=== PATIENT | female | born 1950 | race African-American/Black ===

== ENCOUNTER → 2018-04-16 09:41 | Outpatient (CLI) | payer MEDICARE, OTHER, SELFPAY ==
--- NOTE | 2018-04-16 | DI.MG.S_ITS ---
BILATERAL DIGITAL SCREENING MAMMOGRAM 3D/2D WITH CAD: 04/16/2018 CLINICAL: Routine screening. Comparison is made to exams dated: 11/21/2016 mammogram, 10/22/2015 mammogram - [facility], and 03/18/2013 mammogram - [facility]. There are scattered fibroglandular elements in both breasts. Current study was also evaluated with a Computer Aided Detection (CAD) system. No significant masses, calcifications, or other findings are seen in either breast. There has been no significant interval change. IMPRESSION: NEGATIVE There is no mammographic evidence of malignancy. A 1 year screening mammogram is recommended. This exam was interpreted at Station ID: [id number]. NOTE: For mammograms, a report in lay terms will be sent to the patient. Approximately 15% of breast malignancies will not be visualized mammographically. In the management of a palpable breast mass, a negative mammogram must not discourage biopsy of a clinically suspicious lesion. Electronically Signed By: Anitra nunez/julita:04/16/2018 11:56:52 letter sent: Normal Exam ACR BI-RADS Category 1: Negative 3341F
== END ==
PROVIDERS: Family Provider Internal Medicine; PCP Internal Medicine; Visit Provider Internal Medicine
DX: Z12.31 Encounter for screening mammogram for malignant neoplasm of breast (principal)
CPT/HCPCS: 77063; 77067

== ENCOUNTER → 2019-04-18 11:36 | Outpatient (CLI) | payer MEDICARE, OTHER, SELFPAY ==
--- NOTE | 2019-04-18 | DI.MG.S_ITS ---
BILATERAL DIGITAL SCREENING MAMMOGRAM 3D/2D WITH CAD: 04/18/2019 CLINICAL: Routine screening. Family history of breast cancer. Comparison is made to exams dated: 04/16/2018 mammogram, 11/21/2016 mammogram, 10/22/2015 mammogram - [facility], 03/18/2013 mammogram, 03/29/2012 mammogram, and 03/29/2010 mammogram - [facility]. There are scattered fibroglandular elements in both breasts. Current study was also evaluated with a Computer Aided Detection (CAD) system. No significant masses, calcifications, or other findings are seen in either breast. There has been no significant interval change. IMPRESSION: NEGATIVE There is no mammographic evidence of malignancy. A 1 year screening mammogram is recommended. This exam was interpreted at Station ID: [id number]. NOTE: For mammograms, a report in lay terms will be sent to the patient. Approximately 15% of breast malignancies will not be visualized mammographically. In the management of a palpable breast mass, a negative mammogram must not discourage biopsy of a clinically suspicious lesion. Electronically Signed By: Nicholas herrera/julita:04/21/2019 13:21:58 letter sent: Normal Exam ACR BI-RADS Category 1: Negative 3341F
== END ==
PROVIDERS: Family Provider Internal Medicine; PCP Internal Medicine; Visit Provider Internal Medicine
DX: Z12.31 Encounter for screening mammogram for malignant neoplasm of breast (principal); Z80.3 Family history of malignant neoplasm of breast
CPT/HCPCS: 77063; 77067

== ENCOUNTER → 2019-05-03 15:40 | Outpatient (CLI) | payer MEDICARE, OTHER, SELFPAY ==
--- NOTE | 2019-05-03 | DI.RAD.S_ITS ---
PROCEDURE: XR LUMBAR SPINE 2-3V INDICATIONS: Low Back Pain TECHNIQUE: 3 views of the lumbar spine were acquired. COMPARISON: None. FINDINGS: Bones: There are 5 lumbar-type vertebral bodies. The lowest intervertebral disk space is designated as L5-S1. The vertebral body heights are well-maintained without evidence to suggest an acute compression fracture. The bone mineralization appears to be somewhat increased and heterogeneous, which may be exaggerated by the degree of degenerative changes. On the lateral view there is grade 1 anterolisthesis of L4 on L5 approximately 2-3 mm. No definite pars defects are evident. Moderate to severe multilevel degenerative changes of the lumbar spine are primarily evident involving the lower lumbar facet joints. Prominent disc height loss with vacuum phenomenon is evident at L4-5 and L5-S1. Scattered disc osteophyte complexes are present. Soft tissues: A large amount of stool is seen throughout the colon. There are clips within right upper quadrant suggesting prior cholecystectomy. Otherwise, the soft tissues of the imaged abdomen and pelvis are within normal limits. IMPRESSION: 1. Moderate to severe degenerative changes of the lumbar spine are more prominent involving the lower lumbar levels. 2. Grade 1 spondylolisthesis of L4 on L5. Dictated by: Andrew Ann M.D. on 05/03/2019 at 15:58 Approved by: Andrew Ann M.D. on 05/03/2019 at 16:00
== END ==
PROVIDERS: PCP Internal Medicine; Visit Provider Internal Medicine
DX: M54.5 Low back pain (principal); M47.816 Spondylosis without myelopathy or radiculopathy, lumbar region; M43.16 Spondylolisthesis, lumbar region
CPT/HCPCS: 72100

== ENCOUNTER → 2019-08-12 15:25 | Outpatient (CLI) | payer MEDICARE, OTHER, SELFPAY ==
--- NOTE | 2019-08-12 15:33 | DI.RAD.S_ITS ---
PROCEDURE: XR LUMBAR SPINE 2-3V INDICATIONS: BACK PAIN TECHNIQUE: 3 views of the lumbar spine were acquired. COMPARISON: [facility], CR, XR LUMBAR SPINE 2-3V, 05/03/2019, 16:24. FINDINGS: Bones: 5 [id number] vertebrae are present. Trace dextroscoliosis. Multilevel disc degeneration, moderate at L4-L5 and severe at the L5-S1 levels. Moderate lower lumbar spine facet joint arthropathy. No rounded lucency seen on the lateral view projected over the anterior column of the L3 vertebral body No vertebral body compression fractures. No suspicious bony lesions. Soft tissues: Overlying bowel gas pattern is normal. No suspicious soft tissue calcifications. IMPRESSION: 1. Multilevel spondylosis similar prior examination. 2. Rounded lucencies projected over the anterior column of the L2 vertebral body which may be related to overlying bowel gas; however punched out lytic bony lesion cannot be excluded. Recommend Repeat examination in one week and if the abnormality persists, recommend MRI or bone scan further assessment. Dictated by: Bhavik Anthony [facility] Interpreted: Park Hammonds MD on 08/12/2019 at 17:02 Approved by: Park Hammonds M.D. on 08/12/2019 at 17:14
--- NOTE | 2019-08-12 15:33 | DI.RAD.S_ITS ---
PROCEDURE: XR HIP W PEL IF DONE BILAT 2V INDICATIONS: BACK PAIN TECHNIQUE: AP pelvis with lateral view(s) of the right and left hip(s). COMPARISON: None. FINDINGS: Bones: No fractures or dislocations. Pelvic ring appears intact. No suspicious bony lesions. Moderate symmetric hip joint narrowing with periarticular osteophyte formation. Soft tissues: The visualized bowel gas pattern is normal. No suspicious soft tissue calcifications. IMPRESSION: Moderate symmetric hip joint degeneration. Dictated by: Bhavik Anthony [facility] Interpreted: Park Hammonds MD on 08/12/2019 at 17:06 Approved by: Park Hammonds M.D. on 08/12/2019 at 17:14
== END ==
PROVIDERS: PCP Internal Medicine; Referring Provider Internal Medicine; Visit Provider Internal Medicine
DX: M54.5 Low back pain (principal); M47.816 Spondylosis without myelopathy or radiculopathy, lumbar region; M47.817 Spondylosis without myelopathy or radiculopathy, lumbosacral region; M16.0 Bilateral primary osteoarthritis of hip
CPT/HCPCS: 72100; 73521

== ENCOUNTER → 2019-08-25 14:53 | Outpatient (CLI) | payer MEDICARE, OTHER, SELFPAY ==
--- NOTE | 2019-08-25 | DI.RAD.S_ITS ---
PROCEDURE: XR LUMBAR SPINE 2-3V INDICATIONS: low back pain TECHNIQUE: 2 views of the lumbar spine were acquired. COMPARISON: [facility], , XR LUMBAR SPINE 2-3V, 08/12/2019, 15:39. FINDINGS: Bones: No fracture or focal osseous destruction. Multilevel degenerative endplate sclerosis and spurring. Diffuse facet arthropathy. Grade 1 anterolisthesis of L3 on L4 and grade 2 anterolisthesis of L5 on S1. Severe narrowing of the L4-L5 and L5-S1 disc space. Moderate narrowing of the L3-L4 disc space. Lower thoracic discogenic change. Dextroscoliosis. Soft tissues: Overlying bowel gas pattern is normal. No suspicious soft tissue calcifications. IMPRESSION: Multilevel spondylolisthesis as above, which has progressed L4-L5 since the prior study. Lower lumbar spondylosis and facet degeneration, unchanged Dictated by: William Evans M.D. on 08/25/2019 at 17:20 Approved by: William Evans M.D. on 08/25/2019 at 17:22
== END ==
PROVIDERS: PCP Internal Medicine; Referring Provider Internal Medicine; Visit Provider Internal Medicine
DX: M54.5 Low back pain (principal); M47.816 Spondylosis without myelopathy or radiculopathy, lumbar region; M43.17 Spondylolisthesis, lumbosacral region; M43.16 Spondylolisthesis, lumbar region
CPT/HCPCS: 72100

== ENCOUNTER → 2019-12-15 12:40 | Outpatient (CLI) | payer MEDICARE, OTHER, SELFPAY | PROVIDERS: PCP Internal Medicine; Referring Provider Internal Medicine; Visit Provider Internal Medicine | DX: M54.5 Low back pain (principal); Z53.20 Procedure and treatment not carried out because of patient's decision for unspecified reasons ==

== ENCOUNTER 2022-05-22 16:43 | Emergency (ER) | payer MEDICARE, OTHER, SELFPAY ==
[2022-05-24 10:00] VITALS: RESP 0
[2022-05-26 23:12] VITALS: BMI 43.3
[2022-05-27 12:50] VITALS: PULSE 72; RESP 20; O2SAT 97
== END 2022-05-22 23:55 | disposition admitted as inpatient to this hospital (09) ==
LOC: ED 07-27 15:51
PROVIDERS: Emergency Provider Emergency Medicine
DX: J96.01 Acute respiratory failure with hypoxia (principal); I26.99 Other pulmonary embolism without acute cor pulmonale; I50.9 Heart failure, unspecified; R77.8 Other specified abnormalities of plasma proteins; Z20.822 Contact with and (suspected) exposure to COVID-19
CPT/HCPCS: 0241U; 31500; 36415; 36569; 36600; 71045; 71275; 80048; 80053; 81001; 82550; 82805; 83605; 83690; 83735; 83880; 84100; 84145; 84484; 85025; 85027; 85379; 85610; 85730; 87040; 87070; 87086; 87205; 93005; 93010; 93306; 96365; 96366; 96375; 96376; 99291; J1644; J1940; Q9967

== ENCOUNTER 2022-05-22 16:43 | Inpatient (IN) | payer MEDICARE, OTHER, SELFPAY ==
[2022-05-22] VITALS (25 sets, daily range): BP systolic 127–171; BP diastolic 62–119; PULSE 97–107; RESP 18–39; TEMP 36.6; O2SAT 90–100; BMI 42.4
--- NOTE | 2022-05-22 17:01 | DI.RAD.S_ITS ---
PROCEDURE: XR CHEST 1V INDICATIONS: chest pain TECHNIQUE: One view of the chest was acquired. COMPARISON: None. FINDINGS: Surgical changes and devices: None. Lungs and pleura: Low lung volumes. [id number] bilateral opacities and effusions. Mediastinum: Heart borders are obscured. Bones and chest wall: No suspicious bony lesions. Overlying soft tissues appear unremarkable. IMPRESSION: [id number] bibasilar opacities and effusions. Consider future imaging surveillance to assess for resolution. Dictated by: Candelario Garcia M.D. on 05/22/2022 at 19:07 Approved by: Candelario Garcia M.D. on 05/22/2022 at 19:07
[2022-05-22 18:01] LABS: INR 1.2 (0.9-1.3); Prothrombin Time 13.6 SECONDS (10.1-12.7)
[2022-05-22 18:04] LABS: PTT Partial Thromboplastin Tim 27 SECONDS (26-36)
--- NOTE | 2022-05-22 18:06 | ED.SOB ---
HPI - SOB/Dyspnea <William Turcios, DO - Last Filed: 05/26/22 01:55> General Chief Complaint: Shortness of Breath/Dyspnea Stated Complaint: difficulty breathing Time Seen by Provider: 05/22/22 18:04 Source: patient Mode of arrival: Wheelchair Limitations: no limitations History of Present Illness HPI Narrative: 72-year-old female nonsmoker with history of hypertension and diabetes presents with her in the chief complaint of about 7 days of increasing shortness of breath and fatigue. She states that she is become short of breath with minimal exertion and can no longer lie flat. She noticed lower extremity swelling as well. She denies runny nose, sore throat or cough. She is had no fever or chills. She denies any chest pain pressure, lightheadedness or other obvious cardiac equivalent. She denies recent travel, history of blood clot or known cancer. She denies any change in her medications or diet. She denies any cardiac history or history of heart failure. Related Data Home Medications Medication Instructions Recorded Confirmed gabapentin 300 mg capsule 300 mg PO TID ##0 02/07/17 (Neurontin) hydrochlorothiazide 25 mg tablet 50 mg PO QDAY ##0 02/07/17 metformin 500 mg tablet,extended 500 mg PO TID ##0 02/07/17 release 24 hr (Glucophage XR) metoprolol tartrate 25 mg tablet 25 mg PO BID ##0 02/07/17 telmisartan 80 mg tablet (Micardis) 80 mg PO QDAY ##0 02/07/17 acetaminophen 325 mg tablet 650 mg PO TID 05/22/22 05/22/22 (Tylenol) gabapentin 100 mg capsule 100 mg PO TID PRN Pain (Scale 05/22/22 05/22/22 Score 4-6) gabapentin 300 mg capsule 300 mg PO TID PRN Pain (Scale 05/22/22 05/22/22 Score 4-6) gabapentin 600 mg tablet 600 mg PO TID 05/22/22 05/22/22 hydrochlorothiazide 12.5 mg tablet 12.5 mg PO QAM 05/22/22 05/22/22 hydrochlorothiazide 12.5 mg tablet 12.5 mg PO QAM 05/22/22 05/22/22 metformin 500 mg tablet 500 mg PO TID 05/22/22 05/22/22 metoprolol tartrate 25 mg tablet 25 mg PO BID 05/22/22 05/22/22 multivitamin with minerals 1 tab PO DAILY 05/22/22 05/22/22 rosuvastatin 5 mg tablet See Rx Instructions .Route .COMPLEX 05/22/22 05/22/22 telmisartan 40 mg tablet 40 mg PO QAM 05/22/22 05/22/22 Allergies Allergy/AdvReac Type Severity Reaction Status Date / Time adhesive tape [ADHESIVE TAPE] Allergy Intermediate RIPS KINOFF Verified 05/23/22 09:48 Review of Systems <William Turcios DO - Last Filed: 05/26/22 01:55> Review of Systems Narrative: GENERAL: See HPI HEENT: Denies sinus pain, ear pain, sore throat, difficulty swallowing, dizziness. RESPIRATORY: See HPI CARDIOVASCULAR: See HPI GASTROINTESTINAL: Denies nausea, vomiting, abdominal pain, diarrhea, constipation, melena. : Denies dysuria, frequency, incontinence, hematuria, urinary retention. MUSCULOSKELETAL: denies weakness, joint pain, or bony pain SKIN: Denies rash, skin lesions, or other NEUROLOGIC: Denies weakness, headache, numbness, change in speech, confusion, seizures, incoordination. PSYCHIATRIC: No concerning psychosocial issues. 12 point review of systems is negative except for those stated above Patient History <William Turcios DO - Last Filed: 05/26/22 01:55> Social History (System 05/23/22 @ 07:21 by Lady Rebecca Bartlett) household members: family Smoking Status: Unknown if ever smoked Smoking Status: Never smoker Substance Use Type: does not use Exam <William Turcios DO - Last Filed: 05/26/22 01:55> Narrative Exam Narrative: GENERAL: [72] year old patient appears stated age. Well-developed patient, in obvious distress, requiring 2 L by nasal cannula, room air saturations in the mid 80s. She does have conversational dyspnea HEAD: Atraumatic. Normocephalic. EYES: Pupils equal round and reactive. Extraocular motions intact. No scleral icterus. No injection or drainage. ENT: Nose without bleeding, purulent drainage. Throat without erythema, tonsillar hypertrophy or exudate. Airway patent. NECK: Trachea midline. Non tender CARDIOVASCULAR: Regular rate and rhythm without murmurs, gallops, or rubs. RESPIRATORY: Conversational dyspnea, minimal tachypnea, hypoxemia noted on room air, crackles in bilateral bases GASTROINTESTINAL: Abdomen soft, non-tender, nondistended. EXTREMITIES: 3+ pitting edema bilateral lower extremities BACK: Nontender without deformity or crepitance. No flank tenderness. NEURO: AOx3. SKIN: No rash or erythema of visible areas Initial Vital Signs Initial Vital Signs: Vital Signs Temperature 97.9 F 05/22/22 16:56 Pulse Rate 99 H 05/22/22 16:56 Respiratory Rate 18 05/22/22 16:56 Blood Pressure 153/79 H 05/22/22 16:56 Pulse Oximetry 90 L 05/22/22 16:56 Oxygen Delivery Method 05/22/22 16:56 <Jared Gaston DO - Last Filed: 05/26/22 17:30> Initial Vital Signs Initial Vital Signs: Vital Signs Temperature 97.9 F 05/22/22 16:56 Pulse Rate 99 H 05/22/22 16:56 Respiratory Rate 18 05/22/22 16:56 Blood Pressure 153/79 H 05/22/22 16:56 Pulse Oximetry 90 L 05/22/22 16:56 Oxygen Delivery Method 05/22/22 16:56 <Mirna Mason MD - Last Filed: 06/09/22 18:06> Initial Vital Signs Initial Vital Signs: Vital Signs Temperature 97.9 F 05/22/22 16:56 Pulse Rate 99 H 05/22/22 16:56 Respiratory Rate 18 05/22/22 16:56 Blood Pressure 153/79 H 05/22/22 16:56 Pulse Oximetry 90 L 05/22/22 16:56 Oxygen Delivery Method 05/22/22 16:56 <Gentry Peace MD - Last Filed: 05/30/22 05:24> Initial Vital Signs Initial Vital Signs: Vital Signs Temperature 97.9 F 05/22/22 16:56 Pulse Rate 99 H 05/22/22 16:56 Respiratory Rate 18 05/22/22 16:56 Blood Pressure 153/79 H 05/22/22 16:56 Pulse Oximetry 90 L 05/22/22 16:56 Oxygen Delivery Method 05/22/22 16:56 <Mirna Mason MD - Last Filed: 06/09/22 18:06> Central Line Placement Right : Time of procedure: 06:18 Time Out Performed: Yes Patient Placed on Monitor/Pulse Ox: Yes MD Prep: mask, gown and gloves Central Line Prep: Chlorhexidine scrub and sterile drapes applied Ultrasound Used for Placement: Yes Central Line Lumen Inserted: triple Post Procedure: sutured in place, good blood return, all ports aspirated, flushed, capped and sterile dressing applied Post Procedure X-Ray: no pneumothorax seen and other (catheter tip slightly low and catheter pulled out 2 cm) Intubation Time of Intubation: 06:19 Time out performed: Yes sedative: other (propofol) Mg Given: 200 paralytic: Succinylcholine Mg Given: 100 Assist Device Used: fiber optic device ET Tube Size: 7.5 Tube Secured Depth (cm): 23 Tube Secured Location: teeth Tube Placement Confirmation: Visualized tube passing through cords, Equal breath sounds bilaterally, No breath sounds over epigastrium, Confirmation by capnometry and Chest Xray Patient Tolerated Procedure: Well Intubation Complications: none Course <William Turcios DO - Last Filed: 05/26/22 01:55> Orders Ordered: Discontinued Medications Acetaminophen (Acetaminophen 325 Mg Tablet) 650 mg PO Q6H PRN PRN Reason: Fever/Mild Pain (1-3) Last Admin: 05/23/22 10:01 Dose: 650 mg Documented By: MARLYS Acetaminophen (Acetaminophen 650 Mg Supp) 650 mg LA Q6HR PRN PRN Reason: Fever/Mild Pain (1-3) Last Admin: 05/26/22 21:40 Dose: 650 mg Documented By: Admin: 05/26/22 11:26 Dose: 650 mg Documented By: Admin: 05/26/22 02:35 Dose: 650 mg Documented By: Admin: 05/25/22 15:37 Dose: 650 mg Documented By: Admin: 05/25/22 07:49 Dose: 650 mg Documented By: Admin: 05/24/22 18:53 Dose: 650 mg Documented By: ELIA Aspirin (Aspirin 81 Mg Chew Tab) 324 mg PO NOW ONE Stop: 05/22/22 17:02 Last Admin: 05/22/22 18:30 Dose: 324 mg Documented By: ELIA Bumetanide (Bumetanide 1 Mg/4 Ml Vial) 2 mg IV NOW ONE Stop: 05/25/22 05:53 Last Admin: 05/25/22 06:16 Dose: 2 mg Documented By: MOISÉS Chlorhexidine Gluconate (Chlorhexidine Gluconate 15 Ml Cup) 15 ml PO Q6HR [facility] Last Admin: 05/27/22 12:32 Dose: 15 ml Documented By: Admin: 05/27/22 05:11 Dose: 15 ml Documented By: Admin: 05/27/22 00:07 Dose: 15 ml Documented By: Admin: 05/26/22 19:15 Dose: 15 ml Documented By: Admin: 05/26/22 12:10 Dose: 15 ml Documented By: Admin: 05/26/22 05:59 Dose: 15 ml Documented By: Admin: 05/26/22 00:40 Dose: 15 ml Documented By: Admin: 05/25/22 18:19 Dose: 15 ml Documented By: Admin: 05/25/22 14:50 Dose: 15 ml Documented By: ELIA Dextrose (Dextrose 50 % In Water 25 Gm/50 Ml Syringe) 25 gm IV PRN PRN PRN Reason: Hypoglycemia Diphenhydramine HCl (Diphenhydramine 50 Mg/Ml Vial) 25 mg IV NOW ONE Stop: 05/26/22 14:05 Last Admin: 05/26/22 14:08 Dose: 25 mg Documented By: JIMMY Famotidine (Famotidine 20 Mg Tablet) 20 mg PO BID [facility] Famotidine (Famotidine 20 Mg/2 Ml Vial) 20 mg IV BID [facility] Last Admin: 05/27/22 08:32 Dose: 20 mg Documented By: Admin: 05/26/22 21:30 Dose: 20 mg Documented By: Admin: 05/26/22 09:04 Dose: 20 mg Documented By: Admin: 05/25/22 21:31 Dose: 20 mg Documented By: Admin: 05/25/22 08:44 Dose: 20 mg Documented By: ELIA Fentanyl (Fentanyl 100 Mcg/2 Ml Inj) 100 mcg IV NOW ONE Stop: 05/24/22 06:37 Last Admin: 05/24/22 08:53 Dose: 100 mcg Documented By: ELIA Fentanyl (Fentanyl 100 Mcg/2 Ml Inj) 50 mcg IV Q1H PRN PRN Reason: Pain, Severe (7-10) Last Admin: 05/26/22 11:21 Dose: 50 mcg Documented By: ELIA Furosemide (Furosemide 40 Mg/4 Ml Vial) 40 mg IV NOW ONE Stop: 05/22/22 18:15 Last Admin: 05/22/22 18:30 Dose: 40 mg Documented By: ELIA Furosemide (Furosemide 40 Mg/4 Ml Vial) 40 mg IV Q12H [facility] Last Admin: 05/25/22 17:03 Dose: 40 mg Documented By: ELIA Furosemide (Furosemide 40 Mg/4 Ml Vial) 40 mg IV Q8HR DANA Last Admin: 05/27/22 05:13 Dose: 40 mg Documented By: Admin: 05/26/22 21:30 Dose: 40 mg Documented By: Admin: 05/26/22 14:08 Dose: 40 mg Documented By: Admin: 05/26/22 05:52 Dose: 40 mg Documented By: Admin: 05/25/22 21:31 Dose: 40 mg Documented By: MOISÉS Gabapentin (Gabapentin 600 Mg Tablet) 600 mg PO TID [facility] Last Admin: 05/24/22 22:21 Dose: Not Given Documented By: Admin: 05/24/22 15:42 Dose: Not Given Documented By: Admin: 05/24/22 10:30 Dose: Not Given Documented By: Admin: 05/23/22 21:25 Dose: 600 mg Documented By: Admin: 05/23/22 16:00 Dose: 600 mg Documented By: Admin: 05/23/22 09:37 Dose: 600 mg Documented By: Admin: 05/22/22 21:28 Dose: 600 mg Documented By: JETHRO Heparin Sodium (Porcine) (Heparin 5,000 Unit/Ml Vial) 7,500 unit IV NOW ONE Stop: 05/22/22 20:30 Last Admin: 05/22/22 20:47 Dose: 7,500 unit Documented By: JIMMY Hydrocortisone (Hydrocortisone 100 Mg/2 Ml Vial) 50 mg IV Q6HR [facility] Last Admin: 05/27/22 12:32 Dose: Not Given Documented By: Admin: 05/27/22 05:13 Dose: 50 mg Documented By: Admin: 05/27/22 01:54 Dose: 50 mg Documented By: EFRAIN Heparin Sodium/Dextrose (Heparin Drip) 25,000 unit in 500 mls @ 24 mls/hr IV CONT DANA; Protocol Last Admin: 05/27/22 04:15 Dose: 1,300 units/hr, 26 mls/hr Documented By: Titration: 05/26/22 21:35 Dose: 0 units/hr, 0 mls/hr Documented By: Admin: 05/26/22 02:21 Dose: 1,300 units/hr, 26 mls/hr Documented By: Titration: 05/26/22 02:20 Dose: 0 units/hr, 0 mls/hr Documented By: Admin: 05/25/22 06:45 Dose: 1,300 units/hr, 26 mls/hr Documented By: Titration: 05/25/22 06:44 Dose: 0 units/hr, 0 mls/hr Documented By: Admin: 05/24/22 11:38 Dose: 1,300 units/hr, 26 mls/hr Documented By: Titration: 05/24/22 11:26 Dose: 1,300 units/hr, 26 mls/hr Documented By: Admin: 05/23/22 16:12 Dose: 1,300 units/hr, 26 mls/hr Documented By: Titration: 05/23/22 16:12 Dose: 1,300 units/hr, 26 mls/hr Documented By: Titration: 05/23/22 09:30 Dose: 1,300 units/hr, 26 mls/hr Documented By: Admin: 05/22/22 20:49 Dose: 1,200 units/hr, 24 mls/hr Documented By: KLZehra Propofol (Propofol) 1,000 mg in 100 mls @ 3.157 mls/hr IV TITRATE DANA; Protocol Last Admin: 05/27/22 13:06 Dose: 30 mcg/kg/min, 18.942 mls/hr Documented By: Titration: 05/27/22 11:09 Dose: 30 mcg/kg/min, 18.942 mls/hr Documented By: Admin: 05/27/22 05:52 Dose: 30 mcg/kg/min, 18.942 mls/hr Documented By: Titration: 05/27/22 05:18 Dose: 30 mcg/kg/min, 18.942 mls/hr Documented By: Titration: 05/26/22 18:24 Dose: 20 mcg/kg/min, 12.628 mls/hr Documented By: Admin: 05/26/22 12:24 Dose: 22.01 mcg/kg/min, 13.9 mls/hr Documented By: Titration: 05/26/22 11:39 Dose: 22.01 mcg/kg/min, 13.9 mls/hr Documented By: Admin: 05/26/22 04:27 Dose: 22.01 mcg/kg/min, 13.9 mls/hr Documented By: Titration: 05/26/22 04:25 Dose: 0 mcg/kg/min, 0 mls/hr Documented By: Admin: 05/25/22 21:18 Dose: 22.01 mcg/kg/min, 13.9 mls/hr Documented By: Titration: 05/25/22 21:14 Dose: 0 mcg/kg/min, 0 mls/hr Documented By: Titration: 05/25/22 17:12 Dose: 22 mcg/kg/min, 13.891 mls/hr Documented By: Titration: 05/25/22 14:47 Dose: 26 mcg/kg/min, 16.416 mls/hr Documented By: Admin: 05/25/22 14:30 Dose: 28 mcg/kg/min, 17.679 mls/hr Documented By: Titration: 05/25/22 13:54 Dose: 28 mcg/kg/min, 17.679 mls/hr Documented By: Titration: 05/25/22 10:08 Dose: 28 mcg/kg/min, 17.679 mls/hr Documented By: Titration: 05/25/22 09:39 Dose: 25 mcg/kg/min, 15.785 mls/hr Documented By: Admin: 05/25/22 08:11 Dose: 27.87 mcg/kg/min, 17.6 mls/hr Documented By: Titration: 05/25/22 08:11 Dose: 27.87 mcg/kg/min, 17.6 mls/hr Documented By: Titration: 05/25/22 08:02 Dose: 27.87 mcg/kg/min, 17.6 mls/hr Documented By: Admin: 05/25/22 01:52 Dose: 25 mcg/kg/min, 15.785 mls/hr Documented By: Titration: 05/25/22 01:50 Dose: 25 mcg/kg/min, 15.785 mls/hr Documented By: Admin: 05/24/22 19:23 Dose: 25 mcg/kg/min, 15.785 mls/hr Documented By: Titration: 05/24/22 19:23 Dose: 25 mcg/kg/min, 15.785 mls/hr Documented By: Admin: 05/24/22 13:30 Dose: 25 mcg/kg/min, 15.785 mls/hr Documented By: Titration: 05/24/22 13:30 Dose: 25 mcg/kg/min, 15.785 mls/hr Documented By: Titration: 05/24/22 08:10 Dose: 25 mcg/kg/min, 15.785 mls/hr Documented By: Titration: 05/24/22 07:53 Dose: 20 mcg/kg/min, 12.628 mls/hr Documented By: Titration: 05/24/22 07:39 Dose: 15 mcg/kg/min, 9.471 mls/hr Documented By: Titration: 05/24/22 06:20 Dose: 10 mcg/kg/min, 6.314 mls/hr Documented By: Admin: 05/24/22 05:53 Dose: 5 mcg/kg/min, 3.157 mls/hr Documented By: GC NOREPINEPHRINE BITARTRATE/D5W (Levophed) 4 mg in 250 mls @ 30 mls/hr IV TITRATE DANA; Protocol Last Titration: 05/25/22 09:38 Dose: 0 mcg/min, 0 mls/hr Documented By: Titration: 05/25/22 08:33 Dose: 1 mcg/min, 3.75 mls/hr Documented By: Titration: 05/25/22 05:50 Dose: 3 mcg/min, 11.25 mls/hr Documented By: Admin: 05/24/22 16:45 Dose: 4 mcg/min, 15 mls/hr Documented By: Titration: 05/24/22 16:45 Dose: 4 mcg/min, 15 mls/hr Documented By: Titration: 05/24/22 12:38 Dose: 4 mcg/min, 15 mls/hr Documented By: Titration: 05/24/22 11:24 Dose: 0 mcg/min, 0 mls/hr Documented By: Titration: 05/24/22 11:00 Dose: 3 mcg/min, 11.25 mls/hr Documented By: Titration: 05/24/22 09:56 Dose: 4 mcg/min, 15 mls/hr Documented By: Titration: 05/24/22 09:32 Dose: 8 mcg/min, 30 mls/hr Documented By: Titration: 05/24/22 09:00 Dose: 10 mcg/min, 37.5 mls/hr Documented By: Titration: 05/24/22 08:00 Dose: 12 mcg/min, 45 mls/hr Documented By: Admin: 05/24/22 06:30 Dose: 8 mcg/min, 30 mls/hr Documented By: GC Epinephrine HCl 4 mg/ Dextrose 250 mls @ 3.75 mls/hr IV TITRATE DANA; Protocol Last Titration: 05/27/22 11:58 Dose: 5 mcg/min, 18.75 mls/hr Documented By: Titration: 05/27/22 09:19 Dose: 6 mcg/min, 22.5 mls/hr Documented By: Titration: 05/27/22 08:50 Dose: 7 mcg/min, 26.25 mls/hr Documented By: Admin: 05/27/22 06:29 Dose: 8 mcg/min, 30 mls/hr Documented By: Titration: 05/27/22 06:29 Dose: 8 mcg/min, 30 mls/hr Documented By: Titration: 05/27/22 05:53 Dose: 8 mcg/min, 30 mls/hr Documented By: Titration: 05/27/22 05:17 Dose: 9.01 mcg/min, 33.8 mls/hr Documented By: Titration: 05/27/22 04:13 Dose: 10 mcg/min, 37.5 mls/hr Documented By: Admin: 05/27/22 00:47 Dose: 12 mcg/min, 45 mls/hr Documented By: Titration: 05/27/22 00:47 Dose: 0 mcg/min, 0 mls/hr Documented By: Admin: 05/26/22 19:20 Dose: 12 mcg/min, 45 mls/hr Documented By: Titration: 05/26/22 19:20 Dose: 12 mcg/min, 45 mls/hr Documented By: Titration: 05/26/22 19:04 Dose: 12 mcg/min, 45 mls/hr Documented By: Titration: 05/26/22 18:18 Dose: 10 mcg/min, 37.5 mls/hr Documented By: Admin: 05/26/22 11:28 Dose: 8 mcg/min, 30 mls/hr Documented By: Titration: 05/26/22 11:26 Dose: 8 mcg/min, 30 mls/hr Documented By: Admin: 05/26/22 03:06 Dose: 8 mcg/min, 30 mls/hr Documented By: Titration: 05/26/22 03:05 Dose: 0 mcg/min, 0 mls/hr Documented By: Admin: 05/25/22 18:21 Dose: 8 mcg/min, 30 mls/hr Documented By: Titration: 05/25/22 18:21 Dose: 8 mcg/min, 30 mls/hr Documented By: Titration: 05/25/22 18:07 Dose: 8 mcg/min, 30 mls/hr Documented By: Titration: 05/25/22 16:22 Dose: 6 mcg/min, 22.5 mls/hr Documented By: Titration: 05/25/22 11:00 Dose: 6.93 mcg/min, 26 mls/hr Documented By: Admin: 05/25/22 10:03 Dose: 8 mcg/min, 30 mls/hr Documented By: Titration: 05/25/22 10:03 Dose: 8 mcg/min, 30 mls/hr Documented By: Titration: 05/25/22 01:55 Dose: 8 mcg/min, 30 mls/hr Documented By: Admin: 05/25/22 01:53 Dose: 10 mcg/min, 37.5 mls/hr Documented By: Titration: 05/25/22 01:39 Dose: 10 mcg/min, 37.5 mls/hr Documented By: Titration: 05/24/22 23:52 Dose: 10 mcg/min, 37.5 mls/hr Documented By: Admin: 05/24/22 20:22 Dose: 14 mcg/min, 52.5 mls/hr Documented By: Titration: 05/24/22 20:22 Dose: 14 mcg/min, 52.5 mls/hr Documented By: Titration: 05/24/22 20:19 Dose: 14 mcg/min, 52.5 mls/hr Documented By: Admin: 05/24/22 16:30 Dose: 14 mcg/min, 52.5 mls/hr Documented By: Titration: 05/24/22 16:27 Dose: 14 mcg/min, 52.5 mls/hr Documented By: Titration: 05/24/22 13:18 Dose: 14 mcg/min, 52.5 mls/hr Documented By: Titration: 05/24/22 12:42 Dose: 16 mcg/min, 60 mls/hr Documented By: Titration: 05/24/22 12:40 Dose: 12 mcg/min, 45 mls/hr Documented By: Titration: 05/24/22 11:42 Dose: 8 mcg/min, 30 mls/hr Documented By: Titration: 05/24/22 11:33 Dose: 6 mcg/min, 22.5 mls/hr Documented By: Titration: 05/24/22 10:37 Dose: 4 mcg/min, 15 mls/hr Documented By: Admin: 05/24/22 10:23 Dose: 1 mcg/min, 3.75 mls/hr Documented By: RLS Sodium Chloride (Normal Saline 0.9%) 1,000 mls @ 250 mls/hr IV BOLUS ONE Stop: 05/24/22 18:39 Last Infusion: 05/24/22 15:55 Dose: 0 mls/hr Documented By: Admin: 05/24/22 14:54 Dose: 250 mls/hr Documented By: RLS Piperacillin Sod/Tazobactam (Sod 4.5 gm/ Sodium Chloride) 100 mls @ 200 mls/hr IV NOW ONE Stop: 05/24/22 15:00 Last Infusion: 05/24/22 16:15 Dose: 0 mls/hr Documented By: Admin: 05/24/22 15:42 Dose: 200 mls/hr Documented By: RLS Sodium Chloride (Normal Saline 0.9%) 1,000 mls @ 50 mls/hr IV CONT ONE Stop: 05/25/22 11:47 Last Infusion: 05/25/22 07:05 Dose: 0 mls/hr Documented By: Infusion: 05/25/22 00:29 Dose: 0 mls/hr Documented By: Admin: 05/24/22 16:40 Dose: 50 mls/hr Documented By: ELIA Magnesium Sulfate (Magnesium Sulfate) 2 gm in 50 mls @ 25 mls/hr IV NOW ONE Stop: 05/24/22 22:14 Last Infusion: 05/25/22 00:11 Dose: 0 mls/hr Documented By: GC Co-signed By: JETHRO Admin: 05/24/22 22:24 Dose: 25 mls/hr Documented By: GC Co-signed By: VALENTINE Calcium Gluconate 4.65 meq/ (Sodium Chloride) 60 mls @ 180 mls/hr IV NOW ONE Stop: 05/24/22 20:36 Last Infusion: 05/24/22 22:33 Dose: 180 mls/hr Documented By: Admin: 05/24/22 22:13 Dose: 180 mls/hr Documented By: MOISÉS Fentanyl 1,000 mcg/ Dextrose 250 mls @ 18.416 mls/hr IV TITRATE DANA; Protocol Last Titration: 05/27/22 01:55 Dose: 0.5 mcg/kg/hr, 13.154 mls/hr Documented By: Admin: 05/27/22 00:06 Dose: 0.76 mcg/kg/hr, 20 mls/hr Documented By: Titration: 05/27/22 00:06 Dose: 0.76 mcg/kg/hr, 20 mls/hr Documented By: Titration: 05/26/22 18:29 Dose: 0.76 mcg/kg/hr, 20 mls/hr Documented By: Admin: 05/26/22 12:23 Dose: 0.84 mcg/kg/hr, 22.099 mls/hr Documented By: Titration: 05/26/22 11:39 Dose: 0.84 mcg/kg/hr, 22.099 mls/hr Documented By: Titration: 05/26/22 10:30 Dose: 0.84 mcg/kg/hr, 22.099 mls/hr Documented By: Titration: 05/25/22 23:17 Dose: 0.76 mcg/kg/hr, 20 mls/hr Documented By: Admin: 05/25/22 23:16 Dose: 0.76 mcg/kg/hr, 20 mls/hr Documented By: Titration: 05/25/22 23:16 Dose: 0.76 mcg/kg/hr, 20 mls/hr Documented By: Admin: 05/25/22 23:14 Dose: 0.76 mcg/kg/hr, 20 mls/hr Documented By: Titration: 05/25/22 23:14 Dose: 0.76 mcg/kg/hr, 20 mls/hr Documented By: Titration: 05/25/22 14:44 Dose: 0.76 mcg/kg/hr, 20 mls/hr Documented By: Admin: 05/25/22 10:38 Dose: 0.7 mcg/kg/hr, 18.416 mls/hr Documented By: ELIA Piperacillin Sod/Tazobactam (Sod 3.375 gm/ Sodium Chloride) 100 mls @ 25 mls/hr IV Q8H DANA Last Infusion: 05/27/22 13:08 Dose: 0 mls/hr Documented By: Admin: 05/27/22 09:08 Dose: 25 mls/hr Documented By: Infusion: 05/27/22 05:05 Dose: 0 mls/hr Documented By: Admin: 05/27/22 01:01 Dose: 25 mls/hr Documented By: Infusion: 05/26/22 20:35 Dose: 0 mls/hr Documented By: Admin: 05/26/22 17:02 Dose: 25 mls/hr Documented By: Infusion: 05/26/22 13:15 Dose: 0 mls/hr Documented By: Admin: 05/26/22 09:09 Dose: 25 mls/hr Documented By: Infusion: 05/26/22 04:29 Dose: 0 mls/hr Documented By: Admin: 05/26/22 00:38 Dose: 25 mls/hr Documented By: Infusion: 05/25/22 21:07 Dose: 25 mls/hr Documented By: Admin: 05/25/22 17:07 Dose: 25 mls/hr Documented By: ELIA POTASSIUM CHLORIDE IN WATER (Potassium Cl 10 Meq/100 Ml Aye) 10 meq in 100 mls @ 100 mls/hr IV Q1H DANA Stop: 05/26/22 09:29 Last Infusion: 05/26/22 10:37 Dose: 0 mls/hr Documented By: Admin: 05/26/22 08:59 Dose: 100 mls/hr Documented By: Infusion: 05/26/22 08:59 Dose: 0 mls/hr Documented By: Admin: 05/26/22 07:42 Dose: 100 mls/hr Documented By: ELIA Magnesium Sulfate (Magnesium Sulfate) 2 gm in 50 mls @ 25 mls/hr IV NOW ONE Stop: 05/26/22 09:31 Last Infusion: 05/26/22 09:55 Dose: 0 mls/hr Documented By: ELIA Co-signed By: VONDA Admin: 05/26/22 07:52 Dose: 25 mls/hr Documented By: ELIA Co-signed By: JIMMY Linezolid (Zyvox) 600 mg in 300 mls @ 600 mls/hr IV Q12H DANA Last Infusion: 05/27/22 10:31 Dose: 0 mls/hr Documented By: Admin: 05/27/22 10:01 Dose: 600 mls/hr Documented By: Infusion: 05/27/22 09:19 Dose: 0 mls/hr Documented By: Admin: 05/26/22 22:54 Dose: 600 mls/hr Documented By: VALENTINE Vasopressin 40 unit/ Sodium (Chloride) 100 mls @ 6 mls/hr IV TITRATE DANA Last Infusion: 05/27/22 10:02 Dose: 0.03 unit/min, 4.5 mls/hr Documented By: Admin: 05/27/22 02:05 Dose: 0.04 unit/min, 6 mls/hr Documented By: EFRAIN Magnesium Sulfate (Magnesium Sulfate) 2 gm in 50 mls @ 25 mls/hr IV NOW ONE Stop: 05/27/22 04:02 Last Infusion: 05/27/22 04:06 Dose: 0 mls/hr Documented By: EFRAIN Co-signed By: CHARLIE Admin: 05/27/22 02:30 Dose: 25 mls/hr Documented By: EFRAIN Co-signed By: CHARLIE Lactated Ringer's (Lactated Ringers) 1,000 mls @ 100 mls/hr IV CONT DANA Last Admin: 05/27/22 11:35 Dose: 100 mls/hr Documented By: Albumin Human (Albuminar) 12.5 gm in 50 mls @ 60 mls/hr IV Q8H [facility] Stop: 05/29/22 11:59 Last Admin: 05/27/22 12:25 Dose: 60 mls/hr Documented By: Heparin Sodium/Dextrose (Heparin Drip) 25,000 unit in 500 mls @ 24 mls/hr IV CONT [facility]; Protocol Insulin Human Lispro (Insulin Lispro 100 Unit/Ml 3ml Vial) 0 unit SUBCUT ACHS DANA; Protocol Last Admin: 05/27/22 12:11 Dose: 3 unit Documented By: Co-signed By: ELIA(2) Admin: 05/27/22 08:31 Dose: 2 unit Documented By: Co-signed By: ELIA(2) Admin: 05/26/22 22:41 Dose: Not Given Documented By: Admin: 05/26/22 17:37 Dose: Not Given Documented By: Admin: 05/26/22 12:23 Dose: Not Given Documented By: Admin: 05/26/22 09:03 Dose: Not Given Documented By: Admin: 05/25/22 23:13 Dose: Not Given Documented By: Admin: 05/25/22 18:13 Dose: 1 unit Documented By: ELIA Co-signed By: LUCY Admin: 05/25/22 12:41 Dose: 1 unit Documented By: ELIA Co-signed By: AT Admin: 05/25/22 08:47 Dose: 1 unit Documented By: ELIA Co-signed By: LUCY Metolazone (Metolazone 2.5 Mg Tablet) 2.5 mg PO NOW ONE Stop: 05/25/22 05:53 Last Admin: 05/25/22 06:21 Dose: 2.5 mg Documented By: MOISÉS Midazolam HCl (Midazolam 2 Mg/2 Ml Vial) 2 mg IV Q1HR PRN PRN Reason: Agitation Stop: 05/29/22 10:14 Morphine Sulfate (Morphine 4 Mg/Ml Inj) 4 mg IV NOW ONE Stop: 05/25/22 08:07 Last Admin: 05/25/22 08:09 Dose: 4 mg Documented By: ELIA Morphine Sulfate (Morphine 4 Mg/Ml Inj) 4 mg IV NOW ONE Stop: 05/25/22 10:21 Last Admin: 05/25/22 10:24 Dose: 4 mg Documented By: ELIA Naloxone HCl (Naloxone 0.4 Mg/Ml Vial) 0.2 mg IV Q2MIN PRN PRN Reason: Opiate Reversal Propofol (Propofol 200 Mg/20 Ml Vial) 200 mg IV NOW ONE Stop: 05/24/22 05:37 Last Admin: 05/24/22 05:36 Dose: 200 mg Documented By: GC Succinylcholine Chloride (Succinylcholine 200 Mg/10 Ml Vial) 200 mg IV NOW ONE Stop: 05/24/22 05:37 Last Admin: 05/24/22 07:18 Dose: 200 mg Documented By: GC Vasopressin (Vasopressin 20 Unit/Ml Vial) 20 unit IV NOW ONE Stop: 05/27/22 01:42 Last Admin: 05/27/22 02:05 Dose: 20 unit Documented By: DL Vital Signs Vital signs: Vital Signs - 8 hr 05/25/22 10:15 05/25/22 10:15 05/25/22 10:30 Temperature Pulse Rate 100 H Respiratory Rate 33 H Blood Pressure 112/58 L 113/57 L Pulse Oximetry 82 L 05/25/22 10:30 05/25/22 10:45 05/25/22 10:45 Temperature Pulse Rate 98 H 97 H Respiratory Rate 28 H 28 H Blood Pressure 107/59 L Pulse Oximetry 100 100 05/25/22 11:00 05/25/22 11:00 05/25/22 11:15 Temperature Pulse Rate 96 H Respiratory Rate 28 H Blood Pressure 107/59 L 111/56 L Pulse Oximetry 97 05/25/22 11:15 05/25/22 11:00 05/25/22 11:30 Temperature 100.5 F H Pulse Rate 93 H Respiratory Rate 28 H Blood Pressure 110/55 L Pulse Oximetry 95 05/25/22 11:30 05/25/22 11:45 05/25/22 11:45 Temperature Pulse Rate 91 H 91 H Respiratory Rate 28 H 28 H Blood Pressure 111/56 L Pulse Oximetry 96 97 05/25/22 12:00 05/25/22 12:00 05/25/22 12:15 Temperature Pulse Rate 90 Respiratory Rate 28 H Blood Pressure 114/57 L 117/58 L Pulse Oximetry 97 05/25/22 12:15 05/25/22 12:30 05/25/22 12:30 Temperature 100.0 F H Pulse Rate 91 H 90 Respiratory Rate 28 H 28 H Blood Pressure 119/60 Pulse Oximetry 99 98 05/25/22 14:15 05/25/22 14:59 05/25/22 15:37 Temperature 100.2 F H 100.4 F H 100.0 F H Pulse Rate Respiratory Rate Blood Pressure Pulse Oximetry 05/25/22 12:45 05/25/22 12:45 05/25/22 13:00 Temperature Pulse Rate 90 Respiratory Rate 28 H Blood Pressure 122/63 124/63 Pulse Oximetry 98 05/25/22 13:00 05/25/22 13:15 05/25/22 13:15 Temperature Pulse Rate 90 89 Respiratory Rate 28 H 28 H Blood Pressure 124/64 Pulse Oximetry 97 98 05/25/22 13:30 05/25/22 13:30 05/25/22 13:45 Temperature Pulse Rate 89 Respiratory Rate 28 H Blood Pressure 124/65 125/65 Pulse Oximetry 97 05/25/22 13:45 05/25/22 14:00 05/25/22 14:00 Temperature Pulse Rate 89 89 Respiratory Rate 28 H 28 H Blood Pressure 126/65 Pulse Oximetry 98 98 05/25/22 14:15 05/25/22 14:15 05/25/22 14:30 Temperature Pulse Rate 89 Respiratory Rate 28 H Blood Pressure 128/66 132/70 Pulse Oximetry 98 05/25/22 14:30 05/25/22 14:45 05/25/22 14:45 Temperature Pulse Rate 91 H 96 H Respiratory Rate 28 H 28 H Blood Pressure 118/65 Pulse Oximetry 95 94 05/25/22 15:00 05/25/22 15:00 05/25/22 15:15 Temperature Pulse Rate 99 H Respiratory Rate 28 H Blood Pressure 120/66 118/61 Pulse Oximetry 96 05/25/22 15:15 05/25/22 15:30 05/25/22 15:30 Temperature Pulse Rate 95 H 93 H Respiratory Rate 28 H 28 H Blood Pressure 117/60 Pulse Oximetry 96 97 05/25/22 15:45 05/25/22 15:46 05/25/22 15:46 Temperature Pulse Rate 106 H 114 H Respiratory Rate Blood Pressure 172/87 H Pulse Oximetry 92 99 05/25/22 16:00 05/25/22 16:00 05/25/22 16:15 Temperature Pulse Rate 97 H 102 H Respiratory Rate 28 H 28 H Blood Pressure 137/60 Pulse Oximetry 100 90 L 05/25/22 16:16 05/25/22 16:16 05/25/22 16:30 Temperature 100.4 F H Pulse Rate 102 H Respiratory Rate 28 H Blood Pressure 112/52 L 108/53 L Pulse Oximetry 90 L 05/25/22 16:30 Temperature 100.4 F H Pulse Rate 98 H Respiratory Rate 28 H Blood Pressure Pulse Oximetry 92 <Jared Gaston, DO - Last Filed: 05/26/22 17:30> Orders Ordered: Discontinued Medications Acetaminophen (Acetaminophen 325 Mg Tablet) 650 mg PO Q6H PRN PRN Reason: Fever/Mild Pain (1-3) Last Admin: 05/23/22 10:01 Dose: 650 mg Documented By: MARLYS Acetaminophen (Acetaminophen 650 Mg Supp) 650 mg LA Q6HR PRN PRN Reason: Fever/Mild Pain (1-3) Last Admin: 05/26/22 21:40 Dose: 650 mg Documented By: Admin: 05/26/22 11:26 Dose: 650 mg Documented By: Admin: 05/26/22 02:35 Dose: 650 mg Documented By: Admin: 05/25/22 15:37 Dose: 650 mg Documented By: Admin: 05/25/22 07:49 Dose: 650 mg Documented By: Admin: 05/24/22 18:53 Dose: 650 mg Documented By: ELIA Aspirin (Aspirin 81 Mg Chew Tab) 324 mg PO NOW ONE Stop: 05/22/22 17:02 Last Admin: 05/22/22 18:30 Dose: 324 mg Documented By: ELIA Bumetanide (Bumetanide 1 Mg/4 Ml Vial) 2 mg IV NOW ONE Stop: 05/25/22 05:53 Last Admin: 05/25/22 06:16 Dose: 2 mg Documented By: MOISÉS Chlorhexidine Gluconate (Chlorhexidine Gluconate 15 Ml Cup) 15 ml PO Q6HR DANA Last Admin: 05/27/22 12:32 Dose: 15 ml Documented By: Admin: 05/27/22 05:11 Dose: 15 ml Documented By: Admin: 05/27/22 00:07 Dose: 15 ml Documented By: Admin: 05/26/22 19:15 Dose: 15 ml Documented By: Admin: 05/26/22 12:10 Dose: 15 ml Documented By: Admin: 05/26/22 05:59 Dose: 15 ml Documented By: Admin: 05/26/22 00:40 Dose: 15 ml Documented By: Admin: 05/25/22 18:19 Dose: 15 ml Documented By: Admin: 05/25/22 14:50 Dose: 15 ml Documented By: ELIA Dextrose (Dextrose 50 % In Water 25 Gm/50 Ml Syringe) 25 gm IV PRN PRN PRN Reason: Hypoglycemia Diphenhydramine HCl (Diphenhydramine 50 Mg/Ml Vial) 25 mg IV NOW ONE Stop: 05/26/22 14:05 Last Admin: 05/26/22 14:08 Dose: 25 mg Documented By: JIMMY Famotidine (Famotidine 20 Mg Tablet) 20 mg PO BID [facility] Famotidine (Famotidine 20 Mg/2 Ml Vial) 20 mg IV BID [facility] Last Admin: 05/27/22 08:32 Dose: 20 mg Documented By: Admin: 05/26/22 21:30 Dose: 20 mg Documented By: Admin: 05/26/22 09:04 Dose: 20 mg Documented By: Admin: 05/25/22 21:31 Dose: 20 mg Documented By: Admin: 05/25/22 08:44 Dose: 20 mg Documented By: ELIA Fentanyl (Fentanyl 100 Mcg/2 Ml Inj) 100 mcg IV NOW ONE Stop: 05/24/22 06:37 Last Admin: 05/24/22 08:53 Dose: 100 mcg Documented By: ELIA Fentanyl (Fentanyl 100 Mcg/2 Ml Inj) 50 mcg IV Q1H PRN PRN Reason: Pain, Severe (7-10) Last Admin: 05/26/22 11:21 Dose: 50 mcg Documented By: ELIA Furosemide (Furosemide 40 Mg/4 Ml Vial) 40 mg IV NOW ONE Stop: 05/22/22 18:15 Last Admin: 05/22/22 18:30 Dose: 40 mg Documented By: ELIA Furosemide (Furosemide 40 Mg/4 Ml Vial) 40 mg IV Q12H [facility] Last Admin: 05/25/22 17:03 Dose: 40 mg Documented By: ELIA Furosemide (Furosemide 40 Mg/4 Ml Vial) 40 mg IV Q8HR [facility] Last Admin: 05/27/22 05:13 Dose: 40 mg Documented By: Admin: 05/26/22 21:30 Dose: 40 mg Documented By: Admin: 05/26/22 14:08 Dose: 40 mg Documented By: Admin: 05/26/22 05:52 Dose: 40 mg Documented By: Admin: 05/25/22 21:31 Dose: 40 mg Documented By: GC Gabapentin (Gabapentin 600 Mg Tablet) 600 mg PO TID DANA Last Admin: 05/24/22 22:21 Dose: Not Given Documented By: Admin: 05/24/22 15:42 Dose: Not Given Documented By: Admin: 05/24/22 10:30 Dose: Not Given Documented By: Admin: 05/23/22 21:25 Dose: 600 mg Documented By: Admin: 05/23/22 16:00 Dose: 600 mg Documented By: Admin: 05/23/22 09:37 Dose: 600 mg Documented By: Admin: 05/22/22 21:28 Dose: 600 mg Documented By: JETHRO Heparin Sodium (Porcine) (Heparin 5,000 Unit/Ml Vial) 7,500 unit IV NOW ONE Stop: 05/22/22 20:30 Last Admin: 05/22/22 20:47 Dose: 7,500 unit Documented By: JIMMY Hydrocortisone (Hydrocortisone 100 Mg/2 Ml Vial) 50 mg IV Q6HR DANA Last Admin: 05/27/22 12:32 Dose: Not Given Documented By: Admin: 05/27/22 05:13 Dose: 50 mg Documented By: Admin: 05/27/22 01:54 Dose: 50 mg Documented By: EFRAIN Heparin Sodium/Dextrose (Heparin Drip) 25,000 unit in 500 mls @ 24 mls/hr IV CONT DANA; Protocol Last Admin: 05/27/22 04:15 Dose: 1,300 units/hr, 26 mls/hr Documented By: Titration: 05/26/22 21:35 Dose: 0 units/hr, 0 mls/hr Documented By: Admin: 05/26/22 02:21 Dose: 1,300 units/hr, 26 mls/hr Documented By: Titration: 05/26/22 02:20 Dose: 0 units/hr, 0 mls/hr Documented By: Admin: 05/25/22 06:45 Dose: 1,300 units/hr, 26 mls/hr Documented By: Titration: 05/25/22 06:44 Dose: 0 units/hr, 0 mls/hr Documented By: Admin: 05/24/22 11:38 Dose: 1,300 units/hr, 26 mls/hr Documented By: Titration: 05/24/22 11:26 Dose: 1,300 units/hr, 26 mls/hr Documented By: Admin: 05/23/22 16:12 Dose: 1,300 units/hr, 26 mls/hr Documented By: Titration: 05/23/22 16:12 Dose: 1,300 units/hr, 26 mls/hr Documented By: Titration: 05/23/22 09:30 Dose: 1,300 units/hr, 26 mls/hr Documented By: Admin: 05/22/22 20:49 Dose: 1,200 units/hr, 24 mls/hr Documented By: KLS Propofol (Propofol) 1,000 mg in 100 mls @ 3.157 mls/hr IV TITRATE DANA; Protocol Last Admin: 05/27/22 13:06 Dose: 30 mcg/kg/min, 18.942 mls/hr Documented By: Titration: 05/27/22 11:09 Dose: 30 mcg/kg/min, 18.942 mls/hr Documented By: Admin: 05/27/22 05:52 Dose: 30 mcg/kg/min, 18.942 mls/hr Documented By: Titration: 05/27/22 05:18 Dose: 30 mcg/kg/min, 18.942 mls/hr Documented By: Titration: 05/26/22 18:24 Dose: 20 mcg/kg/min, 12.628 mls/hr Documented By: Admin: 05/26/22 12:24 Dose: 22.01 mcg/kg/min, 13.9 mls/hr Documented By: Titration: 05/26/22 11:39 Dose: 22.01 mcg/kg/min, 13.9 mls/hr Documented By: Admin: 05/26/22 04:27 Dose: 22.01 mcg/kg/min, 13.9 mls/hr Documented By: Titration: 05/26/22 04:25 Dose: 0 mcg/kg/min, 0 mls/hr Documented By: Admin: 05/25/22 21:18 Dose: 22.01 mcg/kg/min, 13.9 mls/hr Documented By: Titration: 05/25/22 21:14 Dose: 0 mcg/kg/min, 0 mls/hr Documented By: Titration: 05/25/22 17:12 Dose: 22 mcg/kg/min, 13.891 mls/hr Documented By: Titration: 05/25/22 14:47 Dose: 26 mcg/kg/min, 16.416 mls/hr Documented By: Admin: 05/25/22 14:30 Dose: 28 mcg/kg/min, 17.679 mls/hr Documented By: Titration: 05/25/22 13:54 Dose: 28 mcg/kg/min, 17.679 mls/hr Documented By: Titration: 05/25/22 10:08 Dose: 28 mcg/kg/min, 17.679 mls/hr Documented By: Titration: 05/25/22 09:39 Dose: 25 mcg/kg/min, 15.785 mls/hr Documented By: Admin: 05/25/22 08:11 Dose: 27.87 mcg/kg/min, 17.6 mls/hr Documented By: Titration: 05/25/22 08:11 Dose: 27.87 mcg/kg/min, 17.6 mls/hr Documented By: Titration: 05/25/22 08:02 Dose: 27.87 mcg/kg/min, 17.6 mls/hr Documented By: Admin: 05/25/22 01:52 Dose: 25 mcg/kg/min, 15.785 mls/hr Documented By: Titration: 05/25/22 01:50 Dose: 25 mcg/kg/min, 15.785 mls/hr Documented By: Admin: 05/24/22 19:23 Dose: 25 mcg/kg/min, 15.785 mls/hr Documented By: Titration: 05/24/22 19:23 Dose: 25 mcg/kg/min, 15.785 mls/hr Documented By: Admin: 05/24/22 13:30 Dose: 25 mcg/kg/min, 15.785 mls/hr Documented By: Titration: 05/24/22 13:30 Dose: 25 mcg/kg/min, 15.785 mls/hr Documented By: Titration: 05/24/22 08:10 Dose: 25 mcg/kg/min, 15.785 mls/hr Documented By: Titration: 05/24/22 07:53 Dose: 20 mcg/kg/min, 12.628 mls/hr Documented By: Titration: 05/24/22 07:39 Dose: 15 mcg/kg/min, 9.471 mls/hr Documented By: Titration: 05/24/22 06:20 Dose: 10 mcg/kg/min, 6.314 mls/hr Documented By: Admin: 05/24/22 05:53 Dose: 5 mcg/kg/min, 3.157 mls/hr Documented By: GC NOREPINEPHRINE BITARTRATE/D5W (Levophed) 4 mg in 250 mls @ 30 mls/hr IV TITRATE DANA; Protocol Last Titration: 05/25/22 09:38 Dose: 0 mcg/min, 0 mls/hr Documented By: Titration: 05/25/22 08:33 Dose: 1 mcg/min, 3.75 mls/hr Documented By: Titration: 05/25/22 05:50 Dose: 3 mcg/min, 11.25 mls/hr Documented By: Admin: 05/24/22 16:45 Dose: 4 mcg/min, 15 mls/hr Documented By: Titration: 05/24/22 16:45 Dose: 4 mcg/min, 15 mls/hr Documented By: Titration: 05/24/22 12:38 Dose: 4 mcg/min, 15 mls/hr Documented By: Titration: 05/24/22 11:24 Dose: 0 mcg/min, 0 mls/hr Documented By: Titration: 05/24/22 11:00 Dose: 3 mcg/min, 11.25 mls/hr Documented By: Titration: 05/24/22 09:56 Dose: 4 mcg/min, 15 mls/hr Documented By: Titration: 05/24/22 09:32 Dose: 8 mcg/min, 30 mls/hr Documented By: Titration: 05/24/22 09:00 Dose: 10 mcg/min, 37.5 mls/hr Documented By: Titration: 05/24/22 08:00 Dose: 12 mcg/min, 45 mls/hr Documented By: Admin: 05/24/22 06:30 Dose: 8 mcg/min, 30 mls/hr Documented By: GC Epinephrine HCl 4 mg/ Dextrose 250 mls @ 3.75 mls/hr IV TITRATE DANA; Protocol Last Titration: 05/27/22 11:58 Dose: 5 mcg/min, 18.75 mls/hr Documented By: Titration: 05/27/22 09:19 Dose: 6 mcg/min, 22.5 mls/hr Documented By: Titration: 05/27/22 08:50 Dose: 7 mcg/min, 26.25 mls/hr Documented By: Admin: 05/27/22 06:29 Dose: 8 mcg/min, 30 mls/hr Documented By: Titration: 05/27/22 06:29 Dose: 8 mcg/min, 30 mls/hr Documented By: Titration: 05/27/22 05:53 Dose: 8 mcg/min, 30 mls/hr Documented By: Titration: 05/27/22 05:17 Dose: 9.01 mcg/min, 33.8 mls/hr Documented By: Titration: 05/27/22 04:13 Dose: 10 mcg/min, 37.5 mls/hr Documented By: Admin: 05/27/22 00:47 Dose: 12 mcg/min, 45 mls/hr Documented By: Titration: 05/27/22 00:47 Dose: 0 mcg/min, 0 mls/hr Documented By: Admin: 05/26/22 19:20 Dose: 12 mcg/min, 45 mls/hr Documented By: Titration: 05/26/22 19:20 Dose: 12 mcg/min, 45 mls/hr Documented By: Titration: 05/26/22 19:04 Dose: 12 mcg/min, 45 mls/hr Documented By: Titration: 05/26/22 18:18 Dose: 10 mcg/min, 37.5 mls/hr Documented By: Admin: 05/26/22 11:28 Dose: 8 mcg/min, 30 mls/hr Documented By: Titration: 05/26/22 11:26 Dose: 8 mcg/min, 30 mls/hr Documented By: Admin: 05/26/22 03:06 Dose: 8 mcg/min, 30 mls/hr Documented By: Titration: 05/26/22 03:05 Dose: 0 mcg/min, 0 mls/hr Documented By: Admin: 05/25/22 18:21 Dose: 8 mcg/min, 30 mls/hr Documented By: Titration: 05/25/22 18:21 Dose: 8 mcg/min, 30 mls/hr Documented By: Titration: 05/25/22 18:07 Dose: 8 mcg/min, 30 mls/hr Documented By: Titration: 05/25/22 16:22 Dose: 6 mcg/min, 22.5 mls/hr Documented By: Titration: 05/25/22 11:00 Dose: 6.93 mcg/min, 26 mls/hr Documented By: Admin: 05/25/22 10:03 Dose: 8 mcg/min, 30 mls/hr Documented By: Titration: 05/25/22 10:03 Dose: 8 mcg/min, 30 mls/hr Documented By: Titration: 05/25/22 01:55 Dose: 8 mcg/min, 30 mls/hr Documented By: Admin: 05/25/22 01:53 Dose: 10 mcg/min, 37.5 mls/hr Documented By: Titration: 05/25/22 01:39 Dose: 10 mcg/min, 37.5 mls/hr Documented By: Titration: 05/24/22 23:52 Dose: 10 mcg/min, 37.5 mls/hr Documented By: Admin: 05/24/22 20:22 Dose: 14 mcg/min, 52.5 mls/hr Documented By: Titration: 05/24/22 20:22 Dose: 14 mcg/min, 52.5 mls/hr Documented By: Titration: 05/24/22 20:19 Dose: 14 mcg/min, 52.5 mls/hr Documented By: Admin: 05/24/22 16:30 Dose: 14 mcg/min, 52.5 mls/hr Documented By: Titration: 05/24/22 16:27 Dose: 14 mcg/min, 52.5 mls/hr Documented By: Titration: 05/24/22 13:18 Dose: 14 mcg/min, 52.5 mls/hr Documented By: Titration: 05/24/22 12:42 Dose: 16 mcg/min, 60 mls/hr Documented By: Titration: 05/24/22 12:40 Dose: 12 mcg/min, 45 mls/hr Documented By: Titration: 05/24/22 11:42 Dose: 8 mcg/min, 30 mls/hr Documented By: Titration: 05/24/22 11:33 Dose: 6 mcg/min, 22.5 mls/hr Documented By: Titration: 05/24/22 10:37 Dose: 4 mcg/min, 15 mls/hr Documented By: Admin: 05/24/22 10:23 Dose: 1 mcg/min, 3.75 mls/hr Documented By: RLS Sodium Chloride (Normal Saline 0.9%) 1,000 mls @ 250 mls/hr IV BOLUS ONE Stop: 05/24/22 18:39 Last Infusion: 05/24/22 15:55 Dose: 0 mls/hr Documented By: Admin: 05/24/22 14:54 Dose: 250 mls/hr Documented By: RLS Piperacillin Sod/Tazobactam (Sod 4.5 gm/ Sodium Chloride) 100 mls @ 200 mls/hr IV NOW ONE Stop: 05/24/22 15:00 Last Infusion: 05/24/22 16:15 Dose: 0 mls/hr Documented By: Admin: 05/24/22 15:42 Dose: 200 mls/hr Documented By: RLS Sodium Chloride (Normal Saline 0.9%) 1,000 mls @ 50 mls/hr IV CONT ONE Stop: 05/25/22 11:47 Last Infusion: 05/25/22 07:05 Dose: 0 mls/hr Documented By: Infusion: 05/25/22 00:29 Dose: 0 mls/hr Documented By: Admin: 05/24/22 16:40 Dose: 50 mls/hr Documented By: RLS Magnesium Sulfate (Magnesium Sulfate) 2 gm in 50 mls @ 25 mls/hr IV NOW ONE Stop: 05/24/22 22:14 Last Infusion: 05/25/22 00:11 Dose: 0 mls/hr Documented By: GC Co-signed By: JETHRO Admin: 05/24/22 22:24 Dose: 25 mls/hr Documented By: GC Co-signed By: VALENTINE Calcium Gluconate 4.65 meq/ (Sodium Chloride) 60 mls @ 180 mls/hr IV NOW ONE Stop: 05/24/22 20:36 Last Infusion: 05/24/22 22:33 Dose: 180 mls/hr Documented By: Admin: 05/24/22 22:13 Dose: 180 mls/hr Documented By: GC Fentanyl 1,000 mcg/ Dextrose 250 mls @ 18.416 mls/hr IV TITRATE DANA; Protocol Last Titration: 05/27/22 01:55 Dose: 0.5 mcg/kg/hr, 13.154 mls/hr Documented By: Admin: 05/27/22 00:06 Dose: 0.76 mcg/kg/hr, 20 mls/hr Documented By: Titration: 05/27/22 00:06 Dose: 0.76 mcg/kg/hr, 20 mls/hr Documented By: Titration: 05/26/22 18:29 Dose: 0.76 mcg/kg/hr, 20 mls/hr Documented By: Admin: 05/26/22 12:23 Dose: 0.84 mcg/kg/hr, 22.099 mls/hr Documented By: Titration: 05/26/22 11:39 Dose: 0.84 mcg/kg/hr, 22.099 mls/hr Documented By: Titration: 05/26/22 10:30 Dose: 0.84 mcg/kg/hr, 22.099 mls/hr Documented By: Titration: 05/25/22 23:17 Dose: 0.76 mcg/kg/hr, 20 mls/hr Documented By: Admin: 05/25/22 23:16 Dose: 0.76 mcg/kg/hr, 20 mls/hr Documented By: Titration: 05/25/22 23:16 Dose: 0.76 mcg/kg/hr, 20 mls/hr Documented By: Admin: 05/25/22 23:14 Dose: 0.76 mcg/kg/hr, 20 mls/hr Documented By: Titration: 05/25/22 23:14 Dose: 0.76 mcg/kg/hr, 20 mls/hr Documented By: Titration: 05/25/22 14:44 Dose: 0.76 mcg/kg/hr, 20 mls/hr Documented By: Admin: 05/25/22 10:38 Dose: 0.7 mcg/kg/hr, 18.416 mls/hr Documented By: RLS Piperacillin Sod/Tazobactam (Sod 3.375 gm/ Sodium Chloride) 100 mls @ 25 mls/hr IV Q8H DNAA Last Infusion: 05/27/22 13:08 Dose: 0 mls/hr Documented By: Admin: 05/27/22 09:08 Dose: 25 mls/hr Documented By: Infusion: 05/27/22 05:05 Dose: 0 mls/hr Documented By: Admin: 05/27/22 01:01 Dose: 25 mls/hr Documented By: Infusion: 05/26/22 20:35 Dose: 0 mls/hr Documented By: Admin: 05/26/22 17:02 Dose: 25 mls/hr Documented By: Infusion: 05/26/22 13:15 Dose: 0 mls/hr Documented By: Admin: 05/26/22 09:09 Dose: 25 mls/hr Documented By: Infusion: 05/26/22 04:29 Dose: 0 mls/hr Documented By: Admin: 05/26/22 00:38 Dose: 25 mls/hr Documented By: Infusion: 05/25/22 21:07 Dose: 25 mls/hr Documented By: Admin: 05/25/22 17:07 Dose: 25 mls/hr Documented By: RLS POTASSIUM CHLORIDE IN WATER (Potassium Cl 10 Meq/100 Ml Aye) 10 meq in 100 mls @ 100 mls/hr IV Q1H DANA Stop: 05/26/22 09:29 Last Infusion: 05/26/22 10:37 Dose: 0 mls/hr Documented By: Admin: 05/26/22 08:59 Dose: 100 mls/hr Documented By: Infusion: 05/26/22 08:59 Dose: 0 mls/hr Documented By: Admin: 05/26/22 07:42 Dose: 100 mls/hr Documented By: ELIA Magnesium Sulfate (Magnesium Sulfate) 2 gm in 50 mls @ 25 mls/hr IV NOW ONE Stop: 05/26/22 09:31 Last Infusion: 05/26/22 09:55 Dose: 0 mls/hr Documented By: ELIA Co-signed By: VONDA Admin: 05/26/22 07:52 Dose: 25 mls/hr Documented By: ELIA Co-signed By: JIMMY Linezolid (Zyvox) 600 mg in 300 mls @ 600 mls/hr IV Q12H DANA Last Infusion: 05/27/22 10:31 Dose: 0 mls/hr Documented By: Admin: 05/27/22 10:01 Dose: 600 mls/hr Documented By: Infusion: 05/27/22 09:19 Dose: 0 mls/hr Documented By: Admin: 05/26/22 22:54 Dose: 600 mls/hr Documented By: VALENTINE Vasopressin 40 unit/ Sodium (Chloride) 100 mls @ 6 mls/hr IV TITRATE DANA Last Infusion: 05/27/22 10:02 Dose: 0.03 unit/min, 4.5 mls/hr Documented By: Admin: 05/27/22 02:05 Dose: 0.04 unit/min, 6 mls/hr Documented By: EFRAIN Magnesium Sulfate (Magnesium Sulfate) 2 gm in 50 mls @ 25 mls/hr IV NOW ONE Stop: 05/27/22 04:02 Last Infusion: 05/27/22 04:06 Dose: 0 mls/hr Documented By: EFRAIN Co-signed By: CHARLIE Admin: 05/27/22 02:30 Dose: 25 mls/hr Documented By: EFRAIN Co-signed By: CHARLIE Lactated Ringer's (Lactated Ringers) 1,000 mls @ 100 mls/hr IV CONT DANA Last Admin: 05/27/22 11:35 Dose: 100 mls/hr Documented By: Albumin Human (Albuminar) 12.5 gm in 50 mls @ 60 mls/hr IV Q8H DANA Stop: 05/29/22 11:59 Last Admin: 05/27/22 12:25 Dose: 60 mls/hr Documented By: Heparin Sodium/Dextrose (Heparin Drip) 25,000 unit in 500 mls @ 24 mls/hr IV CONT DANA; Protocol Insulin Human Lispro (Insulin Lispro 100 Unit/Ml 3ml Vial) 0 unit SUBCUT ACHS DANA; Protocol Last Admin: 05/27/22 12:11 Dose: 3 unit Documented By: Co-signed By: ELIA(2) Admin: 05/27/22 08:31 Dose: 2 unit Documented By: Co-signed By: ELIA(2) Admin: 05/26/22 22:41 Dose: Not Given Documented By: Admin: 05/26/22 17:37 Dose: Not Given Documented By: Admin: 05/26/22 12:23 Dose: Not Given Documented By: Admin: 05/26/22 09:03 Dose: Not Given Documented By: Admin: 05/25/22 23:13 Dose: Not Given Documented By: Admin: 05/25/22 18:13 Dose: 1 unit Documented By: ELIA Co-signed By: LUCY Admin: 05/25/22 12:41 Dose: 1 unit Documented By: ELIA Co-signed By: AT Admin: 05/25/22 08:47 Dose: 1 unit Documented By: ELIA Co-signed By: LUCY Metolazone (Metolazone 2.5 Mg Tablet) 2.5 mg PO NOW ONE Stop: 05/25/22 05:53 Last Admin: 05/25/22 06:21 Dose: 2.5 mg Documented By: MOISÉS Midazolam HCl (Midazolam 2 Mg/2 Ml Vial) 2 mg IV Q1HR PRN PRN Reason: Agitation Stop: 05/29/22 10:14 Morphine Sulfate (Morphine 4 Mg/Ml Inj) 4 mg IV NOW ONE Stop: 05/25/22 08:07 Last Admin: 05/25/22 08:09 Dose: 4 mg Documented By: ELIA Morphine Sulfate (Morphine 4 Mg/Ml Inj) 4 mg IV NOW ONE Stop: 05/25/22 10:21 Last Admin: 05/25/22 10:24 Dose: 4 mg Documented By: ELIA Naloxone HCl (Naloxone 0.4 Mg/Ml Vial) 0.2 mg IV Q2MIN PRN PRN Reason: Opiate Reversal Propofol (Propofol 200 Mg/20 Ml Vial) 200 mg IV NOW ONE Stop: 05/24/22 05:37 Last Admin: 05/24/22 05:36 Dose: 200 mg Documented By: MOISÉS Succinylcholine Chloride (Succinylcholine 200 Mg/10 Ml Vial) 200 mg IV NOW ONE Stop: 05/24/22 05:37 Last Admin: 05/24/22 07:18 Dose: 200 mg Documented By: MOISÉS Vasopressin (Vasopressin 20 Unit/Ml Vial) 20 unit IV NOW ONE Stop: 05/27/22 01:42 Last Admin: 05/27/22 02:05 Dose: 20 unit Documented By: DL Vital Signs Vital signs: Vital Signs - 8 hr 05/25/22 10:15 05/25/22 10:15 05/25/22 10:30 Temperature Pulse Rate 100 H Respiratory Rate 33 H Blood Pressure 112/58 L 113/57 L Pulse Oximetry 82 L 05/25/22 10:30 05/25/22 10:45 05/25/22 10:45 Temperature Pulse Rate 98 H 97 H Respiratory Rate 28 H 28 H Blood Pressure 107/59 L Pulse Oximetry 100 100 05/25/22 11:00 05/25/22 11:00 05/25/22 11:15 Temperature Pulse Rate 96 H Respiratory Rate 28 H Blood Pressure 107/59 L 111/56 L Pulse Oximetry 97 05/25/22 11:15 05/25/22 11:00 05/25/22 11:30 Temperature 100.5 F H Pulse Rate 93 H Respiratory Rate 28 H Blood Pressure 110/55 L Pulse Oximetry 95 05/25/22 11:30 05/25/22 11:45 05/25/22 11:45 Temperature Pulse Rate 91 H 91 H Respiratory Rate 28 H 28 H Blood Pressure 111/56 L Pulse Oximetry 96 97 05/25/22 12:00 05/25/22 12:00 05/25/22 12:15 Temperature Pulse Rate 90 Respiratory Rate 28 H Blood Pressure 114/57 L 117/58 L Pulse Oximetry 97 05/25/22 12:15 05/25/22 12:30 05/25/22 12:30 Temperature 100.0 F H Pulse Rate 91 H 90 Respiratory Rate 28 H 28 H Blood Pressure 119/60 Pulse Oximetry 99 98 05/25/22 14:15 05/25/22 14:59 05/25/22 15:37 Temperature 100.2 F H 100.4 F H 100.0 F H Pulse Rate Respiratory Rate Blood Pressure Pulse Oximetry 05/25/22 12:45 05/25/22 12:45 05/25/22 13:00 Temperature Pulse Rate 90 Respiratory Rate 28 H Blood Pressure 122/63 124/63 Pulse Oximetry 98 05/25/22 13:00 05/25/22 13:15 05/25/22 13:15 Temperature Pulse Rate 90 89 Respiratory Rate 28 H 28 H Blood Pressure 124/64 Pulse Oximetry 97 98 05/25/22 13:30 05/25/22 13:30 05/25/22 13:45 Temperature Pulse Rate 89 Respiratory Rate 28 H Blood Pressure 124/65 125/65 Pulse Oximetry 97 05/25/22 13:45 05/25/22 14:00 05/25/22 14:00 Temperature Pulse Rate 89 89 Respiratory Rate 28 H 28 H Blood Pressure 126/65 Pulse Oximetry 98 98 05/25/22 14:15 05/25/22 14:15 05/25/22 14:30 Temperature Pulse Rate 89 Respiratory Rate 28 H Blood Pressure 128/66 132/70 Pulse Oximetry 98 05/25/22 14:30 05/25/22 14:45 05/25/22 14:45 Temperature Pulse Rate 91 H 96 H Respiratory Rate 28 H 28 H Blood Pressure 118/65 Pulse Oximetry 95 94 05/25/22 15:00 05/25/22 15:00 05/25/22 15:15 Temperature Pulse Rate 99 H Respiratory Rate 28 H Blood Pressure 120/66 118/61 Pulse Oximetry 96 05/25/22 15:15 05/25/22 15:30 05/25/22 15:30 Temperature Pulse Rate 95 H 93 H Respiratory Rate 28 H 28 H Blood Pressure 117/60 Pulse Oximetry 96 97 05/25/22 15:45 05/25/22 15:46 05/25/22 15:46 Temperature Pulse Rate 106 H 114 H Respiratory Rate Blood Pressure 172/87 H Pulse Oximetry 92 99 05/25/22 16:00 05/25/22 16:00 05/25/22 16:15 Temperature Pulse Rate 97 H 102 H Respiratory Rate 28 H 28 H Blood Pressure 137/60 Pulse Oximetry 100 90 L 05/25/22 16:16 05/25/22 16:16 05/25/22 16:30 Temperature 100.4 F H Pulse Rate 102 H Respiratory Rate 28 H Blood Pressure 112/52 L 108/53 L Pulse Oximetry 90 L 05/25/22 16:30 Temperature 100.4 F H Pulse Rate 98 H Respiratory Rate 28 H Blood Pressure Pulse Oximetry 92 <Mirna Mason MD - Last Filed: 06/09/22 18:06> Orders Ordered: Discontinued Medications Acetaminophen (Acetaminophen 325 Mg Tablet) 650 mg PO Q6H PRN PRN Reason: Fever/Mild Pain (1-3) Last Admin: 05/23/22 10:01 Dose: 650 mg Documented By: MLM Acetaminophen (Acetaminophen 650 Mg Supp) 650 mg LA Q6HR PRN PRN Reason: Fever/Mild Pain (1-3) Last Admin: 05/26/22 21:40 Dose: 650 mg Documented By: Admin: 05/26/22 11:26 Dose: 650 mg Documented By: Admin: 05/26/22 02:35 Dose: 650 mg Documented By: Admin: 05/25/22 15:37 Dose: 650 mg Documented By: Admin: 05/25/22 07:49 Dose: 650 mg Documented By: Admin: 05/24/22 18:53 Dose: 650 mg Documented By: ELIA Aspirin (Aspirin 81 Mg Chew Tab) 324 mg PO NOW ONE Stop: 05/22/22 17:02 Last Admin: 05/22/22 18:30 Dose: 324 mg Documented By: ELIA Bumetanide (Bumetanide 1 Mg/4 Ml Vial) 2 mg IV NOW ONE Stop: 05/25/22 05:53 Last Admin: 05/25/22 06:16 Dose: 2 mg Documented By: MOISÉS Chlorhexidine Gluconate (Chlorhexidine Gluconate 15 Ml Cup) 15 ml PO Q6HR DANA Last Admin: 05/27/22 12:32 Dose: 15 ml Documented By: Admin: 05/27/22 05:11 Dose: 15 ml Documented By: Admin: 05/27/22 00:07 Dose: 15 ml Documented By: Admin: 05/26/22 19:15 Dose: 15 ml Documented By: Admin: 05/26/22 12:10 Dose: 15 ml Documented By: Admin: 05/26/22 05:59 Dose: 15 ml Documented By: Admin: 05/26/22 00:40 Dose: 15 ml Documented By: Admin: 05/25/22 18:19 Dose: 15 ml Documented By: Admin: 05/25/22 14:50 Dose: 15 ml Documented By: ELIA Dextrose (Dextrose 50 % In Water 25 Gm/50 Ml Syringe) 25 gm IV PRN PRN PRN Reason: Hypoglycemia Diphenhydramine HCl (Diphenhydramine 50 Mg/Ml Vial) 25 mg IV NOW ONE Stop: 05/26/22 14:05 Last Admin: 05/26/22 14:08 Dose: 25 mg Documented By: JIMMY Famotidine (Famotidine 20 Mg Tablet) 20 mg PO BID [facility] Famotidine (Famotidine 20 Mg/2 Ml Vial) 20 mg IV BID [facility] Last Admin: 05/27/22 08:32 Dose: 20 mg Documented By: Admin: 05/26/22 21:30 Dose: 20 mg Documented By: Admin: 05/26/22 09:04 Dose: 20 mg Documented By: Admin: 05/25/22 21:31 Dose: 20 mg Documented By: Admin: 05/25/22 08:44 Dose: 20 mg Documented By: ELIA Fentanyl (Fentanyl 100 Mcg/2 Ml Inj) 100 mcg IV NOW ONE Stop: 05/24/22 06:37 Last Admin: 05/24/22 08:53 Dose: 100 mcg Documented By: ELIA Fentanyl (Fentanyl 100 Mcg/2 Ml Inj) 50 mcg IV Q1H PRN PRN Reason: Pain, Severe (7-10) Last Admin: 05/26/22 11:21 Dose: 50 mcg Documented By: ELIA Furosemide (Furosemide 40 Mg/4 Ml Vial) 40 mg IV NOW ONE Stop: 05/22/22 18:15 Last Admin: 05/22/22 18:30 Dose: 40 mg Documented By: ELIA Furosemide (Furosemide 40 Mg/4 Ml Vial) 40 mg IV Q12H [facility] Last Admin: 05/25/22 17:03 Dose: 40 mg Documented By: ELIA Furosemide (Furosemide 40 Mg/4 Ml Vial) 40 mg IV Q8HR [facility] Last Admin: 05/27/22 05:13 Dose: 40 mg Documented By: Admin: 05/26/22 21:30 Dose: 40 mg Documented By: Admin: 05/26/22 14:08 Dose: 40 mg Documented By: Admin: 05/26/22 05:52 Dose: 40 mg Documented By: Admin: 05/25/22 21:31 Dose: 40 mg Documented By: MOISÉS Gabapentin (Gabapentin 600 Mg Tablet) 600 mg PO TID [facility] Last Admin: 05/24/22 22:21 Dose: Not Given Documented By: Admin: 05/24/22 15:42 Dose: Not Given Documented By: Admin: 05/24/22 10:30 Dose: Not Given Documented By: Admin: 05/23/22 21:25 Dose: 600 mg Documented By: Admin: 05/23/22 16:00 Dose: 600 mg Documented By: Admin: 05/23/22 09:37 Dose: 600 mg Documented By: Admin: 05/22/22 21:28 Dose: 600 mg Documented By: JETHRO Heparin Sodium (Porcine) (Heparin 5,000 Unit/Ml Vial) 7,500 unit IV NOW ONE Stop: 05/22/22 20:30 Last Admin: 05/22/22 20:47 Dose: 7,500 unit Documented By: JIMMY Hydrocortisone (Hydrocortisone 100 Mg/2 Ml Vial) 50 mg IV Q6HR DANA Last Admin: 05/27/22 12:32 Dose: Not Given Documented By: Admin: 05/27/22 05:13 Dose: 50 mg Documented By: Admin: 05/27/22 01:54 Dose: 50 mg Documented By: EFRAIN Heparin Sodium/Dextrose (Heparin Drip) 25,000 unit in 500 mls @ 24 mls/hr IV CONT DANA; Protocol Last Admin: 05/27/22 04:15 Dose: 1,300 units/hr, 26 mls/hr Documented By: Titration: 05/26/22 21:35 Dose: 0 units/hr, 0 mls/hr Documented By: Admin: 05/26/22 02:21 Dose: 1,300 units/hr, 26 mls/hr Documented By: Titration: 05/26/22 02:20 Dose: 0 units/hr, 0 mls/hr Documented By: Admin: 05/25/22 06:45 Dose: 1,300 units/hr, 26 mls/hr Documented By: Titration: 05/25/22 06:44 Dose: 0 units/hr, 0 mls/hr Documented By: Admin: 05/24/22 11:38 Dose: 1,300 units/hr, 26 mls/hr Documented By: Titration: 05/24/22 11:26 Dose: 1,300 units/hr, 26 mls/hr Documented By: Admin: 05/23/22 16:12 Dose: 1,300 units/hr, 26 mls/hr Documented By: Titration: 05/23/22 16:12 Dose: 1,300 units/hr, 26 mls/hr Documented By: Titration: 05/23/22 09:30 Dose: 1,300 units/hr, 26 mls/hr Documented By: Admin: 05/22/22 20:49 Dose: 1,200 units/hr, 24 mls/hr Documented By: KLS Propofol (Propofol) 1,000 mg in 100 mls @ 3.157 mls/hr IV TITRATE DANA; Protocol Last Admin: 05/27/22 13:06 Dose: 30 mcg/kg/min, 18.942 mls/hr Documented By: Titration: 05/27/22 11:09 Dose: 30 mcg/kg/min, 18.942 mls/hr Documented By: Admin: 05/27/22 05:52 Dose: 30 mcg/kg/min, 18.942 mls/hr Documented By: Titration: 05/27/22 05:18 Dose: 30 mcg/kg/min, 18.942 mls/hr Documented By: Titration: 05/26/22 18:24 Dose: 20 mcg/kg/min, 12.628 mls/hr Documented By: Admin: 05/26/22 12:24 Dose: 22.01 mcg/kg/min, 13.9 mls/hr Documented By: Titration: 05/26/22 11:39 Dose: 22.01 mcg/kg/min, 13.9 mls/hr Documented By: Admin: 05/26/22 04:27 Dose: 22.01 mcg/kg/min, 13.9 mls/hr Documented By: Titration: 05/26/22 04:25 Dose: 0 mcg/kg/min, 0 mls/hr Documented By: Admin: 05/25/22 21:18 Dose: 22.01 mcg/kg/min, 13.9 mls/hr Documented By: Titration: 05/25/22 21:14 Dose: 0 mcg/kg/min, 0 mls/hr Documented By: Titration: 05/25/22 17:12 Dose: 22 mcg/kg/min, 13.891 mls/hr Documented By: Titration: 05/25/22 14:47 Dose: 26 mcg/kg/min, 16.416 mls/hr Documented By: Admin: 05/25/22 14:30 Dose: 28 mcg/kg/min, 17.679 mls/hr Documented By: Titration: 05/25/22 13:54 Dose: 28 mcg/kg/min, 17.679 mls/hr Documented By: Titration: 05/25/22 10:08 Dose: 28 mcg/kg/min, 17.679 mls/hr Documented By: Titration: 05/25/22 09:39 Dose: 25 mcg/kg/min, 15.785 mls/hr Documented By: Admin: 05/25/22 08:11 Dose: 27.87 mcg/kg/min, 17.6 mls/hr Documented By: Titration: 05/25/22 08:11 Dose: 27.87 mcg/kg/min, 17.6 mls/hr Documented By: Titration: 05/25/22 08:02 Dose: 27.87 mcg/kg/min, 17.6 mls/hr Documented By: Admin: 05/25/22 01:52 Dose: 25 mcg/kg/min, 15.785 mls/hr Documented By: Titration: 05/25/22 01:50 Dose: 25 mcg/kg/min, 15.785 mls/hr Documented By: Admin: 05/24/22 19:23 Dose: 25 mcg/kg/min, 15.785 mls/hr Documented By: Titration: 05/24/22 19:23 Dose: 25 mcg/kg/min, 15.785 mls/hr Documented By: Admin: 05/24/22 13:30 Dose: 25 mcg/kg/min, 15.785 mls/hr Documented By: Titration: 05/24/22 13:30 Dose: 25 mcg/kg/min, 15.785 mls/hr Documented By: Titration: 05/24/22 08:10 Dose: 25 mcg/kg/min, 15.785 mls/hr Documented By: Titration: 05/24/22 07:53 Dose: 20 mcg/kg/min, 12.628 mls/hr Documented By: Titration: 05/24/22 07:39 Dose: 15 mcg/kg/min, 9.471 mls/hr Documented By: Titration: 05/24/22 06:20 Dose: 10 mcg/kg/min, 6.314 mls/hr Documented By: Admin: 05/24/22 05:53 Dose: 5 mcg/kg/min, 3.157 mls/hr Documented By: GC NOREPINEPHRINE BITARTRATE/D5W (Levophed) 4 mg in 250 mls @ 30 mls/hr IV TITRATE DANA; Protocol Last Titration: 05/25/22 09:38 Dose: 0 mcg/min, 0 mls/hr Documented By: Titration: 05/25/22 08:33 Dose: 1 mcg/min, 3.75 mls/hr Documented By: Titration: 05/25/22 05:50 Dose: 3 mcg/min, 11.25 mls/hr Documented By: Admin: 05/24/22 16:45 Dose: 4 mcg/min, 15 mls/hr Documented By: Titration: 05/24/22 16:45 Dose: 4 mcg/min, 15 mls/hr Documented By: Titration: 05/24/22 12:38 Dose: 4 mcg/min, 15 mls/hr Documented By: Titration: 05/24/22 11:24 Dose: 0 mcg/min, 0 mls/hr Documented By: Titration: 05/24/22 11:00 Dose: 3 mcg/min, 11.25 mls/hr Documented By: Titration: 05/24/22 09:56 Dose: 4 mcg/min, 15 mls/hr Documented By: Titration: 05/24/22 09:32 Dose: 8 mcg/min, 30 mls/hr Documented By: Titration: 05/24/22 09:00 Dose: 10 mcg/min, 37.5 mls/hr Documented By: Titration: 05/24/22 08:00 Dose: 12 mcg/min, 45 mls/hr Documented By: Admin: 05/24/22 06:30 Dose: 8 mcg/min, 30 mls/hr Documented By: GC Epinephrine HCl 4 mg/ Dextrose 250 mls @ 3.75 mls/hr IV TITRATE DANA; Protocol Last Titration: 05/27/22 11:58 Dose: 5 mcg/min, 18.75 mls/hr Documented By: Titration: 05/27/22 09:19 Dose: 6 mcg/min, 22.5 mls/hr Documented By: Titration: 05/27/22 08:50 Dose: 7 mcg/min, 26.25 mls/hr Documented By: Admin: 05/27/22 06:29 Dose: 8 mcg/min, 30 mls/hr Documented By: Titration: 05/27/22 06:29 Dose: 8 mcg/min, 30 mls/hr Documented By: Titration: 05/27/22 05:53 Dose: 8 mcg/min, 30 mls/hr Documented By: Titration: 05/27/22 05:17 Dose: 9.01 mcg/min, 33.8 mls/hr Documented By: Titration: 05/27/22 04:13 Dose: 10 mcg/min, 37.5 mls/hr Documented By: Admin: 05/27/22 00:47 Dose: 12 mcg/min, 45 mls/hr Documented By: Titration: 05/27/22 00:47 Dose: 0 mcg/min, 0 mls/hr Documented By: Admin: 05/26/22 19:20 Dose: 12 mcg/min, 45 mls/hr Documented By: Titration: 05/26/22 19:20 Dose: 12 mcg/min, 45 mls/hr Documented By: Titration: 05/26/22 19:04 Dose: 12 mcg/min, 45 mls/hr Documented By: Titration: 05/26/22 18:18 Dose: 10 mcg/min, 37.5 mls/hr Documented By: Admin: 05/26/22 11:28 Dose: 8 mcg/min, 30 mls/hr Documented By: Titration: 05/26/22 11:26 Dose: 8 mcg/min, 30 mls/hr Documented By: Admin: 05/26/22 03:06 Dose: 8 mcg/min, 30 mls/hr Documented By: Titration: 05/26/22 03:05 Dose: 0 mcg/min, 0 mls/hr Documented By: Admin: 05/25/22 18:21 Dose: 8 mcg/min, 30 mls/hr Documented By: Titration: 05/25/22 18:21 Dose: 8 mcg/min, 30 mls/hr Documented By: Titration: 05/25/22 18:07 Dose: 8 mcg/min, 30 mls/hr Documented By: Titration: 05/25/22 16:22 Dose: 6 mcg/min, 22.5 mls/hr Documented By: Titration: 05/25/22 11:00 Dose: 6.93 mcg/min, 26 mls/hr Documented By: Admin: 05/25/22 10:03 Dose: 8 mcg/min, 30 mls/hr Documented By: Titration: 05/25/22 10:03 Dose: 8 mcg/min, 30 mls/hr Documented By: Titration: 05/25/22 01:55 Dose: 8 mcg/min, 30 mls/hr Documented By: Admin: 05/25/22 01:53 Dose: 10 mcg/min, 37.5 mls/hr Documented By: Titration: 05/25/22 01:39 Dose: 10 mcg/min, 37.5 mls/hr Documented By: Titration: 05/24/22 23:52 Dose: 10 mcg/min, 37.5 mls/hr Documented By: Admin: 05/24/22 20:22 Dose: 14 mcg/min, 52.5 mls/hr Documented By: Titration: 05/24/22 20:22 Dose: 14 mcg/min, 52.5 mls/hr Documented By: Titration: 05/24/22 20:19 Dose: 14 mcg/min, 52.5 mls/hr Documented By: Admin: 05/24/22 16:30 Dose: 14 mcg/min, 52.5 mls/hr Documented By: Titration: 05/24/22 16:27 Dose: 14 mcg/min, 52.5 mls/hr Documented By: Titration: 05/24/22 13:18 Dose: 14 mcg/min, 52.5 mls/hr Documented By: Titration: 05/24/22 12:42 Dose: 16 mcg/min, 60 mls/hr Documented By: Titration: 05/24/22 12:40 Dose: 12 mcg/min, 45 mls/hr Documented By: Titration: 05/24/22 11:42 Dose: 8 mcg/min, 30 mls/hr Documented By: Titration: 05/24/22 11:33 Dose: 6 mcg/min, 22.5 mls/hr Documented By: Titration: 05/24/22 10:37 Dose: 4 mcg/min, 15 mls/hr Documented By: Admin: 05/24/22 10:23 Dose: 1 mcg/min, 3.75 mls/hr Documented By: RLS Sodium Chloride (Normal Saline 0.9%) 1,000 mls @ 250 mls/hr IV BOLUS ONE Stop: 05/24/22 18:39 Last Infusion: 05/24/22 15:55 Dose: 0 mls/hr Documented By: Admin: 05/24/22 14:54 Dose: 250 mls/hr Documented By: ELIA Piperacillin Sod/Tazobactam (Sod 4.5 gm/ Sodium Chloride) 100 mls @ 200 mls/hr IV NOW ONE Stop: 05/24/22 15:00 Last Infusion: 05/24/22 16:15 Dose: 0 mls/hr Documented By: Admin: 05/24/22 15:42 Dose: 200 mls/hr Documented By: ELIA Sodium Chloride (Normal Saline 0.9%) 1,000 mls @ 50 mls/hr IV CONT ONE Stop: 05/25/22 11:47 Last Infusion: 05/25/22 07:05 Dose: 0 mls/hr Documented By: Infusion: 05/25/22 00:29 Dose: 0 mls/hr Documented By: Admin: 05/24/22 16:40 Dose: 50 mls/hr Documented By: ELIA Magnesium Sulfate (Magnesium Sulfate) 2 gm in 50 mls @ 25 mls/hr IV NOW ONE Stop: 05/24/22 22:14 Last Infusion: 05/25/22 00:11 Dose: 0 mls/hr Documented By: GC Co-signed By: JETHRO Admin: 05/24/22 22:24 Dose: 25 mls/hr Documented By: GC Co-signed By: VALENTINE Calcium Gluconate 4.65 meq/ (Sodium Chloride) 60 mls @ 180 mls/hr IV NOW ONE Stop: 05/24/22 20:36 Last Infusion: 05/24/22 22:33 Dose: 180 mls/hr Documented By: Admin: 05/24/22 22:13 Dose: 180 mls/hr Documented By: GC Fentanyl 1,000 mcg/ Dextrose 250 mls @ 18.416 mls/hr IV TITRATE DANA; Protocol Last Titration: 05/27/22 01:55 Dose: 0.5 mcg/kg/hr, 13.154 mls/hr Documented By: Admin: 05/27/22 00:06 Dose: 0.76 mcg/kg/hr, 20 mls/hr Documented By: Titration: 05/27/22 00:06 Dose: 0.76 mcg/kg/hr, 20 mls/hr Documented By: Titration: 05/26/22 18:29 Dose: 0.76 mcg/kg/hr, 20 mls/hr Documented By: Admin: 05/26/22 12:23 Dose: 0.84 mcg/kg/hr, 22.099 mls/hr Documented By: Titration: 05/26/22 11:39 Dose: 0.84 mcg/kg/hr, 22.099 mls/hr Documented By: Titration: 05/26/22 10:30 Dose: 0.84 mcg/kg/hr, 22.099 mls/hr Documented By: Titration: 05/25/22 23:17 Dose: 0.76 mcg/kg/hr, 20 mls/hr Documented By: Admin: 05/25/22 23:16 Dose: 0.76 mcg/kg/hr, 20 mls/hr Documented By: Titration: 05/25/22 23:16 Dose: 0.76 mcg/kg/hr, 20 mls/hr Documented By: Admin: 05/25/22 23:14 Dose: 0.76 mcg/kg/hr, 20 mls/hr Documented By: Titration: 05/25/22 23:14 Dose: 0.76 mcg/kg/hr, 20 mls/hr Documented By: Titration: 05/25/22 14:44 Dose: 0.76 mcg/kg/hr, 20 mls/hr Documented By: Admin: 05/25/22 10:38 Dose: 0.7 mcg/kg/hr, 18.416 mls/hr Documented By: RLS Piperacillin Sod/Tazobactam (Sod 3.375 gm/ Sodium Chloride) 100 mls @ 25 mls/hr IV Q8H [facility] Last Infusion: 05/27/22 13:08 Dose: 0 mls/hr Documented By: Admin: 05/27/22 09:08 Dose: 25 mls/hr Documented By: Infusion: 05/27/22 05:05 Dose: 0 mls/hr Documented By: Admin: 05/27/22 01:01 Dose: 25 mls/hr Documented By: Infusion: 05/26/22 20:35 Dose: 0 mls/hr Documented By: Admin: 05/26/22 17:02 Dose: 25 mls/hr Documented By: Infusion: 05/26/22 13:15 Dose: 0 mls/hr Documented By: Admin: 05/26/22 09:09 Dose: 25 mls/hr Documented By: Infusion: 05/26/22 04:29 Dose: 0 mls/hr Documented By: Admin: 05/26/22 00:38 Dose: 25 mls/hr Documented By: Infusion: 05/25/22 21:07 Dose: 25 mls/hr Documented By: Admin: 05/25/22 17:07 Dose: 25 mls/hr Documented By: ELIA POTASSIUM CHLORIDE IN WATER (Potassium Cl 10 Meq/100 Ml Aye) 10 meq in 100 mls @ 100 mls/hr IV Q1H DANA Stop: 05/26/22 09:29 Last Infusion: 05/26/22 10:37 Dose: 0 mls/hr Documented By: Admin: 05/26/22 08:59 Dose: 100 mls/hr Documented By: Infusion: 05/26/22 08:59 Dose: 0 mls/hr Documented By: Admin: 05/26/22 07:42 Dose: 100 mls/hr Documented By: ELIA Magnesium Sulfate (Magnesium Sulfate) 2 gm in 50 mls @ 25 mls/hr IV NOW ONE Stop: 05/26/22 09:31 Last Infusion: 05/26/22 09:55 Dose: 0 mls/hr Documented By: ELIA Co-signed By: VONDA Admin: 05/26/22 07:52 Dose: 25 mls/hr Documented By: ELIA Co-signed By: JIMMY Linezolid (Zyvox) 600 mg in 300 mls @ 600 mls/hr IV Q12H DANA Last Infusion: 05/27/22 10:31 Dose: 0 mls/hr Documented By: Admin: 05/27/22 10:01 Dose: 600 mls/hr Documented By: Infusion: 05/27/22 09:19 Dose: 0 mls/hr Documented By: Admin: 05/26/22 22:54 Dose: 600 mls/hr Documented By: VALENTINE Vasopressin 40 unit/ Sodium (Chloride) 100 mls @ 6 mls/hr IV TITRATE DANA Last Infusion: 05/27/22 10:02 Dose: 0.03 unit/min, 4.5 mls/hr Documented By: Admin: 05/27/22 02:05 Dose: 0.04 unit/min, 6 mls/hr Documented By: EFRAIN Magnesium Sulfate (Magnesium Sulfate) 2 gm in 50 mls @ 25 mls/hr IV NOW ONE Stop: 05/27/22 04:02 Last Infusion: 05/27/22 04:06 Dose: 0 mls/hr Documented By: EFRAIN Co-signed By: CHARLIE Admin: 05/27/22 02:30 Dose: 25 mls/hr Documented By: EFRAIN Co-signed By: CHARLIE Lactated Ringer's (Lactated Ringers) 1,000 mls @ 100 mls/hr IV CONT DANA Last Admin: 05/27/22 11:35 Dose: 100 mls/hr Documented By: Albumin Human (Albuminar) 12.5 gm in 50 mls @ 60 mls/hr IV Q8H DANA Stop: 05/29/22 11:59 Last Admin: 05/27/22 12:25 Dose: 60 mls/hr Documented By: Heparin Sodium/Dextrose (Heparin Drip) 25,000 unit in 500 mls @ 24 mls/hr IV CONT DANA; Protocol Insulin Human Lispro (Insulin Lispro 100 Unit/Ml 3ml Vial) 0 unit SUBCUT ACHS DANA; Protocol Last Admin: 05/27/22 12:11 Dose: 3 unit Documented By: Co-signed By: ELIA(2) Admin: 05/27/22 08:31 Dose: 2 unit Documented By: Co-signed By: ELIA(2) Admin: 05/26/22 22:41 Dose: Not Given Documented By: Admin: 05/26/22 17:37 Dose: Not Given Documented By: Admin: 05/26/22 12:23 Dose: Not Given Documented By: Admin: 05/26/22 09:03 Dose: Not Given Documented By: Admin: 05/25/22 23:13 Dose: Not Given Documented By: Admin: 05/25/22 18:13 Dose: 1 unit Documented By: ELIA Co-signed By: LUCY Admin: 05/25/22 12:41 Dose: 1 unit Documented By: ELIA Co-signed By: AT Admin: 05/25/22 08:47 Dose: 1 unit Documented By: ELIA Co-signed By: LUCY Metolazone (Metolazone 2.5 Mg Tablet) 2.5 mg PO NOW ONE Stop: 05/25/22 05:53 Last Admin: 05/25/22 06:21 Dose: 2.5 mg Documented By: MOISÉS Midazolam HCl (Midazolam 2 Mg/2 Ml Vial) 2 mg IV Q1HR PRN PRN Reason: Agitation Stop: 05/29/22 10:14 Morphine Sulfate (Morphine 4 Mg/Ml Inj) 4 mg IV NOW ONE Stop: 05/25/22 08:07 Last Admin: 05/25/22 08:09 Dose: 4 mg Documented By: ELIA Morphine Sulfate (Morphine 4 Mg/Ml Inj) 4 mg IV NOW ONE Stop: 05/25/22 10:21 Last Admin: 05/25/22 10:24 Dose: 4 mg Documented By: ELIA Naloxone HCl (Naloxone 0.4 Mg/Ml Vial) 0.2 mg IV Q2MIN PRN PRN Reason: Opiate Reversal Propofol (Propofol 200 Mg/20 Ml Vial) 200 mg IV NOW ONE Stop: 05/24/22 05:37 Last Admin: 05/24/22 05:36 Dose: 200 mg Documented By: MOISÉS Succinylcholine Chloride (Succinylcholine 200 Mg/10 Ml Vial) 200 mg IV NOW ONE Stop: 05/24/22 05:37 Last Admin: 05/24/22 07:18 Dose: 200 mg Documented By: MOISÉS Vasopressin (Vasopressin 20 Unit/Ml Vial) 20 unit IV NOW ONE Stop: 05/27/22 01:42 Last Admin: 05/27/22 02:05 Dose: 20 unit Documented By: EFRAIN Consultations Consultation #1: 05/24/22 630am Patient was checked at 5:00 a.m. and found to be significantly altered with shallow breathing and increasing respiratory distress. Oxygen saturations were falling into the 80s and she was not arousable. She did have palpable pulses. She was moved to room 1 for more assertive resuscitation. With bagging, oxygen saturations were able to get up to 95%. She was emergently intubated without complication. Central line was placed into the right internal jugular without complication. Patient had been tentatively planned to transfer to [facility] for thrombectomy of her bilateral subsegmental PEs with right heart strain. Did talk to the interventionalist cocktail waitress who recommended 100 mg of tPA and did not feel that he was going to be able to do more at this time. Approximately 35 minutes after intubation, as propofol has worn off, she is making non pop purposeful movements and begins dropping her blood pressure. Heart rate has remained steady at 80. Oxygen saturations are at 98% on 100% oxygen. Pressure is dropping and Levophed is initiated. 0630 consultation with tele curber. He agreed with tPA given suggested attempting to transfer for emergent thrombectomy in the setting of worsening compromise. Will also recheck EKG and blood work to see if she is had some type of cardiac event on top of her pulmonary emboli or whether she is thrown additional clots despite the IV heparin. If 2nd pressor as needed will add epinephrine. The curber recommended holding sedation to see how she was doing and how much of her cardiogenic shock was related to sedation. Given the length of time since the propofol push prior to intubation and now I believe that the majority of the propofol is out of her system. 615am attempted phone call to her at [phone], it says the number is not available, no answering machine is available and I was unable to leave message or get hold of her [phone] Discussed with curber. Getting ABG and VBG. 7am care turned over to Dr Botello. Vital Signs Vital signs: Vital Signs - 8 hr 05/25/22 10:15 05/25/22 10:15 05/25/22 10:30 Temperature Pulse Rate 100 H Respiratory Rate 33 H Blood Pressure 112/58 L 113/57 L Pulse Oximetry 82 L 05/25/22 10:30 05/25/22 10:45 05/25/22 10:45 Temperature Pulse Rate 98 H 97 H Respiratory Rate 28 H 28 H Blood Pressure 107/59 L Pulse Oximetry 100 100 05/25/22 11:00 05/25/22 11:00 05/25/22 11:15 Temperature Pulse Rate 96 H Respiratory Rate 28 H Blood Pressure 107/59 L 111/56 L Pulse Oximetry 97 05/25/22 11:15 05/25/22 11:00 05/25/22 11:30 Temperature 100.5 F H Pulse Rate 93 H Respiratory Rate 28 H Blood Pressure 110/55 L Pulse Oximetry 95 05/25/22 11:30 05/25/22 11:45 05/25/22 11:45 Temperature Pulse Rate 91 H 91 H Respiratory Rate 28 H 28 H Blood Pressure 111/56 L Pulse Oximetry 96 97 05/25/22 12:00 05/25/22 12:00 05/25/22 12:15 Temperature Pulse Rate 90 Respiratory Rate 28 H Blood Pressure 114/57 L 117/58 L Pulse Oximetry 97 05/25/22 12:15 05/25/22 12:30 05/25/22 12:30 Temperature 100.0 F H Pulse Rate 91 H 90 Respiratory Rate 28 H 28 H Blood Pressure 119/60 Pulse Oximetry 99 98 05/25/22 14:15 05/25/22 14:59 05/25/22 15:37 Temperature 100.2 F H 100.4 F H 100.0 F H Pulse Rate Respiratory Rate Blood Pressure Pulse Oximetry 05/25/22 12:45 05/25/22 12:45 05/25/22 13:00 Temperature Pulse Rate 90 Respiratory Rate 28 H Blood Pressure 122/63 124/63 Pulse Oximetry 98 05/25/22 13:00 05/25/22 13:15 05/25/22 13:15 Temperature Pulse Rate 90 89 Respiratory Rate 28 H 28 H Blood Pressure 124/64 Pulse Oximetry 97 98 05/25/22 13:30 05/25/22 13:30 05/25/22 13:45 Temperature Pulse Rate 89 Respiratory Rate 28 H Blood Pressure 124/65 125/65 Pulse Oximetry 97 05/25/22 13:45 05/25/22 14:00 05/25/22 14:00 Temperature Pulse Rate 89 89 Respiratory Rate 28 H 28 H Blood Pressure 126/65 Pulse Oximetry 98 98 05/25/22 14:15 05/25/22 14:15 05/25/22 14:30 Temperature Pulse Rate 89 Respiratory Rate 28 H Blood Pressure 128/66 132/70 Pulse Oximetry 98 05/25/22 14:30 05/25/22 14:45 05/25/22 14:45 Temperature Pulse Rate 91 H 96 H Respiratory Rate 28 H 28 H Blood Pressure 118/65 Pulse Oximetry 95 94 05/25/22 15:00 05/25/22 15:00 05/25/22 15:15 Temperature Pulse Rate 99 H Respiratory Rate 28 H Blood Pressure 120/66 118/61 Pulse Oximetry 96 05/25/22 15:15 05/25/22 15:30 05/25/22 15:30 Temperature Pulse Rate 95 H 93 H Respiratory Rate 28 H 28 H Blood Pressure 117/60 Pulse Oximetry 96 97 05/25/22 15:45 05/25/22 15:46 05/25/22 15:46 Temperature Pulse Rate 106 H 114 H Respiratory Rate Blood Pressure 172/87 H Pulse Oximetry 92 99 05/25/22 16:00 05/25/22 16:00 05/25/22 16:15 Temperature Pulse Rate 97 H 102 H Respiratory Rate 28 H 28 H Blood Pressure 137/60 Pulse Oximetry 100 90 L 05/25/22 16:16 05/25/22 16:16 05/25/22 16:30 Temperature 100.4 F H Pulse Rate 102 H Respiratory Rate 28 H Blood Pressure 112/52 L 108/53 L Pulse Oximetry 90 L 05/25/22 16:30 Temperature 100.4 F H Pulse Rate 98 H Respiratory Rate 28 H Blood Pressure Pulse Oximetry 92 <Gentry Peace MD - Last Filed: 05/30/22 05:24> Course Course Narrative: May 25, 2022 at 6:[address] Turcios, hospitalist will decide this evening whether to admit patient or keep us transfer. At this time laboratory studies through today and echocardiogram were completed Orders Ordered: Discontinued Medications Acetaminophen (Acetaminophen 325 Mg Tablet) 650 mg PO Q6H PRN PRN Reason: Fever/Mild Pain (1-3) Last Admin: 05/23/22 10:01 Dose: 650 mg Documented By: MLM Acetaminophen (Acetaminophen 650 Mg Supp) 650 mg LA Q6HR PRN PRN Reason: Fever/Mild Pain (1-3) Last Admin: 05/26/22 21:40 Dose: 650 mg Documented By: Admin: 05/26/22 11:26 Dose: 650 mg Documented By: Admin: 05/26/22 02:35 Dose: 650 mg Documented By: Admin: 05/25/22 15:37 Dose: 650 mg Documented By: Admin: 05/25/22 07:49 Dose: 650 mg Documented By: Admin: 05/24/22 18:53 Dose: 650 mg Documented By: RLS Aspirin (Aspirin 81 Mg Chew Tab) 324 mg PO NOW ONE Stop: 05/22/22 17:02 Last Admin: 05/22/22 18:30 Dose: 324 mg Documented By: RLS Bumetanide (Bumetanide 1 Mg/4 Ml Vial) 2 mg IV NOW ONE Stop: 05/25/22 05:53 Last Admin: 05/25/22 06:16 Dose: 2 mg Documented By: MOISÉS Chlorhexidine Gluconate (Chlorhexidine Gluconate 15 Ml Cup) 15 ml PO Q6HR DANA Last Admin: 05/27/22 12:32 Dose: 15 ml Documented By: Admin: 05/27/22 05:11 Dose: 15 ml Documented By: Admin: 05/27/22 00:07 Dose: 15 ml Documented By: Admin: 05/26/22 19:15 Dose: 15 ml Documented By: Admin: 05/26/22 12:10 Dose: 15 ml Documented By: Admin: 05/26/22 05:59 Dose: 15 ml Documented By: Admin: 05/26/22 00:40 Dose: 15 ml Documented By: Admin: 05/25/22 18:19 Dose: 15 ml Documented By: Admin: 05/25/22 14:50 Dose: 15 ml Documented By: RLS Dextrose (Dextrose 50 % In Water 25 Gm/50 Ml Syringe) 25 gm IV PRN PRN PRN Reason: Hypoglycemia Diphenhydramine HCl (Diphenhydramine 50 Mg/Ml Vial) 25 mg IV NOW ONE Stop: 05/26/22 14:05 Last Admin: 05/26/22 14:08 Dose: 25 mg Documented By: KLS Famotidine (Famotidine 20 Mg Tablet) 20 mg PO BID DANA Famotidine (Famotidine 20 Mg/2 Ml Vial) 20 mg IV BID [facility] Last Admin: 05/27/22 08:32 Dose: 20 mg Documented By: Admin: 05/26/22 21:30 Dose: 20 mg Documented By: Admin: 05/26/22 09:04 Dose: 20 mg Documented By: Admin: 05/25/22 21:31 Dose: 20 mg Documented By: Admin: 05/25/22 08:44 Dose: 20 mg Documented By: ELIA Fentanyl (Fentanyl 100 Mcg/2 Ml Inj) 100 mcg IV NOW ONE Stop: 05/24/22 06:37 Last Admin: 05/24/22 08:53 Dose: 100 mcg Documented By: ELIA Fentanyl (Fentanyl 100 Mcg/2 Ml Inj) 50 mcg IV Q1H PRN PRN Reason: Pain, Severe (7-10) Last Admin: 05/26/22 11:21 Dose: 50 mcg Documented By: ELIA Furosemide (Furosemide 40 Mg/4 Ml Vial) 40 mg IV NOW ONE Stop: 05/22/22 18:15 Last Admin: 05/22/22 18:30 Dose: 40 mg Documented By: ELIA Furosemide (Furosemide 40 Mg/4 Ml Vial) 40 mg IV Q12H [facility] Last Admin: 05/25/22 17:03 Dose: 40 mg Documented By: ELIA Furosemide (Furosemide 40 Mg/4 Ml Vial) 40 mg IV Q8HR [facility] Last Admin: 05/27/22 05:13 Dose: 40 mg Documented By: Admin: 05/26/22 21:30 Dose: 40 mg Documented By: Admin: 05/26/22 14:08 Dose: 40 mg Documented By: Admin: 05/26/22 05:52 Dose: 40 mg Documented By: Admin: 05/25/22 21:31 Dose: 40 mg Documented By: MOISÉS Gabapentin (Gabapentin 600 Mg Tablet) 600 mg PO TID [facility] Last Admin: 05/24/22 22:21 Dose: Not Given Documented By: Admin: 05/24/22 15:42 Dose: Not Given Documented By: Admin: 05/24/22 10:30 Dose: Not Given Documented By: Admin: 05/23/22 21:25 Dose: 600 mg Documented By: Admin: 05/23/22 16:00 Dose: 600 mg Documented By: Admin: 05/23/22 09:37 Dose: 600 mg Documented By: Admin: 05/22/22 21:28 Dose: 600 mg Documented By: JETHRO Heparin Sodium (Porcine) (Heparin 5,000 Unit/Ml Vial) 7,500 unit IV NOW ONE Stop: 05/22/22 20:30 Last Admin: 05/22/22 20:47 Dose: 7,500 unit Documented By: KLS Hydrocortisone (Hydrocortisone 100 Mg/2 Ml Vial) 50 mg IV Q6HR DANA Last Admin: 05/27/22 12:32 Dose: Not Given Documented By: Admin: 05/27/22 05:13 Dose: 50 mg Documented By: Admin: 05/27/22 01:54 Dose: 50 mg Documented By: DL Heparin Sodium/Dextrose (Heparin Drip) 25,000 unit in 500 mls @ 24 mls/hr IV CONT DANA; Protocol Last Admin: 05/27/22 04:15 Dose: 1,300 units/hr, 26 mls/hr Documented By: Titration: 05/26/22 21:35 Dose: 0 units/hr, 0 mls/hr Documented By: Admin: 05/26/22 02:21 Dose: 1,300 units/hr, 26 mls/hr Documented By: Titration: 05/26/22 02:20 Dose: 0 units/hr, 0 mls/hr Documented By: Admin: 05/25/22 06:45 Dose: 1,300 units/hr, 26 mls/hr Documented By: Titration: 05/25/22 06:44 Dose: 0 units/hr, 0 mls/hr Documented By: Admin: 05/24/22 11:38 Dose: 1,300 units/hr, 26 mls/hr Documented By: Titration: 05/24/22 11:26 Dose: 1,300 units/hr, 26 mls/hr Documented By: Admin: 05/23/22 16:12 Dose: 1,300 units/hr, 26 mls/hr Documented By: Titration: 05/23/22 16:12 Dose: 1,300 units/hr, 26 mls/hr Documented By: Titration: 05/23/22 09:30 Dose: 1,300 units/hr, 26 mls/hr Documented By: Admin: 05/22/22 20:49 Dose: 1,200 units/hr, 24 mls/hr Documented By: KLZehra Propofol (Propofol) 1,000 mg in 100 mls @ 3.157 mls/hr IV TITRATE DANA; Protocol Last Admin: 05/27/22 13:06 Dose: 30 mcg/kg/min, 18.942 mls/hr Documented By: Titration: 05/27/22 11:09 Dose: 30 mcg/kg/min, 18.942 mls/hr Documented By: Admin: 05/27/22 05:52 Dose: 30 mcg/kg/min, 18.942 mls/hr Documented By: Titration: 05/27/22 05:18 Dose: 30 mcg/kg/min, 18.942 mls/hr Documented By: Titration: 05/26/22 18:24 Dose: 20 mcg/kg/min, 12.628 mls/hr Documented By: Admin: 05/26/22 12:24 Dose: 22.01 mcg/kg/min, 13.9 mls/hr Documented By: Titration: 05/26/22 11:39 Dose: 22.01 mcg/kg/min, 13.9 mls/hr Documented By: Admin: 05/26/22 04:27 Dose: 22.01 mcg/kg/min, 13.9 mls/hr Documented By: Titration: 05/26/22 04:25 Dose: 0 mcg/kg/min, 0 mls/hr Documented By: Admin: 05/25/22 21:18 Dose: 22.01 mcg/kg/min, 13.9 mls/hr Documented By: Titration: 05/25/22 21:14 Dose: 0 mcg/kg/min, 0 mls/hr Documented By: Titration: 05/25/22 17:12 Dose: 22 mcg/kg/min, 13.891 mls/hr Documented By: Titration: 05/25/22 14:47 Dose: 26 mcg/kg/min, 16.416 mls/hr Documented By: Admin: 05/25/22 14:30 Dose: 28 mcg/kg/min, 17.679 mls/hr Documented By: Titration: 05/25/22 13:54 Dose: 28 mcg/kg/min, 17.679 mls/hr Documented By: Titration: 05/25/22 10:08 Dose: 28 mcg/kg/min, 17.679 mls/hr Documented By: Titration: 05/25/22 09:39 Dose: 25 mcg/kg/min, 15.785 mls/hr Documented By: Admin: 05/25/22 08:11 Dose: 27.87 mcg/kg/min, 17.6 mls/hr Documented By: Titration: 05/25/22 08:11 Dose: 27.87 mcg/kg/min, 17.6 mls/hr Documented By: Titration: 05/25/22 08:02 Dose: 27.87 mcg/kg/min, 17.6 mls/hr Documented By: Admin: 05/25/22 01:52 Dose: 25 mcg/kg/min, 15.785 mls/hr Documented By: Titration: 05/25/22 01:50 Dose: 25 mcg/kg/min, 15.785 mls/hr Documented By: Admin: 05/24/22 19:23 Dose: 25 mcg/kg/min, 15.785 mls/hr Documented By: Titration: 05/24/22 19:23 Dose: 25 mcg/kg/min, 15.785 mls/hr Documented By: Admin: 05/24/22 13:30 Dose: 25 mcg/kg/min, 15.785 mls/hr Documented By: Titration: 05/24/22 13:30 Dose: 25 mcg/kg/min, 15.785 mls/hr Documented By: Titration: 05/24/22 08:10 Dose: 25 mcg/kg/min, 15.785 mls/hr Documented By: Titration: 05/24/22 07:53 Dose: 20 mcg/kg/min, 12.628 mls/hr Documented By: Titration: 05/24/22 07:39 Dose: 15 mcg/kg/min, 9.471 mls/hr Documented By: Titration: 05/24/22 06:20 Dose: 10 mcg/kg/min, 6.314 mls/hr Documented By: Admin: 05/24/22 05:53 Dose: 5 mcg/kg/min, 3.157 mls/hr Documented By: GC NOREPINEPHRINE BITARTRATE/D5W (Levophed) 4 mg in 250 mls @ 30 mls/hr IV TITRATE DANA; Protocol Last Titration: 05/25/22 09:38 Dose: 0 mcg/min, 0 mls/hr Documented By: Titration: 05/25/22 08:33 Dose: 1 mcg/min, 3.75 mls/hr Documented By: Titration: 05/25/22 05:50 Dose: 3 mcg/min, 11.25 mls/hr Documented By: Admin: 05/24/22 16:45 Dose: 4 mcg/min, 15 mls/hr Documented By: Titration: 05/24/22 16:45 Dose: 4 mcg/min, 15 mls/hr Documented By: Titration: 05/24/22 12:38 Dose: 4 mcg/min, 15 mls/hr Documented By: Titration: 05/24/22 11:24 Dose: 0 mcg/min, 0 mls/hr Documented By: Titration: 05/24/22 11:00 Dose: 3 mcg/min, 11.25 mls/hr Documented By: Titration: 05/24/22 09:56 Dose: 4 mcg/min, 15 mls/hr Documented By: Titration: 05/24/22 09:32 Dose: 8 mcg/min, 30 mls/hr Documented By: Titration: 05/24/22 09:00 Dose: 10 mcg/min, 37.5 mls/hr Documented By: Titration: 05/24/22 08:00 Dose: 12 mcg/min, 45 mls/hr Documented By: Admin: 05/24/22 06:30 Dose: 8 mcg/min, 30 mls/hr Documented By: GC Epinephrine HCl 4 mg/ Dextrose 250 mls @ 3.75 mls/hr IV TITRATE DANA; Protocol Last Titration: 05/27/22 11:58 Dose: 5 mcg/min, 18.75 mls/hr Documented By: Titration: 05/27/22 09:19 Dose: 6 mcg/min, 22.5 mls/hr Documented By: Titration: 05/27/22 08:50 Dose: 7 mcg/min, 26.25 mls/hr Documented By: Admin: 05/27/22 06:29 Dose: 8 mcg/min, 30 mls/hr Documented By: Titration: 05/27/22 06:29 Dose: 8 mcg/min, 30 mls/hr Documented By: Titration: 05/27/22 05:53 Dose: 8 mcg/min, 30 mls/hr Documented By: Titration: 05/27/22 05:17 Dose: 9.01 mcg/min, 33.8 mls/hr Documented By: Titration: 05/27/22 04:13 Dose: 10 mcg/min, 37.5 mls/hr Documented By: Admin: 05/27/22 00:47 Dose: 12 mcg/min, 45 mls/hr Documented By: Titration: 05/27/22 00:47 Dose: 0 mcg/min, 0 mls/hr Documented By: Admin: 05/26/22 19:20 Dose: 12 mcg/min, 45 mls/hr Documented By: Titration: 05/26/22 19:20 Dose: 12 mcg/min, 45 mls/hr Documented By: Titration: 05/26/22 19:04 Dose: 12 mcg/min, 45 mls/hr Documented By: Titration: 05/26/22 18:18 Dose: 10 mcg/min, 37.5 mls/hr Documented By: Admin: 05/26/22 11:28 Dose: 8 mcg/min, 30 mls/hr Documented By: Titration: 05/26/22 11:26 Dose: 8 mcg/min, 30 mls/hr Documented By: Admin: 05/26/22 03:06 Dose: 8 mcg/min, 30 mls/hr Documented By: Titration: 05/26/22 03:05 Dose: 0 mcg/min, 0 mls/hr Documented By: Admin: 05/25/22 18:21 Dose: 8 mcg/min, 30 mls/hr Documented By: Titration: 05/25/22 18:21 Dose: 8 mcg/min, 30 mls/hr Documented By: Titration: 05/25/22 18:07 Dose: 8 mcg/min, 30 mls/hr Documented By: Titration: 05/25/22 16:22 Dose: 6 mcg/min, 22.5 mls/hr Documented By: Titration: 05/25/22 11:00 Dose: 6.93 mcg/min, 26 mls/hr Documented By: Admin: 05/25/22 10:03 Dose: 8 mcg/min, 30 mls/hr Documented By: Titration: 05/25/22 10:03 Dose: 8 mcg/min, 30 mls/hr Documented By: Titration: 05/25/22 01:55 Dose: 8 mcg/min, 30 mls/hr Documented By: Admin: 05/25/22 01:53 Dose: 10 mcg/min, 37.5 mls/hr Documented By: Titration: 05/25/22 01:39 Dose: 10 mcg/min, 37.5 mls/hr Documented By: Titration: 05/24/22 23:52 Dose: 10 mcg/min, 37.5 mls/hr Documented By: Admin: 05/24/22 20:22 Dose: 14 mcg/min, 52.5 mls/hr Documented By: Titration: 05/24/22 20:22 Dose: 14 mcg/min, 52.5 mls/hr Documented By: Titration: 05/24/22 20:19 Dose: 14 mcg/min, 52.5 mls/hr Documented By: Admin: 05/24/22 16:30 Dose: 14 mcg/min, 52.5 mls/hr Documented By: Titration: 05/24/22 16:27 Dose: 14 mcg/min, 52.5 mls/hr Documented By: Titration: 05/24/22 13:18 Dose: 14 mcg/min, 52.5 mls/hr Documented By: Titration: 05/24/22 12:42 Dose: 16 mcg/min, 60 mls/hr Documented By: Titration: 05/24/22 12:40 Dose: 12 mcg/min, 45 mls/hr Documented By: Titration: 05/24/22 11:42 Dose: 8 mcg/min, 30 mls/hr Documented By: Titration: 05/24/22 11:33 Dose: 6 mcg/min, 22.5 mls/hr Documented By: Titration: 05/24/22 10:37 Dose: 4 mcg/min, 15 mls/hr Documented By: Admin: 05/24/22 10:23 Dose: 1 mcg/min, 3.75 mls/hr Documented By: ELIA Sodium Chloride (Normal Saline 0.9%) 1,000 mls @ 250 mls/hr IV BOLUS ONE Stop: 05/24/22 18:39 Last Infusion: 05/24/22 15:55 Dose: 0 mls/hr Documented By: Admin: 05/24/22 14:54 Dose: 250 mls/hr Documented By: RLS Piperacillin Sod/Tazobactam (Sod 4.5 gm/ Sodium Chloride) 100 mls @ 200 mls/hr IV NOW ONE Stop: 05/24/22 15:00 Last Infusion: 05/24/22 16:15 Dose: 0 mls/hr Documented By: Admin: 05/24/22 15:42 Dose: 200 mls/hr Documented By: ELIA Sodium Chloride (Normal Saline 0.9%) 1,000 mls @ 50 mls/hr IV CONT ONE Stop: 05/25/22 11:47 Last Infusion: 05/25/22 07:05 Dose: 0 mls/hr Documented By: Infusion: 05/25/22 00:29 Dose: 0 mls/hr Documented By: Admin: 05/24/22 16:40 Dose: 50 mls/hr Documented By: ELIA Magnesium Sulfate (Magnesium Sulfate) 2 gm in 50 mls @ 25 mls/hr IV NOW ONE Stop: 05/24/22 22:14 Last Infusion: 05/25/22 00:11 Dose: 0 mls/hr Documented By: GC Co-signed By: JETHRO Admin: 05/24/22 22:24 Dose: 25 mls/hr Documented By: GC Co-signed By: VALENTINE Calcium Gluconate 4.65 meq/ (Sodium Chloride) 60 mls @ 180 mls/hr IV NOW ONE Stop: 05/24/22 20:36 Last Infusion: 05/24/22 22:33 Dose: 180 mls/hr Documented By: Admin: 05/24/22 22:13 Dose: 180 mls/hr Documented By: GC Fentanyl 1,000 mcg/ Dextrose 250 mls @ 18.416 mls/hr IV TITRATE DANA; Protocol Last Titration: 05/27/22 01:55 Dose: 0.5 mcg/kg/hr, 13.154 mls/hr Documented By: Admin: 05/27/22 00:06 Dose: 0.76 mcg/kg/hr, 20 mls/hr Documented By: Titration: 05/27/22 00:06 Dose: 0.76 mcg/kg/hr, 20 mls/hr Documented By: Titration: 05/26/22 18:29 Dose: 0.76 mcg/kg/hr, 20 mls/hr Documented By: Admin: 05/26/22 12:23 Dose: 0.84 mcg/kg/hr, 22.099 mls/hr Documented By: Titration: 05/26/22 11:39 Dose: 0.84 mcg/kg/hr, 22.099 mls/hr Documented By: Titration: 05/26/22 10:30 Dose: 0.84 mcg/kg/hr, 22.099 mls/hr Documented By: Titration: 05/25/22 23:17 Dose: 0.76 mcg/kg/hr, 20 mls/hr Documented By: Admin: 05/25/22 23:16 Dose: 0.76 mcg/kg/hr, 20 mls/hr Documented By: Titration: 05/25/22 23:16 Dose: 0.76 mcg/kg/hr, 20 mls/hr Documented By: Admin: 05/25/22 23:14 Dose: 0.76 mcg/kg/hr, 20 mls/hr Documented By: Titration: 05/25/22 23:14 Dose: 0.76 mcg/kg/hr, 20 mls/hr Documented By: Titration: 05/25/22 14:44 Dose: 0.76 mcg/kg/hr, 20 mls/hr Documented By: Admin: 05/25/22 10:38 Dose: 0.7 mcg/kg/hr, 18.416 mls/hr Documented By: RLS Piperacillin Sod/Tazobactam (Sod 3.375 gm/ Sodium Chloride) 100 mls @ 25 mls/hr IV Q8H DANA Last Infusion: 05/27/22 13:08 Dose: 0 mls/hr Documented By: Admin: 05/27/22 09:08 Dose: 25 mls/hr Documented By: Infusion: 05/27/22 05:05 Dose: 0 mls/hr Documented By: Admin: 05/27/22 01:01 Dose: 25 mls/hr Documented By: Infusion: 05/26/22 20:35 Dose: 0 mls/hr Documented By: Admin: 05/26/22 17:02 Dose: 25 mls/hr Documented By: Infusion: 05/26/22 13:15 Dose: 0 mls/hr Documented By: Admin: 05/26/22 09:09 Dose: 25 mls/hr Documented By: Infusion: 05/26/22 04:29 Dose: 0 mls/hr Documented By: Admin: 05/26/22 00:38 Dose: 25 mls/hr Documented By: Infusion: 05/25/22 21:07 Dose: 25 mls/hr Documented By: Admin: 05/25/22 17:07 Dose: 25 mls/hr Documented By: ELIA POTASSIUM CHLORIDE IN WATER (Potassium Cl 10 Meq/100 Ml Aye) 10 meq in 100 mls @ 100 mls/hr IV Q1H DANA Stop: 05/26/22 09:29 Last Infusion: 05/26/22 10:37 Dose: 0 mls/hr Documented By: Admin: 05/26/22 08:59 Dose: 100 mls/hr Documented By: Infusion: 05/26/22 08:59 Dose: 0 mls/hr Documented By: Admin: 05/26/22 07:42 Dose: 100 mls/hr Documented By: ELIA Magnesium Sulfate (Magnesium Sulfate) 2 gm in 50 mls @ 25 mls/hr IV NOW ONE Stop: 05/26/22 09:31 Last Infusion: 05/26/22 09:55 Dose: 0 mls/hr Documented By: ELIA Co-signed By: VONDA Admin: 05/26/22 07:52 Dose: 25 mls/hr Documented By: ELIA Co-signed By: JIMMY Linezolid (Zyvox) 600 mg in 300 mls @ 600 mls/hr IV Q12H DANA Last Infusion: 05/27/22 10:31 Dose: 0 mls/hr Documented By: Admin: 05/27/22 10:01 Dose: 600 mls/hr Documented By: Infusion: 05/27/22 09:19 Dose: 0 mls/hr Documented By: Admin: 05/26/22 22:54 Dose: 600 mls/hr Documented By: VALENTINE Vasopressin 40 unit/ Sodium (Chloride) 100 mls @ 6 mls/hr IV TITRATE DANA Last Infusion: 05/27/22 10:02 Dose: 0.03 unit/min, 4.5 mls/hr Documented By: Admin: 05/27/22 02:05 Dose: 0.04 unit/min, 6 mls/hr Documented By: EFRAIN Magnesium Sulfate (Magnesium Sulfate) 2 gm in 50 mls @ 25 mls/hr IV NOW ONE Stop: 05/27/22 04:02 Last Infusion: 05/27/22 04:06 Dose: 0 mls/hr Documented By: EFRAIN Co-signed By: CHARLIE Admin: 05/27/22 02:30 Dose: 25 mls/hr Documented By: EFRAIN Co-signed By: CHARLIE Lactated Ringer's (Lactated Ringers) 1,000 mls @ 100 mls/hr IV CONT DANA Last Admin: 05/27/22 11:35 Dose: 100 mls/hr Documented By: Albumin Human (Albuminar) 12.5 gm in 50 mls @ 60 mls/hr IV Q8H DANA Stop: 05/29/22 11:59 Last Admin: 05/27/22 12:25 Dose: 60 mls/hr Documented By: Heparin Sodium/Dextrose (Heparin Drip) 25,000 unit in 500 mls @ 24 mls/hr IV CONT DANA; Protocol Insulin Human Lispro (Insulin Lispro 100 Unit/Ml 3ml Vial) 0 unit SUBCUT ACHS DANA; Protocol Last Admin: 05/27/22 12:11 Dose: 3 unit Documented By: Co-signed By: ELIA(2) Admin: 05/27/22 08:31 Dose: 2 unit Documented By: Co-signed By: ELIA(2) Admin: 05/26/22 22:41 Dose: Not Given Documented By: Admin: 05/26/22 17:37 Dose: Not Given Documented By: Admin: 05/26/22 12:23 Dose: Not Given Documented By: Admin: 05/26/22 09:03 Dose: Not Given Documented By: Admin: 05/25/22 23:13 Dose: Not Given Documented By: Admin: 05/25/22 18:13 Dose: 1 unit Documented By: ELIA Co-signed By: LUCY Admin: 05/25/22 12:41 Dose: 1 unit Documented By: ELIA Co-signed By: AT Admin: 05/25/22 08:47 Dose: 1 unit Documented By: ELIA Co-signed By: LUCY Metolazone (Metolazone 2.5 Mg Tablet) 2.5 mg PO NOW ONE Stop: 05/25/22 05:53 Last Admin: 05/25/22 06:21 Dose: 2.5 mg Documented By: MOISÉS Midazolam HCl (Midazolam 2 Mg/2 Ml Vial) 2 mg IV Q1HR PRN PRN Reason: Agitation Stop: 05/29/22 10:14 Morphine Sulfate (Morphine 4 Mg/Ml Inj) 4 mg IV NOW ONE Stop: 05/25/22 08:07 Last Admin: 05/25/22 08:09 Dose: 4 mg Documented By: ELIA Morphine Sulfate (Morphine 4 Mg/Ml Inj) 4 mg IV NOW ONE Stop: 05/25/22 10:21 Last Admin: 05/25/22 10:24 Dose: 4 mg Documented By: ELIA Naloxone HCl (Naloxone 0.4 Mg/Ml Vial) 0.2 mg IV Q2MIN PRN PRN Reason: Opiate Reversal Propofol (Propofol 200 Mg/20 Ml Vial) 200 mg IV NOW ONE Stop: 05/24/22 05:37 Last Admin: 05/24/22 05:36 Dose: 200 mg Documented By: MOISÉS Succinylcholine Chloride (Succinylcholine 200 Mg/10 Ml Vial) 200 mg IV NOW ONE Stop: 05/24/22 05:37 Last Admin: 05/24/22 07:18 Dose: 200 mg Documented By: MOISÉS Vasopressin (Vasopressin 20 Unit/Ml Vial) 20 unit IV NOW ONE Stop: 05/27/22 01:42 Last Admin: 05/27/22 02:05 Dose: 20 unit Documented By: EFRAIN Vital Signs Vital signs: Vital Signs - 8 hr 05/25/22 10:15 05/25/22 10:15 05/25/22 10:30 Temperature Pulse Rate 100 H Respiratory Rate 33 H Blood Pressure 112/58 L 113/57 L Pulse Oximetry 82 L 05/25/22 10:30 05/25/22 10:45 05/25/22 10:45 Temperature Pulse Rate 98 H 97 H Respiratory Rate 28 H 28 H Blood Pressure 107/59 L Pulse Oximetry 100 100 05/25/22 11:00 05/25/22 11:00 05/25/22 11:15 Temperature Pulse Rate 96 H Respiratory Rate 28 H Blood Pressure 107/59 L 111/56 L Pulse Oximetry 97 05/25/22 11:15 05/25/22 11:00 05/25/22 11:30 Temperature 100.5 F H Pulse Rate 93 H Respiratory Rate 28 H Blood Pressure 110/55 L Pulse Oximetry 95 05/25/22 11:30 05/25/22 11:45 05/25/22 11:45 Temperature Pulse Rate 91 H 91 H Respiratory Rate 28 H 28 H Blood Pressure 111/56 L Pulse Oximetry 96 97 05/25/22 12:00 05/25/22 12:00 05/25/22 12:15 Temperature Pulse Rate 90 Respiratory Rate 28 H Blood Pressure 114/57 L 117/58 L Pulse Oximetry 97 05/25/22 12:15 05/25/22 12:30 05/25/22 12:30 Temperature 100.0 F H Pulse Rate 91 H 90 Respiratory Rate 28 H 28 H Blood Pressure 119/60 Pulse Oximetry 99 98 05/25/22 14:15 05/25/22 14:59 05/25/22 15:37 Temperature 100.2 F H 100.4 F H 100.0 F H Pulse Rate Respiratory Rate Blood Pressure Pulse Oximetry 05/25/22 12:45 05/25/22 12:45 05/25/22 13:00 Temperature Pulse Rate 90 Respiratory Rate 28 H Blood Pressure 122/63 124/63 Pulse Oximetry 98 05/25/22 13:00 05/25/22 13:15 05/25/22 13:15 Temperature Pulse Rate 90 89 Respiratory Rate 28 H 28 H Blood Pressure 124/64 Pulse Oximetry 97 98 05/25/22 13:30 05/25/22 13:30 05/25/22 13:45 Temperature Pulse Rate 89 Respiratory Rate 28 H Blood Pressure 124/65 125/65 Pulse Oximetry 97 05/25/22 13:45 05/25/22 14:00 05/25/22 14:00 Temperature Pulse Rate 89 89 Respiratory Rate 28 H 28 H Blood Pressure 126/65 Pulse Oximetry 98 98 05/25/22 14:15 05/25/22 14:15 05/25/22 14:30 Temperature Pulse Rate 89 Respiratory Rate 28 H Blood Pressure 128/66 132/70 Pulse Oximetry 98 05/25/22 14:30 05/25/22 14:45 05/25/22 14:45 Temperature Pulse Rate 91 H 96 H Respiratory Rate 28 H 28 H Blood Pressure 118/65 Pulse Oximetry 95 94 05/25/22 15:00 05/25/22 15:00 05/25/22 15:15 Temperature Pulse Rate 99 H Respiratory Rate 28 H Blood Pressure 120/66 118/61 Pulse Oximetry 96 05/25/22 15:15 05/25/22 15:30 05/25/22 15:30 Temperature Pulse Rate 95 H 93 H Respiratory Rate 28 H 28 H Blood Pressure 117/60 Pulse Oximetry 96 97 05/25/22 15:45 05/25/22 15:46 05/25/22 15:46 Temperature Pulse Rate 106 H 114 H Respiratory Rate Blood Pressure 172/87 H Pulse Oximetry 92 99 05/25/22 16:00 05/25/22 16:00 05/25/22 16:15 Temperature Pulse Rate 97 H 102 H Respiratory Rate 28 H 28 H Blood Pressure 137/60 Pulse Oximetry 100 90 L 05/25/22 16:16 05/25/22 16:16 05/25/22 16:30 Temperature 100.4 F H Pulse Rate 102 H Respiratory Rate 28 H Blood Pressure 112/52 L 108/53 L Pulse Oximetry 90 L 05/25/22 16:30 Temperature 100.4 F H Pulse Rate 98 H Respiratory Rate 28 H Blood Pressure Pulse Oximetry 92 MDM - SOB/Dyspnea <William Turcios, DO - Last Filed: 05/26/22 01:55> Lab Data Result diagrams: 05/27/22 04:05 05/27/22 04:05 Labs: Lab Results 05/22/22 05/22/22 05/22/22 Range/Units 17:34 17:34 17:34 WBC 12.1 H (4.5-11.0) X10^3/uL RBC 3.19 L (4.0-5.2) X10^6/uL Hgb 9.0 L (12.0-16.0) g/dL Hct 27.9 L (36-46) % MCV 87.3 (80-100) fL MCH 28.2 (26-34) PG MCHC 32.3 (30-36) % RDW 14.6 (11.6-14.8) % Plt Count 579 H (150-400) X10^3/uL Neut % (Auto) 86.4 H (50-75) % Lymph % (Auto) 6.3 L (25-40) % Major % (Auto) 6.1 (3-14) % Eos % (Auto) 0.1 L (2-4) % Baso % (Auto) 1.1 (0-2) % Neut # (Auto) 38752 H (7499-4193) /uL Lymph # (Auto) 800 L (0803-0183) /uL Major # (Auto) 700 (0-900) /uL Eos # (Auto) 0 (0-450) /uL Baso # (Auto) 100 (0-100) /uL Total Counted Seg Neutrophils % (38-70) % Band Neutrophils % (3-7) % Lymphocytes % (Manual) (25-45) % Monocytes % (Manual) (2-11) % Neutrophils # (Manual) (9131-3719) /uL Nucleated RBCs ( - 0) #/Diff RBC Morphology Hypochromasia Anisocytosis PT 13.6 H (10.1-12.7) SECONDS INR 1.2 (0.9-1.3) APTT 27 (26-36) SECONDS D-Dimer (<500) ng/ml ABG pH (7.35-7.45) ABG pCO2 (35-45) mmHg ABG pO2 (80-100) mmHg ABG HCO3 (22-26) mmol/L ABG Total CO2 (21-31) mmol/L ABG O2 Saturation (95-100) % ABG Base Excess (-2-2) mmol/L VBG pH (7.33-7.43) VBG pCO2 (45-50) mmHg VBG pO2 (35-45) mmHg VBG HCO3 (23-28) mmol/L VBG Total CO2 (24-29) mmol/L VBG O2 Saturation (70-75) % VBG Base Excess (0-4) mmol/L FiO2 Sodium 144 (137-145) mmol/L Potassium 4.4 (3.4-5.1) mmol/L Chloride 111 H (98-107) mmol/L Carbon Dioxide 24 (22-32) mmol/L BUN 34 H (7-17) mg/dL Creatinine 1.53 H (0.52-1.04) mg/dL Estimated GFR 35 L (>60) mL/min BUN/Creatinine Ratio 22.2 H (6-22) Glucose 107 (80-110) mg/dL Lactate (0.7-2.1) mmol/L Calcium 8.6 (8.4-10.2) mg/dL Ionized Calcium [place] (4.5-5.6) mg/dL Phosphorus (2.8-4.1) mg/dL Magnesium 1.6 (1.6-2.3) mg/dL Total Bilirubin 0.3 (0.2-1.3) mg/dL Conjugated Bilirubin (0.0-0.3) md/dL Unconjugated Bilirubin (0.0-1.1) mg/dL AST 35 (14-36) IU/L ALT 18 (<35) IU/L Alkaline Phosphatase 351 H (38-126) U/L Total Creatine Kinase 48 (30-135) U/L CK-MB (CK-2) TNP CK-MB (CK-2) Rel Index TNP Troponin I 0.103 H (0.01-0.034) ng/mL NT-Pro-B Natriuret Pep (<125) pg/mL Total Protein 7.2 (6.3-8.2) g/dL Albumin 3.4 L (3.5-5.0) g/dL Globulin 3.8 (1.7-4.1) g/dL Albumin/Globulin Ratio 0.9 L (1.0-2.8) Lipase 112 (23-300) U/L Procalcitonin (<0.5) ng/mL Urine Color Urine Appearance Urine pH (4.5-8.0) Ur Specific [place] (1.000-1.035) Urine Protein (Negative) Urine Glucose (UA) (Negative) g/dL Urine Ketones (NEGATIVE) Urine Occult Blood (Negative) Urine Nitrate (Negative) Urine Bilirubin (NEGATIVE) Urine Urobilinogen (0.2) E.U./dL Ur Leukocyte Esterase (NEGATIVE) Urine RBC (0-5/HPF) Urine WBC (0-5/HPF) Ur Squamous Epith Cells (0-5/HPF) Urine Bacteria (None) Urine Mucus (Negative) Ur Culture Indicated? Ur Random Sodium (30-90) mmol/L Urine Creatinine mg/dL Ketones (<0.27) mmol/L SARS-CoV-2 (PCR) (Negative) Influenza A (RT-PCR) (NEGATIVE) Influenza B (RT-PCR) (NEGATIVE) RSV (PCR) (Negative) 05/22/22 05/22/22 05/22/22 Range/Units 17:34 17:34 18:05 WBC (4.5-11.0) X10^3/uL RBC (4.0-5.2) X10^6/uL Hgb (12.0-16.0) g/dL Hct (36-46) % MCV (80-100) fL MCH (26-34) PG MCHC (30-36) % RDW (11.6-14.8) % Plt Count (150-400) X10^3/uL Neut % (Auto) (50-75) % Lymph % (Auto) (25-40) % Major % (Auto) (3-14) % Eos % (Auto) (2-4) % Baso % (Auto) (0-2) % Neut # (Auto) (7031-4100) /uL Lymph # (Auto) (2803-8305) /uL Major # (Auto) (0-900) /uL Eos # (Auto) (0-450) /uL Baso # (Auto) (0-100) /uL Total Counted Seg Neutrophils % (38-70) % Band Neutrophils % (3-7) % Lymphocytes % (Manual) (25-45) % Monocytes % (Manual) (2-11) % Neutrophils # (Manual) (0173-2506) /uL Nucleated RBCs ( - 0) #/Diff RBC Morphology Hypochromasia Anisocytosis PT (10.1-12.7) SECONDS INR (0.9-1.3) APTT (26-36) SECONDS D-Dimer 90765 H (<500) ng/ml ABG pH (7.35-7.45) ABG pCO2 (35-45) mmHg ABG pO2 (80-100) mmHg ABG HCO3 (22-26) mmol/L ABG Total CO2 (21-31) mmol/L ABG O2 Saturation (95-100) % ABG Base Excess (-2-2) mmol/L VBG pH (7.33-7.43) VBG pCO2 (45-50) mmHg VBG pO2 (35-45) mmHg VBG HCO3 (23-28) mmol/L VBG Total CO2 (24-29) mmol/L VBG O2 Saturation (70-75) % VBG Base Excess (0-4) mmol/L FiO2 Sodium (137-145) mmol/L Potassium (3.4-5.1) mmol/L Chloride (98-107) mmol/L Carbon Dioxide (22-32) mmol/L BUN (7-17) mg/dL Creatinine (0.52-1.04) mg/dL Estimated GFR (>60) mL/min BUN/Creatinine Ratio (6-22) Glucose (80-110) mg/dL Lactate (0.7-2.1) mmol/L Calcium (8.4-10.2) mg/dL Ionized Calcium Hanna (4.5-5.6) mg/dL Phosphorus (2.8-4.1) mg/dL Magnesium (1.6-2.3) mg/dL Total Bilirubin (0.2-1.3) mg/dL Conjugated Bilirubin (0.0-0.3) md/dL Unconjugated Bilirubin (0.0-1.1) mg/dL AST (14-36) IU/L ALT (<35) IU/L Alkaline Phosphatase (38-126) U/L Total Creatine Kinase (30-135) U/L CK-MB (CK-2) CK-MB (CK-2) Rel Index Troponin I (0.01-0.034) ng/mL NT-Pro-B Natriuret Pep 6350 H (<125) pg/mL Total Protein (6.3-8.2) g/dL Albumin (3.5-5.0) g/dL Globulin (1.7-4.1) g/dL Albumin/Globulin Ratio (1.0-2.8) Lipase (23-300) U/L Procalcitonin (<0.5) ng/mL Urine Color Urine Appearance Urine pH (4.5-8.0) Ur Specific [place] (1.000-1.035) Urine Protein (Negative) Urine Glucose (UA) (Negative) g/dL Urine Ketones (NEGATIVE) Urine Occult Blood (Negative) Urine Nitrate (Negative) Urine Bilirubin (NEGATIVE) Urine Urobilinogen (0.2) E.U./dL Ur Leukocyte Esterase (NEGATIVE) Urine RBC (0-5/HPF) Urine WBC (0-5/HPF) Ur Squamous Epith Cells (0-5/HPF) Urine Bacteria (None) Urine Mucus (Negative) Ur Culture Indicated? Ur Random Sodium (30-90) mmol/L Urine Creatinine mg/dL Ketones (<0.27) mmol/L SARS-CoV-2 (PCR) Negative (Negative) Influenza A (RT-PCR) Flu a negative (NEGATIVE) Influenza B (RT-PCR) Flu b negative (NEGATIVE) RSV (PCR) Negative (Negative) 05/22/22 05/23/22 05/23/22 Range/Units 18:55 02:40 02:40 WBC (4.5-11.0) X10^3/uL RBC (4.0-5.2) X10^6/uL Hgb (12.0-16.0) g/dL Hct (36-46) % MCV (80-100) fL MCH (26-34) PG MCHC (30-36) % RDW (11.6-14.8) % Plt Count (150-400) X10^3/uL Neut % (Auto) (50-75) % Lymph % (Auto) (25-40) % Major % (Auto) (3-14) % Eos % (Auto) (2-4) % Baso % (Auto) (0-2) % Neut # (Auto) (0746-6347) /uL Lymph # (Auto) (2063-9020) /uL Major # (Auto) (0-900) /uL Eos # (Auto) (0-450) /uL Baso # (Auto) (0-100) /uL Total Counted Seg Neutrophils % (38-70) % Band Neutrophils % (3-7) % Lymphocytes % (Manual) (25-45) % Monocytes % (Manual) (2-11) % Neutrophils # (Manual) (0647-9469) /uL Nucleated RBCs ( - 0) #/Diff RBC Morphology Hypochromasia Anisocytosis PT (10.1-12.7) SECONDS INR (0.9-1.3) APTT 89 H* D (26-36) SECONDS D-Dimer (<500) ng/ml ABG pH (7.35-7.45) ABG pCO2 (35-45) mmHg ABG pO2 (80-100) mmHg ABG HCO3 (22-26) mmol/L ABG Total CO2 (21-31) mmol/L ABG O2 Saturation (95-100) % ABG Base Excess (-2-2) mmol/L VBG pH (7.33-7.43) VBG pCO2 (45-50) mmHg VBG pO2 (35-45) mmHg VBG HCO3 (23-28) mmol/L VBG Total CO2 (24-29) mmol/L VBG O2 Saturation (70-75) % VBG Base Excess (0-4) mmol/L FiO2 Sodium (137-145) mmol/L Potassium (3.4-5.1) mmol/L Chloride (98-107) mmol/L Carbon Dioxide (22-32) mmol/L BUN (7-17) mg/dL Creatinine (0.52-1.04) mg/dL Estimated GFR (>60) mL/min BUN/Creatinine Ratio (6-22) Glucose (80-110) mg/dL Lactate (0.7-2.1) mmol/L Calcium (8.4-10.2) mg/dL Ionized Calcium Hanna (4.5-5.6) mg/dL Phosphorus (2.8-4.1) mg/dL Magnesium (1.6-2.3) mg/dL Total Bilirubin (0.2-1.3) mg/dL Conjugated Bilirubin (0.0-0.3) md/dL Unconjugated Bilirubin (0.0-1.1) mg/dL AST (14-36) IU/L ALT (<35) IU/L Alkaline Phosphatase (38-126) U/L Total Creatine Kinase (30-135) U/L CK-MB (CK-2) CK-MB (CK-2) Rel Index Troponin I 0.078 H (0.01-0.034) ng/mL NT-Pro-B Natriuret Pep (<125) pg/mL Total Protein (6.3-8.2) g/dL Albumin (3.5-5.0) g/dL Globulin (1.7-4.1) g/dL Albumin/Globulin Ratio (1.0-2.8) Lipase (23-300) U/L Procalcitonin (<0.5) ng/mL Urine Color Yellow Urine Appearance Clear Urine pH 5.0 (4.5-8.0) Ur Specific [place] 1.025 (1.000-1.035) Urine Protein 2+ H (Negative) Urine Glucose (UA) Negative (Negative) g/dL Urine Ketones Trace H (NEGATIVE) Urine Occult Blood Negative (Negative) Urine Nitrate Negative (Negative) Urine Bilirubin Negative (NEGATIVE) Urine Urobilinogen 0.2 (0.2) E.U./dL Ur Leukocyte Esterase Negative (NEGATIVE) Urine RBC 1-5/hpf (0-5/HPF) Urine WBC 1-5/hpf (0-5/HPF) Ur Squamous Epith Cells 0-1 /hpf (0-5/HPF) Urine Bacteria Occasional (0-1) (None) Urine Mucus 1+ H (Negative) Ur Culture Indicated? Cult not indicated Ur Random Sodium (30-90) mmol/L Urine Creatinine mg/dL Ketones (<0.27) mmol/L SARS-CoV-2 (PCR) (Negative) Influenza A (RT-PCR) (NEGATIVE) Influenza B (RT-PCR) (NEGATIVE) RSV (PCR) (Negative) 05/23/22 05/23/22 05/23/22 Range/Units 08:30 09:40 09:40 WBC 9.6 (4.5-11.0) X10^3/uL RBC 3.04 L (4.0-5.2) X10^6/uL Hgb 8.7 L (12.0-16.0) g/dL Hct 26.9 L (36-46) % MCV 88.5 (80-100) fL MCH 28.7 (26-34) PG MCHC 32.4 (30-36) % RDW 14.4 (11.6-14.8) % Plt Count 519 H (150-400) X10^3/uL Neut % (Auto) 74.6 (50-75) % Lymph % (Auto) 11.6 L (25-40) % Major % (Auto) 11.9 (3-14) % Eos % (Auto) 1.2 L (2-4) % Baso % (Auto) 0.7 (0-2) % Neut # (Auto) 7200 H (1571-4762) /uL Lymph # (Auto) 1100 (7134-5615) /uL Major # (Auto) 1100 H (0-900) /uL Eos # (Auto) 100 (0-450) /uL Baso # (Auto) 100 (0-100) /uL Total Counted Seg Neutrophils % (38-70) % Band Neutrophils % (3-7) % Lymphocytes % (Manual) (25-45) % Monocytes % (Manual) (2-11) % Neutrophils # (Manual) (8013-0241) /uL Nucleated RBCs ( - 0) #/Diff RBC Morphology Hypochromasia Anisocytosis PT (10.1-12.7) SECONDS INR (0.9-1.3) APTT 62 H D (26-36) SECONDS D-Dimer (<500) ng/ml ABG pH (7.35-7.45) ABG pCO2 (35-45) mmHg ABG pO2 (80-100) mmHg ABG HCO3 (22-26) mmol/L ABG Total CO2 (21-31) mmol/L ABG O2 Saturation (95-100) % ABG Base Excess (-2-2) mmol/L VBG pH (7.33-7.43) VBG pCO2 (45-50) mmHg VBG pO2 (35-45) mmHg VBG HCO3 (23-28) mmol/L VBG Total CO2 (24-29) mmol/L VBG O2 Saturation (70-75) % VBG Base Excess (0-4) mmol/L FiO2 Sodium 144 (137-145) mmol/L Potassium 4.1 (3.4-5.1) mmol/L Chloride 112 H (98-107) mmol/L Carbon Dioxide 26 (22-32) mmol/L BUN 27 H (7-17) mg/dL Creatinine 1.14 H (0.52-1.04) mg/dL Estimated GFR 51 L (>60) mL/min BUN/Creatinine Ratio 23.7 H (6-22) Glucose 109 (80-110) mg/dL Lactate (0.7-2.1) mmol/L Calcium 8.3 L (8.4-10.2) mg/dL Ionized Calcium Hanna (4.5-5.6) mg/dL Phosphorus (2.8-4.1) mg/dL Magnesium (1.6-2.3) mg/dL Total Bilirubin 0.2 (0.2-1.3) mg/dL Conjugated Bilirubin (0.0-0.3) md/dL Unconjugated Bilirubin (0.0-1.1) mg/dL AST 34 (14-36) IU/L ALT 14 (<35) IU/L Alkaline Phosphatase 283 H (38-126) U/L Total Creatine Kinase (30-135) U/L CK-MB (CK-2) CK-MB (CK-2) Rel Index Troponin I 0.078 H (0.01-0.034) ng/mL NT-Pro-B Natriuret Pep 4150 H (<125) pg/mL Total Protein 6.6 (6.3-8.2) g/dL Albumin 3.1 L (3.5-5.0) g/dL Globulin 3.5 (1.7-4.1) g/dL Albumin/Globulin Ratio 0.9 L (1.0-2.8) Lipase (23-300) U/L Procalcitonin (<0.5) ng/mL Urine Color Urine Appearance Urine pH (4.5-8.0) Ur Specific [place] (1.000-1.035) Urine Protein (Negative) Urine Glucose (UA) (Negative) g/dL Urine Ketones (NEGATIVE) Urine Occult Blood (Negative) Urine Nitrate (Negative) Urine Bilirubin (NEGATIVE) Urine Urobilinogen (0.2) E.U./dL Ur Leukocyte Esterase (NEGATIVE) Urine RBC (0-5/HPF) Urine WBC (0-5/HPF) Ur Squamous Epith Cells (0-5/HPF) Urine Bacteria (None) Urine Mucus (Negative) Ur Culture Indicated? Ur Random Sodium (30-90) mmol/L Urine Creatinine mg/dL Ketones (<0.27) mmol/L SARS-CoV-2 (PCR) (Negative) Influenza A (RT-PCR) (NEGATIVE) Influenza B (RT-PCR) (NEGATIVE) RSV (PCR) (Negative) 05/23/22 05/23/22 05/24/22 Range/Units 14:21 14:21 05:00 WBC (4.5-11.0) X10^3/uL RBC (4.0-5.2) X10^6/uL Hgb (12.0-16.0) g/dL Hct (36-46) % MCV (80-100) fL MCH (26-34) PG MCHC (30-36) % RDW (11.6-14.8) % Plt Count (150-400) X10^3/uL Neut % (Auto) (50-75) % Lymph % (Auto) (25-40) % Major % (Auto) (3-14) % Eos % (Auto) (2-4) % Baso % (Auto) (0-2) % Neut # (Auto) (6943-9665) /uL Lymph # (Auto) (1743-6410) /uL Major # (Auto) (0-900) /uL Eos # (Auto) (0-450) /uL Baso # (Auto) (0-100) /uL Total Counted Seg Neutrophils % (38-70) % Band Neutrophils % (3-7) % Lymphocytes % (Manual) (25-45) % Monocytes % (Manual) (2-11) % Neutrophils # (Manual) (4925-1157) /uL Nucleated RBCs ( - 0) #/Diff RBC Morphology Hypochromasia Anisocytosis PT (10.1-12.7) SECONDS INR (0.9-1.3) APTT 69 H 55 H D (26-36) SECONDS D-Dimer (<500) ng/ml ABG pH (7.35-7.45) ABG pCO2 (35-45) mmHg ABG pO2 (80-100) mmHg ABG HCO3 (22-26) mmol/L ABG Total CO2 (21-31) mmol/L ABG O2 Saturation (95-100) % ABG Base Excess (-2-2) mmol/L VBG pH (7.33-7.43) VBG pCO2 (45-50) mmHg VBG pO2 (35-45) mmHg VBG HCO3 (23-28) mmol/L VBG Total CO2 (24-29) mmol/L VBG O2 Saturation (70-75) % VBG Base Excess (0-4) mmol/L FiO2 Sodium (137-145) mmol/L Potassium (3.4-5.1) mmol/L Chloride (98-107) mmol/L Carbon Dioxide (22-32) mmol/L BUN (7-17) mg/dL Creatinine (0.52-1.04) mg/dL Estimated GFR (>60) mL/min BUN/Creatinine Ratio (6-22) Glucose (80-110) mg/dL Lactate (0.7-2.1) mmol/L Calcium (8.4-10.2) mg/dL Ionized Calcium Hanna (4.5-5.6) mg/dL Phosphorus (2.8-4.1) mg/dL Magnesium (1.6-2.3) mg/dL Total Bilirubin (0.2-1.3) mg/dL Conjugated Bilirubin (0.0-0.3) md/dL Unconjugated Bilirubin (0.0-1.1) mg/dL AST (14-36) IU/L ALT (<35) IU/L Alkaline Phosphatase (38-126) U/L Total Creatine Kinase (30-135) U/L CK-MB (CK-2) CK-MB (CK-2) Rel Index Troponin I 0.075 H (0.01-0.034) ng/mL NT-Pro-B Natriuret Pep (<125) pg/mL Total Protein (6.3-8.2) g/dL Albumin (3.5-5.0) g/dL Globulin (1.7-4.1) g/dL Albumin/Globulin Ratio (1.0-2.8) Lipase (23-300) U/L Procalcitonin (<0.5) ng/mL Urine Color Urine Appearance Urine pH (4.5-8.0) Ur Specific [place] (1.000-1.035) Urine Protein (Negative) Urine Glucose (UA) (Negative) g/dL Urine Ketones (NEGATIVE) Urine Occult Blood (Negative) Urine Nitrate (Negative) Urine Bilirubin (NEGATIVE) Urine Urobilinogen (0.2) E.U./dL Ur Leukocyte Esterase (NEGATIVE) Urine RBC (0-5/HPF) Urine WBC (0-5/HPF) Ur Squamous Epith Cells (0-5/HPF) Urine Bacteria (None) Urine Mucus (Negative) Ur Culture Indicated? Ur Random Sodium (30-90) mmol/L Urine Creatinine mg/dL Ketones (<0.27) mmol/L SARS-CoV-2 (PCR) (Negative) Influenza A (RT-PCR) (NEGATIVE) Influenza B (RT-PCR) (NEGATIVE) RSV (PCR) (Negative) 05/24/22 05/24/22 05/24/22 Range/Units 05:00 07:15 07:20 WBC 9.9 (4.5-11.0) X10^3/uL RBC 3.14 L (4.0-5.2) X10^6/uL Hgb 8.9 L (12.0-16.0) g/dL Hct 28.2 L (36-46) % MCV 89.9 (80-100) fL MCH 28.2 (26-34) PG MCHC 31.3 (30-36) % RDW 15.1 H (11.6-14.8) % Plt Count 610 H (150-400) X10^3/uL Neut % (Auto) 85.0 H (50-75) % Lymph % (Auto) 6.1 L (25-40) % Major % (Auto) 8.1 (3-14) % Eos % (Auto) 0.1 L (2-4) % Baso % (Auto) 0.7 (0-2) % Neut # (Auto) 8400 H (8449-4340) /uL Lymph # (Auto) 600 L (2462-2369) /uL Major # (Auto) 800 (0-900) /uL Eos # (Auto) 0 (0-450) /uL Baso # (Auto) 100 (0-100) /uL Total Counted Seg Neutrophils % (38-70) % Band Neutrophils % (3-7) % Lymphocytes % (Manual) (25-45) % Monocytes % (Manual) (2-11) % Neutrophils # (Manual) (8260-3191) /uL Nucleated RBCs ( - 0) #/Diff RBC Morphology Hypochromasia Anisocytosis PT (10.1-12.7) SECONDS INR (0.9-1.3) APTT (26-36) SECONDS D-Dimer (<500) ng/ml ABG pH 7.19 L* (7.35-7.45) ABG pCO2 65.9 H* (35-45) mmHg ABG pO2 178 H (80-100) mmHg ABG HCO3 25 (22-26) mmol/L ABG Total CO2 27 (21-31) mmol/L ABG O2 Saturation 99 (95-100) % ABG Base Excess -3.0 L (-2-2) mmol/L VBG pH 7.15 L* (7.33-7.43) VBG pCO2 72.1 H (45-50) mmHg VBG pO2 55 H (35-45) mmHg VBG HCO3 25 (23-28) mmol/L VBG Total CO2 27 (24-29) mmol/L VBG O2 Saturation 76 H (70-75) % VBG Base Excess -4.0 L (0-4) mmol/L FiO2 100 Sodium (137-145) mmol/L Potassium (3.4-5.1) mmol/L Chloride (98-107) mmol/L Carbon Dioxide (22-32) mmol/L BUN (7-17) mg/dL Creatinine (0.52-1.04) mg/dL Estimated GFR (>60) mL/min BUN/Creatinine Ratio (6-22) Glucose (80-110) mg/dL Lactate (0.7-2.1) mmol/L Calcium (8.4-10.2) mg/dL Ionized Calcium [place] (4.5-5.6) mg/dL Phosphorus (2.8-4.1) mg/dL Magnesium (1.6-2.3) mg/dL Total Bilirubin (0.2-1.3) mg/dL Conjugated Bilirubin (0.0-0.3) md/dL Unconjugated Bilirubin (0.0-1.1) mg/dL AST (14-36) IU/L ALT (<35) IU/L Alkaline Phosphatase (38-126) U/L Total Creatine Kinase (30-135) U/L CK-MB (CK-2) CK-MB (CK-2) Rel Index Troponin I (0.01-0.034) ng/mL NT-Pro-B Natriuret Pep (<125) pg/mL Total Protein (6.3-8.2) g/dL Albumin (3.5-5.0) g/dL Globulin (1.7-4.1) g/dL Albumin/Globulin Ratio (1.0-2.8) Lipase (23-300) U/L Procalcitonin (<0.5) ng/mL Urine Color Urine Appearance Urine pH (4.5-8.0) Ur Specific [place] (1.000-1.035) Urine Protein (Negative) Urine Glucose (UA) (Negative) g/dL Urine Ketones (NEGATIVE) Urine Occult Blood (Negative) Urine Nitrate (Negative) Urine Bilirubin (NEGATIVE) Urine Urobilinogen (0.2) E.U./dL Ur Leukocyte Esterase (NEGATIVE) Urine RBC (0-5/HPF) Urine WBC (0-5/HPF) Ur Squamous Epith Cells (0-5/HPF) Urine Bacteria (None) Urine Mucus (Negative) Ur Culture Indicated? Ur Random Sodium (30-90) mmol/L Urine Creatinine mg/dL Ketones (<0.27) mmol/L SARS-CoV-2 (PCR) (Negative) Influenza A (RT-PCR) (NEGATIVE) Influenza B (RT-PCR) (NEGATIVE) RSV (PCR) (Negative) 05/24/22 05/24/22 05/24/22 Range/Units 07:33 07:33 07:33 WBC (4.5-11.0) X10^3/uL RBC (4.0-5.2) X10^6/uL Hgb (12.0-16.0) g/dL Hct (36-46) % MCV (80-100) fL MCH (26-34) PG MCHC (30-36) % RDW (11.6-14.8) % Plt Count (150-400) X10^3/uL Neut % (Auto) (50-75) % Lymph % (Auto) (25-40) % Major % (Auto) (3-14) % Eos % (Auto) (2-4) % Baso % (Auto) (0-2) % Neut # (Auto) (6799-6735) /uL Lymph # (Auto) (2822-8865) /uL Major # (Auto) (0-900) /uL Eos # (Auto) (0-450) /uL Baso # (Auto) (0-100) /uL Total Counted Seg Neutrophils % (38-70) % Band Neutrophils % (3-7) % Lymphocytes % (Manual) (25-45) % Monocytes % (Manual) (2-11) % Neutrophils # (Manual) (1574-5801) /uL Nucleated RBCs ( - 0) #/Diff RBC Morphology Hypochromasia Anisocytosis PT (10.1-12.7) SECONDS INR (0.9-1.3) APTT (26-36) SECONDS D-Dimer (<500) ng/ml ABG pH (7.35-7.45) ABG pCO2 (35-45) mmHg ABG pO2 (80-100) mmHg ABG HCO3 (22-26) mmol/L ABG Total CO2 (21-31) mmol/L ABG O2 Saturation (95-100) % ABG Base Excess (-2-2) mmol/L VBG pH (7.33-7.43) VBG pCO2 (45-50) mmHg VBG pO2 (35-45) mmHg VBG HCO3 (23-28) mmol/L VBG Total CO2 (24-29) mmol/L VBG O2 Saturation (70-75) % VBG Base Excess (0-4) mmol/L FiO2 Sodium Cancelled 142 (137-145) mmol/L Potassium Cancelled 5.2 H (3.4-5.1) mmol/L Chloride Cancelled 110 H (98-107) mmol/L Carbon Dioxide Cancelled 22 (22-32) mmol/L BUN Cancelled 26 H (7-17) mg/dL Creatinine Cancelled 1.94 H (0.52-1.04) mg/dL Estimated GFR Cancelled 27 L (>60) mL/min BUN/Creatinine Ratio Cancelled 13.4 (6-22) Glucose Cancelled 173 H (80-110) mg/dL Lactate (0.7-2.1) mmol/L Calcium Cancelled 7.8 L (8.4-10.2) mg/dL Ionized Calcium [place] (4.5-5.6) mg/dL Phosphorus (2.8-4.1) mg/dL Magnesium (1.6-2.3) mg/dL Total Bilirubin 0.1 L (0.2-1.3) mg/dL Conjugated Bilirubin (0.0-0.3) md/dL Unconjugated Bilirubin (0.0-1.1) mg/dL AST 77 H (14-36) IU/L ALT 18 (<35) IU/L Alkaline Phosphatase 287 H (38-126) U/L Total Creatine Kinase (30-135) U/L CK-MB (CK-2) CK-MB (CK-2) Rel Index Troponin I 0.076 H (0.01-0.034) ng/mL NT-Pro-B Natriuret Pep 4950 H (<125) pg/mL Total Protein 6.7 (6.3-8.2) g/dL Albumin 3.1 L (3.5-5.0) g/dL Globulin 3.6 (1.7-4.1) g/dL Albumin/Globulin Ratio 0.9 L (1.0-2.8) Lipase (23-300) U/L Procalcitonin (<0.5) ng/mL Urine Color Urine Appearance Urine pH (4.5-8.0) Ur Specific [place] (1.000-1.035) Urine Protein (Negative) Urine Glucose (UA) (Negative) g/dL Urine Ketones (NEGATIVE) Urine Occult Blood (Negative) Urine Nitrate (Negative) Urine Bilirubin (NEGATIVE) Urine Urobilinogen (0.2) E.U./dL Ur Leukocyte Esterase (NEGATIVE) Urine RBC (0-5/HPF) Urine WBC (0-5/HPF) Ur Squamous Epith Cells (0-5/HPF) Urine Bacteria (None) Urine Mucus (Negative) Ur Culture Indicated? Ur Random Sodium (30-90) mmol/L Urine Creatinine mg/dL Ketones (<0.27) mmol/L SARS-CoV-2 (PCR) (Negative) Influenza A (RT-PCR) (NEGATIVE) Influenza B (RT-PCR) (NEGATIVE) RSV (PCR) (Negative) 05/24/22 05/24/22 05/24/22 Range/Units 14:23 15:06 15:30 WBC (4.5-11.0) X10^3/uL RBC (4.0-5.2) X10^6/uL Hgb (12.0-16.0) g/dL Hct (36-46) % MCV (80-100) fL MCH (26-34) PG MCHC (30-36) % RDW (11.6-14.8) % Plt Count (150-400) X10^3/uL Neut % (Auto) (50-75) % Lymph % (Auto) (25-40) % Major % (Auto) (3-14) % Eos % (Auto) (2-4) % Baso % (Auto) (0-2) % Neut # (Auto) (8788-4767) /uL Lymph # (Auto) (8840-9498) /uL Major # (Auto) (0-900) /uL Eos # (Auto) (0-450) /uL Baso # (Auto) (0-100) /uL Total Counted Seg Neutrophils % (38-70) % Band Neutrophils % (3-7) % Lymphocytes % (Manual) (25-45) % Monocytes % (Manual) (2-11) % Neutrophils # (Manual) (4168-6560) /uL Nucleated RBCs ( - 0) #/Diff RBC Morphology Hypochromasia Anisocytosis PT (10.1-12.7) SECONDS INR (0.9-1.3) APTT 63 H (26-36) SECONDS D-Dimer (<500) ng/ml ABG pH 7.33 L (7.35-7.45) ABG pCO2 38.3 (35-45) mmHg ABG pO2 61 L (80-100) mmHg ABG HCO3 20 L (22-26) mmol/L ABG Total CO2 21 (21-31) mmol/L ABG O2 Saturation 90 L (95-100) % ABG Base Excess -6.0 L (-2-2) mmol/L VBG pH (7.33-7.43) VBG pCO2 (45-50) mmHg VBG pO2 (35-45) mmHg VBG HCO3 (23-28) mmol/L VBG Total CO2 (24-29) mmol/L VBG O2 Saturation (70-75) % VBG Base Excess (0-4) mmol/L FiO2 50 Sodium (137-145) mmol/L Potassium (3.4-5.1) mmol/L Chloride (98-107) mmol/L Carbon Dioxide (22-32) mmol/L BUN (7-17) mg/dL Creatinine (0.52-1.04) mg/dL Estimated GFR (>60) mL/min BUN/Creatinine Ratio (6-22) Glucose (80-110) mg/dL Lactate 2.1 (0.7-2.1) mmol/L Calcium (8.4-10.2) mg/dL Ionized Calcium Hanna (4.5-5.6) mg/dL Phosphorus (2.8-4.1) mg/dL Magnesium (1.6-2.3) mg/dL Total Bilirubin (0.2-1.3) mg/dL Conjugated Bilirubin (0.0-0.3) md/dL Unconjugated Bilirubin (0.0-1.1) mg/dL AST (14-36) IU/L ALT (<35) IU/L Alkaline Phosphatase (38-126) U/L Total Creatine Kinase (30-135) U/L CK-MB (CK-2) CK-MB (CK-2) Rel Index Troponin I (0.01-0.034) ng/mL NT-Pro-B Natriuret Pep (<125) pg/mL Total Protein (6.3-8.2) g/dL Albumin (3.5-5.0) g/dL Globulin (1.7-4.1) g/dL Albumin/Globulin Ratio (1.0-2.8) Lipase (23-300) U/L Procalcitonin (<0.5) ng/mL Urine Color Urine Appearance Urine pH (4.5-8.0) Ur Specific [place] (1.000-1.035) Urine Protein (Negative) Urine Glucose (UA) (Negative) g/dL Urine Ketones (NEGATIVE) Urine Occult Blood (Negative) Urine Nitrate (Negative) Urine Bilirubin (NEGATIVE) Urine Urobilinogen (0.2) E.U./dL Ur Leukocyte Esterase (NEGATIVE) Urine RBC (0-5/HPF) Urine WBC (0-5/HPF) Ur Squamous Epith Cells (0-5/HPF) Urine Bacteria (None) Urine Mucus (Negative) Ur Culture Indicated? Ur Random Sodium (30-90) mmol/L Urine Creatinine mg/dL Ketones (<0.27) mmol/L SARS-CoV-2 (PCR) (Negative) Influenza A (RT-PCR) (NEGATIVE) Influenza B (RT-PCR) (NEGATIVE) RSV (PCR) (Negative) 05/24/22 05/24/22 05/24/22 Range/Units 15:32 15:32 22:00 WBC 11.7 H (4.5-11.0) X10^3/uL RBC 2.86 L (4.0-5.2) X10^6/uL Hgb 8.0 L (12.0-16.0) g/dL Hct 25.3 L (36-46) % MCV 88.5 (80-100) fL MCH 27.9 (26-34) PG MCHC 31.5 (30-36) % RDW 14.4 (11.6-14.8) % Plt Count 560 H (150-400) X10^3/uL Neut % (Auto) (50-75) % Lymph % (Auto) (25-40) % Major % (Auto) (3-14) % Eos % (Auto) (2-4) % Baso % (Auto) (0-2) % Neut # (Auto) (1539-2548) /uL Lymph # (Auto) (4660-4003) /uL Major # (Auto) (0-900) /uL Eos # (Auto) (0-450) /uL Baso # (Auto) (0-100) /uL Total Counted 100 Seg Neutrophils % 80.0 H (38-70) % Band Neutrophils % 1.0 L (3-7) % Lymphocytes % (Manual) 13.0 L (25-45) % Monocytes % (Manual) 6.0 (2-11) % Neutrophils # (Manual) 9477 H (8926-6173) /uL Nucleated RBCs 1 H ( - 0) #/Diff RBC Morphology See below Hypochromasia 1+ H Anisocytosis 1+ H PT (10.1-12.7) SECONDS INR (0.9-1.3) APTT (26-36) SECONDS D-Dimer (<500) ng/ml ABG pH (7.35-7.45) ABG pCO2 (35-45) mmHg ABG pO2 (80-100) mmHg ABG HCO3 (22-26) mmol/L ABG Total CO2 (21-31) mmol/L ABG O2 Saturation (95-100) % ABG Base Excess (-2-2) mmol/L VBG pH (7.33-7.43) VBG pCO2 (45-50) mmHg VBG pO2 (35-45) mmHg VBG HCO3 (23-28) mmol/L VBG Total CO2 (24-29) mmol/L VBG O2 Saturation (70-75) % VBG Base Excess (0-4) mmol/L FiO2 Sodium 140 (137-145) mmol/L Potassium 3.6 D (3.4-5.1) mmol/L Chloride 107 (98-107) mmol/L Carbon Dioxide 20 L (22-32) mmol/L BUN 29 H (7-17) mg/dL Creatinine 1.92 H (0.52-1.04) mg/dL Estimated GFR 27 L (>60) mL/min BUN/Creatinine Ratio 15.1 (6-22) Glucose 223 H (80-110) mg/dL Lactate 1.6 (0.7-2.1) mmol/L Calcium 7.7 L (8.4-10.2) mg/dL Ionized Calcium [place] (4.5-5.6) mg/dL Phosphorus (2.8-4.1) mg/dL Magnesium 1.4 L (1.6-2.3) mg/dL Total Bilirubin 0.2 (0.2-1.3) mg/dL Conjugated Bilirubin (0.0-0.3) md/dL Unconjugated Bilirubin (0.0-1.1) mg/dL AST 28 (14-36) IU/L ALT 18 (<35) IU/L Alkaline Phosphatase 261 H (38-126) U/L Total Creatine Kinase 26 L (30-135) U/L CK-MB (CK-2) TNP CK-MB (CK-2) Rel Index TNP Troponin I 0.084 H (0.01-0.034) ng/mL NT-Pro-B Natriuret Pep (<125) pg/mL Total Protein 6.2 L (6.3-8.2) g/dL Albumin 2.8 L (3.5-5.0) g/dL Globulin 3.4 (1.7-4.1) g/dL Albumin/Globulin Ratio 0.8 L (1.0-2.8) Lipase (23-300) U/L Procalcitonin (<0.5) ng/mL Urine Color Urine Appearance Urine pH (4.5-8.0) Ur Specific [place] (1.000-1.035) Urine Protein (Negative) Urine Glucose (UA) (Negative) g/dL Urine Ketones (NEGATIVE) Urine Occult Blood (Negative) Urine Nitrate (Negative) Urine Bilirubin (NEGATIVE) Urine Urobilinogen (0.2) E.U./dL Ur Leukocyte Esterase (NEGATIVE) Urine RBC (0-5/HPF) Urine WBC (0-5/HPF) Ur Squamous Epith Cells (0-5/HPF) Urine Bacteria (None) Urine Mucus (Negative) Ur Culture Indicated? Ur Random Sodium (30-90) mmol/L Urine Creatinine mg/dL Ketones (<0.27) mmol/L SARS-CoV-2 (PCR) (Negative) Influenza A (RT-PCR) (NEGATIVE) Influenza B (RT-PCR) (NEGATIVE) RSV (PCR) (Negative) 05/25/22 05/25/22 05/25/22 Range/Units 00:23 05:00 05:00 WBC 12.3 H (4.5-11.0) X10^3/uL RBC 2.90 L (4.0-5.2) X10^6/uL Hgb 8.2 L (12.0-16.0) g/dL Hct 24.9 L (36-46) % MCV 86.0 (80-100) fL MCH 28.4 (26-34) PG MCHC 33.0 (30-36) % RDW 14.6 (11.6-14.8) % Plt Count 529 H (150-400) X10^3/uL Neut % (Auto) (50-75) % Lymph % (Auto) (25-40) % Major % (Auto) (3-14) % Eos % (Auto) (2-4) % Baso % (Auto) (0-2) % Neut # (Auto) (2182-5723) /uL Lymph # (Auto) (2851-5292) /uL Major # (Auto) (0-900) /uL Eos # (Auto) (0-450) /uL Baso # (Auto) (0-100) /uL Total Counted Seg Neutrophils % (38-70) % Band Neutrophils % (3-7) % Lymphocytes % (Manual) (25-45) % Monocytes % (Manual) (2-11) % Neutrophils # (Manual) (1460-4837) /uL Nucleated RBCs ( - 0) #/Diff RBC Morphology Hypochromasia Anisocytosis PT (10.1-12.7) SECONDS INR (0.9-1.3) APTT (26-36) SECONDS D-Dimer (<500) ng/ml ABG pH (7.35-7.45) ABG pCO2 (35-45) mmHg ABG pO2 (80-100) mmHg ABG HCO3 (22-26) mmol/L ABG Total CO2 (21-31) mmol/L ABG O2 Saturation (95-100) % ABG Base Excess (-2-2) mmol/L VBG pH 7.38 (7.33-7.43) VBG pCO2 37.0 L (45-50) mmHg VBG pO2 43 (35-45) mmHg VBG HCO3 22 L (23-28) mmol/L VBG Total CO2 23 L (24-29) mmol/L VBG O2 Saturation 78 H (70-75) % VBG Base Excess -3.0 L (0-4) mmol/L FiO2 Sodium 140 (137-145) mmol/L Potassium 3.6 (3.4-5.1) mmol/L Chloride 107 (98-107) mmol/L Carbon Dioxide 22 (22-32) mmol/L BUN 29 H (7-17) mg/dL Creatinine 1.62 H (0.52-1.04) mg/dL Estimated GFR 33 L (>60) mL/min BUN/Creatinine Ratio 17.9 (6-22) Glucose 198 H (80-110) mg/dL Lactate (0.7-2.1) mmol/L Calcium 8.0 L (8.4-10.2) mg/dL Ionized Calcium [place] (4.5-5.6) mg/dL Phosphorus (2.8-4.1) mg/dL Magnesium (1.6-2.3) mg/dL Total Bilirubin 0.2 (0.2-1.3) mg/dL Conjugated Bilirubin (0.0-0.3) md/dL Unconjugated Bilirubin (0.0-1.1) mg/dL AST 24 (14-36) IU/L ALT 15 (<35) IU/L Alkaline Phosphatase 265 H (38-126) U/L Total Creatine Kinase (30-135) U/L CK-MB (CK-2) CK-MB (CK-2) Rel Index Troponin I (0.01-0.034) ng/mL NT-Pro-B Natriuret Pep (<125) pg/mL Total Protein 6.1 L (6.3-8.2) g/dL Albumin 2.9 L (3.5-5.0) g/dL Globulin 3.2 (1.7-4.1) g/dL Albumin/Globulin Ratio 0.9 L (1.0-2.8) Lipase (23-300) U/L Procalcitonin (<0.5) ng/mL Urine Color Urine Appearance Urine pH (4.5-8.0) Ur Specific [place] (1.000-1.035) Urine Protein (Negative) Urine Glucose (UA) (Negative) g/dL Urine Ketones (NEGATIVE) Urine Occult Blood (Negative) Urine Nitrate (Negative) Urine Bilirubin (NEGATIVE) Urine Urobilinogen (0.2) E.U./dL Ur Leukocyte Esterase (NEGATIVE) Urine RBC (0-5/HPF) Urine WBC (0-5/HPF) Ur Squamous Epith Cells (0-5/HPF) Urine Bacteria (None) Urine Mucus (Negative) Ur Culture Indicated? Ur Random Sodium (30-90) mmol/L Urine Creatinine mg/dL Ketones (<0.27) mmol/L SARS-CoV-2 (PCR) (Negative) Influenza A (RT-PCR) (NEGATIVE) Influenza B (RT-PCR) (NEGATIVE) RSV (PCR) (Negative) 05/25/22 05/25/22 05/25/22 Range/Units 09:08 09:08 09:08 WBC (4.5-11.0) X10^3/uL RBC (4.0-5.2) X10^6/uL Hgb (12.0-16.0) g/dL Hct (36-46) % MCV (80-100) fL MCH (26-34) PG MCHC (30-36) % RDW (11.6-14.8) % Plt Count (150-400) X10^3/uL Neut % (Auto) (50-75) % Lymph % (Auto) (25-40) % Major % (Auto) (3-14) % Eos % (Auto) (2-4) % Baso % (Auto) (0-2) % Neut # (Auto) (4909-6913) /uL Lymph # (Auto) (1514-4485) /uL Major # (Auto) (0-900) /uL Eos # (Auto) (0-450) /uL Baso # (Auto) (0-100) /uL Total Counted Seg Neutrophils % (38-70) % Band Neutrophils % (3-7) % Lymphocytes % (Manual) (25-45) % Monocytes % (Manual) (2-11) % Neutrophils # (Manual) (9077-3232) /uL Nucleated RBCs ( - 0) #/Diff RBC Morphology Hypochromasia Anisocytosis PT (10.1-12.7) SECONDS INR (0.9-1.3) APTT 51 H D (26-36) SECONDS D-Dimer (<500) ng/ml ABG pH (7.35-7.45) ABG pCO2 (35-45) mmHg ABG pO2 (80-100) mmHg ABG HCO3 (22-26) mmol/L ABG Total CO2 (21-31) mmol/L ABG O2 Saturation (95-100) % ABG Base Excess (-2-2) mmol/L VBG pH (7.33-7.43) VBG pCO2 (45-50) mmHg VBG pO2 (35-45) mmHg VBG HCO3 (23-28) mmol/L VBG Total CO2 (24-29) mmol/L VBG O2 Saturation (70-75) % VBG Base Excess (0-4) mmol/L FiO2 Sodium 140 (137-145) mmol/L Potassium 3.5 (3.4-5.1) mmol/L Chloride 106 (98-107) mmol/L Carbon Dioxide 23 (22-32) mmol/L BUN 28 H (7-17) mg/dL Creatinine 1.47 H (0.52-1.04) mg/dL Estimated GFR 37 L (>60) mL/min BUN/Creatinine Ratio 19.0 (6-22) Glucose 164 H (80-110) mg/dL Lactate (0.7-2.1) mmol/L Calcium 8.0 L (8.4-10.2) mg/dL Ionized Calcium Hanna (4.5-5.6) mg/dL Phosphorus 4.0 (2.8-4.1) mg/dL Magnesium 1.7 (1.6-2.3) mg/dL Total Bilirubin (0.2-1.3) mg/dL Conjugated Bilirubin (0.0-0.3) md/dL Unconjugated Bilirubin (0.0-1.1) mg/dL AST (14-36) IU/L ALT (<35) IU/L Alkaline Phosphatase (38-126) U/L Total Creatine Kinase (30-135) U/L CK-MB (CK-2) CK-MB (CK-2) Rel Index Troponin I 0.052 H (0.01-0.034) ng/mL NT-Pro-B Natriuret Pep 4140 H (<125) pg/mL Total Protein (6.3-8.2) g/dL Albumin (3.5-5.0) g/dL Globulin (1.7-4.1) g/dL Albumin/Globulin Ratio (1.0-2.8) Lipase (23-300) U/L Procalcitonin (<0.5) ng/mL Urine Color Urine Appearance Urine pH (4.5-8.0) Ur Specific [place] (1.000-1.035) Urine Protein (Negative) Urine Glucose (UA) (Negative) g/dL Urine Ketones (NEGATIVE) Urine Occult Blood (Negative) Urine Nitrate (Negative) Urine Bilirubin (NEGATIVE) Urine Urobilinogen (0.2) E.U./dL Ur Leukocyte Esterase (NEGATIVE) Urine RBC (0-5/HPF) Urine WBC (0-5/HPF) Ur Squamous Epith Cells (0-5/HPF) Urine Bacteria (None) Urine Mucus (Negative) Ur Culture Indicated? Ur Random Sodium (30-90) mmol/L Urine Creatinine mg/dL Ketones (<0.27) mmol/L SARS-CoV-2 (PCR) (Negative) Influenza A (RT-PCR) (NEGATIVE) Influenza B (RT-PCR) (NEGATIVE) RSV (PCR) (Negative) 05/25/22 05/25/22 05/25/22 Range/Units 09:08 10:13 10:50 WBC (4.5-11.0) X10^3/uL RBC (4.0-5.2) X10^6/uL Hgb (12.0-16.0) g/dL Hct (36-46) % MCV (80-100) fL MCH (26-34) PG MCHC (30-36) % RDW (11.6-14.8) % Plt Count (150-400) X10^3/uL Neut % (Auto) (50-75) % Lymph % (Auto) (25-40) % Major % (Auto) (3-14) % Eos % (Auto) (2-4) % Baso % (Auto) (0-2) % Neut # (Auto) (2520-2609) /uL Lymph # (Auto) (0294-6578) /uL Major # (Auto) (0-900) /uL Eos # (Auto) (0-450) /uL Baso # (Auto) (0-100) /uL Total Counted Seg Neutrophils % (38-70) % Band Neutrophils % (3-7) % Lymphocytes % (Manual) (25-45) % Monocytes % (Manual) (2-11) % Neutrophils # (Manual) (7496-3696) /uL Nucleated RBCs ( - 0) #/Diff RBC Morphology Hypochromasia Anisocytosis PT (10.1-12.7) SECONDS INR (0.9-1.3) APTT (26-36) SECONDS D-Dimer (<500) ng/ml ABG pH 7.42 (7.35-7.45) ABG pCO2 36.3 (35-45) mmHg ABG pO2 55 L (80-100) mmHg ABG HCO3 24 (22-26) mmol/L ABG Total CO2 25 (21-31) mmol/L ABG O2 Saturation 89 L (95-100) % ABG Base Excess -1.0 (-2-2) mmol/L VBG pH (7.33-7.43) VBG pCO2 (45-50) mmHg VBG pO2 (35-45) mmHg VBG HCO3 (23-28) mmol/L VBG Total CO2 (24-29) mmol/L VBG O2 Saturation (70-75) % VBG Base Excess (0-4) mmol/L FiO2 35 Sodium (137-145) mmol/L Potassium (3.4-5.1) mmol/L Chloride (98-107) mmol/L Carbon Dioxide (22-32) mmol/L BUN (7-17) mg/dL Creatinine (0.52-1.04) mg/dL Estimated GFR (>60) mL/min BUN/Creatinine Ratio (6-22) Glucose (80-110) mg/dL Lactate (0.7-2.1) mmol/L Calcium (8.4-10.2) mg/dL Ionized Calcium Hanna (4.5-5.6) mg/dL Phosphorus (2.8-4.1) mg/dL Magnesium (1.6-2.3) mg/dL Total Bilirubin (0.2-1.3) mg/dL Conjugated Bilirubin (0.0-0.3) md/dL Unconjugated Bilirubin (0.0-1.1) mg/dL AST (14-36) IU/L ALT (<35) IU/L Alkaline Phosphatase (38-126) U/L Total Creatine Kinase (30-135) U/L CK-MB (CK-2) CK-MB (CK-2) Rel Index Troponin I (0.01-0.034) ng/mL NT-Pro-B Natriuret Pep (<125) pg/mL Total Protein (6.3-8.2) g/dL Albumin (3.5-5.0) g/dL Globulin (1.7-4.1) g/dL Albumin/Globulin Ratio (1.0-2.8) Lipase (23-300) U/L Procalcitonin 0.81 H (<0.5) ng/mL Urine Color Yellow Urine Appearance Clear Urine pH 5.0 (4.5-8.0) Ur Specific [place] 1.010 (1.000-1.035) Urine Protein Negative (Negative) Urine Glucose (UA) Negative (Negative) g/dL Urine Ketones Negative (NEGATIVE) Urine Occult Blood 3+ H (Negative) Urine Nitrate Negative (Negative) Urine Bilirubin Negative (NEGATIVE) Urine Urobilinogen 0.2 (0.2) E.U./dL Ur Leukocyte Esterase Trace H (NEGATIVE) Urine RBC 10-30/hpf H (0-5/HPF) Urine WBC 1-5/hpf (0-5/HPF) Ur Squamous Epith Cells 1-5 /hpf (0-5/HPF) Urine Bacteria Moderate (10-30) H (None) Urine Mucus (Negative) Ur Culture Indicated? Specimen cultured Ur Random Sodium (30-90) mmol/L Urine Creatinine mg/dL Ketones (<0.27) mmol/L SARS-CoV-2 (PCR) (Negative) Influenza A (RT-PCR) (NEGATIVE) Influenza B (RT-PCR) (NEGATIVE) RSV (PCR) (Negative) 05/25/22 05/26/2205/26/22 Range/Units 21:45 05:00 05:00 WBC 12.4 H (4.5-11.0) X10^3/uL RBC 2.95 L (4.0-5.2) X10^6/uL Hgb 8.1 L (12.0-16.0) g/dL Hct 25.5 L (36-46) % MCV 86.5 (80-100) fL MCH 27.5 (26-34) PG MCHC 31.8 (30-36) % RDW 14.4 (11.6-14.8) % Plt Count 502 H (150-400) X10^3/uL Neut % (Auto) 79.1 H (50-75) % Lymph % (Auto) 9.5 L (25-40) % Major % (Auto) 9.1 (3-14) % Eos % (Auto) 1.4 L (2-4) % Baso % (Auto) 0.9 (0-2) % Neut # (Auto) 9800 H (0892-5020) /uL Lymph # (Auto) 1200 (6069-8830) /uL Major # (Auto) 1100 H (0-900) /uL Eos # (Auto) 200 (0-450) /uL Baso # (Auto) 100 (0-100) /uL Total Counted Seg Neutrophils % (38-70) % Band Neutrophils % (3-7) % Lymphocytes % (Manual) (25-45) % Monocytes % (Manual) (2-11) % Neutrophils # (Manual) (4749-1919) /uL Nucleated RBCs ( - 0) #/Diff RBC Morphology Hypochromasia Anisocytosis PT (10.1-12.7) SECONDS INR (0.9-1.3) APTT (26-36) SECONDS D-Dimer (<500) ng/ml ABG pH 7.41 (7.35-7.45) ABG pCO2 37.3 (35-45) mmHg ABG pO2 90 (80-100) mmHg ABG HCO3 24 (22-26) mmol/L ABG Total CO2 25 (21-31) mmol/L ABG O2 Saturation 97 (95-100) % ABG Base Excess 0.0 (-2-2) mmol/L VBG pH (7.33-7.43) VBG pCO2 (45-50) mmHg VBG pO2 (35-45) mmHg VBG HCO3 (23-28) mmol/L VBG Total CO2 (24-29) mmol/L VBG O2 Saturation (70-75) % VBG Base Excess (0-4) mmol/L FiO2 60 Sodium 138 (137-145) mmol/L Potassium 3.5 (3.4-5.1) mmol/L Chloride 102 (98-107) mmol/L Carbon Dioxide 28 (22-32) mmol/L BUN 26 H (7-17) mg/dL Creatinine 1.42 H (0.52-1.04) mg/dL Estimated GFR 39 L (>60) mL/min BUN/Creatinine Ratio 18.3 (6-22) Glucose 170 H (80-110) mg/dL Lactate (0.7-2.1) mmol/L Calcium 8.0 L (8.4-10.2) mg/dL Ionized Calcium Hanna (4.5-5.6) mg/dL Phosphorus (2.8-4.1) mg/dL Magnesium (1.6-2.3) mg/dL Total Bilirubin 0.6 (0.2-1.3) mg/dL Conjugated Bilirubin (0.0-0.3) md/dL Unconjugated Bilirubin (0.0-1.1) mg/dL AST 36 (14-36) IU/L ALT 18 (<35) IU/L Alkaline Phosphatase 255 H (38-126) U/L Total Creatine Kinase (30-135) U/L CK-MB (CK-2) CK-MB (CK-2) Rel Index Troponin I (0.01-0.034) ng/mL NT-Pro-B Natriuret Pep (<125) pg/mL Total Protein 6.1 L (6.3-8.2) g/dL Albumin 2.7 L (3.5-5.0) g/dL Globulin 3.4 (1.7-4.1) g/dL Albumin/Globulin Ratio 0.8 L (1.0-2.8) Lipase (23-300) U/L Procalcitonin (<0.5) ng/mL Urine Color Urine Appearance Urine pH (4.5-8.0) Ur Specific [place] (1.000-1.035) Urine Protein (Negative) Urine Glucose (UA) (Negative) g/dL Urine Ketones (NEGATIVE) Urine Occult Blood (Negative) Urine Nitrate (Negative) Urine Bilirubin (NEGATIVE) Urine Urobilinogen (0.2) E.U./dL Ur Leukocyte Esterase (NEGATIVE) Urine RBC (0-5/HPF) Urine WBC (0-5/HPF) Ur Squamous Epith Cells (0-5/HPF) Urine Bacteria (None) Urine Mucus (Negative) Ur Culture Indicated? Ur Random Sodium (30-90) mmol/L Urine Creatinine mg/dL Ketones (<0.27) mmol/L SARS-CoV-2 (PCR) (Negative) Influenza A (RT-PCR) (NEGATIVE) Influenza B (RT-PCR) (NEGATIVE) RSV (PCR) (Negative) 05/26/22 05/26/22 05/26/22 Range/Units 05:00 06:55 17:55 WBC (4.5-11.0) X10^3/uL RBC (4.0-5.2) X10^6/uL Hgb (12.0-16.0) g/dL Hct (36-46) % MCV (80-100) fL MCH (26-34) PG MCHC (30-36) % RDW (11.6-14.8) % Plt Count (150-400) X10^3/uL Neut % (Auto) (50-75) % Lymph % (Auto) (25-40) % Major % (Auto) (3-14) % Eos % (Auto) (2-4) % Baso % (Auto) (0-2) % Neut # (Auto) (3974-1552) /uL Lymph # (Auto) (0175-9568) /uL Major # (Auto) (0-900) /uL Eos # (Auto) (0-450) /uL Baso # (Auto) (0-100) /uL Total Counted Seg Neutrophils % (38-70) % Band Neutrophils % (3-7) % Lymphocytes % (Manual) (25-45) % Monocytes % (Manual) (2-11) % Neutrophils # (Manual) (9333-3711) /uL Nucleated RBCs ( - 0) #/Diff RBC Morphology Hypochromasia Anisocytosis PT (10.1-12.7) SECONDS INR (0.9-1.3) APTT 51 H (26-36) SECONDS D-Dimer (<500) ng/ml ABG pH (7.35-7.45) ABG pCO2 (35-45) mmHg ABG pO2 (80-100) mmHg ABG HCO3 (22-26) mmol/L ABG Total CO2 (21-31) mmol/L ABG O2 Saturation (95-100) % ABG Base Excess (-2-2) mmol/L VBG pH (7.33-7.43) VBG pCO2 (45-50) mmHg VBG pO2 (35-45) mmHg VBG HCO3 (23-28) mmol/L VBG Total CO2 (24-29) mmol/L VBG O2 Saturation (70-75) % VBG Base Excess (0-4) mmol/L FiO2 Sodium 134 L (137-145) mmol/L Potassium 3.5 (3.4-5.1) mmol/L Chloride 96 L (98-107) mmol/L Carbon Dioxide 27 (22-32) mmol/L BUN 25 H (7-17) mg/dL Creatinine 1.42 H (0.52-1.04) mg/dL Estimated GFR 39 L (>60) mL/min BUN/Creatinine Ratio 17.6 (6-22) Glucose 228 H (80-110) mg/dL Lactate (0.7-2.1) mmol/L Calcium 7.9 L (8.4-10.2) mg/dL Ionized Calcium Hanna (4.5-5.6) mg/dL Phosphorus (2.8-4.1) mg/dL Magnesium 1.4 L 1.6 (1.6-2.3) mg/dL Total Bilirubin (0.2-1.3) mg/dL Conjugated Bilirubin (0.0-0.3) md/dL Unconjugated Bilirubin (0.0-1.1) mg/dL AST (14-36) IU/L ALT (<35) IU/L Alkaline Phosphatase (38-126) U/L Total Creatine Kinase (30-135) U/L CK-MB (CK-2) CK-MB (CK-2) Rel Index Troponin I (0.01-0.034) ng/mL NT-Pro-B Natriuret Pep (<125) pg/mL Total Protein (6.3-8.2) g/dL Albumin (3.5-5.0) g/dL Globulin (1.7-4.1) g/dL Albumin/Globulin Ratio (1.0-2.8) Lipase (23-300) U/L Procalcitonin (<0.5) ng/mL Urine Color Urine Appearance Urine pH (4.5-8.0) Ur Specific [place] (1.000-1.035) Urine Protein (Negative) Urine Glucose (UA) (Negative) g/dL Urine Ketones (NEGATIVE) Urine Occult Blood (Negative) Urine Nitrate (Negative) Urine Bilirubin (NEGATIVE) Urine Urobilinogen (0.2) E.U./dL Ur Leukocyte Esterase (NEGATIVE) Urine RBC (0-5/HPF) Urine WBC (0-5/HPF) Ur Squamous Epith Cells (0-5/HPF) Urine Bacteria (None) Urine Mucus (Negative) Ur Culture Indicated? Ur Random Sodium (30-90) mmol/L Urine Creatinine mg/dL Ketones (<0.27) mmol/L SARS-CoV-2 (PCR) (Negative) Influenza A (RT-PCR) (NEGATIVE) Influenza B (RT-PCR) (NEGATIVE) RSV (PCR) (Negative) 05/26/22 05/26/22 05/26/22 Range/Units 17:55 17:55 17:55 WBC 13.4 H (4.5-11.0) X10^3/uL RBC 3.04 L (4.0-5.2) X10^6/uL Hgb 8.4 L (12.0-16.0) g/dL Hct 26.2 L (36-46) % MCV 86.3 (80-100) fL MCH 27.5 (26-34) PG MCHC 31.9 (30-36) % RDW 14.6 (11.6-14.8) % Plt Count 530 H (150-400) X10^3/uL Neut % (Auto) 76.5 H (50-75) % Lymph % (Auto) 12.0 L (25-40) % Major % (Auto) 8.8 (3-14) % Eos % (Auto) 2.1 (2-4) % Baso % (Auto) 0.6 (0-2) % Neut # (Auto) 82288 H (1925-5628) /uL Lymph # (Auto) 1600 (9818-5986) /uL Major # (Auto) 1200 H (0-900) /uL Eos # (Auto) 300 (0-450) /uL Baso # (Auto) 100 (0-100) /uL Total Counted Seg Neutrophils % (38-70) % Band Neutrophils % (3-7) % Lymphocytes % (Manual) (25-45) % Monocytes % (Manual) (2-11) % Neutrophils # (Manual) (9314-5720) /uL Nucleated RBCs ( - 0) #/Diff RBC Morphology Hypochromasia Anisocytosis PT (10.1-12.7) SECONDS INR (0.9-1.3) APTT (26-36) SECONDS D-Dimer (<500) ng/ml ABG pH (7.35-7.45) ABG pCO2 (35-45) mmHg ABG pO2 (80-100) mmHg ABG HCO3 (22-26) mmol/L ABG Total CO2 (21-31) mmol/L ABG O2 Saturation (95-100) % ABG Base Excess (-2-2) mmol/L VBG pH (7.33-7.43) VBG pCO2 (45-50) mmHg VBG pO2 (35-45) mmHg VBG HCO3 (23-28) mmol/L VBG Total CO2 (24-29) mmol/L VBG O2 Saturation (70-75) % VBG Base Excess (0-4) mmol/L FiO2 Sodium (137-145) mmol/L Potassium (3.4-5.1) mmol/L Chloride (98-107) mmol/L Carbon Dioxide (22-32) mmol/L BUN (7-17) mg/dL Creatinine (0.52-1.04) mg/dL Estimated GFR (>60) mL/min BUN/Creatinine Ratio (6-22) Glucose (80-110) mg/dL Lactate 1.5 (0.7-2.1) mmol/L Calcium (8.4-10.2) mg/dL Ionized Calcium [place] (4.5-5.6) mg/dL Phosphorus (2.8-4.1) mg/dL Magnesium (1.6-2.3) mg/dL Total Bilirubin 0.6 (0.2-1.3) mg/dL Conjugated Bilirubin 0.0 (0.0-0.3) md/dL Unconjugated Bilirubin 0.2 (0.0-1.1) mg/dL AST 42 H (14-36) IU/L ALT 20 (<35) IU/L Alkaline Phosphatase 269 H (38-126) U/L Total Creatine Kinase (30-135) U/L CK-MB (CK-2) CK-MB (CK-2) Rel Index Troponin I (0.01-0.034) ng/mL NT-Pro-B Natriuret Pep (<125) pg/mL Total Protein 6.3 (6.3-8.2) g/dL Albumin 2.7 L (3.5-5.0) g/dL Globulin 3.6 (1.7-4.1) g/dL Albumin/Globulin Ratio 0.8 L (1.0-2.8) Lipase (23-300) U/L Procalcitonin 0.88 H (<0.5) ng/mL Urine Color Urine Appearance Urine pH (4.5-8.0) Ur Specific [place] (1.000-1.035) Urine Protein (Negative) Urine Glucose (UA) (Negative) g/dL Urine Ketones (NEGATIVE) Urine Occult Blood (Negative) Urine Nitrate (Negative) Urine Bilirubin (NEGATIVE) Urine Urobilinogen (0.2) E.U./dL Ur Leukocyte Esterase (NEGATIVE) Urine RBC (0-5/HPF) Urine WBC (0-5/HPF) Ur Squamous Epith Cells (0-5/HPF) Urine Bacteria (None) Urine Mucus (Negative) Ur Culture Indicated? Ur Random Sodium (30-90) mmol/L Urine Creatinine mg/dL Ketones (<0.27) mmol/L SARS-CoV-2 (PCR) (Negative) Influenza A (RT-PCR) (NEGATIVE) Influenza B (RT-PCR) (NEGATIVE) RSV (PCR) (Negative) 05/26/22 05/26/22 05/26/22 Range/Units 20:00 21:22 21:22 WBC (4.5-11.0) X10^3/uL RBC (4.0-5.2) X10^6/uL Hgb (12.0-16.0) g/dL Hct (36-46) % MCV (80-100) fL MCH (26-34) PG MCHC (30-36) % RDW (11.6-14.8) % Plt Count (150-400) X10^3/uL Neut % (Auto) (50-75) % Lymph % (Auto) (25-40) % Major % (Auto) (3-14) % Eos % (Auto) (2-4) % Baso % (Auto) (0-2) % Neut # (Auto) (6396-5948) /uL Lymph # (Auto) (6783-1623) /uL Major # (Auto) (0-900) /uL Eos # (Auto) (0-450) /uL Baso # (Auto) (0-100) /uL Total Counted Seg Neutrophils % (38-70) % Band Neutrophils % (3-7) % Lymphocytes % (Manual) (25-45) % Monocytes % (Manual) (2-11) % Neutrophils # (Manual) (7234-2814) /uL Nucleated RBCs ( - 0) #/Diff RBC Morphology Hypochromasia Anisocytosis PT (10.1-12.7) SECONDS INR (0.9-1.3) APTT (26-36) SECONDS D-Dimer (<500) ng/ml ABG pH 7.36 (7.35-7.45) ABG pCO2 47.4 H (35-45) mmHg ABG pO2 63 L (80-100) mmHg ABG HCO3 27 H (22-26) mmol/L ABG Total CO2 28 (21-31) mmol/L ABG O2 Saturation 90 L (95-100) % ABG Base Excess 1.0 (-2-2) mmol/L VBG pH (7.33-7.43) VBG pCO2 (45-50) mmHg VBG pO2 (35-45) mmHg VBG HCO3 (23-28) mmol/L VBG Total CO2 (24-29) mmol/L VBG O2 Saturation (70-75) % VBG Base Excess (0-4) mmol/L FiO2 40 Sodium (137-145) mmol/L Potassium (3.4-5.1) mmol/L Chloride (98-107) mmol/L Carbon Dioxide (22-32) mmol/L BUN (7-17) mg/dL Creatinine (0.52-1.04) mg/dL Estimated GFR (>60) mL/min BUN/Creatinine Ratio (6-22) Glucose (80-110) mg/dL Lactate (0.7-2.1) mmol/L Calcium (8.4-10.2) mg/dL Ionized Calcium [place]anna 5.1 (4.5-5.6) mg/dL Phosphorus (2.8-4.1) mg/dL Magnesium (1.6-2.3) mg/dL Total Bilirubin (0.2-1.3) mg/dL Conjugated Bilirubin (0.0-0.3) md/dL Unconjugated Bilirubin (0.0-1.1) mg/dL AST (14-36) IU/L ALT (<35) IU/L Alkaline Phosphatase (38-126) U/L Total Creatine Kinase (30-135) U/L CK-MB (CK-2) CK-MB (CK-2) Rel Index Troponin I (0.01-0.034) ng/mL NT-Pro-B Natriuret Pep (<125) pg/mL Total Protein (6.3-8.2) g/dL Albumin (3.5-5.0) g/dL Globulin (1.7-4.1) g/dL Albumin/Globulin Ratio (1.0-2.8) Lipase (23-300) U/L Procalcitonin (<0.5) ng/mL Urine Color Urine Appearance Urine pH (4.5-8.0) Ur Specific [place] (1.000-1.035) Urine Protein (Negative) Urine Glucose (UA) (Negative) g/dL Urine Ketones (NEGATIVE) Urine Occult Blood (Negative) Urine Nitrate (Negative) Urine Bilirubin (NEGATIVE) Urine Urobilinogen (0.2) E.U./dL Ur Leukocyte Esterase (NEGATIVE) Urine RBC (0-5/HPF) Urine WBC (0-5/HPF) Ur Squamous Epith Cells (0-5/HPF) Urine Bacteria (None) Urine Mucus (Negative) Ur Culture Indicated? Ur Random Sodium (30-90) mmol/L Urine Creatinine mg/dL Ketones 0.03 (<0.27) mmol/L SARS-CoV-2 (PCR) (Negative) Influenza A (RT-PCR) (NEGATIVE) Influenza B (RT-PCR) (NEGATIVE) RSV (PCR) (Negative) 05/26/22 05/26/22 Range/Units 21:30 22:50 WBC (4.5-11.0) X10^3/uL RBC (4.0-5.2) X10^6/uL Hgb (12.0-16.0) g/dL Hct (36-46) % MCV (80-100) fL MCH (26-34) PG MCHC (30-36) % RDW (11.6-14.8) % Plt Count (150-400) X10^3/uL Neut % (Auto) (50-75) % Lymph % (Auto) (25-40) % Major % (Auto) (3-14) % Eos % (Auto) (2-4) % Baso % (Auto) (0-2) % Neut # (Auto) (3729-1158) /uL Lymph # (Auto) (5258-3254) /uL Major # (Auto) (0-900) /uL Eos # (Auto) (0-450) /uL Baso # (Auto) (0-100) /uL Total Counted Seg Neutrophils % (38-70) % Band Neutrophils % (3-7) % Lymphocytes % (Manual) (25-45) % Monocytes % (Manual) (2-11) % Neutrophils # (Manual) (8136-2753) /uL Nucleated RBCs ( - 0) #/Diff RBC Morphology Hypochromasia Anisocytosis PT (10.1-12.7) SECONDS INR (0.9-1.3) APTT (26-36) SECONDS D-Dimer (<500) ng/ml ABG pH (7.35-7.45) ABG pCO2 (35-45) mmHg ABG pO2 (80-100) mmHg ABG HCO3 (22-26) mmol/L ABG Total CO2 (21-31) mmol/L ABG O2 Saturation (95-100) % ABG Base Excess (-2-2) mmol/L VBG pH (7.33-7.43) VBG pCO2 (45-50) mmHg VBG pO2 (35-45) mmHg VBG HCO3 (23-28) mmol/L VBG Total CO2 (24-29) mmol/L VBG O2 Saturation (70-75) % VBG Base Excess (0-4) mmol/L FiO2 Sodium (137-145) mmol/L Potassium (3.4-5.1) mmol/L Chloride (98-107) mmol/L Carbon Dioxide (22-32) mmol/L BUN (7-17) mg/dL Creatinine (0.52-1.04) mg/dL Estimated GFR (>60) mL/min BUN/Creatinine Ratio (6-22) Glucose (80-110) mg/dL Lactate 1.7 (0.7-2.1) mmol/L Calcium (8.4-10.2) mg/dL Ionized Calcium Hanna (4.5-5.6) mg/dL Phosphorus (2.8-4.1) mg/dL Magnesium (1.6-2.3) mg/dL Total Bilirubin (0.2-1.3) mg/dL Conjugated Bilirubin (0.0-0.3) md/dL Unconjugated Bilirubin (0.0-1.1) mg/dL AST (14-36) IU/L ALT (<35) IU/L Alkaline Phosphatase (38-126) U/L Total Creatine Kinase (30-135) U/L CK-MB (CK-2) CK-MB (CK-2) Rel Index Troponin I (0.01-0.034) ng/mL NT-Pro-B Natriuret Pep (<125) pg/mL Total Protein (6.3-8.2) g/dL Albumin (3.5-5.0) g/dL Globulin (1.7-4.1) g/dL Albumin/Globulin Ratio (1.0-2.8) Lipase (23-300) U/L Procalcitonin (<0.5) ng/mL Urine Color Urine Appearance Urine pH (4.5-8.0) Ur Specific [place] (1.000-1.035) Urine Protein (Negative) Urine Glucose (UA) (Negative) g/dL Urine Ketones (NEGATIVE) Urine Occult Blood (Negative) Urine Nitrate (Negative) Urine Bilirubin (NEGATIVE) Urine Urobilinogen (0.2) E.U./dL Ur Leukocyte Esterase (NEGATIVE) Urine RBC (0-5/HPF) Urine WBC (0-5/HPF) Ur Squamous Epith Cells (0-5/HPF) Urine Bacteria (None) Urine Mucus (Negative) Ur Culture Indicated? Ur Random Sodium 84 (30-90) mmol/L Urine Creatinine 75.1 mg/dL Ketones (<0.27) mmol/L SARS-CoV-2 (PCR) (Negative) Influenza A (RT-PCR) (NEGATIVE) Influenza B (RT-PCR) (NEGATIVE) RSV (PCR) (Negative) Point of Care Testing Glucose POC [address] scan - chest: Radiologist's Impression: Herb Ayers??72??F??1950 ? Allergy/Adv: adhesive tape Close Chest CTA (Signed) Candelario Garcia - 05/22/22 Chest X-Ray (Signed) JoseCandelario - 05/22/22 [place] [address] CT Scan Report Signed Patient: Herb Ayers MR#: [id number] : 1950 Acct:[id number] Age/Sex: 72 / F Date of Service: 05/22/22 Loc: ED Accession Number: [id number] ?? Procedure: CT angio chest PE protocol Ordering Provider: William Turcios D.O. PROCEDURE:? CT ANGIO CHEST PE PROTOCOL ? INDICATIONS:? SOB, tachycardia, critical DDimer, hypoxemia ? TECHNIQUE:? After the administration of intravenous contrast, 2 mm thick sections acquired from the pulmonary apices to the posterior costophrenic angles.? 3-dimensional maximum intensity projection (MIP) coronal and sagittal reformats were then acquired through the thorax.? For radiation dose reduction, the following was used:? automated exposure control, adjustment of mA and/or kV according to patient size.? ? COMPARISON:? None. ? FINDINGS:? Image quality:? Slight motion degradation ? Lungs and pleura:? [id number] bilateral effusions and underlying opacities. ? Mediastinum, heart, and esophagus:? No hiatal hernia.? No pathologic adenopathy by size criteria.? Heart is borderline enlarged.? There are prominent cardiophrenic lymph nodes of uncertain etiology, possibly reactive. The main pulmonary artery is mildly dilated at 3.5 cm.? There are small pulmonary emboli in the subsegmental branches in both lungs.? ? Chest wall and thyroid:? Enhancement focally in the right breast. ? Upper abdomen:? Partially seen possible chronic liver disease.? There is ascites.? Nodularity in the left upper quadrant. ? Bones:? Scattered degenerative changes. ? IMPRESSION:? Positive study for small pulmonary emboli bilaterally, mostly in the subsegmental branches.? There is evidence of right heart strain ? Bibasilar airspace disease, atelectasis, and mild to moderate effusions.? Consider future imaging surveillance to assess for resolution. ? Left upper quadrant abdominal nodularity.? Possible evidence of chronic liver disease.? Ascites.? These are only partially seen.? Consider further future imaging with abdominal pelvis CT with contrast.? ? Focal enhancement the right breast, correlate with mammography. ? Other findings as above.? ? Dictated by: Candelario Garcia M.D. on 05/22/2022 at 20:17 ? ? Approved by: Candelario Garcia M.D. on 05/22/2022 at 20:24 ? MDM Narrative Medical decision making narrative: 72-year-old female nonsmoker with history of hypertension and diabetes presents with upwards of a week of increasing shortness of breath, exertional dyspnea, orthopnea, conversational dyspnea and lower extremity swelling. She has no history of CHF or significant cardiac disease. Patient initially diuresed and after discussion request Nuno catheter. In his him to elucidate cause of 1st onset CHF widespread labs including D-dimer ordered, this is critically elevated at which point a CT angiogram is performed which notes, not surprisingly, bilateral subsegmental PEs with evidence of right heart strain. The presence of heart strain biochemically and radiographically in the presence of supplemental oxygen requirements would suggest patient exceeds the capability of this facility. Multiple calls have been placed up and down the [facility] including [facility], [facility] and even the [facility] and we are on multiple lists but no current beds available. <Jared Gaston, DO - Last Filed: 05/26/22 17:30> Lab Data Labs: Lab Results 05/22/22 05/22/22 05/22/22 Range/Units 17:34 17:34 17:34 WBC 12.1 H (4.5-11.0) X10^3/uL RBC 3.19 L (4.0-5.2) X10^6/uL Hgb 9.0 L (12.0-16.0) g/dL Hct 27.9 L (36-46) % MCV 87.3 (80-100) fL MCH 28.2 (26-34) PG MCHC 32.3 (30-36) % RDW 14.6 (11.6-14.8) % Plt Count 579 H (150-400) X10^3/uL Neut % (Auto) 86.4 H (50-75) % Lymph % (Auto) 6.3 L (25-40) % Major % (Auto) 6.1 (3-14) % Eos % (Auto) 0.1 L (2-4) % Baso % (Auto) 1.1 (0-2) % Neut # (Auto) 54966 H (8378-0935) /uL Lymph # (Auto) 800 L (6404-2809) /uL Major # (Auto) 700 (0-900) /uL Eos # (Auto) 0 (0-450) /uL Baso # (Auto) 100 (0-100) /uL Total Counted Seg Neutrophils % (38-70) % Band Neutrophils % (3-7) % Lymphocytes % (Manual) (25-45) % Monocytes % (Manual) (2-11) % Neutrophils # (Manual) (8184-8416) /uL Nucleated RBCs ( - 0) #/Diff RBC Morphology Hypochromasia Anisocytosis PT 13.6 H (10.1-12.7) SECONDS INR 1.2 (0.9-1.3) APTT 27 (26-36) SECONDS D-Dimer (<500) ng/ml ABG pH (7.35-7.45) ABG pCO2 (35-45) mmHg ABG pO2 (80-100) mmHg ABG HCO3 (22-26) mmol/L ABG Total CO2 (21-31) mmol/L ABG O2 Saturation (95-100) % ABG Base Excess (-2-2) mmol/L VBG pH (7.33-7.43) VBG pCO2 (45-50) mmHg VBG pO2 (35-45) mmHg VBG HCO3 (23-28) mmol/L VBG Total CO2 (24-29) mmol/L VBG O2 Saturation (70-75) % VBG Base Excess (0-4) mmol/L FiO2 Sodium 144 (137-145) mmol/L Potassium 4.4 (3.4-5.1) mmol/L Chloride 111 H (98-107) mmol/L Carbon Dioxide 24 (22-32) mmol/L BUN 34 H (7-17) mg/dL Creatinine 1.53 H (0.52-1.04) mg/dL Estimated GFR 35 L (>60) mL/min BUN/Creatinine Ratio 22.2 H (6-22) Glucose 107 (80-110) mg/dL Lactate (0.7-2.1) mmol/L Calcium 8.6 (8.4-10.2) mg/dL Ionized Calcium Hanna (4.5-5.6) mg/dL Phosphorus (2.8-4.1) mg/dL Magnesium 1.6 (1.6-2.3) mg/dL Total Bilirubin 0.3 (0.2-1.3) mg/dL Conjugated Bilirubin (0.0-0.3) md/dL Unconjugated Bilirubin (0.0-1.1) mg/dL AST 35 (14-36) IU/L ALT 18 (<35) IU/L Alkaline Phosphatase 351 H (38-126) U/L Total Creatine Kinase 48 (30-135) U/L CK-MB (CK-2) TNP CK-MB (CK-2) Rel Index TNP Troponin I 0.103 H (0.01-0.034) ng/mL NT-Pro-B Natriuret Pep (<125) pg/mL Total Protein 7.2 (6.3-8.2) g/dL Albumin 3.4 L (3.5-5.0) g/dL Globulin 3.8 (1.7-4.1) g/dL Albumin/Globulin Ratio 0.9 L (1.0-2.8) Lipase 112 (23-300) U/L Procalcitonin (<0.5) ng/mL Urine Color Urine Appearance Urine pH (4.5-8.0) Ur Specific [place] (1.000-1.035) Urine Protein (Negative) Urine Glucose (UA) (Negative) g/dL Urine Ketones (NEGATIVE) Urine Occult Blood (Negative) Urine Nitrate (Negative) Urine Bilirubin (NEGATIVE) Urine Urobilinogen (0.2) E.U./dL Ur Leukocyte Esterase (NEGATIVE) Urine RBC (0-5/HPF) Urine WBC (0-5/HPF) Ur Squamous Epith Cells (0-5/HPF) Urine Bacteria (None) Urine Mucus (Negative) Ur Culture Indicated? Ur Random Sodium (30-90) mmol/L Urine Creatinine mg/dL Ketones (<0.27) mmol/L SARS-CoV-2 (PCR) (Negative) Influenza A (RT-PCR) (NEGATIVE) Influenza B (RT-PCR) (NEGATIVE) RSV (PCR) (Negative) 05/22/22 05/22/22 05/22/22 Range/Units 17:34 17:34 18:05 WBC (4.5-11.0) X10^3/uL RBC (4.0-5.2) X10^6/uL Hgb (12.0-16.0) g/dL Hct (36-46) % MCV (80-100) fL MCH (26-34) PG MCHC (30-36) % RDW (11.6-14.8) % Plt Count (150-400) X10^3/uL Neut % (Auto) (50-75) % Lymph % (Auto) (25-40) % Major % (Auto) (3-14) % Eos % (Auto) (2-4) % Baso % (Auto) (0-2) % Neut # (Auto) (5931-6185) /uL Lymph # (Auto) (9938-3720) /uL Major # (Auto) (0-900) /uL Eos # (Auto) (0-450) /uL Baso # (Auto) (0-100) /uL Total Counted Seg Neutrophils % (38-70) % Band Neutrophils % (3-7) % Lymphocytes % (Manual) (25-45) % Monocytes % (Manual) (2-11) % Neutrophils # (Manual) (0695-7545) /uL Nucleated RBCs ( - 0) #/Diff RBC Morphology Hypochromasia Anisocytosis PT (10.1-12.7) SECONDS INR (0.9-1.3) APTT (26-36) SECONDS D-Dimer 57043 H (<500) ng/ml ABG pH (7.35-7.45) ABG pCO2 (35-45) mmHg ABG pO2 (80-100) mmHg ABG HCO3 (22-26) mmol/L ABG Total CO2 (21-31) mmol/L ABG O2 Saturation (95-100) % ABG Base Excess (-2-2) mmol/L VBG pH (7.33-7.43) VBG pCO2 (45-50) mmHg VBG pO2 (35-45) mmHg VBG HCO3 (23-28) mmol/L VBG Total CO2 (24-29) mmol/L VBG O2 Saturation (70-75) % VBG Base Excess (0-4) mmol/L FiO2 Sodium (137-145) mmol/L Potassium (3.4-5.1) mmol/L Chloride (98-107) mmol/L Carbon Dioxide (22-32) mmol/L BUN (7-17) mg/dL Creatinine (0.52-1.04) mg/dL Estimated GFR (>60) mL/min BUN/Creatinine Ratio (6-22) Glucose (80-110) mg/dL Lactate (0.7-2.1) mmol/L Calcium (8.4-10.2) mg/dL Ionized Calcium Hanna (4.5-5.6) mg/dL Phosphorus (2.8-4.1) mg/dL Magnesium (1.6-2.3) mg/dL Total Bilirubin (0.2-1.3) mg/dL Conjugated Bilirubin (0.0-0.3) md/dL Unconjugated Bilirubin (0.0-1.1) mg/dL AST (14-36) IU/L ALT (<35) IU/L Alkaline Phosphatase (38-126) U/L Total Creatine Kinase (30-135) U/L CK-MB (CK-2) CK-MB (CK-2) Rel Index Troponin I (0.01-0.034) ng/mL NT-Pro-B Natriuret Pep 6350 H (<125) pg/mL Total Protein (6.3-8.2) g/dL Albumin (3.5-5.0) g/dL Globulin (1.7-4.1) g/dL Albumin/Globulin Ratio (1.0-2.8) Lipase (23-300) U/L Procalcitonin (<0.5) ng/mL Urine Color Urine Appearance Urine pH (4.5-8.0) Ur Specific [place] (1.000-1.035) Urine Protein (Negative) Urine Glucose (UA) (Negative) g/dL Urine Ketones (NEGATIVE) Urine Occult Blood (Negative) Urine Nitrate (Negative) Urine Bilirubin (NEGATIVE) Urine Urobilinogen (0.2) E.U./dL Ur Leukocyte Esterase (NEGATIVE) Urine RBC (0-5/HPF) Urine WBC (0-5/HPF) Ur Squamous Epith Cells (0-5/HPF) Urine Bacteria (None) Urine Mucus (Negative) Ur Culture Indicated? Ur Random Sodium (30-90) mmol/L Urine Creatinine mg/dL Ketones (<0.27) mmol/L SARS-CoV-2 (PCR) Negative (Negative) Influenza A (RT-PCR) Flu a negative (NEGATIVE) Influenza B (RT-PCR) Flu b negative (NEGATIVE) RSV (PCR) Negative (Negative) 05/22/22 05/23/22 05/23/22 Range/Units 18:55 02:40 02:40 WBC (4.5-11.0) X10^3/uL RBC (4.0-5.2) X10^6/uL Hgb (12.0-16.0) g/dL Hct (36-46) % MCV (80-100) fL MCH (26-34) PG MCHC (30-36) % RDW (11.6-14.8) % Plt Count (150-400) X10^3/uL Neut % (Auto) (50-75) % Lymph % (Auto) (25-40) % Major % (Auto) (3-14) % Eos % (Auto) (2-4) % Baso % (Auto) (0-2) % Neut # (Auto) (0369-8855) /uL Lymph # (Auto) (6645-4941) /uL Major # (Auto) (0-900) /uL Eos # (Auto) (0-450) /uL Baso # (Auto) (0-100) /uL Total Counted Seg Neutrophils % (38-70) % Band Neutrophils % (3-7) % Lymphocytes % (Manual) (25-45) % Monocytes % (Manual) (2-11) % Neutrophils # (Manual) (4336-8469) /uL Nucleated RBCs ( - 0) #/Diff RBC Morphology Hypochromasia Anisocytosis PT (10.1-12.7) SECONDS INR (0.9-1.3) APTT 89 H* D (26-36) SECONDS D-Dimer (<500) ng/ml ABG pH (7.35-7.45) ABG pCO2 (35-45) mmHg ABG pO2 (80-100) mmHg ABG HCO3 (22-26) mmol/L ABG Total CO2 (21-31) mmol/L ABG O2 Saturation (95-100) % ABG Base Excess (-2-2) mmol/L VBG pH (7.33-7.43) VBG pCO2 (45-50) mmHg VBG pO2 (35-45) mmHg VBG HCO3 (23-28) mmol/L VBG Total CO2 (24-29) mmol/L VBG O2 Saturation (70-75) % VBG Base Excess (0-4) mmol/L FiO2 Sodium (137-145) mmol/L Potassium (3.4-5.1) mmol/L Chloride (98-107) mmol/L Carbon Dioxide (22-32) mmol/L BUN (7-17) mg/dL Creatinine (0.52-1.04) mg/dL Estimated GFR (>60) mL/min BUN/Creatinine Ratio (6-22) Glucose (80-110) mg/dL Lactate (0.7-2.1) mmol/L Calcium (8.4-10.2) mg/dL Ionized Calcium [place] (4.5-5.6) mg/dL Phosphorus (2.8-4.1) mg/dL Magnesium (1.6-2.3) mg/dL Total Bilirubin (0.2-1.3) mg/dL Conjugated Bilirubin (0.0-0.3) md/dL Unconjugated Bilirubin (0.0-1.1) mg/dL AST (14-36) IU/L ALT (<35) IU/L Alkaline Phosphatase (38-126) U/L Total Creatine Kinase (30-135) U/L CK-MB (CK-2) CK-MB (CK-2) Rel Index Troponin I 0.078 H (0.01-0.034) ng/mL NT-Pro-B Natriuret Pep (<125) pg/mL Total Protein (6.3-8.2) g/dL Albumin (3.5-5.0) g/dL Globulin (1.7-4.1) g/dL Albumin/Globulin Ratio (1.0-2.8) Lipase (23-300) U/L Procalcitonin (<0.5) ng/mL Urine Color Yellow Urine Appearance Clear Urine pH 5.0 (4.5-8.0) Ur Specific [place] 1.025 (1.000-1.035) Urine Protein 2+ H (Negative) Urine Glucose (UA) Negative (Negative) g/dL Urine Ketones Trace H (NEGATIVE) Urine Occult Blood Negative (Negative) Urine Nitrate Negative (Negative) Urine Bilirubin Negative (NEGATIVE) Urine Urobilinogen 0.2 (0.2) E.U./dL Ur Leukocyte Esterase Negative (NEGATIVE) Urine RBC 1-5/hpf (0-5/HPF) Urine WBC 1-5/hpf (0-5/HPF) Ur Squamous Epith Cells 0-1 /hpf (0-5/HPF) Urine Bacteria Occasional (0-1) (None) Urine Mucus 1+ H (Negative) Ur Culture Indicated? Cult not indicated Ur Random Sodium (30-90) mmol/L Urine Creatinine mg/dL Ketones (<0.27) mmol/L SARS-CoV-2 (PCR) (Negative) Influenza A (RT-PCR) (NEGATIVE) Influenza B (RT-PCR) (NEGATIVE) RSV (PCR) (Negative) 05/23/22 05/23/22 05/23/22 Range/Units 08:30 09:40 09:40 WBC 9.6 (4.5-11.0) X10^3/uL RBC 3.04 L (4.0-5.2) X10^6/uL Hgb 8.7 L (12.0-16.0) g/dL Hct 26.9 L (36-46) % MCV 88.5 (80-100) fL MCH 28.7 (26-34) PG MCHC 32.4 (30-36) % RDW 14.4 (11.6-14.8) % Plt Count 519 H (150-400) X10^3/uL Neut % (Auto) 74.6 (50-75) % Lymph % (Auto) 11.6 L (25-40) % Major % (Auto) 11.9 (3-14) % Eos % (Auto) 1.2 L (2-4) % Baso % (Auto) 0.7 (0-2) % Neut # (Auto) 7200 H (8503-5890) /uL Lymph # (Auto) 1100 (5363-0795) /uL Major # (Auto) 1100 H (0-900) /uL Eos # (Auto) 100 (0-450) /uL Baso # (Auto) 100 (0-100) /uL Total Counted Seg Neutrophils % (38-70) % Band Neutrophils % (3-7) % Lymphocytes % (Manual) (25-45) % Monocytes % (Manual) (2-11) % Neutrophils # (Manual) (7354-2164) /uL Nucleated RBCs ( - 0) #/Diff RBC Morphology Hypochromasia Anisocytosis PT (10.1-12.7) SECONDS INR (0.9-1.3) APTT 62 H D (26-36) SECONDS D-Dimer (<500) ng/ml ABG pH (7.35-7.45) ABG pCO2 (35-45) mmHg ABG pO2 (80-100) mmHg ABG HCO3 (22-26) mmol/L ABG Total CO2 (21-31) mmol/L ABG O2 Saturation (95-100) % ABG Base Excess (-2-2) mmol/L VBG pH (7.33-7.43) VBG pCO2 (45-50) mmHg VBG pO2 (35-45) mmHg VBG HCO3 (23-28) mmol/L VBG Total CO2 (24-29) mmol/L VBG O2 Saturation (70-75) % VBG Base Excess (0-4) mmol/L FiO2 Sodium 144 (137-145) mmol/L Potassium 4.1 (3.4-5.1) mmol/L Chloride 112 H (98-107) mmol/L Carbon Dioxide 26 (22-32) mmol/L BUN 27 H (7-17) mg/dL Creatinine 1.14 H (0.52-1.04) mg/dL Estimated GFR 51 L (>60) mL/min BUN/Creatinine Ratio 23.7 H (6-22) Glucose 109 (80-110) mg/dL Lactate (0.7-2.1) mmol/L Calcium 8.3 L (8.4-10.2) mg/dL Ionized Calcium [place] (4.5-5.6) mg/dL Phosphorus (2.8-4.1) mg/dL Magnesium (1.6-2.3) mg/dL Total Bilirubin 0.2 (0.2-1.3) mg/dL Conjugated Bilirubin (0.0-0.3) md/dL Unconjugated Bilirubin (0.0-1.1) mg/dL AST 34 (14-36) IU/L ALT 14 (<35) IU/L Alkaline Phosphatase 283 H (38-126) U/L Total Creatine Kinase (30-135) U/L CK-MB (CK-2) CK-MB (CK-2) Rel Index Troponin I 0.078 H (0.01-0.034) ng/mL NT-Pro-B Natriuret Pep 4150 H (<125) pg/mL Total Protein 6.6 (6.3-8.2) g/dL Albumin 3.1 L (3.5-5.0) g/dL Globulin 3.5 (1.7-4.1) g/dL Albumin/Globulin Ratio 0.9 L (1.0-2.8) Lipase (23-300) U/L Procalcitonin (<0.5) ng/mL Urine Color Urine Appearance Urine pH (4.5-8.0) Ur Specific [place] (1.000-1.035) Urine Protein (Negative) Urine Glucose (UA) (Negative) g/dL Urine Ketones (NEGATIVE) Urine Occult Blood (Negative) Urine Nitrate (Negative) Urine Bilirubin (NEGATIVE) Urine Urobilinogen (0.2) E.U./dL Ur Leukocyte Esterase (NEGATIVE) Urine RBC (0-5/HPF) Urine WBC (0-5/HPF) Ur Squamous Epith Cells (0-5/HPF) Urine Bacteria (None) Urine Mucus (Negative) Ur Culture Indicated? Ur Random Sodium (30-90) mmol/L Urine Creatinine mg/dL Ketones (<0.27) mmol/L SARS-CoV-2 (PCR) (Negative) Influenza A (RT-PCR) (NEGATIVE) Influenza B (RT-PCR) (NEGATIVE) RSV (PCR) (Negative) 05/23/22 05/23/2222 Range/Units 14:21 14:21 05:00 WBC (4.5-11.0) X10^3/uL RBC (4.0-5.2) X10^6/uL Hgb (12.0-16.0) g/dL Hct (36-46) % MCV (80-100) fL MCH (26-34) PG MCHC (30-36) % RDW (11.6-14.8) % Plt Count (150-400) X10^3/uL Neut % (Auto) (50-75) % Lymph % (Auto) (25-40) % Major % (Auto) (3-14) % Eos % (Auto) (2-4) % Baso % (Auto) (0-2) % Neut # (Auto) (6895-7671) /uL Lymph # (Auto) (6097-9403) /uL Major # (Auto) (0-900) /uL Eos # (Auto) (0-450) /uL Baso # (Auto) (0-100) /uL Total Counted Seg Neutrophils % (38-70) % Band Neutrophils % (3-7) % Lymphocytes % (Manual) (25-45) % Monocytes % (Manual) (2-11) % Neutrophils # (Manual) (4483-2495) /uL Nucleated RBCs ( - 0) #/Diff RBC Morphology Hypochromasia Anisocytosis PT (10.1-12.7) SECONDS INR (0.9-1.3) APTT 69 H 55 H D (26-36) SECONDS D-Dimer (<500) ng/ml ABG pH (7.35-7.45) ABG pCO2 (35-45) mmHg ABG pO2 (80-100) mmHg ABG HCO3 (22-26) mmol/L ABG Total CO2 (21-31) mmol/L ABG O2 Saturation (95-100) % ABG Base Excess (-2-2) mmol/L VBG pH (7.33-7.43) VBG pCO2 (45-50) mmHg VBG pO2 (35-45) mmHg VBG HCO3 (23-28) mmol/L VBG Total CO2 (24-29) mmol/L VBG O2 Saturation (70-75) % VBG Base Excess (0-4) mmol/L FiO2 Sodium (137-145) mmol/L Potassium (3.4-5.1) mmol/L Chloride (98-107) mmol/L Carbon Dioxide (22-32) mmol/L BUN (7-17) mg/dL Creatinine (0.52-1.04) mg/dL Estimated GFR (>60) mL/min BUN/Creatinine Ratio (6-22) Glucose (80-110) mg/dL Lactate (0.7-2.1) mmol/L Calcium (8.4-10.2) mg/dL Ionized Calcium [place] (4.5-5.6) mg/dL Phosphorus (2.8-4.1) mg/dL Magnesium (1.6-2.3) mg/dL Total Bilirubin (0.2-1.3) mg/dL Conjugated Bilirubin (0.0-0.3) md/dL Unconjugated Bilirubin (0.0-1.1) mg/dL AST (14-36) IU/L ALT (<35) IU/L Alkaline Phosphatase (38-126) U/L Total Creatine Kinase (30-135) U/L CK-MB (CK-2) CK-MB (CK-2) Rel Index Troponin I 0.075 H (0.01-0.034) ng/mL NT-Pro-B Natriuret Pep (<125) pg/mL Total Protein (6.3-8.2) g/dL Albumin (3.5-5.0) g/dL Globulin (1.7-4.1) g/dL Albumin/Globulin Ratio (1.0-2.8) Lipase (23-300) U/L Procalcitonin (<0.5) ng/mL Urine Color Urine Appearance Urine pH (4.5-8.0) Ur Specific [place] (1.000-1.035) Urine Protein (Negative) Urine Glucose (UA) (Negative) g/dL Urine Ketones (NEGATIVE) Urine Occult Blood (Negative) Urine Nitrate (Negative) Urine Bilirubin (NEGATIVE) Urine Urobilinogen (0.2) E.U./dL Ur Leukocyte Esterase (NEGATIVE) Urine RBC (0-5/HPF) Urine WBC (0-5/HPF) Ur Squamous Epith Cells (0-5/HPF) Urine Bacteria (None) Urine Mucus (Negative) Ur Culture Indicated? Ur Random Sodium (30-90) mmol/L Urine Creatinine mg/dL Ketones (<0.27) mmol/L SARS-CoV-2 (PCR) (Negative) Influenza A (RT-PCR) (NEGATIVE) Influenza B (RT-PCR) (NEGATIVE) RSV (PCR) (Negative) 05/24/22 05/24/22 05/24/22 Range/Units 05:00 07:15 07:20 WBC 9.9 (4.5-11.0) X10^3/uL RBC 3.14 L (4.0-5.2) X10^6/uL Hgb 8.9 L (12.0-16.0) g/dL Hct 28.2 L (36-46) % MCV 89.9 (80-100) fL MCH 28.2 (26-34) PG MCHC 31.3 (30-36) % RDW 15.1 H (11.6-14.8) % Plt Count 610 H (150-400) X10^3/uL Neut % (Auto) 85.0 H (50-75) % Lymph % (Auto) 6.1 L (25-40) % Major % (Auto) 8.1 (3-14) % Eos % (Auto) 0.1 L (2-4) % Baso % (Auto) 0.7 (0-2) % Neut # (Auto) 8400 H (1804-1935) /uL Lymph # (Auto) 600 L (6645-2452) /uL Major # (Auto) 800 (0-900) /uL Eos # (Auto) 0 (0-450) /uL Baso # (Auto) 100 (0-100) /uL Total Counted Seg Neutrophils % (38-70) % Band Neutrophils % (3-7) % Lymphocytes % (Manual) (25-45) % Monocytes % (Manual) (2-11) % Neutrophils # (Manual) (4077-9280) /uL Nucleated RBCs ( - 0) #/Diff RBC Morphology Hypochromasia Anisocytosis PT (10.1-12.7) SECONDS INR (0.9-1.3) APTT (26-36) SECONDS D-Dimer (<500) ng/ml ABG pH 7.19 L* (7.35-7.45) ABG pCO2 65.9 H* (35-45) mmHg ABG pO2 178 H (80-100) mmHg ABG HCO3 25 (22-26) mmol/L ABG Total CO2 27 (21-31) mmol/L ABG O2 Saturation 99 (95-100) % ABG Base Excess -3.0 L (-2-2) mmol/L VBG pH 7.15 L* (7.33-7.43) VBG pCO2 72.1 H (45-50) mmHg VBG pO2 55 H (35-45) mmHg VBG HCO3 25 (23-28) mmol/L VBG Total CO2 27 (24-29) mmol/L VBG O2 Saturation 76 H (70-75) % VBG Base Excess -4.0 L (0-4) mmol/L FiO2 100 Sodium (137-145) mmol/L Potassium (3.4-5.1) mmol/L Chloride (98-107) mmol/L Carbon Dioxide (22-32) mmol/L BUN (7-17) mg/dL Creatinine (0.52-1.04) mg/dL Estimated GFR (>60) mL/min BUN/Creatinine Ratio (6-22) Glucose (80-110) mg/dL Lactate (0.7-2.1) mmol/L Calcium (8.4-10.2) mg/dL Ionized Calcium [place] (4.5-5.6) mg/dL Phosphorus (2.8-4.1) mg/dL Magnesium (1.6-2.3) mg/dL Total Bilirubin (0.2-1.3) mg/dL Conjugated Bilirubin (0.0-0.3) md/dL Unconjugated Bilirubin (0.0-1.1) mg/dL AST (14-36) IU/L ALT (<35) IU/L Alkaline Phosphatase (38-126) U/L Total Creatine Kinase (30-135) U/L CK-MB (CK-2) CK-MB (CK-2) Rel Index Troponin I (0.01-0.034) ng/mL NT-Pro-B Natriuret Pep (<125) pg/mL Total Protein (6.3-8.2) g/dL Albumin (3.5-5.0) g/dL Globulin (1.7-4.1) g/dL Albumin/Globulin Ratio (1.0-2.8) Lipase (23-300) U/L Procalcitonin (<0.5) ng/mL Urine Color Urine Appearance Urine pH (4.5-8.0) Ur Specific [place] (1.000-1.035) Urine Protein (Negative) Urine Glucose (UA) (Negative) g/dL Urine Ketones (NEGATIVE) Urine Occult Blood (Negative) Urine Nitrate (Negative) Urine Bilirubin (NEGATIVE) Urine Urobilinogen (0.2) E.U./dL Ur Leukocyte Esterase (NEGATIVE) Urine RBC (0-5/HPF) Urine WBC (0-5/HPF) Ur Squamous Epith Cells (0-5/HPF) Urine Bacteria (None) Urine Mucus (Negative) Ur Culture Indicated? Ur Random Sodium (30-90) mmol/L Urine Creatinine mg/dL Ketones (<0.27) mmol/L SARS-CoV-2 (PCR) (Negative) Influenza A (RT-PCR) (NEGATIVE) Influenza B (RT-PCR) (NEGATIVE) RSV (PCR) (Negative) 05/24/22 05/24/22 05/24/22 Range/Units 07:33 07:33 07:33 WBC (4.5-11.0) X10^3/uL RBC (4.0-5.2) X10^6/uL Hgb (12.0-16.0) g/dL Hct (36-46) % MCV (80-100) fL MCH (26-34) PG MCHC (30-36) % RDW (11.6-14.8) % Plt Count (150-400) X10^3/uL Neut % (Auto) (50-75) % Lymph % (Auto) (25-40) % Major % (Auto) (3-14) % Eos % (Auto) (2-4) % Baso % (Auto) (0-2) % Neut # (Auto) (2629-3115) /uL Lymph # (Auto) (7494-0350) /uL Major # (Auto) (0-900) /uL Eos # (Auto) (0-450) /uL Baso # (Auto) (0-100) /uL Total Counted Seg Neutrophils % (38-70) % Band Neutrophils % (3-7) % Lymphocytes % (Manual) (25-45) % Monocytes % (Manual) (2-11) % Neutrophils # (Manual) (6523-0281) /uL Nucleated RBCs ( - 0) #/Diff RBC Morphology Hypochromasia Anisocytosis PT (10.1-12.7) SECONDS INR (0.9-1.3) APTT (26-36) SECONDS D-Dimer (<500) ng/ml ABG pH (7.35-7.45) ABG pCO2 (35-45) mmHg ABG pO2 (80-100) mmHg ABG HCO3 (22-26) mmol/L ABG Total CO2 (21-31) mmol/L ABG O2 Saturation (95-100) % ABG Base Excess (-2-2) mmol/L VBG pH (7.33-7.43) VBG pCO2 (45-50) mmHg VBG pO2 (35-45) mmHg VBG HCO3 (23-28) mmol/L VBG Total CO2 (24-29) mmol/L VBG O2 Saturation (70-75) % VBG Base Excess (0-4) mmol/L FiO2 Sodium Cancelled 142 (137-145) mmol/L Potassium Cancelled 5.2 H (3.4-5.1) mmol/L Chloride Cancelled 110 H (98-107) mmol/L Carbon Dioxide Cancelled 22 (22-32) mmol/L BUN Cancelled 26 H (7-17) mg/dL Creatinine Cancelled 1.94 H (0.52-1.04) mg/dL Estimated GFR Cancelled 27 L (>60) mL/min BUN/Creatinine Ratio Cancelled 13.4 (6-22) Glucose Cancelled 173 H (80-110) mg/dL Lactate (0.7-2.1) mmol/L Calcium Cancelled 7.8 L (8.4-10.2) mg/dL Ionized Calcium Hanna (4.5-5.6) mg/dL Phosphorus (2.8-4.1) mg/dL Magnesium (1.6-2.3) mg/dL Total Bilirubin 0.1 L (0.2-1.3) mg/dL Conjugated Bilirubin (0.0-0.3) md/dL Unconjugated Bilirubin (0.0-1.1) mg/dL AST 77 H (14-36) IU/L ALT 18 (<35) IU/L Alkaline Phosphatase 287 H (38-126) U/L Total Creatine Kinase (30-135) U/L CK-MB (CK-2) CK-MB (CK-2) Rel Index Troponin I 0.076 H (0.01-0.034) ng/mL NT-Pro-B Natriuret Pep 4950 H (<125) pg/mL Total Protein 6.7 (6.3-8.2) g/dL Albumin 3.1 L (3.5-5.0) g/dL Globulin 3.6 (1.7-4.1) g/dL Albumin/Globulin Ratio 0.9 L (1.0-2.8) Lipase (23-300) U/L Procalcitonin (<0.5) ng/mL Urine Color Urine Appearance Urine pH (4.5-8.0) Ur Specific [place] (1.000-1.035) Urine Protein (Negative) Urine Glucose (UA) (Negative) g/dL Urine Ketones (NEGATIVE) Urine Occult Blood (Negative) Urine Nitrate (Negative) Urine Bilirubin (NEGATIVE) Urine Urobilinogen (0.2) E.U./dL Ur Leukocyte Esterase (NEGATIVE) Urine RBC (0-5/HPF) Urine WBC (0-5/HPF) Ur Squamous Epith Cells (0-5/HPF) Urine Bacteria (None) Urine Mucus (Negative) Ur Culture Indicated? Ur Random Sodium (30-90) mmol/L Urine Creatinine mg/dL Ketones (<0.27) mmol/L SARS-CoV-2 (PCR) (Negative) Influenza A (RT-PCR) (NEGATIVE) Influenza B (RT-PCR) (NEGATIVE) RSV (PCR) (Negative) 05/24/22 05/24/22 05/24/22 Range/Units 14:23 15:06 15:30 WBC (4.5-11.0) X10^3/uL RBC (4.0-5.2) X10^6/uL Hgb (12.0-16.0) g/dL Hct (36-46) % MCV (80-100) fL MCH (26-34) PG MCHC (30-36) % RDW (11.6-14.8) % Plt Count (150-400) X10^3/uL Neut % (Auto) (50-75) % Lymph % (Auto) (25-40) % Major % (Auto) (3-14) % Eos % (Auto) (2-4) % Baso % (Auto) (0-2) % Neut # (Auto) (3330-0124) /uL Lymph # (Auto) (3019-3580) /uL Major # (Auto) (0-900) /uL Eos # (Auto) (0-450) /uL Baso # (Auto) (0-100) /uL Total Counted Seg Neutrophils % (38-70) % Band Neutrophils % (3-7) % Lymphocytes % (Manual) (25-45) % Monocytes % (Manual) (2-11) % Neutrophils # (Manual) (3554-3280) /uL Nucleated RBCs ( - 0) #/Diff RBC Morphology Hypochromasia Anisocytosis PT (10.1-12.7) SECONDS INR (0.9-1.3) APTT 63 H (26-36) SECONDS D-Dimer (<500) ng/ml ABG pH 7.33 L (7.35-7.45) ABG pCO2 38.3 (35-45) mmHg ABG pO2 61 L (80-100) mmHg ABG HCO3 20 L (22-26) mmol/L ABG Total CO2 21 (21-31) mmol/L ABG O2 Saturation 90 L (95-100) % ABG Base Excess -6.0 L (-2-2) mmol/L VBG pH (7.33-7.43) VBG pCO2 (45-50) mmHg VBG pO2 (35-45) mmHg VBG HCO3 (23-28) mmol/L VBG Total CO2 (24-29) mmol/L VBG O2 Saturation (70-75) % VBG Base Excess (0-4) mmol/L FiO2 50 Sodium (137-145) mmol/L Potassium (3.4-5.1) mmol/L Chloride (98-107) mmol/L Carbon Dioxide (22-32) mmol/L BUN (7-17) mg/dL Creatinine (0.52-1.04) mg/dL Estimated GFR (>60) mL/min BUN/Creatinine Ratio (6-22) Glucose (80-110) mg/dL Lactate 2.1 (0.7-2.1) mmol/L Calcium (8.4-10.2) mg/dL Ionized Calcium [place] (4.5-5.6) mg/dL Phosphorus (2.8-4.1) mg/dL Magnesium (1.6-2.3) mg/dL Total Bilirubin (0.2-1.3) mg/dL Conjugated Bilirubin (0.0-0.3) md/dL Unconjugated Bilirubin (0.0-1.1) mg/dL AST (14-36) IU/L ALT (<35) IU/L Alkaline Phosphatase (38-126) U/L Total Creatine Kinase (30-135) U/L CK-MB (CK-2) CK-MB (CK-2) Rel Index Troponin I (0.01-0.034) ng/mL NT-Pro-B Natriuret Pep (<125) pg/mL Total Protein (6.3-8.2) g/dL Albumin (3.5-5.0) g/dL Globulin (1.7-4.1) g/dL Albumin/Globulin Ratio (1.0-2.8) Lipase (23-300) U/L Procalcitonin (<0.5) ng/mL Urine Color Urine Appearance Urine pH (4.5-8.0) Ur Specific [place] (1.000-1.035) Urine Protein (Negative) Urine Glucose (UA) (Negative) g/dL Urine Ketones (NEGATIVE) Urine Occult Blood (Negative) Urine Nitrate (Negative) Urine Bilirubin (NEGATIVE) Urine Urobilinogen (0.2) E.U./dL Ur Leukocyte Esterase (NEGATIVE) Urine RBC (0-5/HPF) Urine WBC (0-5/HPF) Ur Squamous Epith Cells (0-5/HPF) Urine Bacteria (None) Urine Mucus (Negative) Ur Culture Indicated? Ur Random Sodium (30-90) mmol/L Urine Creatinine mg/dL Ketones (<0.27) mmol/L SARS-CoV-2 (PCR) (Negative) Influenza A (RT-PCR) (NEGATIVE) Influenza B (RT-PCR) (NEGATIVE) RSV (PCR) (Negative) 05/24/22 05/24/22 05/24/22 Range/Units 15:32 15:32 22:00 WBC 11.7 H (4.5-11.0) X10^3/uL RBC 2.86 L (4.0-5.2) X10^6/uL Hgb 8.0 L (12.0-16.0) g/dL Hct 25.3 L (36-46) % MCV 88.5 (80-100) fL MCH 27.9 (26-34) PG MCHC 31.5 (30-36) % RDW 14.4 (11.6-14.8) % Plt Count 560 H (150-400) X10^3/uL Neut % (Auto) (50-75) % Lymph % (Auto) (25-40) % Major % (Auto) (3-14) % Eos % (Auto) (2-4) % Baso % (Auto) (0-2) % Neut # (Auto) (8619-1373) /uL Lymph # (Auto) (9018-8948) /uL Major # (Auto) (0-900) /uL Eos # (Auto) (0-450) /uL Baso # (Auto) (0-100) /uL Total Counted 100 Seg Neutrophils % 80.0 H (38-70) % Band Neutrophils % 1.0 L (3-7) % Lymphocytes % (Manual) 13.0 L (25-45) % Monocytes % (Manual) 6.0 (2-11) % Neutrophils # (Manual) 9477 H (1394-9100) /uL Nucleated RBCs 1 H ( - 0) #/Diff RBC Morphology See below Hypochromasia 1+ H Anisocytosis 1+ H PT (10.1-12.7) SECONDS INR (0.9-1.3) APTT (26-36) SECONDS D-Dimer (<500) ng/ml ABG pH (7.35-7.45) ABG pCO2 (35-45) mmHg ABG pO2 (80-100) mmHg ABG HCO3 (22-26) mmol/L ABG Total CO2 (21-31) mmol/L ABG O2 Saturation (95-100) % ABG Base Excess (-2-2) mmol/L VBG pH (7.33-7.43) VBG pCO2 (45-50) mmHg VBG pO2 (35-45) mmHg VBG HCO3 (23-28) mmol/L VBG Total CO2 (24-29) mmol/L VBG O2 Saturation (70-75) % VBG Base Excess (0-4) mmol/L FiO2 Sodium 140 (137-145) mmol/L Potassium 3.6 D (3.4-5.1) mmol/L Chloride 107 (98-107) mmol/L Carbon Dioxide 20 L (22-32) mmol/L BUN 29 H (7-17) mg/dL Creatinine 1.92 H (0.52-1.04) mg/dL Estimated GFR 27 L (>60) mL/min BUN/Creatinine Ratio 15.1 (6-22) Glucose 223 H (80-110) mg/dL Lactate 1.6 (0.7-2.1) mmol/L Calcium 7.7 L (8.4-10.2) mg/dL Ionized Calcium [place] (4.5-5.6) mg/dL Phosphorus (2.8-4.1) mg/dL Magnesium 1.4 L (1.6-2.3) mg/dL Total Bilirubin 0.2 (0.2-1.3) mg/dL Conjugated Bilirubin (0.0-0.3) md/dL Unconjugated Bilirubin (0.0-1.1) mg/dL AST 28 (14-36) IU/L ALT 18 (<35) IU/L Alkaline Phosphatase 261 H (38-126) U/L Total Creatine Kinase 26 L (30-135) U/L CK-MB (CK-2) TNP CK-MB (CK-2) Rel Index TNP Troponin I 0.084 H (0.01-0.034) ng/mL NT-Pro-B Natriuret Pep (<125) pg/mL Total Protein 6.2 L (6.3-8.2) g/dL Albumin 2.8 L (3.5-5.0) g/dL Globulin 3.4 (1.7-4.1) g/dL Albumin/Globulin Ratio 0.8 L (1.0-2.8) Lipase (23-300) U/L Procalcitonin (<0.5) ng/mL Urine Color Urine Appearance Urine pH (4.5-8.0) Ur Specific [place] (1.000-1.035) Urine Protein (Negative) Urine Glucose (UA) (Negative) g/dL Urine Ketones (NEGATIVE) Urine Occult Blood (Negative) Urine Nitrate (Negative) Urine Bilirubin (NEGATIVE) Urine Urobilinogen (0.2) E.U./dL Ur Leukocyte Esterase (NEGATIVE) Urine RBC (0-5/HPF) Urine WBC (0-5/HPF) Ur Squamous Epith Cells (0-5/HPF) Urine Bacteria (None) Urine Mucus (Negative) Ur Culture Indicated? Ur Random Sodium (30-90) mmol/L Urine Creatinine mg/dL Ketones (<0.27) mmol/L SARS-CoV-2 (PCR) (Negative) Influenza A (RT-PCR) (NEGATIVE) Influenza B (RT-PCR) (NEGATIVE) RSV (PCR) (Negative) 05/25/22 05/25/22 05/25/22 Range/Units 00:23 05:00 05:00 WBC 12.3 H (4.5-11.0) X10^3/uL RBC 2.90 L (4.0-5.2) X10^6/uL Hgb 8.2 L (12.0-16.0) g/dL Hct 24.9 L (36-46) % MCV 86.0 (80-100) fL MCH 28.4 (26-34) PG MCHC 33.0 (30-36) % RDW 14.6 (11.6-14.8) % Plt Count 529 H (150-400) X10^3/uL Neut % (Auto) (50-75) % Lymph % (Auto) (25-40) % Major % (Auto) (3-14) % Eos % (Auto) (2-4) % Baso % (Auto) (0-2) % Neut # (Auto) (7452-6520) /uL Lymph # (Auto) (6787-0791) /uL Major # (Auto) (0-900) /uL Eos # (Auto) (0-450) /uL Baso # (Auto) (0-100) /uL Total Counted Seg Neutrophils % (38-70) % Band Neutrophils % (3-7) % Lymphocytes % (Manual) (25-45) % Monocytes % (Manual) (2-11) % Neutrophils # (Manual) (7485-2567) /uL Nucleated RBCs ( - 0) #/Diff RBC Morphology Hypochromasia Anisocytosis PT (10.1-12.7) SECONDS INR (0.9-1.3) APTT (26-36) SECONDS D-Dimer (<500) ng/ml ABG pH (7.35-7.45) ABG pCO2 (35-45) mmHg ABG pO2 (80-100) mmHg ABG HCO3 (22-26) mmol/L ABG Total CO2 (21-31) mmol/L ABG O2 Saturation (95-100) % ABG Base Excess (-2-2) mmol/L VBG pH 7.38 (7.33-7.43) VBG pCO2 37.0 L (45-50) mmHg VBG pO2 43 (35-45) mmHg VBG HCO3 22 L (23-28) mmol/L VBG Total CO2 23 L (24-29) mmol/L VBG O2 Saturation 78 H (70-75) % VBG Base Excess -3.0 L (0-4) mmol/L FiO2 Sodium 140 (137-145) mmol/L Potassium 3.6 (3.4-5.1) mmol/L Chloride 107 (98-107) mmol/L Carbon Dioxide 22 (22-32) mmol/L BUN 29 H (7-17) mg/dL Creatinine 1.62 H (0.52-1.04) mg/dL Estimated GFR 33 L (>60) mL/min BUN/Creatinine Ratio 17.9 (6-22) Glucose 198 H (80-110) mg/dL Lactate (0.7-2.1) mmol/L Calcium 8.0 L (8.4-10.2) mg/dL Ionized Calcium Hanna (4.5-5.6) mg/dL Phosphorus (2.8-4.1) mg/dL Magnesium (1.6-2.3) mg/dL Total Bilirubin 0.2 (0.2-1.3) mg/dL Conjugated Bilirubin (0.0-0.3) md/dL Unconjugated Bilirubin (0.0-1.1) mg/dL AST 24 (14-36) IU/L ALT 15 (<35) IU/L Alkaline Phosphatase 265 H (38-126) U/L Total Creatine Kinase (30-135) U/L CK-MB (CK-2) CK-MB (CK-2) Rel Index Troponin I (0.01-0.034) ng/mL NT-Pro-B Natriuret Pep (<125) pg/mL Total Protein 6.1 L (6.3-8.2) g/dL Albumin 2.9 L (3.5-5.0) g/dL Globulin 3.2 (1.7-4.1) g/dL Albumin/Globulin Ratio 0.9 L (1.0-2.8) Lipase (23-300) U/L Procalcitonin (<0.5) ng/mL Urine Color Urine Appearance Urine pH (4.5-8.0) Ur Specific [place] (1.000-1.035) Urine Protein (Negative) Urine Glucose (UA) (Negative) g/dL Urine Ketones (NEGATIVE) Urine Occult Blood (Negative) Urine Nitrate (Negative) Urine Bilirubin (NEGATIVE) Urine Urobilinogen (0.2) E.U./dL Ur Leukocyte Esterase (NEGATIVE) Urine RBC (0-5/HPF) Urine WBC (0-5/HPF) Ur Squamous Epith Cells (0-5/HPF) Urine Bacteria (None) Urine Mucus (Negative) Ur Culture Indicated? Ur Random Sodium (30-90) mmol/L Urine Creatinine mg/dL Ketones (<0.27) mmol/L SARS-CoV-2 (PCR) (Negative) Influenza A (RT-PCR) (NEGATIVE) Influenza B (RT-PCR) (NEGATIVE) RSV (PCR) (Negative) 05/25/22 05/25/22 05/25/22 Range/Units 09:08 09:08 09:08 WBC (4.5-11.0) X10^3/uL RBC (4.0-5.2) X10^6/uL Hgb (12.0-16.0) g/dL Hct (36-46) % MCV (80-100) fL MCH (26-34) PG MCHC (30-36) % RDW (11.6-14.8) % Plt Count (150-400) X10^3/uL Neut % (Auto) (50-75) % Lymph % (Auto) (25-40) % Major % (Auto) (3-14) % Eos % (Auto) (2-4) % Baso % (Auto) (0-2) % Neut # (Auto) (1245-7931) /uL Lymph # (Auto) (0862-6221) /uL Major # (Auto) (0-900) /uL Eos # (Auto) (0-450) /uL Baso # (Auto) (0-100) /uL Total Counted Seg Neutrophils % (38-70) % Band Neutrophils % (3-7) % Lymphocytes % (Manual) (25-45) % Monocytes % (Manual) (2-11) % Neutrophils # (Manual) (2889-5595) /uL Nucleated RBCs ( - 0) #/Diff RBC Morphology Hypochromasia Anisocytosis PT (10.1-12.7) SECONDS INR (0.9-1.3) APTT 51 H D (26-36) SECONDS D-Dimer (<500) ng/ml ABG pH (7.35-7.45) ABG pCO2 (35-45) mmHg ABG pO2 (80-100) mmHg ABG HCO3 (22-26) mmol/L ABG Total CO2 (21-31) mmol/L ABG O2 Saturation (95-100) % ABG Base Excess (-2-2) mmol/L VBG pH (7.33-7.43) VBG pCO2 (45-50) mmHg VBG pO2 (35-45) mmHg VBG HCO3 (23-28) mmol/L VBG Total CO2 (24-29) mmol/L VBG O2 Saturation (70-75) % VBG Base Excess (0-4) mmol/L FiO2 Sodium 140 (137-145) mmol/L Potassium 3.5 (3.4-5.1) mmol/L Chloride 106 (98-107) mmol/L Carbon Dioxide 23 (22-32) mmol/L BUN 28 H (7-17) mg/dL Creatinine 1.47 H (0.52-1.04) mg/dL Estimated GFR 37 L (>60) mL/min BUN/Creatinine Ratio 19.0 (6-22) Glucose 164 H (80-110) mg/dL Lactate (0.7-2.1) mmol/L Calcium 8.0 L (8.4-10.2) mg/dL Ionized Calcium [place]anna (4.5-5.6) mg/dL Phosphorus 4.0 (2.8-4.1) mg/dL Magnesium 1.7 (1.6-2.3) mg/dL Total Bilirubin (0.2-1.3) mg/dL Conjugated Bilirubin (0.0-0.3) md/dL Unconjugated Bilirubin (0.0-1.1) mg/dL AST (14-36) IU/L ALT (<35) IU/L Alkaline Phosphatase (38-126) U/L Total Creatine Kinase (30-135) U/L CK-MB (CK-2) CK-MB (CK-2) Rel Index Troponin I 0.052 H (0.01-0.034) ng/mL NT-Pro-B Natriuret Pep 4140 H (<125) pg/mL Total Protein (6.3-8.2) g/dL Albumin (3.5-5.0) g/dL Globulin (1.7-4.1) g/dL Albumin/Globulin Ratio (1.0-2.8) Lipase (23-300) U/L Procalcitonin (<0.5) ng/mL Urine Color Urine Appearance Urine pH (4.5-8.0) Ur Specific [place] (1.000-1.035) Urine Protein (Negative) Urine Glucose (UA) (Negative) g/dL Urine Ketones (NEGATIVE) Urine Occult Blood (Negative) Urine Nitrate (Negative) Urine Bilirubin (NEGATIVE) Urine Urobilinogen (0.2) E.U./dL Ur Leukocyte Esterase (NEGATIVE) Urine RBC (0-5/HPF) Urine WBC (0-5/HPF) Ur Squamous Epith Cells (0-5/HPF) Urine Bacteria (None) Urine Mucus (Negative) Ur Culture Indicated? Ur Random Sodium (30-90) mmol/L Urine Creatinine mg/dL Ketones (<0.27) mmol/L SARS-CoV-2 (PCR) (Negative) Influenza A (RT-PCR) (NEGATIVE) Influenza B (RT-PCR) (NEGATIVE) RSV (PCR) (Negative) 05/25/22 05/25/22 05/25/22 Range/Units 09:08 10:13 10:50 WBC (4.5-11.0) X10^3/uL RBC (4.0-5.2) X10^6/uL Hgb (12.0-16.0) g/dL Hct (36-46) % MCV (80-100) fL MCH (26-34) PG MCHC (30-36) % RDW (11.6-14.8) % Plt Count (150-400) X10^3/uL Neut % (Auto) (50-75) % Lymph % (Auto) (25-40) % Major % (Auto) (3-14) % Eos % (Auto) (2-4) % Baso % (Auto) (0-2) % Neut # (Auto) (2967-3193) /uL Lymph # (Auto) (8274-1551) /uL Major # (Auto) (0-900) /uL Eos # (Auto) (0-450) /uL Baso # (Auto) (0-100) /uL Total Counted Seg Neutrophils % (38-70) % Band Neutrophils % (3-7) % Lymphocytes % (Manual) (25-45) % Monocytes % (Manual) (2-11) % Neutrophils # (Manual) (6624-2411) /uL Nucleated RBCs ( - 0) #/Diff RBC Morphology Hypochromasia Anisocytosis PT (10.1-12.7) SECONDS INR (0.9-1.3) APTT (26-36) SECONDS D-Dimer (<500) ng/ml ABG pH 7.42 (7.35-7.45) ABG pCO2 36.3 (35-45) mmHg ABG pO2 55 L (80-100) mmHg ABG HCO3 24 (22-26) mmol/L ABG Total CO2 25 (21-31) mmol/L ABG O2 Saturation 89 L (95-100) % ABG Base Excess -1.0 (-2-2) mmol/L VBG pH (7.33-7.43) VBG pCO2 (45-50) mmHg VBG pO2 (35-45) mmHg VBG HCO3 (23-28) mmol/L VBG Total CO2 (24-29) mmol/L VBG O2 Saturation (70-75) % VBG Base Excess (0-4) mmol/L FiO2 35 Sodium (137-145) mmol/L Potassium (3.4-5.1) mmol/L Chloride (98-107) mmol/L Carbon Dioxide (22-32) mmol/L BUN (7-17) mg/dL Creatinine (0.52-1.04) mg/dL Estimated GFR (>60) mL/min BUN/Creatinine Ratio (6-22) Glucose (80-110) mg/dL Lactate (0.7-2.1) mmol/L Calcium (8.4-10.2) mg/dL Ionized Calcium [place] (4.5-5.6) mg/dL Phosphorus (2.8-4.1) mg/dL Magnesium (1.6-2.3) mg/dL Total Bilirubin (0.2-1.3) mg/dL Conjugated Bilirubin (0.0-0.3) md/dL Unconjugated Bilirubin (0.0-1.1) mg/dL AST (14-36) IU/L ALT (<35) IU/L Alkaline Phosphatase (38-126) U/L Total Creatine Kinase (30-135) U/L CK-MB (CK-2) CK-MB (CK-2) Rel Index Troponin I (0.01-0.034) ng/mL NT-Pro-B Natriuret Pep (<125) pg/mL Total Protein (6.3-8.2) g/dL Albumin (3.5-5.0) g/dL Globulin (1.7-4.1) g/dL Albumin/Globulin Ratio (1.0-2.8) Lipase (23-300) U/L Procalcitonin 0.81 H (<0.5) ng/mL Urine Color Yellow Urine Appearance Clear Urine pH 5.0 (4.5-8.0) Ur Specific [place] 1.010 (1.000-1.035) Urine Protein Negative (Negative) Urine Glucose (UA) Negative (Negative) g/dL Urine Ketones Negative (NEGATIVE) Urine Occult Blood 3+ H (Negative) Urine Nitrate Negative (Negative) Urine Bilirubin Negative (NEGATIVE) Urine Urobilinogen 0.2 (0.2) E.U./dL Ur Leukocyte Esterase Trace H (NEGATIVE) Urine RBC 10-30/hpf H (0-5/HPF) Urine WBC 1-5/hpf (0-5/HPF) Ur Squamous Epith Cells 1-5 /hpf (0-5/HPF) Urine Bacteria Moderate (10-30) H (None) Urine Mucus (Negative) Ur Culture Indicated? Specimen cultured Ur Random Sodium (30-90) mmol/L Urine Creatinine mg/dL Ketones (<0.27) mmol/L SARS-CoV-2 (PCR) (Negative) Influenza A (RT-PCR) (NEGATIVE) Influenza B (RT-PCR) (NEGATIVE) RSV (PCR) (Negative) 05/25/22 05/26/22 05/26/22 Range/Units 21:45 05:00 05:00 WBC 12.4 H (4.5-11.0) X10^3/uL RBC 2.95 L (4.0-5.2) X10^6/uL Hgb 8.1 L (12.0-16.0) g/dL Hct 25.5 L (36-46) % MCV 86.5 (80-100) fL MCH 27.5 (26-34) PG MCHC 31.8 (30-36) % RDW 14.4 (11.6-14.8) % Plt Count 502 H (150-400) X10^3/uL Neut % (Auto) 79.1 H (50-75) % Lymph % (Auto) 9.5 L (25-40) % Major % (Auto) 9.1 (3-14) % Eos % (Auto) 1.4 L (2-4) % Baso % (Auto) 0.9 (0-2) % Neut # (Auto) 9800 H (8506-6752) /uL Lymph # (Auto) 1200 (7616-3614) /uL Major # (Auto) 1100 H (0-900) /uL Eos # (Auto) 200 (0-450) /uL Baso # (Auto) 100 (0-100) /uL Total Counted Seg Neutrophils % (38-70) % Band Neutrophils % (3-7) % Lymphocytes % (Manual) (25-45) % Monocytes % (Manual) (2-11) % Neutrophils # (Manual) (3416-3317) /uL Nucleated RBCs ( - 0) #/Diff RBC Morphology Hypochromasia Anisocytosis PT (10.1-12.7) SECONDS INR (0.9-1.3) APTT (26-36) SECONDS D-Dimer (<500) ng/ml ABG pH 7.41 (7.35-7.45) ABG pCO2 37.3 (35-45) mmHg ABG pO2 90 (80-100) mmHg ABG HCO3 24 (22-26) mmol/L ABG Total CO2 25 (21-31) mmol/L ABG O2 Saturation 97 (95-100) % ABG Base Excess 0.0 (-2-2) mmol/L VBG pH (7.33-7.43) VBG pCO2 (45-50) mmHg VBG pO2 (35-45) mmHg VBG HCO3 (23-28) mmol/L VBG Total CO2 (24-29) mmol/L VBG O2 Saturation (70-75) % VBG Base Excess (0-4) mmol/L FiO2 60 Sodium 138 (137-145) mmol/L Potassium 3.5 (3.4-5.1) mmol/L Chloride 102 (98-107) mmol/L Carbon Dioxide 28 (22-32) mmol/L BUN 26 H (7-17) mg/dL Creatinine 1.42 H (0.52-1.04) mg/dL Estimated GFR 39 L (>60) mL/min BUN/Creatinine Ratio 18.3 (6-22) Glucose 170 H (80-110) mg/dL Lactate (0.7-2.1) mmol/L Calcium 8.0 L (8.4-10.2) mg/dL Ionized Calcium [place] (4.5-5.6) mg/dL Phosphorus (2.8-4.1) mg/dL Magnesium (1.6-2.3) mg/dL Total Bilirubin 0.6 (0.2-1.3) mg/dL Conjugated Bilirubin (0.0-0.3) md/dL Unconjugated Bilirubin (0.0-1.1) mg/dL AST 36 (14-36) IU/L ALT 18 (<35) IU/L Alkaline Phosphatase 255 H (38-126) U/L Total Creatine Kinase (30-135) U/L CK-MB (CK-2) CK-MB (CK-2) Rel Index Troponin I (0.01-0.034) ng/mL NT-Pro-B Natriuret Pep (<125) pg/mL Total Protein 6.1 L (6.3-8.2) g/dL Albumin 2.7 L (3.5-5.0) g/dL Globulin 3.4 (1.7-4.1) g/dL Albumin/Globulin Ratio 0.8 L (1.0-2.8) Lipase (23-300) U/L Procalcitonin (<0.5) ng/mL Urine Color Urine Appearance Urine pH (4.5-8.0) Ur Specific [place] (1.000-1.035) Urine Protein (Negative) Urine Glucose (UA) (Negative) g/dL Urine Ketones (NEGATIVE) Urine Occult Blood (Negative) Urine Nitrate (Negative) Urine Bilirubin (NEGATIVE) Urine Urobilinogen (0.2) E.U./dL Ur Leukocyte Esterase (NEGATIVE) Urine RBC (0-5/HPF) Urine WBC (0-5/HPF) Ur Squamous Epith Cells (0-5/HPF) Urine Bacteria (None) Urine Mucus (Negative) Ur Culture Indicated? Ur Random Sodium (30-90) mmol/L Urine Creatinine mg/dL Ketones (<0.27) mmol/L SARS-CoV-2 (PCR) (Negative) Influenza A (RT-PCR) (NEGATIVE) Influenza B (RT-PCR) (NEGATIVE) RSV (PCR) (Negative) 05/26/22 05/26/22 05/26/22 Range/Units 05:00 06:55 17:55 WBC (4.5-11.0) X10^3/uL RBC (4.0-5.2) X10^6/uL Hgb (12.0-16.0) g/dL Hct (36-46) % MCV (80-100) fL MCH (26-34) PG MCHC (30-36) % RDW (11.6-14.8) % Plt Count (150-400) X10^3/uL Neut % (Auto) (50-75) % Lymph % (Auto) (25-40) % Major % (Auto) (3-14) % Eos % (Auto) (2-4) % Baso % (Auto) (0-2) % Neut # (Auto) (0094-9998) /uL Lymph # (Auto) (1461-0354) /uL Major # (Auto) (0-900) /uL Eos # (Auto) (0-450) /uL Baso # (Auto) (0-100) /uL Total Counted Seg Neutrophils % (38-70) % Band Neutrophils % (3-7) % Lymphocytes % (Manual) (25-45) % Monocytes % (Manual) (2-11) % Neutrophils # (Manual) (0125-1429) /uL Nucleated RBCs ( - 0) #/Diff RBC Morphology Hypochromasia Anisocytosis PT (10.1-12.7) SECONDS INR (0.9-1.3) APTT 51 H (26-36) SECONDS D-Dimer (<500) ng/ml ABG pH (7.35-7.45) ABG pCO2 (35-45) mmHg ABG pO2 (80-100) mmHg ABG HCO3 (22-26) mmol/L ABG Total CO2 (21-31) mmol/L ABG O2 Saturation (95-100) % ABG Base Excess (-2-2) mmol/L VBG pH (7.33-7.43) VBG pCO2 (45-50) mmHg VBG pO2 (35-45) mmHg VBG HCO3 (23-28) mmol/L VBG Total CO2 (24-29) mmol/L VBG O2 Saturation (70-75) % VBG Base Excess (0-4) mmol/L FiO2 Sodium 134 L (137-145) mmol/L Potassium 3.5 (3.4-5.1) mmol/L Chloride 96 L (98-107) mmol/L Carbon Dioxide 27 (22-32) mmol/L BUN 25 H (7-17) mg/dL Creatinine 1.42 H (0.52-1.04) mg/dL Estimated GFR 39 L (>60) mL/min BUN/Creatinine Ratio 17.6 (6-22) Glucose 228 H (80-110) mg/dL Lactate (0.7-2.1) mmol/L Calcium 7.9 L (8.4-10.2) mg/dL Ionized Calcium [place] (4.5-5.6) mg/dL Phosphorus (2.8-4.1) mg/dL Magnesium 1.4 L 1.6 (1.6-2.3) mg/dL Total Bilirubin (0.2-1.3) mg/dL Conjugated Bilirubin (0.0-0.3) md/dL Unconjugated Bilirubin (0.0-1.1) mg/dL AST (14-36) IU/L ALT (<35) IU/L Alkaline Phosphatase (38-126) U/L Total Creatine Kinase (30-135) U/L CK-MB (CK-2) CK-MB (CK-2) Rel Index Troponin I (0.01-0.034) ng/mL NT-Pro-B Natriuret Pep (<125) pg/mL Total Protein (6.3-8.2) g/dL Albumin (3.5-5.0) g/dL Globulin (1.7-4.1) g/dL Albumin/Globulin Ratio (1.0-2.8) Lipase (23-300) U/L Procalcitonin (<0.5) ng/mL Urine Color Urine Appearance Urine pH (4.5-8.0) Ur Specific [place] (1.000-1.035) Urine Protein (Negative) Urine Glucose (UA) (Negative) g/dL Urine Ketones (NEGATIVE) Urine Occult Blood (Negative) Urine Nitrate (Negative) Urine Bilirubin (NEGATIVE) Urine Urobilinogen (0.2) E.U./dL Ur Leukocyte Esterase (NEGATIVE) Urine RBC (0-5/HPF) Urine WBC (0-5/HPF) Ur Squamous Epith Cells (0-5/HPF) Urine Bacteria (None) Urine Mucus (Negative) Ur Culture Indicated? Ur Random Sodium (30-90) mmol/L Urine Creatinine mg/dL Ketones (<0.27) mmol/L SARS-CoV-2 (PCR) (Negative) Influenza A (RT-PCR) (NEGATIVE) Influenza B (RT-PCR) (NEGATIVE) RSV (PCR) (Negative) 05/26/22 05/26/22 05/26/22 Range/Units 17:55 17:55 17:55 WBC 13.4 H (4.5-11.0) X10^3/uL RBC 3.04 L (4.0-5.2) X10^6/uL Hgb 8.4 L (12.0-16.0) g/dL Hct 26.2 L (36-46) % MCV 86.3 (80-100) fL MCH 27.5 (26-34) PG MCHC 31.9 (30-36) % RDW 14.6 (11.6-14.8) % Plt Count 530 H (150-400) X10^3/uL Neut % (Auto) 76.5 H (50-75) % Lymph % (Auto) 12.0 L (25-40) % Major % (Auto) 8.8 (3-14) % Eos % (Auto) 2.1 (2-4) % Baso % (Auto) 0.6 (0-2) % Neut # (Auto) 06144 H (0320-0588) /uL Lymph # (Auto) 1600 (3488-4721) /uL Major # (Auto) 1200 H (0-900) /uL Eos # (Auto) 300 (0-450) /uL Baso # (Auto) 100 (0-100) /uL Total Counted Seg Neutrophils % (38-70) % Band Neutrophils % (3-7) % Lymphocytes % (Manual) (25-45) % Monocytes % (Manual) (2-11) % Neutrophils # (Manual) (5779-6412) /uL Nucleated RBCs ( - 0) #/Diff RBC Morphology Hypochromasia Anisocytosis PT (10.1-12.7) SECONDS INR (0.9-1.3) APTT (26-36) SECONDS D-Dimer (<500) ng/ml ABG pH (7.35-7.45) ABG pCO2 (35-45) mmHg ABG pO2 (80-100) mmHg ABG HCO3 (22-26) mmol/L ABG Total CO2 (21-31) mmol/L ABG O2 Saturation (95-100) % ABG Base Excess (-2-2) mmol/L VBG pH (7.33-7.43) VBG pCO2 (45-50) mmHg VBG pO2 (35-45) mmHg VBG HCO3 (23-28) mmol/L VBG Total CO2 (24-29) mmol/L VBG O2 Saturation (70-75) % VBG Base Excess (0-4) mmol/L FiO2 Sodium (137-145) mmol/L Potassium (3.4-5.1) mmol/L Chloride (98-107) mmol/L Carbon Dioxide (22-32) mmol/L BUN (7-17) mg/dL Creatinine (0.52-1.04) mg/dL Estimated GFR (>60) mL/min BUN/Creatinine Ratio (6-22) Glucose (80-110) mg/dL Lactate 1.5 (0.7-2.1) mmol/L Calcium (8.4-10.2) mg/dL Ionized Calcium [place] (4.5-5.6) mg/dL Phosphorus (2.8-4.1) mg/dL Magnesium (1.6-2.3) mg/dL Total Bilirubin 0.6 (0.2-1.3) mg/dL Conjugated Bilirubin 0.0 (0.0-0.3) md/dL Unconjugated Bilirubin 0.2 (0.0-1.1) mg/dL AST 42 H (14-36) IU/L ALT 20 (<35) IU/L Alkaline Phosphatase 269 H (38-126) U/L Total Creatine Kinase (30-135) U/L CK-MB (CK-2) CK-MB (CK-2) Rel Index Troponin I (0.01-0.034) ng/mL NT-Pro-B Natriuret Pep (<125) pg/mL Total Protein 6.3 (6.3-8.2) g/dL Albumin 2.7 L (3.5-5.0) g/dL Globulin 3.6 (1.7-4.1) g/dL Albumin/Globulin Ratio 0.8 L (1.0-2.8) Lipase (23-300) U/L Procalcitonin 0.88 H (<0.5) ng/mL Urine Color Urine Appearance Urine pH (4.5-8.0) Ur Specific [place] (1.000-1.035) Urine Protein (Negative) Urine Glucose (UA) (Negative) g/dL Urine Ketones (NEGATIVE) Urine Occult Blood (Negative) Urine Nitrate (Negative) Urine Bilirubin (NEGATIVE) Urine Urobilinogen (0.2) E.U./dL Ur Leukocyte Esterase (NEGATIVE) Urine RBC (0-5/HPF) Urine WBC (0-5/HPF) Ur Squamous Epith Cells (0-5/HPF) Urine Bacteria (None) Urine Mucus (Negative) Ur Culture Indicated? Ur Random Sodium (30-90) mmol/L Urine Creatinine mg/dL Ketones (<0.27) mmol/L SARS-CoV-2 (PCR) (Negative) Influenza A (RT-PCR) (NEGATIVE) Influenza B (RT-PCR) (NEGATIVE) RSV (PCR) (Negative) 05/26/22 05/26/22 05/26/22 Range/Units 20:00 21:22 21:22 WBC (4.5-11.0) X10^3/uL RBC (4.0-5.2) X10^6/uL Hgb (12.0-16.0) g/dL Hct (36-46) % MCV (80-100) fL MCH (26-34) PG MCHC (30-36) % RDW (11.6-14.8) % Plt Count (150-400) X10^3/uL Neut % (Auto) (50-75) % Lymph % (Auto) (25-40) % Major % (Auto) (3-14) % Eos % (Auto) (2-4) % Baso % (Auto) (0-2) % Neut # (Auto) (3500-8429) /uL Lymph # (Auto) (5723-1979) /uL Major # (Auto) (0-900) /uL Eos # (Auto) (0-450) /uL Baso # (Auto) (0-100) /uL Total Counted Seg Neutrophils % (38-70) % Band Neutrophils % (3-7) % Lymphocytes % (Manual) (25-45) % Monocytes % (Manual) (2-11) % Neutrophils # (Manual) (5510-7587) /uL Nucleated RBCs ( - 0) #/Diff RBC Morphology Hypochromasia Anisocytosis PT (10.1-12.7) SECONDS INR (0.9-1.3) APTT (26-36) SECONDS D-Dimer (<500) ng/ml ABG pH 7.36 (7.35-7.45) ABG pCO2 47.4 H (35-45) mmHg ABG pO2 63 L (80-100) mmHg ABG HCO3 27 H (22-26) mmol/L ABG Total CO2 28 (21-31) mmol/L ABG O2 Saturation 90 L (95-100) % ABG Base Excess 1.0 (-2-2) mmol/L VBG pH (7.33-7.43) VBG pCO2 (45-50) mmHg VBG pO2 (35-45) mmHg VBG HCO3 (23-28) mmol/L VBG Total CO2 (24-29) mmol/L VBG O2 Saturation (70-75) % VBG Base Excess (0-4) mmol/L FiO2 40 Sodium (137-145) mmol/L Potassium (3.4-5.1) mmol/L Chloride (98-107) mmol/L Carbon Dioxide (22-32) mmol/L BUN (7-17) mg/dL Creatinine (0.52-1.04) mg/dL Estimated GFR (>60) mL/min BUN/Creatinine Ratio (6-22) Glucose (80-110) mg/dL Lactate (0.7-2.1) mmol/L Calcium (8.4-10.2) mg/dL Ionized Calcium [place]anna 5.1 (4.5-5.6) mg/dL Phosphorus (2.8-4.1) mg/dL Magnesium (1.6-2.3) mg/dL Total Bilirubin (0.2-1.3) mg/dL Conjugated Bilirubin (0.0-0.3) md/dL Unconjugated Bilirubin (0.0-1.1) mg/dL AST (14-36) IU/L ALT (<35) IU/L Alkaline Phosphatase (38-126) U/L Total Creatine Kinase (30-135) U/L CK-MB (CK-2) CK-MB (CK-2) Rel Index Troponin I (0.01-0.034) ng/mL NT-Pro-B Natriuret Pep (<125) pg/mL Total Protein (6.3-8.2) g/dL Albumin (3.5-5.0) g/dL Globulin (1.7-4.1) g/dL Albumin/Globulin Ratio (1.0-2.8) Lipase (23-300) U/L Procalcitonin (<0.5) ng/mL Urine Color Urine Appearance Urine pH (4.5-8.0) Ur Specific [place] (1.000-1.035) Urine Protein (Negative) Urine Glucose (UA) (Negative) g/dL Urine Ketones (NEGATIVE) Urine Occult Blood (Negative) Urine Nitrate (Negative) Urine Bilirubin (NEGATIVE) Urine Urobilinogen (0.2) E.U./dL Ur Leukocyte Esterase (NEGATIVE) Urine RBC (0-5/HPF) Urine WBC (0-5/HPF) Ur Squamous Epith Cells (0-5/HPF) Urine Bacteria (None) Urine Mucus (Negative) Ur Culture Indicated? Ur Random Sodium (30-90) mmol/L Urine Creatinine mg/dL Ketones 0.03 (<0.27) mmol/L SARS-CoV-2 (PCR) (Negative) Influenza A (RT-PCR) (NEGATIVE) Influenza B (RT-PCR) (NEGATIVE) RSV (PCR) (Negative) 05/26/22 05/26/22 Range/Units 21:30 22:50 WBC (4.5-11.0) X10^3/uL RBC (4.0-5.2) X10^6/uL Hgb (12.0-16.0) g/dL Hct (36-46) % MCV (80-100) fL MCH (26-34) PG MCHC (30-36) % RDW (11.6-14.8) % Plt Count (150-400) X10^3/uL Neut % (Auto) (50-75) % Lymph % (Auto) (25-40) % Major % (Auto) (3-14) % Eos % (Auto) (2-4) % Baso % (Auto) (0-2) % Neut # (Auto) (4196-5021) /uL Lymph # (Auto) (4353-1045) /uL Major # (Auto) (0-900) /uL Eos # (Auto) (0-450) /uL Baso # (Auto) (0-100) /uL Total Counted Seg Neutrophils % (38-70) % Band Neutrophils % (3-7) % Lymphocytes % (Manual) (25-45) % Monocytes % (Manual) (2-11) % Neutrophils # (Manual) (1003-6761) /uL Nucleated RBCs ( - 0) #/Diff RBC Morphology Hypochromasia Anisocytosis PT (10.1-12.7) SECONDS INR (0.9-1.3) APTT (26-36) SECONDS D-Dimer (<500) ng/ml ABG pH (7.35-7.45) ABG pCO2 (35-45) mmHg ABG pO2 (80-100) mmHg ABG HCO3 (22-26) mmol/L ABG Total CO2 (21-31) mmol/L ABG O2 Saturation (95-100) % ABG Base Excess (-2-2) mmol/L VBG pH (7.33-7.43) VBG pCO2 (45-50) mmHg VBG pO2 (35-45) mmHg VBG HCO3 (23-28) mmol/L VBG Total CO2 (24-29) mmol/L VBG O2 Saturation (70-75) % VBG Base Excess (0-4) mmol/L FiO2 Sodium (137-145) mmol/L Potassium (3.4-5.1) mmol/L Chloride (98-107) mmol/L Carbon Dioxide (22-32) mmol/L BUN (7-17) mg/dL Creatinine (0.52-1.04) mg/dL Estimated GFR (>60) mL/min BUN/Creatinine Ratio (6-22) Glucose (80-110) mg/dL Lactate 1.7 (0.7-2.1) mmol/L Calcium (8.4-10.2) mg/dL Ionized Calcium [place] (4.5-5.6) mg/dL Phosphorus (2.8-4.1) mg/dL Magnesium (1.6-2.3) mg/dL Total Bilirubin (0.2-1.3) mg/dL Conjugated Bilirubin (0.0-0.3) md/dL Unconjugated Bilirubin (0.0-1.1) mg/dL AST (14-36) IU/L ALT (<35) IU/L Alkaline Phosphatase (38-126) U/L Total Creatine Kinase (30-135) U/L CK-MB (CK-2) CK-MB (CK-2) Rel Index Troponin I (0.01-0.034) ng/mL NT-Pro-B Natriuret Pep (<125) pg/mL Total Protein (6.3-8.2) g/dL Albumin (3.5-5.0) g/dL Globulin (1.7-4.1) g/dL Albumin/Globulin Ratio (1.0-2.8) Lipase (23-300) U/L Procalcitonin (<0.5) ng/mL Urine Color Urine Appearance Urine pH (4.5-8.0) Ur Specific [place] (1.000-1.035) Urine Protein (Negative) Urine Glucose (UA) (Negative) g/dL Urine Ketones (NEGATIVE) Urine Occult Blood (Negative) Urine Nitrate (Negative) Urine Bilirubin (NEGATIVE) Urine Urobilinogen (0.2) E.U./dL Ur Leukocyte Esterase (NEGATIVE) Urine RBC (0-5/HPF) Urine WBC (0-5/HPF) Ur Squamous Epith Cells (0-5/HPF) Urine Bacteria (None) Urine Mucus (Negative) Ur Culture Indicated? Ur Random Sodium 84 (30-90) mmol/L Urine Creatinine 75.1 mg/dL Ketones (<0.27) mmol/L SARS-CoV-2 (PCR) (Negative) Influenza A (RT-PCR) (NEGATIVE) Influenza B (RT-PCR) (NEGATIVE) RSV (PCR) (Negative) Point of Care Testing Glucose POC 228 Imaging Data echo: Radiologist's Impression: [address] [address] Echocardiography Report Signed Patient: Herb Ayers MR#: [id number] : 1950 Acct:[id number] Age/Sex: 72 / F Date of Service: 05/22/22 Loc: ED Accession Number: [id number] ?? Procedure: EC echo doppler complete Ordering Provider: William Turcios D.O. ? [facility] +---------+? [facility]? +---------+ : ? :? [address] [place] [address] ? : ? : : ? :? [place], [place] ? : ? : : ? :? [id number] ? : ? : : ? : ? Phone: [phone] ? : [phone]? [phone]? +---------+ ? Echocardiogram Report + + :Name: HERB AYERS? Study Date: 05/23/2022 ? Height: 62 in? : :[facility] ? ? ReadingLocation: ? Weight: 232 lb : : ? Gender: Female ? BSA: 2.0 m2? ? : :: 1950? Age: 72 yrs? BP: 141/75 mmHg: :Reason For Study: PULMONARY EMBOLISM WITH RIGHT HEART STRAIN ? : :Ordering Physician: HELEN,? : :WILLIAM ? Performed By: Leslie Yee? : :Referring: WILLIAM TURCIOS? : + + Interpretation Summary The left ventricular cavity is small. Left ventricular systolic function is normal. The ejection fraction is estimated to be 65-70%. The interventricular septum is flattened, consistent with a right ventricular pressure/volume condition. Diastolic parameters suggest a relaxation abnormality of the left ventricle, consistent with probable normal filling pressures. ? The right ventricle is moderately dilated. Right ventricular systolic function is at the lower limits of normal. Right ventricular systolic pressure is estimated to be 59 mmHg plus the clinically estimated CVP which cannot be estimated on this exam. ? The left atrial size is normal. The right atrium is mildly dilated. ? There is no significant valvular heart disease. ? The aortic root is normal size. ? There is a moderately large left-sided pleural effusion. ? Procedure: ? A two-dimensional transthoracic echocardiogram with color flow and Doppler was performed. The study quality was technically adequate. The patient had an echocardiogram, but there is no comparison study available. The patient was in sinus tachycardia with heart rates between 97-100 bpm during the exam. Left Ventricle: ? The left ventricular cavity is small. There is mild concentric left ventricular hypertrophy. Left ventricular systolic function is normal. The ejection fraction is estimated to be 65-70%. The interventricular septum is flattened, consistent with a right ventricular pressure/volume condition. Diastolic parameters suggest a relaxation abnormality of the left ventricle, consistent with probable normal filling pressures. Right Ventricle: ? The right ventricle is moderately dilated. Right ventricular systolic function is at the lower limits of normal. Atria: ? The left atrial size is normal. The right atrium is mildly dilated. There is no Doppler evidence for an interatrial shunt. Mitral Valve: ? The mitral valve is normal in structure and function. There is trace mitral regurgitation. Aortic Valve: ? The aortic valve is trileaflet. The aortic valve opens well. There is no aortic valve stenosis. No aortic regurgitation is present. Tricuspid Valve: ? The tricuspid valve is not well visualized, but is grossly normal. There is mild tricuspid regurgitation. Right ventricular systolic pressure is estimated to be 59 mmHg plus the clinically estimated CVP which cannot be estimated on this exam. Pulmonic Valve: ? The pulmonic valve is not well visualized. There is trace pulmonic regurgitation. There is no significant valvular heart disease. Great Vessels: ? The aortic root is normal size. The dimensions of the ascending aorta are normal. The inferior vena cava was not visualized. Pericardium/ Pleura ? There is no pericardial effusion. There is a moderately large left-sided pleural effusion. ? MMode/2D Measurements & Calculations LVIDd: 3.8 cm ? LVOT diam: 2.0 cm LVIDs: 2.2 cm ? Ao root diam: 3.0 cm FS: 42.5 %? asc Aorta Diam: 3.2 cm IVSd: 1.1 cm LVPWd: 1.2 cm LV nunez. diameter/BSA (cm/m^2): 1.9 LV sys. diameter/BSA (cm/m^2): 1.1 ? LA A2 area: 14.0 cm2? RA long axis: 4.9 cm LA A4 area: 16.6 cm2? RA area: 19.9 cm2 LA length (vol): 5.5 cm ? RA vol: 68.9 ml LA vol: 36.0 ml ? RA : 33.9 ml/m2 LA vol index: 17.7 ml/m2? RVDd major: 7.3 cm ? RVD1 (basal): 4.4 cm RVD2 (mid): 3.5 cm TAPSE: 1.8 cm ? Doppler Measurements & Calculations Ao V2 max: 192.2 cm/sec ? LVOT Max Jb: 118.0 cm/sec Ao V2 mean: 134.0 cm/sec? LV V1 max P.6 mmHg Ao max P.8 mmHg? LV V1 VTI: 21.0 cm Ao mean P.1 mmHg? RUPESH(I,D): 2.1 cm2 Ao V2 VTI: 31.4 cm? RUPESH(V,D): 1.9 cm2 ? sev ratio: 0.67 ? RUPESH indexed to BSA (cm^2/m^2): 1.0 ? MV E max jb: 90.6 cm/sec ? TR max jb: 384.2 cm/sec MV A max jb: 101.6 cm/sec? TR max P.0 mmHg MV E/A: 0.89? PA V2 max: 125.6 cm/sec Med Peak E' Jb: 8.1 cm/sec ? ? ? PA V2 mean: 80.6 cm/sec E/E' med: 11.2? PA mean P.9 mmHg Lat Peak E' Jb: 9.1 cm/sec ? ? ? PA pr(Accel): 43.0 mmHg E/E' lat: 9.9 E/e' average: 10.6 MV dec time: 0.14 sec ? SV(LVOT): 65.6 ml ? Reading Physician:08:54 AM XR abd: Radiologist's Impression: [address] [address] XRay Report Signed Patient: Herb Ayers MR#: [id number] : 1950 Acct:[id number] Age/Sex: 72 / F Date of Service: 05/23/22 Loc: ED Accession Number: [id number] ?? Procedure: XR abdomen 1V Ordering Provider: Jared Gaston D.O. PROCEDURE:? XR ABDOMEN 1V ? INDICATIONS:? upper abd pain ? TECHNIQUE:? One view of the abdomen acquired.? ? COMPARISON:? None. ? FINDINGS:? ? Surgical changes and devices:? None.? ? Bowel:? Bowel gas pattern is normal.? No distended loops of bowel are identified.? No free air, pneumatosis, or portal venous gas. ? Soft tissues:? No suspicious abdominal calcifications.? Visualized solid organ contours appear normal in size.? Bibasilar atelectasis with blunting of the left costophrenic angle consistent with a left pleural effusion. ? Bones:? No suspicious bony lesions.? ? IMPRESSION:? 1. No acute plain film abnormality. 2. Bibasilar atelectasis and left pleural effusion. ? ? Dictated by: Yovani Funk M.D. on 05/23/2022 at 13:16 ? ? Approved by: Yovani Funk M.D. on 05/23/2022 at 13:17 MDM Narrative Medical decision making narrative: 72-year-old female nonsmoker with history of hypertension and diabetes presents with upwards of a week of increasing shortness of breath, exertional dyspnea, orthopnea, conversational dyspnea and lower extremity swelling. She has no history of CHF or significant cardiac disease. Patient initially diuresed and after discussion request Nuno catheter. In his him to elucidate cause of 1st onset CHF widespread labs including D-dimer ordered, this is critically elevated at which point a CT angiogram is performed which notes, not surprisingly, bilateral subsegmental PEs with evidence of right heart strain. The presence of heart strain biochemically and radiographically in the presence of supplemental oxygen requirements would suggest patient exceeds the capability of this facility. Multiple calls have been placed up and down the [facility] including [facility], [facility], [facility] and even the [facility] and we are on multiple lists but no current beds available. Dr gaston: Received turned over. Reviewed patient's history and physical exam. From my own independent exam. Patient is hemodynamically stable on 2 L of oxygen by nasal cannula. She is having some hematuria this is most likely related to the catheter placement and also that she is on heparin. She is no chest pain. She is tolerating oral intake. Attempted to find placement today however there still is no bed availability. I did discuss the case with Dr. Baldwin on-call for Internal Medicine here at this facility who did discuss the case with Dr. Mckeon with Interventional Cardiology at [facility]. I did not have specific interaction with Dr. Mckeon however Dr. Mckeon stated that the patient would benefit from retrieval/catheter directed thrombolysis. We will keep the patient here in the emergency department. Will continue on heparin. Care turned over to Dr. Mason to continue to observe and disposition. <Mirna Mason MD - Last Filed: 06/09/22 18:06> Lab Data Labs: Lab Results 05/22/22 05/22/22 05/22/22 Range/Units 17:34 17:34 17:34 WBC 12.1 H (4.5-11.0) X10^3/uL RBC 3.19 L (4.0-5.2) X10^6/uL Hgb 9.0 L (12.0-16.0) g/dL Hct 27.9 L (36-46) % MCV 87.3 (80-100) fL MCH 28.2 (26-34) PG MCHC 32.3 (30-36) % RDW 14.6 (11.6-14.8) % Plt Count 579 H (150-400) X10^3/uL Neut % (Auto) 86.4 H (50-75) % Lymph % (Auto) 6.3 L (25-40) % Major % (Auto) 6.1 (3-14) % Eos % (Auto) 0.1 L (2-4) % Baso % (Auto) 1.1 (0-2) % Neut # (Auto) 02149 H (3128-9843) /uL Lymph # (Auto) 800 L (1050-7606) /uL Major # (Auto) 700 (0-900) /uL Eos # (Auto) 0 (0-450) /uL Baso # (Auto) 100 (0-100) /uL Total Counted Seg Neutrophils % (38-70) % Band Neutrophils % (3-7) % Lymphocytes % (Manual) (25-45) % Monocytes % (Manual) (2-11) % Neutrophils # (Manual) (8926-9432) /uL Nucleated RBCs ( - 0) #/Diff RBC Morphology Hypochromasia Anisocytosis PT 13.6 H (10.1-12.7) SECONDS INR 1.2 (0.9-1.3) APTT 27 (26-36) SECONDS D-Dimer (<500) ng/ml ABG pH (7.35-7.45) ABG pCO2 (35-45) mmHg ABG pO2 (80-100) mmHg ABG HCO3 (22-26) mmol/L ABG Total CO2 (21-31) mmol/L ABG O2 Saturation (95-100) % ABG Base Excess (-2-2) mmol/L VBG pH (7.33-7.43) VBG pCO2 (45-50) mmHg VBG pO2 (35-45) mmHg VBG HCO3 (23-28) mmol/L VBG Total CO2 (24-29) mmol/L VBG O2 Saturation (70-75) % VBG Base Excess (0-4) mmol/L FiO2 Sodium 144 (137-145) mmol/L Potassium 4.4 (3.4-5.1) mmol/L Chloride 111 H (98-107) mmol/L Carbon Dioxide 24 (22-32) mmol/L BUN 34 H (7-17) mg/dL Creatinine 1.53 H (0.52-1.04) mg/dL Estimated GFR 35 L (>60) mL/min BUN/Creatinine Ratio 22.2 H (6-22) Glucose 107 (80-110) mg/dL Lactate (0.7-2.1) mmol/L Calcium 8.6 (8.4-10.2) mg/dL Ionized Calcium Hanna (4.5-5.6) mg/dL Phosphorus (2.8-4.1) mg/dL Magnesium 1.6 (1.6-2.3) mg/dL Total Bilirubin 0.3 (0.2-1.3) mg/dL Conjugated Bilirubin (0.0-0.3) md/dL Unconjugated Bilirubin (0.0-1.1) mg/dL AST 35 (14-36) IU/L ALT 18 (<35) IU/L Alkaline Phosphatase 351 H (38-126) U/L Total Creatine Kinase 48 (30-135) U/L CK-MB (CK-2) TNP CK-MB (CK-2) Rel Index TNP Troponin I 0.103 H (0.01-0.034) ng/mL NT-Pro-B Natriuret Pep (<125) pg/mL Total Protein 7.2 (6.3-8.2) g/dL Albumin 3.4 L (3.5-5.0) g/dL Globulin 3.8 (1.7-4.1) g/dL Albumin/Globulin Ratio 0.9 L (1.0-2.8) Lipase 112 (23-300) U/L Procalcitonin (<0.5) ng/mL Urine Color Urine Appearance Urine pH (4.5-8.0) Ur Specific [place] (1.000-1.035) Urine Protein (Negative) Urine Glucose (UA) (Negative) g/dL Urine Ketones (NEGATIVE) Urine Occult Blood (Negative) Urine Nitrate (Negative) Urine Bilirubin (NEGATIVE) Urine Urobilinogen (0.2) E.U./dL Ur Leukocyte Esterase (NEGATIVE) Urine RBC (0-5/HPF) Urine WBC (0-5/HPF) Ur Squamous Epith Cells (0-5/HPF) Urine Bacteria (None) Urine Mucus (Negative) Ur Culture Indicated? Ur Random Sodium (30-90) mmol/L Urine Creatinine mg/dL Ketones (<0.27) mmol/L SARS-CoV-2 (PCR) (Negative) Influenza A (RT-PCR) (NEGATIVE) Influenza B (RT-PCR) (NEGATIVE) RSV (PCR) (Negative) 05/22/22 05/22/22 05/22/22 Range/Units 17:34 17:34 18:05 WBC (4.5-11.0) X10^3/uL RBC (4.0-5.2) X10^6/uL Hgb (12.0-16.0) g/dL Hct (36-46) % MCV (80-100) fL MCH (26-34) PG MCHC (30-36) % RDW (11.6-14.8) % Plt Count (150-400) X10^3/uL Neut % (Auto) (50-75) % Lymph % (Auto) (25-40) % Major % (Auto) (3-14) % Eos % (Auto) (2-4) % Baso % (Auto) (0-2) % Neut # (Auto) (4529-0312) /uL Lymph # (Auto) (5887-7535) /uL Major # (Auto) (0-900) /uL Eos # (Auto) (0-450) /uL Baso # (Auto) (0-100) /uL Total Counted Seg Neutrophils % (38-70) % Band Neutrophils % (3-7) % Lymphocytes % (Manual) (25-45) % Monocytes % (Manual) (2-11) % Neutrophils # (Manual) (7039-0950) /uL Nucleated RBCs ( - 0) #/Diff RBC Morphology Hypochromasia Anisocytosis PT (10.1-12.7) SECONDS INR (0.9-1.3) APTT (26-36) SECONDS D-Dimer 08531 H (<500) ng/ml ABG pH (7.35-7.45) ABG pCO2 (35-45) mmHg ABG pO2 (80-100) mmHg ABG HCO3 (22-26) mmol/L ABG Total CO2 (21-31) mmol/L ABG O2 Saturation (95-100) % ABG Base Excess (-2-2) mmol/L VBG pH (7.33-7.43) VBG pCO2 (45-50) mmHg VBG pO2 (35-45) mmHg VBG HCO3 (23-28) mmol/L VBG Total CO2 (24-29) mmol/L VBG O2 Saturation (70-75) % VBG Base Excess (0-4) mmol/L FiO2 Sodium (137-145) mmol/L Potassium (3.4-5.1) mmol/L Chloride (98-107) mmol/L Carbon Dioxide (22-32) mmol/L BUN (7-17) mg/dL Creatinine (0.52-1.04) mg/dL Estimated GFR (>60) mL/min BUN/Creatinine Ratio (6-22) Glucose (80-110) mg/dL Lactate (0.7-2.1) mmol/L Calcium (8.4-10.2) mg/dL Ionized Calcium Hanna (4.5-5.6) mg/dL Phosphorus (2.8-4.1) mg/dL Magnesium (1.6-2.3) mg/dL Total Bilirubin (0.2-1.3) mg/dL Conjugated Bilirubin (0.0-0.3) md/dL Unconjugated Bilirubin (0.0-1.1) mg/dL AST (14-36) IU/L ALT (<35) IU/L Alkaline Phosphatase (38-126) U/L Total Creatine Kinase (30-135) U/L CK-MB (CK-2) CK-MB (CK-2) Rel Index Troponin I (0.01-0.034) ng/mL NT-Pro-B Natriuret Pep 6350 H (<125) pg/mL Total Protein (6.3-8.2) g/dL Albumin (3.5-5.0) g/dL Globulin (1.7-4.1) g/dL Albumin/Globulin Ratio (1.0-2.8) Lipase (23-300) U/L Procalcitonin (<0.5) ng/mL Urine Color Urine Appearance Urine pH (4.5-8.0) Ur Specific [place] (1.000-1.035) Urine Protein (Negative) Urine Glucose (UA) (Negative) g/dL Urine Ketones (NEGATIVE) Urine Occult Blood (Negative) Urine Nitrate (Negative) Urine Bilirubin (NEGATIVE) Urine Urobilinogen (0.2) E.U./dL Ur Leukocyte Esterase (NEGATIVE) Urine RBC (0-5/HPF) Urine WBC (0-5/HPF) Ur Squamous Epith Cells (0-5/HPF) Urine Bacteria (None) Urine Mucus (Negative) Ur Culture Indicated? Ur Random Sodium (30-90) mmol/L Urine Creatinine mg/dL Ketones (<0.27) mmol/L SARS-CoV-2 (PCR) Negative (Negative) Influenza A (RT-PCR) Flu a negative (NEGATIVE) Influenza B (RT-PCR) Flu b negative (NEGATIVE) RSV (PCR) Negative (Negative) 05/22/22 05/23/22 05/23/22 Range/Units 18:55 02:40 02:40 WBC (4.5-11.0) X10^3/uL RBC (4.0-5.2) X10^6/uL Hgb (12.0-16.0) g/dL Hct (36-46) % MCV (80-100) fL MCH (26-34) PG MCHC (30-36) % RDW (11.6-14.8) % Plt Count (150-400) X10^3/uL Neut % (Auto) (50-75) % Lymph % (Auto) (25-40) % Major % (Auto) (3-14) % Eos % (Auto) (2-4) % Baso % (Auto) (0-2) % Neut # (Auto) (4052-7477) /uL Lymph # (Auto) (6876-9392) /uL Major # (Auto) (0-900) /uL Eos # (Auto) (0-450) /uL Baso # (Auto) (0-100) /uL Total Counted Seg Neutrophils % (38-70) % Band Neutrophils % (3-7) % Lymphocytes % (Manual) (25-45) % Monocytes % (Manual) (2-11) % Neutrophils # (Manual) (5716-1757) /uL Nucleated RBCs ( - 0) #/Diff RBC Morphology Hypochromasia Anisocytosis PT (10.1-12.7) SECONDS INR (0.9-1.3) APTT 89 H* D (26-36) SECONDS D-Dimer (<500) ng/ml ABG pH (7.35-7.45) ABG pCO2 (35-45) mmHg ABG pO2 (80-100) mmHg ABG HCO3 (22-26) mmol/L ABG Total CO2 (21-31) mmol/L ABG O2 Saturation (95-100) % ABG Base Excess (-2-2) mmol/L VBG pH (7.33-7.43) VBG pCO2 (45-50) mmHg VBG pO2 (35-45) mmHg VBG HCO3 (23-28) mmol/L VBG Total CO2 (24-29) mmol/L VBG O2 Saturation (70-75) % VBG Base Excess (0-4) mmol/L FiO2 Sodium (137-145) mmol/L Potassium (3.4-5.1) mmol/L Chloride (98-107) mmol/L Carbon Dioxide (22-32) mmol/L BUN (7-17) mg/dL Creatinine (0.52-1.04) mg/dL Estimated GFR (>60) mL/min BUN/Creatinine Ratio (6-22) Glucose (80-110) mg/dL Lactate (0.7-2.1) mmol/L Calcium (8.4-10.2) mg/dL Ionized Calcium Hanna (4.5-5.6) mg/dL Phosphorus (2.8-4.1) mg/dL Magnesium (1.6-2.3) mg/dL Total Bilirubin (0.2-1.3) mg/dL Conjugated Bilirubin (0.0-0.3) md/dL Unconjugated Bilirubin (0.0-1.1) mg/dL AST (14-36) IU/L ALT (<35) IU/L Alkaline Phosphatase (38-126) U/L Total Creatine Kinase (30-135) U/L CK-MB (CK-2) CK-MB (CK-2) Rel Index Troponin I 0.078 H (0.01-0.034) ng/mL NT-Pro-B Natriuret Pep (<125) pg/mL Total Protein (6.3-8.2) g/dL Albumin (3.5-5.0) g/dL Globulin (1.7-4.1) g/dL Albumin/Globulin Ratio (1.0-2.8) Lipase (23-300) U/L Procalcitonin (<0.5) ng/mL Urine Color Yellow Urine Appearance Clear Urine pH 5.0 (4.5-8.0) Ur Specific [place] 1.025 (1.000-1.035) Urine Protein 2+ H (Negative) Urine Glucose (UA) Negative (Negative) g/dL Urine Ketones Trace H (NEGATIVE) Urine Occult Blood Negative (Negative) Urine Nitrate Negative (Negative) Urine Bilirubin Negative (NEGATIVE) Urine Urobilinogen 0.2 (0.2) E.U./dL Ur Leukocyte Esterase Negative (NEGATIVE) Urine RBC 1-5/hpf (0-5/HPF) Urine WBC 1-5/hpf (0-5/HPF) Ur Squamous Epith Cells 0-1 /hpf (0-5/HPF) Urine Bacteria Occasional (0-1) (None) Urine Mucus 1+ H (Negative) Ur Culture Indicated? Cult not indicated Ur Random Sodium (30-90) mmol/L Urine Creatinine mg/dL Ketones (<0.27) mmol/L SARS-CoV-2 (PCR) (Negative) Influenza A (RT-PCR) (NEGATIVE) Influenza B (RT-PCR) (NEGATIVE) RSV (PCR) (Negative) 05/23/22 05/23/22 05/23/22 Range/Units 08:30 09:40 09:40 WBC 9.6 (4.5-11.0) X10^3/uL RBC 3.04 L (4.0-5.2) X10^6/uL Hgb 8.7 L (12.0-16.0) g/dL Hct 26.9 L (36-46) % MCV 88.5 (80-100) fL MCH 28.7 (26-34) PG MCHC 32.4 (30-36) % RDW 14.4 (11.6-14.8) % Plt Count 519 H (150-400) X10^3/uL Neut % (Auto) 74.6 (50-75) % Lymph % (Auto) 11.6 L (25-40) % Major % (Auto) 11.9 (3-14) % Eos % (Auto) 1.2 L (2-4) % Baso % (Auto) 0.7 (0-2) % Neut # (Auto) 7200 H (8267-5254) /uL Lymph # (Auto) 1100 (2595-3930) /uL Major # (Auto) 1100 H (0-900) /uL Eos # (Auto) 100 (0-450) /uL Baso # (Auto) 100 (0-100) /uL Total Counted Seg Neutrophils % (38-70) % Band Neutrophils % (3-7) % Lymphocytes % (Manual) (25-45) % Monocytes % (Manual) (2-11) % Neutrophils # (Manual) (3449-8124) /uL Nucleated RBCs ( - 0) #/Diff RBC Morphology Hypochromasia Anisocytosis PT (10.1-12.7) SECONDS INR (0.9-1.3) APTT 62 H D (26-36) SECONDS D-Dimer (<500) ng/ml ABG pH (7.35-7.45) ABG pCO2 (35-45) mmHg ABG pO2 (80-100) mmHg ABG HCO3 (22-26) mmol/L ABG Total CO2 (21-31) mmol/L ABG O2 Saturation (95-100) % ABG Base Excess (-2-2) mmol/L VBG pH (7.33-7.43) VBG pCO2 (45-50) mmHg VBG pO2 (35-45) mmHg VBG HCO3 (23-28) mmol/L VBG Total CO2 (24-29) mmol/L VBG O2 Saturation (70-75) % VBG Base Excess (0-4) mmol/L FiO2 Sodium 144 (137-145) mmol/L Potassium 4.1 (3.4-5.1) mmol/L Chloride 112 H (98-107) mmol/L Carbon Dioxide 26 (22-32) mmol/L BUN 27 H (7-17) mg/dL Creatinine 1.14 H (0.52-1.04) mg/dL Estimated GFR 51 L (>60) mL/min BUN/Creatinine Ratio 23.7 H (6-22) Glucose 109 (80-110) mg/dL Lactate (0.7-2.1) mmol/L Calcium 8.3 L (8.4-10.2) mg/dL Ionized Calcium Hanna (4.5-5.6) mg/dL Phosphorus (2.8-4.1) mg/dL Magnesium (1.6-2.3) mg/dL Total Bilirubin 0.2 (0.2-1.3) mg/dL Conjugated Bilirubin (0.0-0.3) md/dL Unconjugated Bilirubin (0.0-1.1) mg/dL AST 34 (14-36) IU/L ALT 14 (<35) IU/L Alkaline Phosphatase 283 H (38-126) U/L Total Creatine Kinase (30-135) U/L CK-MB (CK-2) CK-MB (CK-2) Rel Index Troponin I 0.078 H (0.01-0.034) ng/mL NT-Pro-B Natriuret Pep 4150 H (<125) pg/mL Total Protein 6.6 (6.3-8.2) g/dL Albumin 3.1 L (3.5-5.0) g/dL Globulin 3.5 (1.7-4.1) g/dL Albumin/Globulin Ratio 0.9 L (1.0-2.8) Lipase (23-300) U/L Procalcitonin (<0.5) ng/mL Urine Color Urine Appearance Urine pH (4.5-8.0) Ur Specific [place] (1.000-1.035) Urine Protein (Negative) Urine Glucose (UA) (Negative) g/dL Urine Ketones (NEGATIVE) Urine Occult Blood (Negative) Urine Nitrate (Negative) Urine Bilirubin (NEGATIVE) Urine Urobilinogen (0.2) E.U./dL Ur Leukocyte Esterase (NEGATIVE) Urine RBC (0-5/HPF) Urine WBC (0-5/HPF) Ur Squamous Epith Cells (0-5/HPF) Urine Bacteria (None) Urine Mucus (Negative) Ur Culture Indicated? Ur Random Sodium (30-90) mmol/L Urine Creatinine mg/dL Ketones (<0.27) mmol/L SARS-CoV-2 (PCR) (Negative) Influenza A (RT-PCR) (NEGATIVE) Influenza B (RT-PCR) (NEGATIVE) RSV (PCR) (Negative) 05/23/22 05/23/22 05/24/22 Range/Units 14:21 14:21 05:00 WBC (4.5-11.0) X10^3/uL RBC (4.0-5.2) X10^6/uL Hgb (12.0-16.0) g/dL Hct (36-46) % MCV (80-100) fL MCH (26-34) PG MCHC (30-36) % RDW (11.6-14.8) % Plt Count (150-400) X10^3/uL Neut % (Auto) (50-75) % Lymph % (Auto) (25-40) % Major % (Auto) (3-14) % Eos % (Auto) (2-4) % Baso % (Auto) (0-2) % Neut # (Auto) (1785-0529) /uL Lymph # (Auto) (1248-3685) /uL Major # (Auto) (0-900) /uL Eos # (Auto) (0-450) /uL Baso # (Auto) (0-100) /uL Total Counted Seg Neutrophils % (38-70) % Band Neutrophils % (3-7) % Lymphocytes % (Manual) (25-45) % Monocytes % (Manual) (2-11) % Neutrophils # (Manual) (8150-2889) /uL Nucleated RBCs ( - 0) #/Diff RBC Morphology Hypochromasia Anisocytosis PT (10.1-12.7) SECONDS INR (0.9-1.3) APTT 69 H 55 H D (26-36) SECONDS D-Dimer (<500) ng/ml ABG pH (7.35-7.45) ABG pCO2 (35-45) mmHg ABG pO2 (80-100) mmHg ABG HCO3 (22-26) mmol/L ABG Total CO2 (21-31) mmol/L ABG O2 Saturation (95-100) % ABG Base Excess (-2-2) mmol/L VBG pH (7.33-7.43) VBG pCO2 (45-50) mmHg VBG pO2 (35-45) mmHg VBG HCO3 (23-28) mmol/L VBG Total CO2 (24-29) mmol/L VBG O2 Saturation (70-75) % VBG Base Excess (0-4) mmol/L FiO2 Sodium (137-145) mmol/L Potassium (3.4-5.1) mmol/L Chloride (98-107) mmol/L Carbon Dioxide (22-32) mmol/L BUN (7-17) mg/dL Creatinine (0.52-1.04) mg/dL Estimated GFR (>60) mL/min BUN/Creatinine Ratio (6-22) Glucose (80-110) mg/dL Lactate (0.7-2.1) mmol/L Calcium (8.4-10.2) mg/dL Ionized Calcium [place]anna (4.5-5.6) mg/dL Phosphorus (2.8-4.1) mg/dL Magnesium (1.6-2.3) mg/dL Total Bilirubin (0.2-1.3) mg/dL Conjugated Bilirubin (0.0-0.3) md/dL Unconjugated Bilirubin (0.0-1.1) mg/dL AST (14-36) IU/L ALT (<35) IU/L Alkaline Phosphatase (38-126) U/L Total Creatine Kinase (30-135) U/L CK-MB (CK-2) CK-MB (CK-2) Rel Index Troponin I 0.075 H (0.01-0.034) ng/mL NT-Pro-B Natriuret Pep (<125) pg/mL Total Protein (6.3-8.2) g/dL Albumin (3.5-5.0) g/dL Globulin (1.7-4.1) g/dL Albumin/Globulin Ratio (1.0-2.8) Lipase (23-300) U/L Procalcitonin (<0.5) ng/mL Urine Color Urine Appearance Urine pH (4.5-8.0) Ur Specific [place] (1.000-1.035) Urine Protein (Negative) Urine Glucose (UA) (Negative) g/dL Urine Ketones (NEGATIVE) Urine Occult Blood (Negative) Urine Nitrate (Negative) Urine Bilirubin (NEGATIVE) Urine Urobilinogen (0.2) E.U./dL Ur Leukocyte Esterase (NEGATIVE) Urine RBC (0-5/HPF) Urine WBC (0-5/HPF) Ur Squamous Epith Cells (0-5/HPF) Urine Bacteria (None) Urine Mucus (Negative) Ur Culture Indicated? Ur Random Sodium (30-90) mmol/L Urine Creatinine mg/dL Ketones (<0.27) mmol/L SARS-CoV-2 (PCR) (Negative) Influenza A (RT-PCR) (NEGATIVE) Influenza B (RT-PCR) (NEGATIVE) RSV (PCR) (Negative) 05/24/22 05/24/22 05/24/22 Range/Units 05:00 07:15 07:20 WBC 9.9 (4.5-11.0) X10^3/uL RBC 3.14 L (4.0-5.2) X10^6/uL Hgb 8.9 L (12.0-16.0) g/dL Hct 28.2 L (36-46) % MCV 89.9 (80-100) fL MCH 28.2 (26-34) PG MCHC 31.3 (30-36) % RDW 15.1 H (11.6-14.8) % Plt Count 610 H (150-400) X10^3/uL Neut % (Auto) 85.0 H (50-75) % Lymph % (Auto) 6.1 L (25-40) % Major % (Auto) 8.1 (3-14) % Eos % (Auto) 0.1 L (2-4) % Baso % (Auto) 0.7 (0-2) % Neut # (Auto) 8400 H (4215-4708) /uL Lymph # (Auto) 600 L (8601-9585) /uL Major # (Auto) 800 (0-900) /uL Eos # (Auto) 0 (0-450) /uL Baso # (Auto) 100 (0-100) /uL Total Counted Seg Neutrophils % (38-70) % Band Neutrophils % (3-7) % Lymphocytes % (Manual) (25-45) % Monocytes % (Manual) (2-11) % Neutrophils # (Manual) (5206-4884) /uL Nucleated RBCs ( - 0) #/Diff RBC Morphology Hypochromasia Anisocytosis PT (10.1-12.7) SECONDS INR (0.9-1.3) APTT (26-36) SECONDS D-Dimer (<500) ng/ml ABG pH 7.19 L* (7.35-7.45) ABG pCO2 65.9 H* (35-45) mmHg ABG pO2 178 H (80-100) mmHg ABG HCO3 25 (22-26) mmol/L ABG Total CO2 27 (21-31) mmol/L ABG O2 Saturation 99 (95-100) % ABG Base Excess -3.0 L (-2-2) mmol/L VBG pH 7.15 L* (7.33-7.43) VBG pCO2 72.1 H (45-50) mmHg VBG pO2 55 H (35-45) mmHg VBG HCO3 25 (23-28) mmol/L VBG Total CO2 27 (24-29) mmol/L VBG O2 Saturation 76 H (70-75) % VBG Base Excess -4.0 L (0-4) mmol/L FiO2 100 Sodium (137-145) mmol/L Potassium (3.4-5.1) mmol/L Chloride (98-107) mmol/L Carbon Dioxide (22-32) mmol/L BUN (7-17) mg/dL Creatinine (0.52-1.04) mg/dL Estimated GFR (>60) mL/min BUN/Creatinine Ratio (6-22) Glucose (80-110) mg/dL Lactate (0.7-2.1) mmol/L Calcium (8.4-10.2) mg/dL Ionized Calcium [place] (4.5-5.6) mg/dL Phosphorus (2.8-4.1) mg/dL Magnesium (1.6-2.3) mg/dL Total Bilirubin (0.2-1.3) mg/dL Conjugated Bilirubin (0.0-0.3) md/dL Unconjugated Bilirubin (0.0-1.1) mg/dL AST (14-36) IU/L ALT (<35) IU/L Alkaline Phosphatase (38-126) U/L Total Creatine Kinase (30-135) U/L CK-MB (CK-2) CK-MB (CK-2) Rel Index Troponin I (0.01-0.034) ng/mL NT-Pro-B Natriuret Pep (<125) pg/mL Total Protein (6.3-8.2) g/dL Albumin (3.5-5.0) g/dL Globulin (1.7-4.1) g/dL Albumin/Globulin Ratio (1.0-2.8) Lipase (23-300) U/L Procalcitonin (<0.5) ng/mL Urine Color Urine Appearance Urine pH (4.5-8.0) Ur Specific [place] (1.000-1.035) Urine Protein (Negative) Urine Glucose (UA) (Negative) g/dL Urine Ketones (NEGATIVE) Urine Occult Blood (Negative) Urine Nitrate (Negative) Urine Bilirubin (NEGATIVE) Urine Urobilinogen (0.2) E.U./dL Ur Leukocyte Esterase (NEGATIVE) Urine RBC (0-5/HPF) Urine WBC (0-5/HPF) Ur Squamous Epith Cells (0-5/HPF) Urine Bacteria (None) Urine Mucus (Negative) Ur Culture Indicated? Ur Random Sodium (30-90) mmol/L Urine Creatinine mg/dL Ketones (<0.27) mmol/L SARS-CoV-2 (PCR) (Negative) Influenza A (RT-PCR) (NEGATIVE) Influenza B (RT-PCR) (NEGATIVE) RSV (PCR) (Negative) 05/24/22 05/24/22 05/24/22 Range/Units 07:33 07:33 07:33 WBC (4.5-11.0) X10^3/uL RBC (4.0-5.2) X10^6/uL Hgb (12.0-16.0) g/dL Hct (36-46) % MCV (80-100) fL MCH (26-34) PG MCHC (30-36) % RDW (11.6-14.8) % Plt Count (150-400) X10^3/uL Neut % (Auto) (50-75) % Lymph % (Auto) (25-40) % Major % (Auto) (3-14) % Eos % (Auto) (2-4) % Baso % (Auto) (0-2) % Neut # (Auto) (2447-3044) /uL Lymph # (Auto) (8082-5875) /uL Major # (Auto) (0-900) /uL Eos # (Auto) (0-450) /uL Baso # (Auto) (0-100) /uL Total Counted Seg Neutrophils % (38-70) % Band Neutrophils % (3-7) % Lymphocytes % (Manual) (25-45) % Monocytes % (Manual) (2-11) % Neutrophils # (Manual) (4635-1687) /uL Nucleated RBCs ( - 0) #/Diff RBC Morphology Hypochromasia Anisocytosis PT (10.1-12.7) SECONDS INR (0.9-1.3) APTT (26-36) SECONDS D-Dimer (<500) ng/ml ABG pH (7.35-7.45) ABG pCO2 (35-45) mmHg ABG pO2 (80-100) mmHg ABG HCO3 (22-26) mmol/L ABG Total CO2 (21-31) mmol/L ABG O2 Saturation (95-100) % ABG Base Excess (-2-2) mmol/L VBG pH (7.33-7.43) VBG pCO2 (45-50) mmHg VBG pO2 (35-45) mmHg VBG HCO3 (23-28) mmol/L VBG Total CO2 (24-29) mmol/L VBG O2 Saturation (70-75) % VBG Base Excess (0-4) mmol/L FiO2 Sodium Cancelled 142 (137-145) mmol/L Potassium Cancelled 5.2 H (3.4-5.1) mmol/L Chloride Cancelled 110 H (98-107) mmol/L Carbon Dioxide Cancelled 22 (22-32) mmol/L BUN Cancelled 26 H (7-17) mg/dL Creatinine Cancelled 1.94 H (0.52-1.04) mg/dL Estimated GFR Cancelled 27 L (>60) mL/min BUN/Creatinine Ratio Cancelled 13.4 (6-22) Glucose Cancelled 173 H (80-110) mg/dL Lactate (0.7-2.1) mmol/L Calcium Cancelled 7.8 L (8.4-10.2) mg/dL Ionized Calcium Hanna (4.5-5.6) mg/dL Phosphorus (2.8-4.1) mg/dL Magnesium (1.6-2.3) mg/dL Total Bilirubin 0.1 L (0.2-1.3) mg/dL Conjugated Bilirubin (0.0-0.3) md/dL Unconjugated Bilirubin (0.0-1.1) mg/dL AST 77 H (14-36) IU/L ALT 18 (<35) IU/L Alkaline Phosphatase 287 H (38-126) U/L Total Creatine Kinase (30-135) U/L CK-MB (CK-2) CK-MB (CK-2) Rel Index Troponin I 0.076 H (0.01-0.034) ng/mL NT-Pro-B Natriuret Pep 4950 H (<125) pg/mL Total Protein 6.7 (6.3-8.2) g/dL Albumin 3.1 L (3.5-5.0) g/dL Globulin 3.6 (1.7-4.1) g/dL Albumin/Globulin Ratio 0.9 L (1.0-2.8) Lipase (23-300) U/L Procalcitonin (<0.5) ng/mL Urine Color Urine Appearance Urine pH (4.5-8.0) Ur Specific [place] (1.000-1.035) Urine Protein (Negative) Urine Glucose (UA) (Negative) g/dL Urine Ketones (NEGATIVE) Urine Occult Blood (Negative) Urine Nitrate (Negative) Urine Bilirubin (NEGATIVE) Urine Urobilinogen (0.2) E.U./dL Ur Leukocyte Esterase (NEGATIVE) Urine RBC (0-5/HPF) Urine WBC (0-5/HPF) Ur Squamous Epith Cells (0-5/HPF) Urine Bacteria (None) Urine Mucus (Negative) Ur Culture Indicated? Ur Random Sodium (30-90) mmol/L Urine Creatinine mg/dL Ketones (<0.27) mmol/L SARS-CoV-2 (PCR) (Negative) Influenza A (RT-PCR) (NEGATIVE) Influenza B (RT-PCR) (NEGATIVE) RSV (PCR) (Negative) 05/24/22 05/24/22 05/24/22 Range/Units 14:23 15:06 15:30 WBC (4.5-11.0) X10^3/uL RBC (4.0-5.2) X10^6/uL Hgb (12.0-16.0) g/dL Hct (36-46) % MCV (80-100) fL MCH (26-34) PG MCHC (30-36) % RDW (11.6-14.8) % Plt Count (150-400) X10^3/uL Neut % (Auto) (50-75) % Lymph % (Auto) (25-40) % Major % (Auto) (3-14) % Eos % (Auto) (2-4) % Baso % (Auto) (0-2) % Neut # (Auto) (5324-1691) /uL Lymph # (Auto) (4819-0605) /uL Major # (Auto) (0-900) /uL Eos # (Auto) (0-450) /uL Baso # (Auto) (0-100) /uL Total Counted Seg Neutrophils % (38-70) % Band Neutrophils % (3-7) % Lymphocytes % (Manual) (25-45) % Monocytes % (Manual) (2-11) % Neutrophils # (Manual) (8179-0253) /uL Nucleated RBCs ( - 0) #/Diff RBC Morphology Hypochromasia Anisocytosis PT (10.1-12.7) SECONDS INR (0.9-1.3) APTT 63 H (26-36) SECONDS D-Dimer (<500) ng/ml ABG pH 7.33 L (7.35-7.45) ABG pCO2 38.3 (35-45) mmHg ABG pO2 61 L (80-100) mmHg ABG HCO3 20 L (22-26) mmol/L ABG Total CO2 21 (21-31) mmol/L ABG O2 Saturation 90 L (95-100) % ABG Base Excess -6.0 L (-2-2) mmol/L VBG pH (7.33-7.43) VBG pCO2 (45-50) mmHg VBG pO2 (35-45) mmHg VBG HCO3 (23-28) mmol/L VBG Total CO2 (24-29) mmol/L VBG O2 Saturation (70-75) % VBG Base Excess (0-4) mmol/L FiO2 50 Sodium (137-145) mmol/L Potassium (3.4-5.1) mmol/L Chloride (98-107) mmol/L Carbon Dioxide (22-32) mmol/L BUN (7-17) mg/dL Creatinine (0.52-1.04) mg/dL Estimated GFR (>60) mL/min BUN/Creatinine Ratio (6-22) Glucose (80-110) mg/dL Lactate 2.1 (0.7-2.1) mmol/L Calcium (8.4-10.2) mg/dL Ionized Calcium [place]anna (4.5-5.6) mg/dL Phosphorus (2.8-4.1) mg/dL Magnesium (1.6-2.3) mg/dL Total Bilirubin (0.2-1.3) mg/dL Conjugated Bilirubin (0.0-0.3) md/dL Unconjugated Bilirubin (0.0-1.1) mg/dL AST (14-36) IU/L ALT (<35) IU/L Alkaline Phosphatase (38-126) U/L Total Creatine Kinase (30-135) U/L CK-MB (CK-2) CK-MB (CK-2) Rel Index Troponin I (0.01-0.034) ng/mL NT-Pro-B Natriuret Pep (<125) pg/mL Total Protein (6.3-8.2) g/dL Albumin (3.5-5.0) g/dL Globulin (1.7-4.1) g/dL Albumin/Globulin Ratio (1.0-2.8) Lipase (23-300) U/L Procalcitonin (<0.5) ng/mL Urine Color Urine Appearance Urine pH (4.5-8.0) Ur Specific [place] (1.000-1.035) Urine Protein (Negative) Urine Glucose (UA) (Negative) g/dL Urine Ketones (NEGATIVE) Urine Occult Blood (Negative) Urine Nitrate (Negative) Urine Bilirubin (NEGATIVE) Urine Urobilinogen (0.2) E.U./dL Ur Leukocyte Esterase (NEGATIVE) Urine RBC (0-5/HPF) Urine WBC (0-5/HPF) Ur Squamous Epith Cells (0-5/HPF) Urine Bacteria (None) Urine Mucus (Negative) Ur Culture Indicated? Ur Random Sodium (30-90) mmol/L Urine Creatinine mg/dL Ketones (<0.27) mmol/L SARS-CoV-2 (PCR) (Negative) Influenza A (RT-PCR) (NEGATIVE) Influenza B (RT-PCR) (NEGATIVE) RSV (PCR) (Negative) 05/24/22 05/24/22 05/24/22 Range/Units 15:32 15:32 22:00 WBC 11.7 H (4.5-11.0) X10^3/uL RBC 2.86 L (4.0-5.2) X10^6/uL Hgb 8.0 L (12.0-16.0) g/dL Hct 25.3 L (36-46) % MCV 88.5 (80-100) fL MCH 27.9 (26-34) PG MCHC 31.5 (30-36) % RDW 14.4 (11.6-14.8) % Plt Count 560 H (150-400) X10^3/uL Neut % (Auto) (50-75) % Lymph % (Auto) (25-40) % Major % (Auto) (3-14) % Eos % (Auto) (2-4) % Baso % (Auto) (0-2) % Neut # (Auto) (9653-5548) /uL Lymph # (Auto) (9856-8061) /uL Major # (Auto) (0-900) /uL Eos # (Auto) (0-450) /uL Baso # (Auto) (0-100) /uL Total Counted 100 Seg Neutrophils % 80.0 H (38-70) % Band Neutrophils % 1.0 L (3-7) % Lymphocytes % (Manual) 13.0 L (25-45) % Monocytes % (Manual) 6.0 (2-11) % Neutrophils # (Manual) 9477 H (7672-8052) /uL Nucleated RBCs 1 H ( - 0) #/Diff RBC Morphology See below Hypochromasia 1+ H Anisocytosis 1+ H PT (10.1-12.7) SECONDS INR (0.9-1.3) APTT (26-36) SECONDS D-Dimer (<500) ng/ml ABG pH (7.35-7.45) ABG pCO2 (35-45) mmHg ABG pO2 (80-100) mmHg ABG HCO3 (22-26) mmol/L ABG Total CO2 (21-31) mmol/L ABG O2 Saturation (95-100) % ABG Base Excess (-2-2) mmol/L VBG pH (7.33-7.43) VBG pCO2 (45-50) mmHg VBG pO2 (35-45) mmHg VBG HCO3 (23-28) mmol/L VBG Total CO2 (24-29) mmol/L VBG O2 Saturation (70-75) % VBG Base Excess (0-4) mmol/L FiO2 Sodium 140 (137-145) mmol/L Potassium 3.6 D (3.4-5.1) mmol/L Chloride 107 (98-107) mmol/L Carbon Dioxide 20 L (22-32) mmol/L BUN 29 H (7-17) mg/dL Creatinine 1.92 H (0.52-1.04) mg/dL Estimated GFR 27 L (>60) mL/min BUN/Creatinine Ratio 15.1 (6-22) Glucose 223 H (80-110) mg/dL Lactate 1.6 (0.7-2.1) mmol/L Calcium 7.7 L (8.4-10.2) mg/dL Ionized Calcium [place] (4.5-5.6) mg/dL Phosphorus (2.8-4.1) mg/dL Magnesium 1.4 L (1.6-2.3) mg/dL Total Bilirubin 0.2 (0.2-1.3) mg/dL Conjugated Bilirubin (0.0-0.3) md/dL Unconjugated Bilirubin (0.0-1.1) mg/dL AST 28 (14-36) IU/L ALT 18 (<35) IU/L Alkaline Phosphatase 261 H (38-126) U/L Total Creatine Kinase 26 L (30-135) U/L CK-MB (CK-2) TNP CK-MB (CK-2) Rel Index TNP Troponin I 0.084 H (0.01-0.034) ng/mL NT-Pro-B Natriuret Pep (<125) pg/mL Total Protein 6.2 L (6.3-8.2) g/dL Albumin 2.8 L (3.5-5.0) g/dL Globulin 3.4 (1.7-4.1) g/dL Albumin/Globulin Ratio 0.8 L (1.0-2.8) Lipase (23-300) U/L Procalcitonin (<0.5) ng/mL Urine Color Urine Appearance Urine pH (4.5-8.0) Ur Specific [place] (1.000-1.035) Urine Protein (Negative) Urine Glucose (UA) (Negative) g/dL Urine Ketones (NEGATIVE) Urine Occult Blood (Negative) Urine Nitrate (Negative) Urine Bilirubin (NEGATIVE) Urine Urobilinogen (0.2) E.U./dL Ur Leukocyte Esterase (NEGATIVE) Urine RBC (0-5/HPF) Urine WBC (0-5/HPF) Ur Squamous Epith Cells (0-5/HPF) Urine Bacteria (None) Urine Mucus (Negative) Ur Culture Indicated? Ur Random Sodium (30-90) mmol/L Urine Creatinine mg/dL Ketones (<0.27) mmol/L SARS-CoV-2 (PCR) (Negative) Influenza A (RT-PCR) (NEGATIVE) Influenza B (RT-PCR) (NEGATIVE) RSV (PCR) (Negative) 05/25/22 05/25/22 05/25/22 Range/Units 00:23 05:00 05:00 WBC 12.3 H (4.5-11.0) X10^3/uL RBC 2.90 L (4.0-5.2) X10^6/uL Hgb 8.2 L (12.0-16.0) g/dL Hct 24.9 L (36-46) % MCV 86.0 (80-100) fL MCH 28.4 (26-34) PG MCHC 33.0 (30-36) % RDW 14.6 (11.6-14.8) % Plt Count 529 H (150-400) X10^3/uL Neut % (Auto) (50-75) % Lymph % (Auto) (25-40) % Major % (Auto) (3-14) % Eos % (Auto) (2-4) % Baso % (Auto) (0-2) % Neut # (Auto) (3461-7169) /uL Lymph # (Auto) (2851-5793) /uL Major # (Auto) (0-900) /uL Eos # (Auto) (0-450) /uL Baso # (Auto) (0-100) /uL Total Counted Seg Neutrophils % (38-70) % Band Neutrophils % (3-7) % Lymphocytes % (Manual) (25-45) % Monocytes % (Manual) (2-11) % Neutrophils # (Manual) (1482-6718) /uL Nucleated RBCs ( - 0) #/Diff RBC Morphology Hypochromasia Anisocytosis PT (10.1-12.7) SECONDS INR (0.9-1.3) APTT (26-36) SECONDS D-Dimer (<500) ng/ml ABG pH (7.35-7.45) ABG pCO2 (35-45) mmHg ABG pO2 (80-100) mmHg ABG HCO3 (22-26) mmol/L ABG Total CO2 (21-31) mmol/L ABG O2 Saturation (95-100) % ABG Base Excess (-2-2) mmol/L VBG pH 7.38 (7.33-7.43) VBG pCO2 37.0 L (45-50) mmHg VBG pO2 43 (35-45) mmHg VBG HCO3 22 L (23-28) mmol/L VBG Total CO2 23 L (24-29) mmol/L VBG O2 Saturation 78 H (70-75) % VBG Base Excess -3.0 L (0-4) mmol/L FiO2 Sodium 140 (137-145) mmol/L Potassium 3.6 (3.4-5.1) mmol/L Chloride 107 (98-107) mmol/L Carbon Dioxide 22 (22-32) mmol/L BUN 29 H (7-17) mg/dL Creatinine 1.62 H (0.52-1.04) mg/dL Estimated GFR 33 L (>60) mL/min BUN/Creatinine Ratio 17.9 (6-22) Glucose 198 H (80-110) mg/dL Lactate (0.7-2.1) mmol/L Calcium 8.0 L (8.4-10.2) mg/dL Ionized Calcium [place] (4.5-5.6) mg/dL Phosphorus (2.8-4.1) mg/dL Magnesium (1.6-2.3) mg/dL Total Bilirubin 0.2 (0.2-1.3) mg/dL Conjugated Bilirubin (0.0-0.3) md/dL Unconjugated Bilirubin (0.0-1.1) mg/dL AST 24 (14-36) IU/L ALT 15 (<35) IU/L Alkaline Phosphatase 265 H (38-126) U/L Total Creatine Kinase (30-135) U/L CK-MB (CK-2) CK-MB (CK-2) Rel Index Troponin I (0.01-0.034) ng/mL NT-Pro-B Natriuret Pep (<125) pg/mL Total Protein 6.1 L (6.3-8.2) g/dL Albumin 2.9 L (3.5-5.0) g/dL Globulin 3.2 (1.7-4.1) g/dL Albumin/Globulin Ratio 0.9 L (1.0-2.8) Lipase (23-300) U/L Procalcitonin (<0.5) ng/mL Urine Color Urine Appearance Urine pH (4.5-8.0) Ur Specific [place] (1.000-1.035) Urine Protein (Negative) Urine Glucose (UA) (Negative) g/dL Urine Ketones (NEGATIVE) Urine Occult Blood (Negative) Urine Nitrate (Negative) Urine Bilirubin (NEGATIVE) Urine Urobilinogen (0.2) E.U./dL Ur Leukocyte Esterase (NEGATIVE) Urine RBC (0-5/HPF) Urine WBC (0-5/HPF) Ur Squamous Epith Cells (0-5/HPF) Urine Bacteria (None) Urine Mucus (Negative) Ur Culture Indicated? Ur Random Sodium (30-90) mmol/L Urine Creatinine mg/dL Ketones (<0.27) mmol/L SARS-CoV-2 (PCR) (Negative) Influenza A (RT-PCR) (NEGATIVE) Influenza B (RT-PCR) (NEGATIVE) RSV (PCR) (Negative) 05/25/22 05/25/22 05/25/22 Range/Units 09:08 09:08 09:08 WBC (4.5-11.0) X10^3/uL RBC (4.0-5.2) X10^6/uL Hgb (12.0-16.0) g/dL Hct (36-46) % MCV (80-100) fL MCH (26-34) PG MCHC (30-36) % RDW (11.6-14.8) % Plt Count (150-400) X10^3/uL Neut % (Auto) (50-75) % Lymph % (Auto) (25-40) % Major % (Auto) (3-14) % Eos % (Auto) (2-4) % Baso % (Auto) (0-2) % Neut # (Auto) (2598-0352) /uL Lymph # (Auto) (5316-5143) /uL Major # (Auto) (0-900) /uL Eos # (Auto) (0-450) /uL Baso # (Auto) (0-100) /uL Total Counted Seg Neutrophils % (38-70) % Band Neutrophils % (3-7) % Lymphocytes % (Manual) (25-45) % Monocytes % (Manual) (2-11) % Neutrophils # (Manual) (8983-1802) /uL Nucleated RBCs ( - 0) #/Diff RBC Morphology Hypochromasia Anisocytosis PT (10.1-12.7) SECONDS INR (0.9-1.3) APTT 51 H D (26-36) SECONDS D-Dimer (<500) ng/ml ABG pH (7.35-7.45) ABG pCO2 (35-45) mmHg ABG pO2 (80-100) mmHg ABG HCO3 (22-26) mmol/L ABG Total CO2 (21-31) mmol/L ABG O2 Saturation (95-100) % ABG Base Excess (-2-2) mmol/L VBG pH (7.33-7.43) VBG pCO2 (45-50) mmHg VBG pO2 (35-45) mmHg VBG HCO3 (23-28) mmol/L VBG Total CO2 (24-29) mmol/L VBG O2 Saturation (70-75) % VBG Base Excess (0-4) mmol/L FiO2 Sodium 140 (137-145) mmol/L Potassium 3.5 (3.4-5.1) mmol/L Chloride 106 (98-107) mmol/L Carbon Dioxide 23 (22-32) mmol/L BUN 28 H (7-17) mg/dL Creatinine 1.47 H (0.52-1.04) mg/dL Estimated GFR 37 L (>60) mL/min BUN/Creatinine Ratio 19.0 (6-22) Glucose 164 H (80-110) mg/dL Lactate (0.7-2.1) mmol/L Calcium 8.0 L (8.4-10.2) mg/dL Ionized Calcium [place] (4.5-5.6) mg/dL Phosphorus 4.0 (2.8-4.1) mg/dL Magnesium 1.7 (1.6-2.3) mg/dL Total Bilirubin (0.2-1.3) mg/dL Conjugated Bilirubin (0.0-0.3) md/dL Unconjugated Bilirubin (0.0-1.1) mg/dL AST (14-36) IU/L ALT (<35) IU/L Alkaline Phosphatase (38-126) U/L Total Creatine Kinase (30-135) U/L CK-MB (CK-2) CK-MB (CK-2) Rel Index Troponin I 0.052 H (0.01-0.034) ng/mL NT-Pro-B Natriuret Pep 4140 H (<125) pg/mL Total Protein (6.3-8.2) g/dL Albumin (3.5-5.0) g/dL Globulin (1.7-4.1) g/dL Albumin/Globulin Ratio (1.0-2.8) Lipase (23-300) U/L Procalcitonin (<0.5) ng/mL Urine Color Urine Appearance Urine pH (4.5-8.0) Ur Specific [place] (1.000-1.035) Urine Protein (Negative) Urine Glucose (UA) (Negative) g/dL Urine Ketones (NEGATIVE) Urine Occult Blood (Negative) Urine Nitrate (Negative) Urine Bilirubin (NEGATIVE) Urine Urobilinogen (0.2) E.U./dL Ur Leukocyte Esterase (NEGATIVE) Urine RBC (0-5/HPF) Urine WBC (0-5/HPF) Ur Squamous Epith Cells (0-5/HPF) Urine Bacteria (None) Urine Mucus (Negative) Ur Culture Indicated? Ur Random Sodium (30-90) mmol/L Urine Creatinine mg/dL Ketones (<0.27) mmol/L SARS-CoV-2 (PCR) (Negative) Influenza A (RT-PCR) (NEGATIVE) Influenza B (RT-PCR) (NEGATIVE) RSV (PCR) (Negative) 05/25/22 05/25/22 05/25/22 Range/Units 09:08 10:13 10:50 WBC (4.5-11.0) X10^3/uL RBC (4.0-5.2) X10^6/uL Hgb (12.0-16.0) g/dL Hct (36-46) % MCV (80-100) fL MCH (26-34) PG MCHC (30-36) % RDW (11.6-14.8) % Plt Count (150-400) X10^3/uL Neut % (Auto) (50-75) % Lymph % (Auto) (25-40) % Major % (Auto) (3-14) % Eos % (Auto) (2-4) % Baso % (Auto) (0-2) % Neut # (Auto) (8608-5467) /uL Lymph # (Auto) (3534-0557) /uL Major # (Auto) (0-900) /uL Eos # (Auto) (0-450) /uL Baso # (Auto) (0-100) /uL Total Counted Seg Neutrophils % (38-70) % Band Neutrophils % (3-7) % Lymphocytes % (Manual) (25-45) % Monocytes % (Manual) (2-11) % Neutrophils # (Manual) (4244-7561) /uL Nucleated RBCs ( - 0) #/Diff RBC Morphology Hypochromasia Anisocytosis PT (10.1-12.7) SECONDS INR (0.9-1.3) APTT (26-36) SECONDS D-Dimer (<500) ng/ml ABG pH 7.42 (7.35-7.45) ABG pCO2 36.3 (35-45) mmHg ABG pO2 55 L (80-100) mmHg ABG HCO3 24 (22-26) mmol/L ABG Total CO2 25 (21-31) mmol/L ABG O2 Saturation 89 L (95-100) % ABG Base Excess -1.0 (-2-2) mmol/L VBG pH (7.33-7.43) VBG pCO2 (45-50) mmHg VBG pO2 (35-45) mmHg VBG HCO3 (23-28) mmol/L VBG Total CO2 (24-29) mmol/L VBG O2 Saturation (70-75) % VBG Base Excess (0-4) mmol/L FiO2 35 Sodium (137-145) mmol/L Potassium (3.4-5.1) mmol/L Chloride (98-107) mmol/L Carbon Dioxide (22-32) mmol/L BUN (7-17) mg/dL Creatinine (0.52-1.04) mg/dL Estimated GFR (>60) mL/min BUN/Creatinine Ratio (6-22) Glucose (80-110) mg/dL Lactate (0.7-2.1) mmol/L Calcium (8.4-10.2) mg/dL Ionized Calcium [place] (4.5-5.6) mg/dL Phosphorus (2.8-4.1) mg/dL Magnesium (1.6-2.3) mg/dL Total Bilirubin (0.2-1.3) mg/dL Conjugated Bilirubin (0.0-0.3) md/dL Unconjugated Bilirubin (0.0-1.1) mg/dL AST (14-36) IU/L ALT (<35) IU/L Alkaline Phosphatase (38-126) U/L Total Creatine Kinase (30-135) U/L CK-MB (CK-2) CK-MB (CK-2) Rel Index Troponin I (0.01-0.034) ng/mL NT-Pro-B Natriuret Pep (<125) pg/mL Total Protein (6.3-8.2) g/dL Albumin (3.5-5.0) g/dL Globulin (1.7-4.1) g/dL Albumin/Globulin Ratio (1.0-2.8) Lipase (23-300) U/L Procalcitonin 0.81 H (<0.5) ng/mL Urine Color Yellow Urine Appearance Clear Urine pH 5.0 (4.5-8.0) Ur Specific [place] 1.010 (1.000-1.035) Urine Protein Negative (Negative) Urine Glucose (UA) Negative (Negative) g/dL Urine Ketones Negative (NEGATIVE) Urine Occult Blood 3+ H (Negative) Urine Nitrate Negative (Negative) Urine Bilirubin Negative (NEGATIVE) Urine Urobilinogen 0.2 (0.2) E.U./dL Ur Leukocyte Esterase Trace H (NEGATIVE) Urine RBC 10-30/hpf H (0-5/HPF) Urine WBC 1-5/hpf (0-5/HPF) Ur Squamous Epith Cells 1-5 /hpf (0-5/HPF) Urine Bacteria Moderate (10-30) H (None) Urine Mucus (Negative) Ur Culture Indicated? Specimen cultured Ur Random Sodium (30-90) mmol/L Urine Creatinine mg/dL Ketones (<0.27) mmol/L SARS-CoV-2 (PCR) (Negative) Influenza A (RT-PCR) (NEGATIVE) Influenza B (RT-PCR) (NEGATIVE) RSV (PCR) (Negative) 1205/26/22 05/26/22 Range/Units 21:45 05:00 05:00 WBC 12.4 H (4.5-11.0) X10^3/uL RBC 2.95 L (4.0-5.2) X10^6/uL Hgb 8.1 L (12.0-16.0) g/dL Hct 25.5 L (36-46) % MCV 86.5 (80-100) fL MCH 27.5 (26-34) PG MCHC 31.8 (30-36) % RDW 14.4 (11.6-14.8) % Plt Count 502 H (150-400) X10^3/uL Neut % (Auto) 79.1 H (50-75) % Lymph % (Auto) 9.5 L (25-40) % Major % (Auto) 9.1 (3-14) % Eos % (Auto) 1.4 L (2-4) % Baso % (Auto) 0.9 (0-2) % Neut # (Auto) 9800 H (6848-2509) /uL Lymph # (Auto) 1200 (8875-0125) /uL Major # (Auto) 1100 H (0-900) /uL Eos # (Auto) 200 (0-450) /uL Baso # (Auto) 100 (0-100) /uL Total Counted Seg Neutrophils % (38-70) % Band Neutrophils % (3-7) % Lymphocytes % (Manual) (25-45) % Monocytes % (Manual) (2-11) % Neutrophils # (Manual) (2394-4057) /uL Nucleated RBCs ( - 0) #/Diff RBC Morphology Hypochromasia Anisocytosis PT (10.1-12.7) SECONDS INR (0.9-1.3) APTT (26-36) SECONDS D-Dimer (<500) ng/ml ABG pH 7.41 (7.35-7.45) ABG pCO2 37.3 (35-45) mmHg ABG pO2 90 (80-100) mmHg ABG HCO3 24 (22-26) mmol/L ABG Total CO2 25 (21-31) mmol/L ABG O2 Saturation 97 (95-100) % ABG Base Excess 0.0 (-2-2) mmol/L VBG pH (7.33-7.43) VBG pCO2 (45-50) mmHg VBG pO2 (35-45) mmHg VBG HCO3 (23-28) mmol/L VBG Total CO2 (24-29) mmol/L VBG O2 Saturation (70-75) % VBG Base Excess (0-4) mmol/L FiO2 60 Sodium 138 (137-145) mmol/L Potassium 3.5 (3.4-5.1) mmol/L Chloride 102 (98-107) mmol/L Carbon Dioxide 28 (22-32) mmol/L BUN 26 H (7-17) mg/dL Creatinine 1.42 H (0.52-1.04) mg/dL Estimated GFR 39 L (>60) mL/min BUN/Creatinine Ratio 18.3 (6-22) Glucose 170 H (80-110) mg/dL Lactate (0.7-2.1) mmol/L Calcium 8.0 L (8.4-10.2) mg/dL Ionized Calcium [place] (4.5-5.6) mg/dL Phosphorus (2.8-4.1) mg/dL Magnesium (1.6-2.3) mg/dL Total Bilirubin 0.6 (0.2-1.3) mg/dL Conjugated Bilirubin (0.0-0.3) md/dL Unconjugated Bilirubin (0.0-1.1) mg/dL AST 36 (14-36) IU/L ALT 18 (<35) IU/L Alkaline Phosphatase 255 H (38-126) U/L Total Creatine Kinase (30-135) U/L CK-MB (CK-2) CK-MB (CK-2) Rel Index Troponin I (0.01-0.034) ng/mL NT-Pro-B Natriuret Pep (<125) pg/mL Total Protein 6.1 L (6.3-8.2) g/dL Albumin 2.7 L (3.5-5.0) g/dL Globulin 3.4 (1.7-4.1) g/dL Albumin/Globulin Ratio 0.8 L (1.0-2.8) Lipase (23-300) U/L Procalcitonin (<0.5) ng/mL Urine Color Urine Appearance Urine pH (4.5-8.0) Ur Specific [place] (1.000-1.035) Urine Protein (Negative) Urine Glucose (UA) (Negative) g/dL Urine Ketones (NEGATIVE) Urine Occult Blood (Negative) Urine Nitrate (Negative) Urine Bilirubin (NEGATIVE) Urine Urobilinogen (0.2) E.U./dL Ur Leukocyte Esterase (NEGATIVE) Urine RBC (0-5/HPF) Urine WBC (0-5/HPF) Ur Squamous Epith Cells (0-5/HPF) Urine Bacteria (None) Urine Mucus (Negative) Ur Culture Indicated? Ur Random Sodium (30-90) mmol/L Urine Creatinine mg/dL Ketones (<0.27) mmol/L SARS-CoV-2 (PCR) (Negative) Influenza A (RT-PCR) (NEGATIVE) Influenza B (RT-PCR) (NEGATIVE) RSV (PCR) (Negative) 05/26/22 05/26/22 05/26/22 Range/Units 05:00 06:55 17:55 WBC (4.5-11.0) X10^3/uL RBC (4.0-5.2) X10^6/uL Hgb (12.0-16.0) g/dL Hct (36-46) % MCV (80-100) fL MCH (26-34) PG MCHC (30-36) % RDW (11.6-14.8) % Plt Count (150-400) X10^3/uL Neut % (Auto) (50-75) % Lymph % (Auto) (25-40) % Major % (Auto) (3-14) % Eos % (Auto) (2-4) % Baso % (Auto) (0-2) % Neut # (Auto) (0010-5759) /uL Lymph # (Auto) (1778-7360) /uL Major # (Auto) (0-900) /uL Eos # (Auto) (0-450) /uL Baso # (Auto) (0-100) /uL Total Counted Seg Neutrophils % (38-70) % Band Neutrophils % (3-7) % Lymphocytes % (Manual) (25-45) % Monocytes % (Manual) (2-11) % Neutrophils # (Manual) (9467-1558) /uL Nucleated RBCs ( - 0) #/Diff RBC Morphology Hypochromasia Anisocytosis PT (10.1-12.7) SECONDS INR (0.9-1.3) APTT 51 H (26-36) SECONDS D-Dimer (<500) ng/ml ABG pH (7.35-7.45) ABG pCO2 (35-45) mmHg ABG pO2 (80-100) mmHg ABG HCO3 (22-26) mmol/L ABG Total CO2 (21-31) mmol/L ABG O2 Saturation (95-100) % ABG Base Excess (-2-2) mmol/L VBG pH (7.33-7.43) VBG pCO2 (45-50) mmHg VBG pO2 (35-45) mmHg VBG HCO3 (23-28) mmol/L VBG Total CO2 (24-29) mmol/L VBG O2 Saturation (70-75) % VBG Base Excess (0-4) mmol/L FiO2 Sodium 134 L (137-145) mmol/L Potassium 3.5 (3.4-5.1) mmol/L Chloride 96 L (98-107) mmol/L Carbon Dioxide 27 (22-32) mmol/L BUN 25 H (7-17) mg/dL Creatinine 1.42 H (0.52-1.04) mg/dL Estimated GFR 39 L (>60) mL/min BUN/Creatinine Ratio 17.6 (6-22) Glucose 228 H (80-110) mg/dL Lactate (0.7-2.1) mmol/L Calcium 7.9 L (8.4-10.2) mg/dL Ionized Calcium [place] (4.5-5.6) mg/dL Phosphorus (2.8-4.1) mg/dL Magnesium 1.4 L 1.6 (1.6-2.3) mg/dL Total Bilirubin (0.2-1.3) mg/dL Conjugated Bilirubin (0.0-0.3) md/dL Unconjugated Bilirubin (0.0-1.1) mg/dL AST (14-36) IU/L ALT (<35) IU/L Alkaline Phosphatase (38-126) U/L Total Creatine Kinase (30-135) U/L CK-MB (CK-2) CK-MB (CK-2) Rel Index Troponin I (0.01-0.034) ng/mL NT-Pro-B Natriuret Pep (<125) pg/mL Total Protein (6.3-8.2) g/dL Albumin (3.5-5.0) g/dL Globulin (1.7-4.1) g/dL Albumin/Globulin Ratio (1.0-2.8) Lipase (23-300) U/L Procalcitonin (<0.5) ng/mL Urine Color Urine Appearance Urine pH (4.5-8.0) Ur Specific [place] (1.000-1.035) Urine Protein (Negative) Urine Glucose (UA) (Negative) g/dL Urine Ketones (NEGATIVE) Urine Occult Blood (Negative) Urine Nitrate (Negative) Urine Bilirubin (NEGATIVE) Urine Urobilinogen (0.2) E.U./dL Ur Leukocyte Esterase (NEGATIVE) Urine RBC (0-5/HPF) Urine WBC (0-5/HPF) Ur Squamous Epith Cells (0-5/HPF) Urine Bacteria (None) Urine Mucus (Negative) Ur Culture Indicated? Ur Random Sodium (30-90) mmol/L Urine Creatinine mg/dL Ketones (<0.27) mmol/L SARS-CoV-2 (PCR) (Negative) Influenza A (RT-PCR) (NEGATIVE) Influenza B (RT-PCR) (NEGATIVE) RSV (PCR) (Negative) 05/26/22 05/26/22 05/26/22 Range/Units 17:55 17:55 17:55 WBC 13.4 H (4.5-11.0) X10^3/uL RBC 3.04 L (4.0-5.2) X10^6/uL Hgb 8.4 L (12.0-16.0) g/dL Hct 26.2 L (36-46) % MCV 86.3 (80-100) fL MCH 27.5 (26-34) PG MCHC 31.9 (30-36) % RDW 14.6 (11.6-14.8) % Plt Count 530 H (150-400) X10^3/uL Neut % (Auto) 76.5 H (50-75) % Lymph % (Auto) 12.0 L (25-40) % Major % (Auto) 8.8 (3-14) % Eos % (Auto) 2.1 (2-4) % Baso % (Auto) 0.6 (0-2) % Neut # (Auto) 20084 H (1172-5728) /uL Lymph # (Auto) 1600 (7905-2170) /uL Major # (Auto) 1200 H (0-900) /uL Eos # (Auto) 300 (0-450) /uL Baso # (Auto) 100 (0-100) /uL Total Counted Seg Neutrophils % (38-70) % Band Neutrophils % (3-7) % Lymphocytes % (Manual) (25-45) % Monocytes % (Manual) (2-11) % Neutrophils # (Manual) (9027-5990) /uL Nucleated RBCs ( - 0) #/Diff RBC Morphology Hypochromasia Anisocytosis PT (10.1-12.7) SECONDS INR (0.9-1.3) APTT (26-36) SECONDS D-Dimer (<500) ng/ml ABG pH (7.35-7.45) ABG pCO2 (35-45) mmHg ABG pO2 (80-100) mmHg ABG HCO3 (22-26) mmol/L ABG Total CO2 (21-31) mmol/L ABG O2 Saturation (95-100) % ABG Base Excess (-2-2) mmol/L VBG pH (7.33-7.43) VBG pCO2 (45-50) mmHg VBG pO2 (35-45) mmHg VBG HCO3 (23-28) mmol/L VBG Total CO2 (24-29) mmol/L VBG O2 Saturation (70-75) % VBG Base Excess (0-4) mmol/L FiO2 Sodium (137-145) mmol/L Potassium (3.4-5.1) mmol/L Chloride (98-107) mmol/L Carbon Dioxide (22-32) mmol/L BUN (7-17) mg/dL Creatinine (0.52-1.04) mg/dL Estimated GFR (>60) mL/min BUN/Creatinine Ratio (6-22) Glucose (80-110) mg/dL Lactate 1.5 (0.7-2.1) mmol/L Calcium (8.4-10.2) mg/dL Ionized Calcium [place] (4.5-5.6) mg/dL Phosphorus (2.8-4.1) mg/dL Magnesium (1.6-2.3) mg/dL Total Bilirubin 0.6 (0.2-1.3) mg/dL Conjugated Bilirubin 0.0 (0.0-0.3) md/dL Unconjugated Bilirubin 0.2 (0.0-1.1) mg/dL AST 42 H (14-36) IU/L ALT 20 (<35) IU/L Alkaline Phosphatase 269 H (38-126) U/L Total Creatine Kinase (30-135) U/L CK-MB (CK-2) CK-MB (CK-2) Rel Index Troponin I (0.01-0.034) ng/mL NT-Pro-B Natriuret Pep (<125) pg/mL Total Protein 6.3 (6.3-8.2) g/dL Albumin 2.7 L (3.5-5.0) g/dL Globulin 3.6 (1.7-4.1) g/dL Albumin/Globulin Ratio 0.8 L (1.0-2.8) Lipase (23-300) U/L Procalcitonin 0.88 H (<0.5) ng/mL Urine Color Urine Appearance Urine pH (4.5-8.0) Ur Specific [place] (1.000-1.035) Urine Protein (Negative) Urine Glucose (UA) (Negative) g/dL Urine Ketones (NEGATIVE) Urine Occult Blood (Negative) Urine Nitrate (Negative) Urine Bilirubin (NEGATIVE) Urine Urobilinogen (0.2) E.U./dL Ur Leukocyte Esterase (NEGATIVE) Urine RBC (0-5/HPF) Urine WBC (0-5/HPF) Ur Squamous Epith Cells (0-5/HPF) Urine Bacteria (None) Urine Mucus (Negative) Ur Culture Indicated? Ur Random Sodium (30-90) mmol/L Urine Creatinine mg/dL Ketones (<0.27) mmol/L SARS-CoV-2 (PCR) (Negative) Influenza A (RT-PCR) (NEGATIVE) Influenza B (RT-PCR) (NEGATIVE) RSV (PCR) (Negative) 05/26/22 05/26/22 05/26/22 Range/Units 20:00 21:22 21:22 WBC (4.5-11.0) X10^3/uL RBC (4.0-5.2) X10^6/uL Hgb (12.0-16.0) g/dL Hct (36-46) % MCV (80-100) fL MCH (26-34) PG MCHC (30-36) % RDW (11.6-14.8) % Plt Count (150-400) X10^3/uL Neut % (Auto) (50-75) % Lymph % (Auto) (25-40) % Major % (Auto) (3-14) % Eos % (Auto) (2-4) % Baso % (Auto) (0-2) % Neut # (Auto) (0940-4661) /uL Lymph # (Auto) (5588-7626) /uL Major # (Auto) (0-900) /uL Eos # (Auto) (0-450) /uL Baso # (Auto) (0-100) /uL Total Counted Seg Neutrophils % (38-70) % Band Neutrophils % (3-7) % Lymphocytes % (Manual) (25-45) % Monocytes % (Manual) (2-11) % Neutrophils # (Manual) (1008-8874) /uL Nucleated RBCs ( - 0) #/Diff RBC Morphology Hypochromasia Anisocytosis PT (10.1-12.7) SECONDS INR (0.9-1.3) APTT (26-36) SECONDS D-Dimer (<500) ng/ml ABG pH 7.36 (7.35-7.45) ABG pCO2 47.4 H (35-45) mmHg ABG pO2 63 L (80-100) mmHg ABG HCO3 27 H (22-26) mmol/L ABG Total CO2 28 (21-31) mmol/L ABG O2 Saturation 90 L (95-100) % ABG Base Excess 1.0 (-2-2) mmol/L VBG pH (7.33-7.43) VBG pCO2 (45-50) mmHg VBG pO2 (35-45) mmHg VBG HCO3 (23-28) mmol/L VBG Total CO2 (24-29) mmol/L VBG O2 Saturation (70-75) % VBG Base Excess (0-4) mmol/L FiO2 40 Sodium (137-145) mmol/L Potassium (3.4-5.1) mmol/L Chloride (98-107) mmol/L Carbon Dioxide (22-32) mmol/L BUN (7-17) mg/dL Creatinine (0.52-1.04) mg/dL Estimated GFR (>60) mL/min BUN/Creatinine Ratio (6-22) Glucose (80-110) mg/dL Lactate (0.7-2.1) mmol/L Calcium (8.4-10.2) mg/dL Ionized Calcium Hanna 5.1 (4.5-5.6) mg/dL Phosphorus (2.8-4.1) mg/dL Magnesium (1.6-2.3) mg/dL Total Bilirubin (0.2-1.3) mg/dL Conjugated Bilirubin (0.0-0.3) md/dL Unconjugated Bilirubin (0.0-1.1) mg/dL AST (14-36) IU/L ALT (<35) IU/L Alkaline Phosphatase (38-126) U/L Total Creatine Kinase (30-135) U/L CK-MB (CK-2) CK-MB (CK-2) Rel Index Troponin I (0.01-0.034) ng/mL NT-Pro-B Natriuret Pep (<125) pg/mL Total Protein (6.3-8.2) g/dL Albumin (3.5-5.0) g/dL Globulin (1.7-4.1) g/dL Albumin/Globulin Ratio (1.0-2.8) Lipase (23-300) U/L Procalcitonin (<0.5) ng/mL Urine Color Urine Appearance Urine pH (4.5-8.0) Ur Specific [place] (1.000-1.035) Urine Protein (Negative) Urine Glucose (UA) (Negative) g/dL Urine Ketones (NEGATIVE) Urine Occult Blood (Negative) Urine Nitrate (Negative) Urine Bilirubin (NEGATIVE) Urine Urobilinogen (0.2) E.U./dL Ur Leukocyte Esterase (NEGATIVE) Urine RBC (0-5/HPF) Urine WBC (0-5/HPF) Ur Squamous Epith Cells (0-5/HPF) Urine Bacteria (None) Urine Mucus (Negative) Ur Culture Indicated? Ur Random Sodium (30-90) mmol/L Urine Creatinine mg/dL Ketones 0.03 (<0.27) mmol/L SARS-CoV-2 (PCR) (Negative) Influenza A (RT-PCR) (NEGATIVE) Influenza B (RT-PCR) (NEGATIVE) RSV (PCR) (Negative) 05/26/22 05/26/22 Range/Units 21:30 22:50 WBC (4.5-11.0) X10^3/uL RBC (4.0-5.2) X10^6/uL Hgb (12.0-16.0) g/dL Hct (36-46) % MCV (80-100) fL MCH (26-34) PG MCHC (30-36) % RDW (11.6-14.8) % Plt Count (150-400) X10^3/uL Neut % (Auto) (50-75) % Lymph % (Auto) (25-40) % Major % (Auto) (3-14) % Eos % (Auto) (2-4) % Baso % (Auto) (0-2) % Neut # (Auto) (1000-0056) /uL Lymph # (Auto) (5046-2626) /uL Major # (Auto) (0-900) /uL Eos # (Auto) (0-450) /uL Baso # (Auto) (0-100) /uL Total Counted Seg Neutrophils % (38-70) % Band Neutrophils % (3-7) % Lymphocytes % (Manual) (25-45) % Monocytes % (Manual) (2-11) % Neutrophils # (Manual) (5362-1349) /uL Nucleated RBCs ( - 0) #/Diff RBC Morphology Hypochromasia Anisocytosis PT (10.1-12.7) SECONDS INR (0.9-1.3) APTT (26-36) SECONDS D-Dimer (<500) ng/ml ABG pH (7.35-7.45) ABG pCO2 (35-45) mmHg ABG pO2 (80-100) mmHg ABG HCO3 (22-26) mmol/L ABG Total CO2 (21-31) mmol/L ABG O2 Saturation (95-100) % ABG Base Excess (-2-2) mmol/L VBG pH (7.33-7.43) VBG pCO2 (45-50) mmHg VBG pO2 (35-45) mmHg VBG HCO3 (23-28) mmol/L VBG Total CO2 (24-29) mmol/L VBG O2 Saturation (70-75) % VBG Base Excess (0-4) mmol/L FiO2 Sodium (137-145) mmol/L Potassium (3.4-5.1) mmol/L Chloride (98-107) mmol/L Carbon Dioxide (22-32) mmol/L BUN (7-17) mg/dL Creatinine (0.52-1.04) mg/dL Estimated GFR (>60) mL/min BUN/Creatinine Ratio (6-22) Glucose (80-110) mg/dL Lactate 1.7 (0.7-2.1) mmol/L Calcium (8.4-10.2) mg/dL Ionized Calcium [place] (4.5-5.6) mg/dL Phosphorus (2.8-4.1) mg/dL Magnesium (1.6-2.3) mg/dL Total Bilirubin (0.2-1.3) mg/dL Conjugated Bilirubin (0.0-0.3) md/dL Unconjugated Bilirubin (0.0-1.1) mg/dL AST (14-36) IU/L ALT (<35) IU/L Alkaline Phosphatase (38-126) U/L Total Creatine Kinase (30-135) U/L CK-MB (CK-2) CK-MB (CK-2) Rel Index Troponin I (0.01-0.034) ng/mL NT-Pro-B Natriuret Pep (<125) pg/mL Total Protein (6.3-8.2) g/dL Albumin (3.5-5.0) g/dL Globulin (1.7-4.1) g/dL Albumin/Globulin Ratio (1.0-2.8) Lipase (23-300) U/L Procalcitonin (<0.5) ng/mL Urine Color Urine Appearance Urine pH (4.5-8.0) Ur Specific [place] (1.000-1.035) Urine Protein (Negative) Urine Glucose (UA) (Negative) g/dL Urine Ketones (NEGATIVE) Urine Occult Blood (Negative) Urine Nitrate (Negative) Urine Bilirubin (NEGATIVE) Urine Urobilinogen (0.2) E.U./dL Ur Leukocyte Esterase (NEGATIVE) Urine RBC (0-5/HPF) Urine WBC (0-5/HPF) Ur Squamous Epith Cells (0-5/HPF) Urine Bacteria (None) Urine Mucus (Negative) Ur Culture Indicated? Ur Random Sodium 84 (30-90) mmol/L Urine Creatinine 75.1 mg/dL Ketones (<0.27) mmol/L SARS-CoV-2 (PCR) (Negative) Influenza A (RT-PCR) (NEGATIVE) Influenza B (RT-PCR) (NEGATIVE) RSV (PCR) (Negative) Point of Care Testing Glucose POC 228 <Gentry Peace MD - Last Filed: 05/30/22 05:24> Lab Data Labs: Lab Results 05/22/22 05/22/22 05/22/22 Range/Units 17:34 17:34 17:34 WBC 12.1 H (4.5-11.0) X10^3/uL RBC 3.19 L (4.0-5.2) X10^6/uL Hgb 9.0 L (12.0-16.0) g/dL Hct 27.9 L (36-46) % MCV 87.3 (80-100) fL MCH 28.2 (26-34) PG MCHC 32.3 (30-36) % RDW 14.6 (11.6-14.8) % Plt Count 579 H (150-400) X10^3/uL Neut % (Auto) 86.4 H (50-75) % Lymph % (Auto) 6.3 L (25-40) % Major % (Auto) 6.1 (3-14) % Eos % (Auto) 0.1 L (2-4) % Baso % (Auto) 1.1 (0-2) % Neut # (Auto) 75507 H (9044-5271) /uL Lymph # (Auto) 800 L (6838-0514) /uL Major # (Auto) 700 (0-900) /uL Eos # (Auto) 0 (0-450) /uL Baso # (Auto) 100 (0-100) /uL Total Counted Seg Neutrophils % (38-70) % Band Neutrophils % (3-7) % Lymphocytes % (Manual) (25-45) % Monocytes % (Manual) (2-11) % Neutrophils # (Manual) (4339-1101) /uL Nucleated RBCs ( - 0) #/Diff RBC Morphology Hypochromasia Anisocytosis PT 13.6 H (10.1-12.7) SECONDS INR 1.2 (0.9-1.3) APTT 27 (26-36) SECONDS D-Dimer (<500) ng/ml ABG pH (7.35-7.45) ABG pCO2 (35-45) mmHg ABG pO2 (80-100) mmHg ABG HCO3 (22-26) mmol/L ABG Total CO2 (21-31) mmol/L ABG O2 Saturation (95-100) % ABG Base Excess (-2-2) mmol/L VBG pH (7.33-7.43) VBG pCO2 (45-50) mmHg VBG pO2 (35-45) mmHg VBG HCO3 (23-28) mmol/L VBG Total CO2 (24-29) mmol/L VBG O2 Saturation (70-75) % VBG Base Excess (0-4) mmol/L FiO2 Sodium 144 (137-145) mmol/L Potassium 4.4 (3.4-5.1) mmol/L Chloride 111 H (98-107) mmol/L Carbon Dioxide 24 (22-32) mmol/L BUN 34 H (7-17) mg/dL Creatinine 1.53 H (0.52-1.04) mg/dL Estimated GFR 35 L (>60) mL/min BUN/Creatinine Ratio 22.2 H (6-22) Glucose 107 (80-110) mg/dL Lactate (0.7-2.1) mmol/L Calcium 8.6 (8.4-10.2) mg/dL Ionized Calcium [place] (4.5-5.6) mg/dL Phosphorus (2.8-4.1) mg/dL Magnesium 1.6 (1.6-2.3) mg/dL Total Bilirubin 0.3 (0.2-1.3) mg/dL Conjugated Bilirubin (0.0-0.3) md/dL Unconjugated Bilirubin (0.0-1.1) mg/dL AST 35 (14-36) IU/L ALT 18 (<35) IU/L Alkaline Phosphatase 351 H (38-126) U/L Total Creatine Kinase 48 (30-135) U/L CK-MB (CK-2) TNP CK-MB (CK-2) Rel Index TNP Troponin I 0.103 H (0.01-0.034) ng/mL NT-Pro-B Natriuret Pep (<125) pg/mL Total Protein 7.2 (6.3-8.2) g/dL Albumin 3.4 L (3.5-5.0) g/dL Globulin 3.8 (1.7-4.1) g/dL Albumin/Globulin Ratio 0.9 L (1.0-2.8) Lipase 112 (23-300) U/L Procalcitonin (<0.5) ng/mL Urine Color Urine Appearance Urine pH (4.5-8.0) Ur Specific [place] (1.000-1.035) Urine Protein (Negative) Urine Glucose (UA) (Negative) g/dL Urine Ketones (NEGATIVE) Urine Occult Blood (Negative) Urine Nitrate (Negative) Urine Bilirubin (NEGATIVE) Urine Urobilinogen (0.2) E.U./dL Ur Leukocyte Esterase (NEGATIVE) Urine RBC (0-5/HPF) Urine WBC (0-5/HPF) Ur Squamous Epith Cells (0-5/HPF) Urine Bacteria (None) Urine Mucus (Negative) Ur Culture Indicated? Ur Random Sodium (30-90) mmol/L Urine Creatinine mg/dL Ketones (<0.27) mmol/L SARS-CoV-2 (PCR) (Negative) Influenza A (RT-PCR) (NEGATIVE) Influenza B (RT-PCR) (NEGATIVE) RSV (PCR) (Negative) 05/22/22 05/22/22 05/22/22 Range/Units 17:34 17:34 18:05 WBC (4.5-11.0) X10^3/uL RBC (4.0-5.2) X10^6/uL Hgb (12.0-16.0) g/dL Hct (36-46) % MCV (80-100) fL MCH (26-34) PG MCHC (30-36) % RDW (11.6-14.8) % Plt Count (150-400) X10^3/uL Neut % (Auto) (50-75) % Lymph % (Auto) (25-40) % Major % (Auto) (3-14) % Eos % (Auto) (2-4) % Baso % (Auto) (0-2) % Neut # (Auto) (7777-1766) /uL Lymph # (Auto) (7886-2938) /uL Major # (Auto) (0-900) /uL Eos # (Auto) (0-450) /uL Baso # (Auto) (0-100) /uL Total Counted Seg Neutrophils % (38-70) % Band Neutrophils % (3-7) % Lymphocytes % (Manual) (25-45) % Monocytes % (Manual) (2-11) % Neutrophils # (Manual) (8702-9771) /uL Nucleated RBCs ( - 0) #/Diff RBC Morphology Hypochromasia Anisocytosis PT (10.1-12.7) SECONDS INR (0.9-1.3) APTT (26-36) SECONDS D-Dimer 09189 H (<500) ng/ml ABG pH (7.35-7.45) ABG pCO2 (35-45) mmHg ABG pO2 (80-100) mmHg ABG HCO3 (22-26) mmol/L ABG Total CO2 (21-31) mmol/L ABG O2 Saturation (95-100) % ABG Base Excess (-2-2) mmol/L VBG pH (7.33-7.43) VBG pCO2 (45-50) mmHg VBG pO2 (35-45) mmHg VBG HCO3 (23-28) mmol/L VBG Total CO2 (24-29) mmol/L VBG O2 Saturation (70-75) % VBG Base Excess (0-4) mmol/L FiO2 Sodium (137-145) mmol/L Potassium (3.4-5.1) mmol/L Chloride (98-107) mmol/L Carbon Dioxide (22-32) mmol/L BUN (7-17) mg/dL Creatinine (0.52-1.04) mg/dL Estimated GFR (>60) mL/min BUN/Creatinine Ratio (6-22) Glucose (80-110) mg/dL Lactate (0.7-2.1) mmol/L Calcium (8.4-10.2) mg/dL Ionized Calcium [place] (4.5-5.6) mg/dL Phosphorus (2.8-4.1) mg/dL Magnesium (1.6-2.3) mg/dL Total Bilirubin (0.2-1.3) mg/dL Conjugated Bilirubin (0.0-0.3) md/dL Unconjugated Bilirubin (0.0-1.1) mg/dL AST (14-36) IU/L ALT (<35) IU/L Alkaline Phosphatase (38-126) U/L Total Creatine Kinase (30-135) U/L CK-MB (CK-2) CK-MB (CK-2) Rel Index Troponin I (0.01-0.034) ng/mL NT-Pro-B Natriuret Pep 6350 H (<125) pg/mL Total Protein (6.3-8.2) g/dL Albumin (3.5-5.0) g/dL Globulin (1.7-4.1) g/dL Albumin/Globulin Ratio (1.0-2.8) Lipase (23-300) U/L Procalcitonin (<0.5) ng/mL Urine Color Urine Appearance Urine pH (4.5-8.0) Ur Specific [place] (1.000-1.035) Urine Protein (Negative) Urine Glucose (UA) (Negative) g/dL Urine Ketones (NEGATIVE) Urine Occult Blood (Negative) Urine Nitrate (Negative) Urine Bilirubin (NEGATIVE) Urine Urobilinogen (0.2) E.U./dL Ur Leukocyte Esterase (NEGATIVE) Urine RBC (0-5/HPF) Urine WBC (0-5/HPF) Ur Squamous Epith Cells (0-5/HPF) Urine Bacteria (None) Urine Mucus (Negative) Ur Culture Indicated? Ur Random Sodium (30-90) mmol/L Urine Creatinine mg/dL Ketones (<0.27) mmol/L SARS-CoV-2 (PCR) Negative (Negative) Influenza A (RT-PCR) Flu a negative (NEGATIVE) Influenza B (RT-PCR) Flu b negative (NEGATIVE) RSV (PCR) Negative (Negative) 05/22/22 05/23/22 05/23/22 Range/Units 18:55 02:40 02:40 WBC (4.5-11.0) X10^3/uL RBC (4.0-5.2) X10^6/uL Hgb (12.0-16.0) g/dL Hct (36-46) % MCV (80-100) fL MCH (26-34) PG MCHC (30-36) % RDW (11.6-14.8) % Plt Count (150-400) X10^3/uL Neut % (Auto) (50-75) % Lymph % (Auto) (25-40) % Major % (Auto) (3-14) % Eos % (Auto) (2-4) % Baso % (Auto) (0-2) % Neut # (Auto) (6833-3017) /uL Lymph # (Auto) (6923-7245) /uL Major # (Auto) (0-900) /uL Eos # (Auto) (0-450) /uL Baso # (Auto) (0-100) /uL Total Counted Seg Neutrophils % (38-70) % Band Neutrophils % (3-7) % Lymphocytes % (Manual) (25-45) % Monocytes % (Manual) (2-11) % Neutrophils # (Manual) (8614-0587) /uL Nucleated RBCs ( - 0) #/Diff RBC Morphology Hypochromasia Anisocytosis PT (10.1-12.7) SECONDS INR (0.9-1.3) APTT 89 H* D (26-36) SECONDS D-Dimer (<500) ng/ml ABG pH (7.35-7.45) ABG pCO2 (35-45) mmHg ABG pO2 (80-100) mmHg ABG HCO3 (22-26) mmol/L ABG Total CO2 (21-31) mmol/L ABG O2 Saturation (95-100) % ABG Base Excess (-2-2) mmol/L VBG pH (7.33-7.43) VBG pCO2 (45-50) mmHg VBG pO2 (35-45) mmHg VBG HCO3 (23-28) mmol/L VBG Total CO2 (24-29) mmol/L VBG O2 Saturation (70-75) % VBG Base Excess (0-4) mmol/L FiO2 Sodium (137-145) mmol/L Potassium (3.4-5.1) mmol/L Chloride (98-107) mmol/L Carbon Dioxide (22-32) mmol/L BUN (7-17) mg/dL Creatinine (0.52-1.04) mg/dL Estimated GFR (>60) mL/min BUN/Creatinine Ratio (6-22) Glucose (80-110) mg/dL Lactate (0.7-2.1) mmol/L Calcium (8.4-10.2) mg/dL Ionized Calcium [place] (4.5-5.6) mg/dL Phosphorus (2.8-4.1) mg/dL Magnesium (1.6-2.3) mg/dL Total Bilirubin (0.2-1.3) mg/dL Conjugated Bilirubin (0.0-0.3) md/dL Unconjugated Bilirubin (0.0-1.1) mg/dL AST (14-36) IU/L ALT (<35) IU/L Alkaline Phosphatase (38-126) U/L Total Creatine Kinase (30-135) U/L CK-MB (CK-2) CK-MB (CK-2) Rel Index Troponin I 0.078 H (0.01-0.034) ng/mL NT-Pro-B Natriuret Pep (<125) pg/mL Total Protein (6.3-8.2) g/dL Albumin (3.5-5.0) g/dL Globulin (1.7-4.1) g/dL Albumin/Globulin Ratio (1.0-2.8) Lipase (23-300) U/L Procalcitonin (<0.5) ng/mL Urine Color Yellow Urine Appearance Clear Urine pH 5.0 (4.5-8.0) Ur Specific [place] 1.025 (1.000-1.035) Urine Protein 2+ H (Negative) Urine Glucose (UA) Negative (Negative) g/dL Urine Ketones Trace H (NEGATIVE) Urine Occult Blood Negative (Negative) Urine Nitrate Negative (Negative) Urine Bilirubin Negative (NEGATIVE) Urine Urobilinogen 0.2 (0.2) E.U./dL Ur Leukocyte Esterase Negative (NEGATIVE) Urine RBC 1-5/hpf (0-5/HPF) Urine WBC 1-5/hpf (0-5/HPF) Ur Squamous Epith Cells 0-1 /hpf (0-5/HPF) Urine Bacteria Occasional (0-1) (None) Urine Mucus 1+ H (Negative) Ur Culture Indicated? Cult not indicated Ur Random Sodium (30-90) mmol/L Urine Creatinine mg/dL Ketones (<0.27) mmol/L SARS-CoV-2 (PCR) (Negative) Influenza A (RT-PCR) (NEGATIVE) Influenza B (RT-PCR) (NEGATIVE) RSV (PCR) (Negative) 05/23/22 05/23/22 05/23/22 Range/Units 08:30 09:40 09:40 WBC 9.6 (4.5-11.0) X10^3/uL RBC 3.04 L (4.0-5.2) X10^6/uL Hgb 8.7 L (12.0-16.0) g/dL Hct 26.9 L (36-46) % MCV 88.5 (80-100) fL MCH 28.7 (26-34) PG MCHC 32.4 (30-36) % RDW 14.4 (11.6-14.8) % Plt Count 519 H (150-400) X10^3/uL Neut % (Auto) 74.6 (50-75) % Lymph % (Auto) 11.6 L (25-40) % Major % (Auto) 11.9 (3-14) % Eos % (Auto) 1.2 L (2-4) % Baso % (Auto) 0.7 (0-2) % Neut # (Auto) 7200 H (4798-2023) /uL Lymph # (Auto) 1100 (5561-8115) /uL Major # (Auto) 1100 H (0-900) /uL Eos # (Auto) 100 (0-450) /uL Baso # (Auto) 100 (0-100) /uL Total Counted Seg Neutrophils % (38-70) % Band Neutrophils % (3-7) % Lymphocytes % (Manual) (25-45) % Monocytes % (Manual) (2-11) % Neutrophils # (Manual) (2857-3200) /uL Nucleated RBCs ( - 0) #/Diff RBC Morphology Hypochromasia Anisocytosis PT (10.1-12.7) SECONDS INR (0.9-1.3) APTT 62 H D (26-36) SECONDS D-Dimer (<500) ng/ml ABG pH (7.35-7.45) ABG pCO2 (35-45) mmHg ABG pO2 (80-100) mmHg ABG HCO3 (22-26) mmol/L ABG Total CO2 (21-31) mmol/L ABG O2 Saturation (95-100) % ABG Base Excess (-2-2) mmol/L VBG pH (7.33-7.43) VBG pCO2 (45-50) mmHg VBG pO2 (35-45) mmHg VBG HCO3 (23-28) mmol/L VBG Total CO2 (24-29) mmol/L VBG O2 Saturation (70-75) % VBG Base Excess (0-4) mmol/L FiO2 Sodium 144 (137-145) mmol/L Potassium 4.1 (3.4-5.1) mmol/L Chloride 112 H (98-107) mmol/L Carbon Dioxide 26 (22-32) mmol/L BUN 27 H (7-17) mg/dL Creatinine 1.14 H (0.52-1.04) mg/dL Estimated GFR 51 L (>60) mL/min BUN/Creatinine Ratio 23.7 H (6-22) Glucose 109 (80-110) mg/dL Lactate (0.7-2.1) mmol/L Calcium 8.3 L (8.4-10.2) mg/dL Ionized Calcium Hanna (4.5-5.6) mg/dL Phosphorus (2.8-4.1) mg/dL Magnesium (1.6-2.3) mg/dL Total Bilirubin 0.2 (0.2-1.3) mg/dL Conjugated Bilirubin (0.0-0.3) md/dL Unconjugated Bilirubin (0.0-1.1) mg/dL AST 34 (14-36) IU/L ALT 14 (<35) IU/L Alkaline Phosphatase 283 H (38-126) U/L Total Creatine Kinase (30-135) U/L CK-MB (CK-2) CK-MB (CK-2) Rel Index Troponin I 0.078 H (0.01-0.034) ng/mL NT-Pro-B Natriuret Pep 4150 H (<125) pg/mL Total Protein 6.6 (6.3-8.2) g/dL Albumin 3.1 L (3.5-5.0) g/dL Globulin 3.5 (1.7-4.1) g/dL Albumin/Globulin Ratio 0.9 L (1.0-2.8) Lipase (23-300) U/L Procalcitonin (<0.5) ng/mL Urine Color Urine Appearance Urine pH (4.5-8.0) Ur Specific [place] (1.000-1.035) Urine Protein (Negative) Urine Glucose (UA) (Negative) g/dL Urine Ketones (NEGATIVE) Urine Occult Blood (Negative) Urine Nitrate (Negative) Urine Bilirubin (NEGATIVE) Urine Urobilinogen (0.2) E.U./dL Ur Leukocyte Esterase (NEGATIVE) Urine RBC (0-5/HPF) Urine WBC (0-5/HPF) Ur Squamous Epith Cells (0-5/HPF) Urine Bacteria (None) Urine Mucus (Negative) Ur Culture Indicated? Ur Random Sodium (30-90) mmol/L Urine Creatinine mg/dL Ketones (<0.27) mmol/L SARS-CoV-2 (PCR) (Negative) Influenza A (RT-PCR) (NEGATIVE) Influenza B (RT-PCR) (NEGATIVE) RSV (PCR) (Negative) 05/23/22 05/23/22 05/24/22 Range/Units 14:21 14:21 05:00 WBC (4.5-11.0) X10^3/uL RBC (4.0-5.2) X10^6/uL Hgb (12.0-16.0) g/dL Hct (36-46) % MCV (80-100) fL MCH (26-34) PG MCHC (30-36) % RDW (11.6-14.8) % Plt Count (150-400) X10^3/uL Neut % (Auto) (50-75) % Lymph % (Auto) (25-40) % Major % (Auto) (3-14) % Eos % (Auto) (2-4) % Baso % (Auto) (0-2) % Neut # (Auto) (3949-4343) /uL Lymph # (Auto) (3798-0771) /uL Major # (Auto) (0-900) /uL Eos # (Auto) (0-450) /uL Baso # (Auto) (0-100) /uL Total Counted Seg Neutrophils % (38-70) % Band Neutrophils % (3-7) % Lymphocytes % (Manual) (25-45) % Monocytes % (Manual) (2-11) % Neutrophils # (Manual) (4578-4247) /uL Nucleated RBCs ( - 0) #/Diff RBC Morphology Hypochromasia Anisocytosis PT (10.1-12.7) SECONDS INR (0.9-1.3) APTT 69 H 55 H D (26-36) SECONDS D-Dimer (<500) ng/ml ABG pH (7.35-7.45) ABG pCO2 (35-45) mmHg ABG pO2 (80-100) mmHg ABG HCO3 (22-26) mmol/L ABG Total CO2 (21-31) mmol/L ABG O2 Saturation (95-100) % ABG Base Excess (-2-2) mmol/L VBG pH (7.33-7.43) VBG pCO2 (45-50) mmHg VBG pO2 (35-45) mmHg VBG HCO3 (23-28) mmol/L VBG Total CO2 (24-29) mmol/L VBG O2 Saturation (70-75) % VBG Base Excess (0-4) mmol/L FiO2 Sodium (137-145) mmol/L Potassium (3.4-5.1) mmol/L Chloride (98-107) mmol/L Carbon Dioxide (22-32) mmol/L BUN (7-17) mg/dL Creatinine (0.52-1.04) mg/dL Estimated GFR (>60) mL/min BUN/Creatinine Ratio (6-22) Glucose (80-110) mg/dL Lactate (0.7-2.1) mmol/L Calcium (8.4-10.2) mg/dL Ionized Calcium [place] (4.5-5.6) mg/dL Phosphorus (2.8-4.1) mg/dL Magnesium (1.6-2.3) mg/dL Total Bilirubin (0.2-1.3) mg/dL Conjugated Bilirubin (0.0-0.3) md/dL Unconjugated Bilirubin (0.0-1.1) mg/dL AST (14-36) IU/L ALT (<35) IU/L Alkaline Phosphatase (38-126) U/L Total Creatine Kinase (30-135) U/L CK-MB (CK-2) CK-MB (CK-2) Rel Index Troponin I 0.075 H (0.01-0.034) ng/mL NT-Pro-B Natriuret Pep (<125) pg/mL Total Protein (6.3-8.2) g/dL Albumin (3.5-5.0) g/dL Globulin (1.7-4.1) g/dL Albumin/Globulin Ratio (1.0-2.8) Lipase (23-300) U/L Procalcitonin (<0.5) ng/mL Urine Color Urine Appearance Urine pH (4.5-8.0) Ur Specific [place] (1.000-1.035) Urine Protein (Negative) Urine Glucose (UA) (Negative) g/dL Urine Ketones (NEGATIVE) Urine Occult Blood (Negative) Urine Nitrate (Negative) Urine Bilirubin (NEGATIVE) Urine Urobilinogen (0.2) E.U./dL Ur Leukocyte Esterase (NEGATIVE) Urine RBC (0-5/HPF) Urine WBC (0-5/HPF) Ur Squamous Epith Cells (0-5/HPF) Urine Bacteria (None) Urine Mucus (Negative) Ur Culture Indicated? Ur Random Sodium (30-90) mmol/L Urine Creatinine mg/dL Ketones (<0.27) mmol/L SARS-CoV-2 (PCR) (Negative) Influenza A (RT-PCR) (NEGATIVE) Influenza B (RT-PCR) (NEGATIVE) RSV (PCR) (Negative) 05/24/22 05/24/22 05/24/22 Range/Units 05:00 07:15 07:20 WBC 9.9 (4.5-11.0) X10^3/uL RBC 3.14 L (4.0-5.2) X10^6/uL Hgb 8.9 L (12.0-16.0) g/dL Hct 28.2 L (36-46) % MCV 89.9 (80-100) fL MCH 28.2 (26-34) PG MCHC 31.3 (30-36) % RDW 15.1 H (11.6-14.8) % Plt Count 610 H (150-400) X10^3/uL Neut % (Auto) 85.0 H (50-75) % Lymph % (Auto) 6.1 L (25-40) % Major % (Auto) 8.1 (3-14) % Eos % (Auto) 0.1 L (2-4) % Baso % (Auto) 0.7 (0-2) % Neut # (Auto) 8400 H (9922-9099) /uL Lymph # (Auto) 600 L (9589-1303) /uL Major # (Auto) 800 (0-900) /uL Eos # (Auto) 0 (0-450) /uL Baso # (Auto) 100 (0-100) /uL Total Counted Seg Neutrophils % (38-70) % Band Neutrophils % (3-7) % Lymphocytes % (Manual) (25-45) % Monocytes % (Manual) (2-11) % Neutrophils # (Manual) (9880-2917) /uL Nucleated RBCs ( - 0) #/Diff RBC Morphology Hypochromasia Anisocytosis PT (10.1-12.7) SECONDS INR (0.9-1.3) APTT (26-36) SECONDS D-Dimer (<500) ng/ml ABG pH 7.19 L* (7.35-7.45) ABG pCO2 65.9 H* (35-45) mmHg ABG pO2 178 H (80-100) mmHg ABG HCO3 25 (22-26) mmol/L ABG Total CO2 27 (21-31) mmol/L ABG O2 Saturation 99 (95-100) % ABG Base Excess -3.0 L (-2-2) mmol/L VBG pH 7.15 L* (7.33-7.43) VBG pCO2 72.1 H (45-50) mmHg VBG pO2 55 H (35-45) mmHg VBG HCO3 25 (23-28) mmol/L VBG Total CO2 27 (24-29) mmol/L VBG O2 Saturation 76 H (70-75) % VBG Base Excess -4.0 L (0-4) mmol/L FiO2 100 Sodium (137-145) mmol/L Potassium (3.4-5.1) mmol/L Chloride (98-107) mmol/L Carbon Dioxide (22-32) mmol/L BUN (7-17) mg/dL Creatinine (0.52-1.04) mg/dL Estimated GFR (>60) mL/min BUN/Creatinine Ratio (6-22) Glucose (80-110) mg/dL Lactate (0.7-2.1) mmol/L Calcium (8.4-10.2) mg/dL Ionized Calcium [place] (4.5-5.6) mg/dL Phosphorus (2.8-4.1) mg/dL Magnesium (1.6-2.3) mg/dL Total Bilirubin (0.2-1.3) mg/dL Conjugated Bilirubin (0.0-0.3) md/dL Unconjugated Bilirubin (0.0-1.1) mg/dL AST (14-36) IU/L ALT (<35) IU/L Alkaline Phosphatase (38-126) U/L Total Creatine Kinase (30-135) U/L CK-MB (CK-2) CK-MB (CK-2) Rel Index Troponin I (0.01-0.034) ng/mL NT-Pro-B Natriuret Pep (<125) pg/mL Total Protein (6.3-8.2) g/dL Albumin (3.5-5.0) g/dL Globulin (1.7-4.1) g/dL Albumin/Globulin Ratio (1.0-2.8) Lipase (23-300) U/L Procalcitonin (<0.5) ng/mL Urine Color Urine Appearance Urine pH (4.5-8.0) Ur Specific [place] (1.000-1.035) Urine Protein (Negative) Urine Glucose (UA) (Negative) g/dL Urine Ketones (NEGATIVE) Urine Occult Blood (Negative) Urine Nitrate (Negative) Urine Bilirubin (NEGATIVE) Urine Urobilinogen (0.2) E.U./dL Ur Leukocyte Esterase (NEGATIVE) Urine RBC (0-5/HPF) Urine WBC (0-5/HPF) Ur Squamous Epith Cells (0-5/HPF) Urine Bacteria (None) Urine Mucus (Negative) Ur Culture Indicated? Ur Random Sodium (30-90) mmol/L Urine Creatinine mg/dL Ketones (<0.27) mmol/L SARS-CoV-2 (PCR) (Negative) Influenza A (RT-PCR) (NEGATIVE) Influenza B (RT-PCR) (NEGATIVE) RSV (PCR) (Negative) 05/24/22 05/24/22 05/24/22 Range/Units 07:33 07:33 07:33 WBC (4.5-11.0) X10^3/uL RBC (4.0-5.2) X10^6/uL Hgb (12.0-16.0) g/dL Hct (36-46) % MCV (80-100) fL MCH (26-34) PG MCHC (30-36) % RDW (11.6-14.8) % Plt Count (150-400) X10^3/uL Neut % (Auto) (50-75) % Lymph % (Auto) (25-40) % Major % (Auto) (3-14) % Eos % (Auto) (2-4) % Baso % (Auto) (0-2) % Neut # (Auto) (0793-1241) /uL Lymph # (Auto) (3173-2893) /uL Major # (Auto) (0-900) /uL Eos # (Auto) (0-450) /uL Baso # (Auto) (0-100) /uL Total Counted Seg Neutrophils % (38-70) % Band Neutrophils % (3-7) % Lymphocytes % (Manual) (25-45) % Monocytes % (Manual) (2-11) % Neutrophils # (Manual) (1949-4678) /uL Nucleated RBCs ( - 0) #/Diff RBC Morphology Hypochromasia Anisocytosis PT (10.1-12.7) SECONDS INR (0.9-1.3) APTT (26-36) SECONDS D-Dimer (<500) ng/ml ABG pH (7.35-7.45) ABG pCO2 (35-45) mmHg ABG pO2 (80-100) mmHg ABG HCO3 (22-26) mmol/L ABG Total CO2 (21-31) mmol/L ABG O2 Saturation (95-100) % ABG Base Excess (-2-2) mmol/L VBG pH (7.33-7.43) VBG pCO2 (45-50) mmHg VBG pO2 (35-45) mmHg VBG HCO3 (23-28) mmol/L VBG Total CO2 (24-29) mmol/L VBG O2 Saturation (70-75) % VBG Base Excess (0-4) mmol/L FiO2 Sodium Cancelled 142 (137-145) mmol/L Potassium Cancelled 5.2 H (3.4-5.1) mmol/L Chloride Cancelled 110 H (98-107) mmol/L Carbon Dioxide Cancelled 22 (22-32) mmol/L BUN Cancelled 26 H (7-17) mg/dL Creatinine Cancelled 1.94 H (0.52-1.04) mg/dL Estimated GFR Cancelled 27 L (>60) mL/min BUN/Creatinine Ratio Cancelled 13.4 (6-22) Glucose Cancelled 173 H (80-110) mg/dL Lactate (0.7-2.1) mmol/L Calcium Cancelled 7.8 L (8.4-10.2) mg/dL Ionized Calcium Hanna (4.5-5.6) mg/dL Phosphorus (2.8-4.1) mg/dL Magnesium (1.6-2.3) mg/dL Total Bilirubin 0.1 L (0.2-1.3) mg/dL Conjugated Bilirubin (0.0-0.3) md/dL Unconjugated Bilirubin (0.0-1.1) mg/dL AST 77 H (14-36) IU/L ALT 18 (<35) IU/L Alkaline Phosphatase 287 H (38-126) U/L Total Creatine Kinase (30-135) U/L CK-MB (CK-2) CK-MB (CK-2) Rel Index Troponin I 0.076 H (0.01-0.034) ng/mL NT-Pro-B Natriuret Pep 4950 H (<125) pg/mL Total Protein 6.7 (6.3-8.2) g/dL Albumin 3.1 L (3.5-5.0) g/dL Globulin 3.6 (1.7-4.1) g/dL Albumin/Globulin Ratio 0.9 L (1.0-2.8) Lipase (23-300) U/L Procalcitonin (<0.5) ng/mL Urine Color Urine Appearance Urine pH (4.5-8.0) Ur Specific [place] (1.000-1.035) Urine Protein (Negative) Urine Glucose (UA) (Negative) g/dL Urine Ketones (NEGATIVE) Urine Occult Blood (Negative) Urine Nitrate (Negative) Urine Bilirubin (NEGATIVE) Urine Urobilinogen (0.2) E.U./dL Ur Leukocyte Esterase (NEGATIVE) Urine RBC (0-5/HPF) Urine WBC (0-5/HPF) Ur Squamous Epith Cells (0-5/HPF) Urine Bacteria (None) Urine Mucus (Negative) Ur Culture Indicated? Ur Random Sodium (30-90) mmol/L Urine Creatinine mg/dL Ketones (<0.27) mmol/L SARS-CoV-2 (PCR) (Negative) Influenza A (RT-PCR) (NEGATIVE) Influenza B (RT-PCR) (NEGATIVE) RSV (PCR) (Negative) 05/24/22 05/24/22 05/24/22 Range/Units 14:23 15:06 15:30 WBC (4.5-11.0) X10^3/uL RBC (4.0-5.2) X10^6/uL Hgb (12.0-16.0) g/dL Hct (36-46) % MCV (80-100) fL MCH (26-34) PG MCHC (30-36) % RDW (11.6-14.8) % Plt Count (150-400) X10^3/uL Neut % (Auto) (50-75) % Lymph % (Auto) (25-40) % Major % (Auto) (3-14) % Eos % (Auto) (2-4) % Baso % (Auto) (0-2) % Neut # (Auto) (2141-9506) /uL Lymph # (Auto) (9164-4587) /uL Major # (Auto) (0-900) /uL Eos # (Auto) (0-450) /uL Baso # (Auto) (0-100) /uL Total Counted Seg Neutrophils % (38-70) % Band Neutrophils % (3-7) % Lymphocytes % (Manual) (25-45) % Monocytes % (Manual) (2-11) % Neutrophils # (Manual) (2521-5024) /uL Nucleated RBCs ( - 0) #/Diff RBC Morphology Hypochromasia Anisocytosis PT (10.1-12.7) SECONDS INR (0.9-1.3) APTT 63 H (26-36) SECONDS D-Dimer (<500) ng/ml ABG pH 7.33 L (7.35-7.45) ABG pCO2 38.3 (35-45) mmHg ABG pO2 61 L (80-100) mmHg ABG HCO3 20 L (22-26) mmol/L ABG Total CO2 21 (21-31) mmol/L ABG O2 Saturation 90 L (95-100) % ABG Base Excess -6.0 L (-2-2) mmol/L VBG pH (7.33-7.43) VBG pCO2 (45-50) mmHg VBG pO2 (35-45) mmHg VBG HCO3 (23-28) mmol/L VBG Total CO2 (24-29) mmol/L VBG O2 Saturation (70-75) % VBG Base Excess (0-4) mmol/L FiO2 50 Sodium (137-145) mmol/L Potassium (3.4-5.1) mmol/L Chloride (98-107) mmol/L Carbon Dioxide (22-32) mmol/L BUN (7-17) mg/dL Creatinine (0.52-1.04) mg/dL Estimated GFR (>60) mL/min BUN/Creatinine Ratio (6-22) Glucose (80-110) mg/dL Lactate 2.1 (0.7-2.1) mmol/L Calcium (8.4-10.2) mg/dL Ionized Calcium Hanna (4.5-5.6) mg/dL Phosphorus (2.8-4.1) mg/dL Magnesium (1.6-2.3) mg/dL Total Bilirubin (0.2-1.3) mg/dL Conjugated Bilirubin (0.0-0.3) md/dL Unconjugated Bilirubin (0.0-1.1) mg/dL AST (14-36) IU/L ALT (<35) IU/L Alkaline Phosphatase (38-126) U/L Total Creatine Kinase (30-135) U/L CK-MB (CK-2) CK-MB (CK-2) Rel Index Troponin I (0.01-0.034) ng/mL NT-Pro-B Natriuret Pep (<125) pg/mL Total Protein (6.3-8.2) g/dL Albumin (3.5-5.0) g/dL Globulin (1.7-4.1) g/dL Albumin/Globulin Ratio (1.0-2.8) Lipase (23-300) U/L Procalcitonin (<0.5) ng/mL Urine Color Urine Appearance Urine pH (4.5-8.0) Ur Specific [place] (1.000-1.035) Urine Protein (Negative) Urine Glucose (UA) (Negative) g/dL Urine Ketones (NEGATIVE) Urine Occult Blood (Negative) Urine Nitrate (Negative) Urine Bilirubin (NEGATIVE) Urine Urobilinogen (0.2) E.U./dL Ur Leukocyte Esterase (NEGATIVE) Urine RBC (0-5/HPF) Urine WBC (0-5/HPF) Ur Squamous Epith Cells (0-5/HPF) Urine Bacteria (None) Urine Mucus (Negative) Ur Culture Indicated? Ur Random Sodium (30-90) mmol/L Urine Creatinine mg/dL Ketones (<0.27) mmol/L SARS-CoV-2 (PCR) (Negative) Influenza A (RT-PCR) (NEGATIVE) Influenza B (RT-PCR) (NEGATIVE) RSV (PCR) (Negative) 05/24/22 05/24/22 05/24/22 Range/Units 15:32 15:32 22:00 WBC 11.7 H (4.5-11.0) X10^3/uL RBC 2.86 L (4.0-5.2) X10^6/uL Hgb 8.0 L (12.0-16.0) g/dL Hct 25.3 L (36-46) % MCV 88.5 (80-100) fL MCH 27.9 (26-34) PG MCHC 31.5 (30-36) % RDW 14.4 (11.6-14.8) % Plt Count 560 H (150-400) X10^3/uL Neut % (Auto) (50-75) % Lymph % (Auto) (25-40) % Major % (Auto) (3-14) % Eos % (Auto) (2-4) % Baso % (Auto) (0-2) % Neut # (Auto) (0126-2458) /uL Lymph # (Auto) (1575-7518) /uL Major # (Auto) (0-900) /uL Eos # (Auto) (0-450) /uL Baso # (Auto) (0-100) /uL Total Counted 100 Seg Neutrophils % 80.0 H (38-70) % Band Neutrophils % 1.0 L (3-7) % Lymphocytes % (Manual) 13.0 L (25-45) % Monocytes % (Manual) 6.0 (2-11) % Neutrophils # (Manual) 9477 H (5195-6385) /uL Nucleated RBCs 1 H ( - 0) #/Diff RBC Morphology See below Hypochromasia 1+ H Anisocytosis 1+ H PT (10.1-12.7) SECONDS INR (0.9-1.3) APTT (26-36) SECONDS D-Dimer (<500) ng/ml ABG pH (7.35-7.45) ABG pCO2 (35-45) mmHg ABG pO2 (80-100) mmHg ABG HCO3 (22-26) mmol/L ABG Total CO2 (21-31) mmol/L ABG O2 Saturation (95-100) % ABG Base Excess (-2-2) mmol/L VBG pH (7.33-7.43) VBG pCO2 (45-50) mmHg VBG pO2 (35-45) mmHg VBG HCO3 (23-28) mmol/L VBG Total CO2 (24-29) mmol/L VBG O2 Saturation (70-75) % VBG Base Excess (0-4) mmol/L FiO2 Sodium 140 (137-145) mmol/L Potassium 3.6 D (3.4-5.1) mmol/L Chloride 107 (98-107) mmol/L Carbon Dioxide 20 L (22-32) mmol/L BUN 29 H (7-17) mg/dL Creatinine 1.92 H (0.52-1.04) mg/dL Estimated GFR 27 L (>60) mL/min BUN/Creatinine Ratio 15.1 (6-22) Glucose 223 H (80-110) mg/dL Lactate 1.6 (0.7-2.1) mmol/L Calcium 7.7 L (8.4-10.2) mg/dL Ionized Calcium Hanna (4.5-5.6) mg/dL Phosphorus (2.8-4.1) mg/dL Magnesium 1.4 L (1.6-2.3) mg/dL Total Bilirubin 0.2 (0.2-1.3) mg/dL Conjugated Bilirubin (0.0-0.3) md/dL Unconjugated Bilirubin (0.0-1.1) mg/dL AST 28 (14-36) IU/L ALT 18 (<35) IU/L Alkaline Phosphatase 261 H (38-126) U/L Total Creatine Kinase 26 L (30-135) U/L CK-MB (CK-2) TNP CK-MB (CK-2) Rel Index TNP Troponin I 0.084 H (0.01-0.034) ng/mL NT-Pro-B Natriuret Pep (<125) pg/mL Total Protein 6.2 L (6.3-8.2) g/dL Albumin 2.8 L (3.5-5.0) g/dL Globulin 3.4 (1.7-4.1) g/dL Albumin/Globulin Ratio 0.8 L (1.0-2.8) Lipase (23-300) U/L Procalcitonin (<0.5) ng/mL Urine Color Urine Appearance Urine pH (4.5-8.0) Ur Specific [place] (1.000-1.035) Urine Protein (Negative) Urine Glucose (UA) (Negative) g/dL Urine Ketones (NEGATIVE) Urine Occult Blood (Negative) Urine Nitrate (Negative) Urine Bilirubin (NEGATIVE) Urine Urobilinogen (0.2) E.U./dL Ur Leukocyte Esterase (NEGATIVE) Urine RBC (0-5/HPF) Urine WBC (0-5/HPF) Ur Squamous Epith Cells (0-5/HPF) Urine Bacteria (None) Urine Mucus (Negative) Ur Culture Indicated? Ur Random Sodium (30-90) mmol/L Urine Creatinine mg/dL Ketones (<0.27) mmol/L SARS-CoV-2 (PCR) (Negative) Influenza A (RT-PCR) (NEGATIVE) Influenza B (RT-PCR) (NEGATIVE) RSV (PCR) (Negative) 05/25/22 05/25/22 05/25/22 Range/Units 00:23 05:00 05:00 WBC 12.3 H (4.5-11.0) X10^3/uL RBC 2.90 L (4.0-5.2) X10^6/uL Hgb 8.2 L (12.0-16.0) g/dL Hct 24.9 L (36-46) % MCV 86.0 (80-100) fL MCH 28.4 (26-34) PG MCHC 33.0 (30-36) % RDW 14.6 (11.6-14.8) % Plt Count 529 H (150-400) X10^3/uL Neut % (Auto) (50-75) % Lymph % (Auto) (25-40) % Major % (Auto) (3-14) % Eos % (Auto) (2-4) % Baso % (Auto) (0-2) % Neut # (Auto) (1476-3478) /uL Lymph # (Auto) (7127-9376) /uL Major # (Auto) (0-900) /uL Eos # (Auto) (0-450) /uL Baso # (Auto) (0-100) /uL Total Counted Seg Neutrophils % (38-70) % Band Neutrophils % (3-7) % Lymphocytes % (Manual) (25-45) % Monocytes % (Manual) (2-11) % Neutrophils # (Manual) (0084-7233) /uL Nucleated RBCs ( - 0) #/Diff RBC Morphology Hypochromasia Anisocytosis PT (10.1-12.7) SECONDS INR (0.9-1.3) APTT (26-36) SECONDS D-Dimer (<500) ng/ml ABG pH (7.35-7.45) ABG pCO2 (35-45) mmHg ABG pO2 (80-100) mmHg ABG HCO3 (22-26) mmol/L ABG Total CO2 (21-31) mmol/L ABG O2 Saturation (95-100) % ABG Base Excess (-2-2) mmol/L VBG pH 7.38 (7.33-7.43) VBG pCO2 37.0 L (45-50) mmHg VBG pO2 43 (35-45) mmHg VBG HCO3 22 L (23-28) mmol/L VBG Total CO2 23 L (24-29) mmol/L VBG O2 Saturation 78 H (70-75) % VBG Base Excess -3.0 L (0-4) mmol/L FiO2 Sodium 140 (137-145) mmol/L Potassium 3.6 (3.4-5.1) mmol/L Chloride 107 (98-107) mmol/L Carbon Dioxide 22 (22-32) mmol/L BUN 29 H (7-17) mg/dL Creatinine 1.62 H (0.52-1.04) mg/dL Estimated GFR 33 L (>60) mL/min BUN/Creatinine Ratio 17.9 (6-22) Glucose 198 H (80-110) mg/dL Lactate (0.7-2.1) mmol/L Calcium 8.0 L (8.4-10.2) mg/dL Ionized Calcium [place]anna (4.5-5.6) mg/dL Phosphorus (2.8-4.1) mg/dL Magnesium (1.6-2.3) mg/dL Total Bilirubin 0.2 (0.2-1.3) mg/dL Conjugated Bilirubin (0.0-0.3) md/dL Unconjugated Bilirubin (0.0-1.1) mg/dL AST 24 (14-36) IU/L ALT 15 (<35) IU/L Alkaline Phosphatase 265 H (38-126) U/L Total Creatine Kinase (30-135) U/L CK-MB (CK-2) CK-MB (CK-2) Rel Index Troponin I (0.01-0.034) ng/mL NT-Pro-B Natriuret Pep (<125) pg/mL Total Protein 6.1 L (6.3-8.2) g/dL Albumin 2.9 L (3.5-5.0) g/dL Globulin 3.2 (1.7-4.1) g/dL Albumin/Globulin Ratio 0.9 L (1.0-2.8) Lipase (23-300) U/L Procalcitonin (<0.5) ng/mL Urine Color Urine Appearance Urine pH (4.5-8.0) Ur Specific [place] (1.000-1.035) Urine Protein (Negative) Urine Glucose (UA) (Negative) g/dL Urine Ketones (NEGATIVE) Urine Occult Blood (Negative) Urine Nitrate (Negative) Urine Bilirubin (NEGATIVE) Urine Urobilinogen (0.2) E.U./dL Ur Leukocyte Esterase (NEGATIVE) Urine RBC (0-5/HPF) Urine WBC (0-5/HPF) Ur Squamous Epith Cells (0-5/HPF) Urine Bacteria (None) Urine Mucus (Negative) Ur Culture Indicated? Ur Random Sodium (30-90) mmol/L Urine Creatinine mg/dL Ketones (<0.27) mmol/L SARS-CoV-2 (PCR) (Negative) Influenza A (RT-PCR) (NEGATIVE) Influenza B (RT-PCR) (NEGATIVE) RSV (PCR) (Negative) 05/25/22 05/25/22 05/25/22 Range/Units 09:08 09:08 09:08 WBC (4.5-11.0) X10^3/uL RBC (4.0-5.2) X10^6/uL Hgb (12.0-16.0) g/dL Hct (36-46) % MCV (80-100) fL MCH (26-34) PG MCHC (30-36) % RDW (11.6-14.8) % Plt Count (150-400) X10^3/uL Neut % (Auto) (50-75) % Lymph % (Auto) (25-40) % Major % (Auto) (3-14) % Eos % (Auto) (2-4) % Baso % (Auto) (0-2) % Neut # (Auto) (8605-8587) /uL Lymph # (Auto) (5504-0561) /uL Major # (Auto) (0-900) /uL Eos # (Auto) (0-450) /uL Baso # (Auto) (0-100) /uL Total Counted Seg Neutrophils % (38-70) % Band Neutrophils % (3-7) % Lymphocytes % (Manual) (25-45) % Monocytes % (Manual) (2-11) % Neutrophils # (Manual) (2688-9285) /uL Nucleated RBCs ( - 0) #/Diff RBC Morphology Hypochromasia Anisocytosis PT (10.1-12.7) SECONDS INR (0.9-1.3) APTT 51 H D (26-36) SECONDS D-Dimer (<500) ng/ml ABG pH (7.35-7.45) ABG pCO2 (35-45) mmHg ABG pO2 (80-100) mmHg ABG HCO3 (22-26) mmol/L ABG Total CO2 (21-31) mmol/L ABG O2 Saturation (95-100) % ABG Base Excess (-2-2) mmol/L VBG pH (7.33-7.43) VBG pCO2 (45-50) mmHg VBG pO2 (35-45) mmHg VBG HCO3 (23-28) mmol/L VBG Total CO2 (24-29) mmol/L VBG O2 Saturation (70-75) % VBG Base Excess (0-4) mmol/L FiO2 Sodium 140 (137-145) mmol/L Potassium 3.5 (3.4-5.1) mmol/L Chloride 106 (98-107) mmol/L Carbon Dioxide 23 (22-32) mmol/L BUN 28 H (7-17) mg/dL Creatinine 1.47 H (0.52-1.04) mg/dL Estimated GFR 37 L (>60) mL/min BUN/Creatinine Ratio 19.0 (6-22) Glucose 164 H (80-110) mg/dL Lactate (0.7-2.1) mmol/L Calcium 8.0 L (8.4-10.2) mg/dL Ionized Calcium [place] (4.5-5.6) mg/dL Phosphorus 4.0 (2.8-4.1) mg/dL Magnesium 1.7 (1.6-2.3) mg/dL Total Bilirubin (0.2-1.3) mg/dL Conjugated Bilirubin (0.0-0.3) md/dL Unconjugated Bilirubin (0.0-1.1) mg/dL AST (14-36) IU/L ALT (<35) IU/L Alkaline Phosphatase (38-126) U/L Total Creatine Kinase (30-135) U/L CK-MB (CK-2) CK-MB (CK-2) Rel Index Troponin I 0.052 H (0.01-0.034) ng/mL NT-Pro-B Natriuret Pep 4140 H (<125) pg/mL Total Protein (6.3-8.2) g/dL Albumin (3.5-5.0) g/dL Globulin (1.7-4.1) g/dL Albumin/Globulin Ratio (1.0-2.8) Lipase (23-300) U/L Procalcitonin (<0.5) ng/mL Urine Color Urine Appearance Urine pH (4.5-8.0) Ur Specific [place] (1.000-1.035) Urine Protein (Negative) Urine Glucose (UA) (Negative) g/dL Urine Ketones (NEGATIVE) Urine Occult Blood (Negative) Urine Nitrate (Negative) Urine Bilirubin (NEGATIVE) Urine Urobilinogen (0.2) E.U./dL Ur Leukocyte Esterase (NEGATIVE) Urine RBC (0-5/HPF) Urine WBC (0-5/HPF) Ur Squamous Epith Cells (0-5/HPF) Urine Bacteria (None) Urine Mucus (Negative) Ur Culture Indicated? Ur Random Sodium (30-90) mmol/L Urine Creatinine mg/dL Ketones (<0.27) mmol/L SARS-CoV-2 (PCR) (Negative) Influenza A (RT-PCR) (NEGATIVE) Influenza B (RT-PCR) (NEGATIVE) RSV (PCR) (Negative) 05/25/22 05/25/22 05/25/22 Range/Units 09:08 10:13 10:50 WBC (4.5-11.0) X10^3/uL RBC (4.0-5.2) X10^6/uL Hgb (12.0-16.0) g/dL Hct (36-46) % MCV (80-100) fL MCH (26-34) PG MCHC (30-36) % RDW (11.6-14.8) % Plt Count (150-400) X10^3/uL Neut % (Auto) (50-75) % Lymph % (Auto) (25-40) % Major % (Auto) (3-14) % Eos % (Auto) (2-4) % Baso % (Auto) (0-2) % Neut # (Auto) (0993-7198) /uL Lymph # (Auto) (3477-1018) /uL Major # (Auto) (0-900) /uL Eos # (Auto) (0-450) /uL Baso # (Auto) (0-100) /uL Total Counted Seg Neutrophils % (38-70) % Band Neutrophils % (3-7) % Lymphocytes % (Manual) (25-45) % Monocytes % (Manual) (2-11) % Neutrophils # (Manual) (3109-1335) /uL Nucleated RBCs ( - 0) #/Diff RBC Morphology Hypochromasia Anisocytosis PT (10.1-12.7) SECONDS INR (0.9-1.3) APTT (26-36) SECONDS D-Dimer (<500) ng/ml ABG pH 7.42 (7.35-7.45) ABG pCO2 36.3 (35-45) mmHg ABG pO2 55 L (80-100) mmHg ABG HCO3 24 (22-26) mmol/L ABG Total CO2 25 (21-31) mmol/L ABG O2 Saturation 89 L (95-100) % ABG Base Excess -1.0 (-2-2) mmol/L VBG pH (7.33-7.43) VBG pCO2 (45-50) mmHg VBG pO2 (35-45) mmHg VBG HCO3 (23-28) mmol/L VBG Total CO2 (24-29) mmol/L VBG O2 Saturation (70-75) % VBG Base Excess (0-4) mmol/L FiO2 35 Sodium (137-145) mmol/L Potassium (3.4-5.1) mmol/L Chloride (98-107) mmol/L Carbon Dioxide (22-32) mmol/L BUN (7-17) mg/dL Creatinine (0.52-1.04) mg/dL Estimated GFR (>60) mL/min BUN/Creatinine Ratio (6-22) Glucose (80-110) mg/dL Lactate (0.7-2.1) mmol/L Calcium (8.4-10.2) mg/dL Ionized Calcium [place] (4.5-5.6) mg/dL Phosphorus (2.8-4.1) mg/dL Magnesium (1.6-2.3) mg/dL Total Bilirubin (0.2-1.3) mg/dL Conjugated Bilirubin (0.0-0.3) md/dL Unconjugated Bilirubin (0.0-1.1) mg/dL AST (14-36) IU/L ALT (<35) IU/L Alkaline Phosphatase (38-126) U/L Total Creatine Kinase (30-135) U/L CK-MB (CK-2) CK-MB (CK-2) Rel Index Troponin I (0.01-0.034) ng/mL NT-Pro-B Natriuret Pep (<125) pg/mL Total Protein (6.3-8.2) g/dL Albumin (3.5-5.0) g/dL Globulin (1.7-4.1) g/dL Albumin/Globulin Ratio (1.0-2.8) Lipase (23-300) U/L Procalcitonin 0.81 H (<0.5) ng/mL Urine Color Yellow Urine Appearance Clear Urine pH 5.0 (4.5-8.0) Ur Specific [place] 1.010 (1.000-1.035) Urine Protein Negative (Negative) Urine Glucose (UA) Negative (Negative) g/dL Urine Ketones Negative (NEGATIVE) Urine Occult Blood 3+ H (Negative) Urine Nitrate Negative (Negative) Urine Bilirubin Negative (NEGATIVE) Urine Urobilinogen 0.2 (0.2) E.U./dL Ur Leukocyte Esterase Trace H (NEGATIVE) Urine RBC 10-30/hpf H (0-5/HPF) Urine WBC 1-5/hpf (0-5/HPF) Ur Squamous Epith Cells 1-5 /hpf (0-5/HPF) Urine Bacteria Moderate (10-30) H (None) Urine Mucus (Negative) Ur Culture Indicated? Specimen cultured Ur Random Sodium (30-90) mmol/L Urine Creatinine mg/dL Ketones (<0.27) mmol/L SARS-CoV-2 (PCR) (Negative) Influenza A (RT-PCR) (NEGATIVE) Influenza B (RT-PCR) (NEGATIVE) RSV (PCR) (Negative) 05/25/22 05/26/22 05/26/22 Range/Units 21:45 05:00 05:00 WBC 12.4 H (4.5-11.0) X10^3/uL RBC 2.95 L (4.0-5.2) X10^6/uL Hgb 8.1 L (12.0-16.0) g/dL Hct 25.5 L (36-46) % MCV 86.5 (80-100) fL MCH 27.5 (26-34) PG MCHC 31.8 (30-36) % RDW 14.4 (11.6-14.8) % Plt Count 502 H (150-400) X10^3/uL Neut % (Auto) 79.1 H (50-75) % Lymph % (Auto) 9.5 L (25-40) % Major % (Auto) 9.1 (3-14) % Eos % (Auto) 1.4 L (2-4) % Baso % (Auto) 0.9 (0-2) % Neut # (Auto) 9800 H (9123-5130) /uL Lymph # (Auto) 1200 (8469-8922) /uL Major # (Auto) 1100 H (0-900) /uL Eos # (Auto) 200 (0-450) /uL Baso # (Auto) 100 (0-100) /uL Total Counted Seg Neutrophils % (38-70) % Band Neutrophils % (3-7) % Lymphocytes % (Manual) (25-45) % Monocytes % (Manual) (2-11) % Neutrophils # (Manual) (1867-7509) /uL Nucleated RBCs ( - 0) #/Diff RBC Morphology Hypochromasia Anisocytosis PT (10.1-12.7) SECONDS INR (0.9-1.3) APTT (26-36) SECONDS D-Dimer (<500) ng/ml ABG pH 7.41 (7.35-7.45) ABG pCO2 37.3 (35-45) mmHg ABG pO2 90 (80-100) mmHg ABG HCO3 24 (22-26) mmol/L ABG Total CO2 25 (21-31) mmol/L ABG O2 Saturation 97 (95-100) % ABG Base Excess 0.0 (-2-2) mmol/L VBG pH (7.33-7.43) VBG pCO2 (45-50) mmHg VBG pO2 (35-45) mmHg VBG HCO3 (23-28) mmol/L VBG Total CO2 (24-29) mmol/L VBG O2 Saturation (70-75) % VBG Base Excess (0-4) mmol/L FiO2 60 Sodium 138 (137-145) mmol/L Potassium 3.5 (3.4-5.1) mmol/L Chloride 102 (98-107) mmol/L Carbon Dioxide 28 (22-32) mmol/L BUN 26 H (7-17) mg/dL Creatinine 1.42 H (0.52-1.04) mg/dL Estimated GFR 39 L (>60) mL/min BUN/Creatinine Ratio 18.3 (6-22) Glucose 170 H (80-110) mg/dL Lactate (0.7-2.1) mmol/L Calcium 8.0 L (8.4-10.2) mg/dL Ionized Calcium [place]anna (4.5-5.6) mg/dL Phosphorus (2.8-4.1) mg/dL Magnesium (1.6-2.3) mg/dL Total Bilirubin 0.6 (0.2-1.3) mg/dL Conjugated Bilirubin (0.0-0.3) md/dL Unconjugated Bilirubin (0.0-1.1) mg/dL AST 36 (14-36) IU/L ALT 18 (<35) IU/L Alkaline Phosphatase 255 H (38-126) U/L Total Creatine Kinase (30-135) U/L CK-MB (CK-2) CK-MB (CK-2) Rel Index Troponin I (0.01-0.034) ng/mL NT-Pro-B Natriuret Pep (<125) pg/mL Total Protein 6.1 L (6.3-8.2) g/dL Albumin 2.7 L (3.5-5.0) g/dL Globulin 3.4 (1.7-4.1) g/dL Albumin/Globulin Ratio 0.8 L (1.0-2.8) Lipase (23-300) U/L Procalcitonin (<0.5) ng/mL Urine Color Urine Appearance Urine pH (4.5-8.0) Ur Specific [place] (1.000-1.035) Urine Protein (Negative) Urine Glucose (UA) (Negative) g/dL Urine Ketones (NEGATIVE) Urine Occult Blood (Negative) Urine Nitrate (Negative) Urine Bilirubin (NEGATIVE) Urine Urobilinogen (0.2) E.U./dL Ur Leukocyte Esterase (NEGATIVE) Urine RBC (0-5/HPF) Urine WBC (0-5/HPF) Ur Squamous Epith Cells (0-5/HPF) Urine Bacteria (None) Urine Mucus (Negative) Ur Culture Indicated? Ur Random Sodium (30-90) mmol/L Urine Creatinine mg/dL Ketones (<0.27) mmol/L SARS-CoV-2 (PCR) (Negative) Influenza A (RT-PCR) (NEGATIVE) Influenza B (RT-PCR) (NEGATIVE) RSV (PCR) (Negative) 05/26/22 05/26/22 05/26/22 Range/Units 05:00 06:55 17:55 WBC (4.5-11.0) X10^3/uL RBC (4.0-5.2) X10^6/uL Hgb (12.0-16.0) g/dL Hct (36-46) % MCV (80-100) fL MCH (26-34) PG MCHC (30-36) % RDW (11.6-14.8) % Plt Count (150-400) X10^3/uL Neut % (Auto) (50-75) % Lymph % (Auto) (25-40) % Major % (Auto) (3-14) % Eos % (Auto) (2-4) % Baso % (Auto) (0-2) % Neut # (Auto) (8367-8351) /uL Lymph # (Auto) (5558-6703) /uL Major # (Auto) (0-900) /uL Eos # (Auto) (0-450) /uL Baso # (Auto) (0-100) /uL Total Counted Seg Neutrophils % (38-70) % Band Neutrophils % (3-7) % Lymphocytes % (Manual) (25-45) % Monocytes % (Manual) (2-11) % Neutrophils # (Manual) (9461-0135) /uL Nucleated RBCs ( - 0) #/Diff RBC Morphology Hypochromasia Anisocytosis PT (10.1-12.7) SECONDS INR (0.9-1.3) APTT 51 H (26-36) SECONDS D-Dimer (<500) ng/ml ABG pH (7.35-7.45) ABG pCO2 (35-45) mmHg ABG pO2 (80-100) mmHg ABG HCO3 (22-26) mmol/L ABG Total CO2 (21-31) mmol/L ABG O2 Saturation (95-100) % ABG Base Excess (-2-2) mmol/L VBG pH (7.33-7.43) VBG pCO2 (45-50) mmHg VBG pO2 (35-45) mmHg VBG HCO3 (23-28) mmol/L VBG Total CO2 (24-29) mmol/L VBG O2 Saturation (70-75) % VBG Base Excess (0-4) mmol/L FiO2 Sodium 134 L (137-145) mmol/L Potassium 3.5 (3.4-5.1) mmol/L Chloride 96 L (98-107) mmol/L Carbon Dioxide 27 (22-32) mmol/L BUN 25 H (7-17) mg/dL Creatinine 1.42 H (0.52-1.04) mg/dL Estimated GFR 39 L (>60) mL/min BUN/Creatinine Ratio 17.6 (6-22) Glucose 228 H (80-110) mg/dL Lactate (0.7-2.1) mmol/L Calcium 7.9 L (8.4-10.2) mg/dL Ionized Calcium [place] (4.5-5.6) mg/dL Phosphorus (2.8-4.1) mg/dL Magnesium 1.4 L 1.6 (1.6-2.3) mg/dL Total Bilirubin (0.2-1.3) mg/dL Conjugated Bilirubin (0.0-0.3) md/dL Unconjugated Bilirubin (0.0-1.1) mg/dL AST (14-36) IU/L ALT (<35) IU/L Alkaline Phosphatase (38-126) U/L Total Creatine Kinase (30-135) U/L CK-MB (CK-2) CK-MB (CK-2) Rel Index Troponin I (0.01-0.034) ng/mL NT-Pro-B Natriuret Pep (<125) pg/mL Total Protein (6.3-8.2) g/dL Albumin (3.5-5.0) g/dL Globulin (1.7-4.1) g/dL Albumin/Globulin Ratio (1.0-2.8) Lipase (23-300) U/L Procalcitonin (<0.5) ng/mL Urine Color Urine Appearance Urine pH (4.5-8.0) Ur Specific [place] (1.000-1.035) Urine Protein (Negative) Urine Glucose (UA) (Negative) g/dL Urine Ketones (NEGATIVE) Urine Occult Blood (Negative) Urine Nitrate (Negative) Urine Bilirubin (NEGATIVE) Urine Urobilinogen (0.2) E.U./dL Ur Leukocyte Esterase (NEGATIVE) Urine RBC (0-5/HPF) Urine WBC (0-5/HPF) Ur Squamous Epith Cells (0-5/HPF) Urine Bacteria (None) Urine Mucus (Negative) Ur Culture Indicated? Ur Random Sodium (30-90) mmol/L Urine Creatinine mg/dL Ketones (<0.27) mmol/L SARS-CoV-2 (PCR) (Negative) Influenza A (RT-PCR) (NEGATIVE) Influenza B (RT-PCR) (NEGATIVE) RSV (PCR) (Negative) 05/26/22 05/26/22 05/26/22 Range/Units 17:55 17:55 17:55 WBC 13.4 H (4.5-11.0) X10^3/uL RBC 3.04 L (4.0-5.2) X10^6/uL Hgb 8.4 L (12.0-16.0) g/dL Hct 26.2 L (36-46) % MCV 86.3 (80-100) fL MCH 27.5 (26-34) PG MCHC 31.9 (30-36) % RDW 14.6 (11.6-14.8) % Plt Count 530 H (150-400) X10^3/uL Neut % (Auto) 76.5 H (50-75) % Lymph % (Auto) 12.0 L (25-40) % Major % (Auto) 8.8 (3-14) % Eos % (Auto) 2.1 (2-4) % Baso % (Auto) 0.6 (0-2) % Neut # (Auto) 45987 H (5120-4292) /uL Lymph # (Auto) 1600 (1040-8516) /uL Major # (Auto) 1200 H (0-900) /uL Eos # (Auto) 300 (0-450) /uL Baso # (Auto) 100 (0-100) /uL Total Counted Seg Neutrophils % (38-70) % Band Neutrophils % (3-7) % Lymphocytes % (Manual) (25-45) % Monocytes % (Manual) (2-11) % Neutrophils # (Manual) (2344-0889) /uL Nucleated RBCs ( - 0) #/Diff RBC Morphology Hypochromasia Anisocytosis PT (10.1-12.7) SECONDS INR (0.9-1.3) APTT (26-36) SECONDS D-Dimer (<500) ng/ml ABG pH (7.35-7.45) ABG pCO2 (35-45) mmHg ABG pO2 (80-100) mmHg ABG HCO3 (22-26) mmol/L ABG Total CO2 (21-31) mmol/L ABG O2 Saturation (95-100) % ABG Base Excess (-2-2) mmol/L VBG pH (7.33-7.43) VBG pCO2 (45-50) mmHg VBG pO2 (35-45) mmHg VBG HCO3 (23-28) mmol/L VBG Total CO2 (24-29) mmol/L VBG O2 Saturation (70-75) % VBG Base Excess (0-4) mmol/L FiO2 Sodium (137-145) mmol/L Potassium (3.4-5.1) mmol/L Chloride (98-107) mmol/L Carbon Dioxide (22-32) mmol/L BUN (7-17) mg/dL Creatinine (0.52-1.04) mg/dL Estimated GFR (>60) mL/min BUN/Creatinine Ratio (6-22) Glucose (80-110) mg/dL Lactate 1.5 (0.7-2.1) mmol/L Calcium (8.4-10.2) mg/dL Ionized Calcium [place] (4.5-5.6) mg/dL Phosphorus (2.8-4.1) mg/dL Magnesium (1.6-2.3) mg/dL Total Bilirubin 0.6 (0.2-1.3) mg/dL Conjugated Bilirubin 0.0 (0.0-0.3) md/dL Unconjugated Bilirubin 0.2 (0.0-1.1) mg/dL AST 42 H (14-36) IU/L ALT 20 (<35) IU/L Alkaline Phosphatase 269 H (38-126) U/L Total Creatine Kinase (30-135) U/L CK-MB (CK-2) CK-MB (CK-2) Rel Index Troponin I (0.01-0.034) ng/mL NT-Pro-B Natriuret Pep (<125) pg/mL Total Protein 6.3 (6.3-8.2) g/dL Albumin 2.7 L (3.5-5.0) g/dL Globulin 3.6 (1.7-4.1) g/dL Albumin/Globulin Ratio 0.8 L (1.0-2.8) Lipase (23-300) U/L Procalcitonin 0.88 H (<0.5) ng/mL Urine Color Urine Appearance Urine pH (4.5-8.0) Ur Specific [place] (1.000-1.035) Urine Protein (Negative) Urine Glucose (UA) (Negative) g/dL Urine Ketones (NEGATIVE) Urine Occult Blood (Negative) Urine Nitrate (Negative) Urine Bilirubin (NEGATIVE) Urine Urobilinogen (0.2) E.U./dL Ur Leukocyte Esterase (NEGATIVE) Urine RBC (0-5/HPF) Urine WBC (0-5/HPF) Ur Squamous Epith Cells (0-5/HPF) Urine Bacteria (None) Urine Mucus (Negative) Ur Culture Indicated? Ur Random Sodium (30-90) mmol/L Urine Creatinine mg/dL Ketones (<0.27) mmol/L SARS-CoV-2 (PCR) (Negative) Influenza A (RT-PCR) (NEGATIVE) Influenza B (RT-PCR) (NEGATIVE) RSV (PCR) (Negative) 05/26/22 05/26/22 05/26/22 Range/Units 20:00 21:22 21:22 WBC (4.5-11.0) X10^3/uL RBC (4.0-5.2) X10^6/uL Hgb (12.0-16.0) g/dL Hct (36-46) % MCV (80-100) fL MCH (26-34) PG MCHC (30-36) % RDW (11.6-14.8) % Plt Count (150-400) X10^3/uL Neut % (Auto) (50-75) % Lymph % (Auto) (25-40) % Major % (Auto) (3-14) % Eos % (Auto) (2-4) % Baso % (Auto) (0-2) % Neut # (Auto) (4933-4158) /uL Lymph # (Auto) (2143-1369) /uL Major # (Auto) (0-900) /uL Eos # (Auto) (0-450) /uL Baso # (Auto) (0-100) /uL Total Counted Seg Neutrophils % (38-70) % Band Neutrophils % (3-7) % Lymphocytes % (Manual) (25-45) % Monocytes % (Manual) (2-11) % Neutrophils # (Manual) (6889-4360) /uL Nucleated RBCs ( - 0) #/Diff RBC Morphology Hypochromasia Anisocytosis PT (10.1-12.7) SECONDS INR (0.9-1.3) APTT (26-36) SECONDS D-Dimer (<500) ng/ml ABG pH 7.36 (7.35-7.45) ABG pCO2 47.4 H (35-45) mmHg ABG pO2 63 L (80-100) mmHg ABG HCO3 27 H (22-26) mmol/L ABG Total CO2 28 (21-31) mmol/L ABG O2 Saturation 90 L (95-100) % ABG Base Excess 1.0 (-2-2) mmol/L VBG pH (7.33-7.43) VBG pCO2 (45-50) mmHg VBG pO2 (35-45) mmHg VBG HCO3 (23-28) mmol/L VBG Total CO2 (24-29) mmol/L VBG O2 Saturation (70-75) % VBG Base Excess (0-4) mmol/L FiO2 40 Sodium (137-145) mmol/L Potassium (3.4-5.1) mmol/L Chloride (98-107) mmol/L Carbon Dioxide (22-32) mmol/L BUN (7-17) mg/dL Creatinine (0.52-1.04) mg/dL Estimated GFR (>60) mL/min BUN/Creatinine Ratio (6-22) Glucose (80-110) mg/dL Lactate (0.7-2.1) mmol/L Calcium (8.4-10.2) mg/dL Ionized Calcium Hanna 5.1 (4.5-5.6) mg/dL Phosphorus (2.8-4.1) mg/dL Magnesium (1.6-2.3) mg/dL Total Bilirubin (0.2-1.3) mg/dL Conjugated Bilirubin (0.0-0.3) md/dL Unconjugated Bilirubin (0.0-1.1) mg/dL AST (14-36) IU/L ALT (<35) IU/L Alkaline Phosphatase (38-126) U/L Total Creatine Kinase (30-135) U/L CK-MB (CK-2) CK-MB (CK-2) Rel Index Troponin I (0.01-0.034) ng/mL NT-Pro-B Natriuret Pep (<125) pg/mL Total Protein (6.3-8.2) g/dL Albumin (3.5-5.0) g/dL Globulin (1.7-4.1) g/dL Albumin/Globulin Ratio (1.0-2.8) Lipase (23-300) U/L Procalcitonin (<0.5) ng/mL Urine Color Urine Appearance Urine pH (4.5-8.0) Ur Specific [place] (1.000-1.035) Urine Protein (Negative) Urine Glucose (UA) (Negative) g/dL Urine Ketones (NEGATIVE) Urine Occult Blood (Negative) Urine Nitrate (Negative) Urine Bilirubin (NEGATIVE) Urine Urobilinogen (0.2) E.U./dL Ur Leukocyte Esterase (NEGATIVE) Urine RBC (0-5/HPF) Urine WBC (0-5/HPF) Ur Squamous Epith Cells (0-5/HPF) Urine Bacteria (None) Urine Mucus (Negative) Ur Culture Indicated? Ur Random Sodium (30-90) mmol/L Urine Creatinine mg/dL Ketones 0.03 (<0.27) mmol/L SARS-CoV-2 (PCR) (Negative) Influenza A (RT-PCR) (NEGATIVE) Influenza B (RT-PCR) (NEGATIVE) RSV (PCR) (Negative) 05/26/22 05/26/22 Range/Units 21:30 22:50 WBC (4.5-11.0) X10^3/uL RBC (4.0-5.2) X10^6/uL Hgb (12.0-16.0) g/dL Hct (36-46) % MCV (80-100) fL MCH (26-34) PG MCHC (30-36) % RDW (11.6-14.8) % Plt Count (150-400) X10^3/uL Neut % (Auto) (50-75) % Lymph % (Auto) (25-40) % Major % (Auto) (3-14) % Eos % (Auto) (2-4) % Baso % (Auto) (0-2) % Neut # (Auto) (4534-6824) /uL Lymph # (Auto) (3094-8813) /uL Major # (Auto) (0-900) /uL Eos # (Auto) (0-450) /uL Baso # (Auto) (0-100) /uL Total Counted Seg Neutrophils % (38-70) % Band Neutrophils % (3-7) % Lymphocytes % (Manual) (25-45) % Monocytes % (Manual) (2-11) % Neutrophils # (Manual) (2488-7798) /uL Nucleated RBCs ( - 0) #/Diff RBC Morphology Hypochromasia Anisocytosis PT (10.1-12.7) SECONDS INR (0.9-1.3) APTT (26-36) SECONDS D-Dimer (<500) ng/ml ABG pH (7.35-7.45) ABG pCO2 (35-45) mmHg ABG pO2 (80-100) mmHg ABG HCO3 (22-26) mmol/L ABG Total CO2 (21-31) mmol/L ABG O2 Saturation (95-100) % ABG Base Excess (-2-2) mmol/L VBG pH (7.33-7.43) VBG pCO2 (45-50) mmHg VBG pO2 (35-45) mmHg VBG HCO3 (23-28) mmol/L VBG Total CO2 (24-29) mmol/L VBG O2 Saturation (70-75) % VBG Base Excess (0-4) mmol/L FiO2 Sodium (137-145) mmol/L Potassium (3.4-5.1) mmol/L Chloride (98-107) mmol/L Carbon Dioxide (22-32) mmol/L BUN (7-17) mg/dL Creatinine (0.52-1.04) mg/dL Estimated GFR (>60) mL/min BUN/Creatinine Ratio (6-22) Glucose (80-110) mg/dL Lactate 1.7 (0.7-2.1) mmol/L Calcium (8.4-10.2) mg/dL Ionized Calcium [place] (4.5-5.6) mg/dL Phosphorus (2.8-4.1) mg/dL Magnesium (1.6-2.3) mg/dL Total Bilirubin (0.2-1.3) mg/dL Conjugated Bilirubin (0.0-0.3) md/dL Unconjugated Bilirubin (0.0-1.1) mg/dL AST (14-36) IU/L ALT (<35) IU/L Alkaline Phosphatase (38-126) U/L Total Creatine Kinase (30-135) U/L CK-MB (CK-2) CK-MB (CK-2) Rel Index Troponin I (0.01-0.034) ng/mL NT-Pro-B Natriuret Pep (<125) pg/mL Total Protein (6.3-8.2) g/dL Albumin (3.5-5.0) g/dL Globulin (1.7-4.1) g/dL Albumin/Globulin Ratio (1.0-2.8) Lipase (23-300) U/L Procalcitonin (<0.5) ng/mL Urine Color Urine Appearance Urine pH (4.5-8.0) Ur Specific [place] (1.000-1.035) Urine Protein (Negative) Urine Glucose (UA) (Negative) g/dL Urine Ketones (NEGATIVE) Urine Occult Blood (Negative) Urine Nitrate (Negative) Urine Bilirubin (NEGATIVE) Urine Urobilinogen (0.2) E.U./dL Ur Leukocyte Esterase (NEGATIVE) Urine RBC (0-5/HPF) Urine WBC (0-5/HPF) Ur Squamous Epith Cells (0-5/HPF) Urine Bacteria (None) Urine Mucus (Negative) Ur Culture Indicated? Ur Random Sodium 84 (30-90) mmol/L Urine Creatinine 75.1 mg/dL Ketones (<0.27) mmol/L SARS-CoV-2 (PCR) (Negative) Influenza A (RT-PCR) (NEGATIVE) Influenza B (RT-PCR) (NEGATIVE) RSV (PCR) (Negative) Point of Care Testing Glucose POC 228 Critical Care Time <William Turcios, DO - Last Filed: 05/26/22 01:55> Critical Care Time Critical Care Time: Yes Attestation: The high probability of a clinically significant, sudden or life threatening deterioration of the [] system(s) required my full and direct attention, intervention and personal management. The aggregate critical care time was [] minutes. This time is in addition to time spent performing reported procedures but includes the following: [] Data Review and interpretation [] Patient assessment and monitoring of vital signs [] Documentation [] Medication orders and management <Jared Gaston DO - Last Filed: 05/26/22 17:30> Critical Care Time Total Critical Care Time: 35 Attestation: The high probability of a clinically significant, sudden or life threatening deterioration of the []cardiovascular, respiratory system(s) required my full and direct attention, intervention and personal management. The aggregate critical care time was [35] minutes. This time is in addition to time spent performing reported procedures but includes the following: [x] Data Review and interpretation [x] Patient assessment and monitoring of vital signs [x] Documentation [x] Medication orders and management Discharge Plan Departure Patient Disposition: [facility] Clinical Impression: Acute hypoxemic respiratory failure, Bilateral pulmonary embolism, Acute CHF, Elevated troponin ED Sign-out <William Turcios DO - Last Filed: 05/26/22 01:55> Cosign ED Attending Lilianaature Attestation: I was immediately available in the department for consultation. This documentation has been reviewed and I agree with assessment and plan. Supervised by William Turcios DO
[2022-05-22 18:09] LABS: Alanine Aminotransferase 18 IU/L (<35); Albumin 3.4 g/dL (3.5-5.0); Albumin Globulin Ratio 0.9 (1.0-2.8); Alkaline Phosphatase 351 U/L (38-126); Aspartate Aminotransferase 35 IU/L (14-36); BUN Creatinine Ratio 22.2 (6-22); Bilirubin Total 0.3 mg/dL (0.2-1.3); Blood Urea Nitrogen 34 mg/dL (7-17); Calcium 8.6 mg/dL (8.4-10.2); Carbon Dioxide 24 mmol/L (22-32); Chloride 111 mmol/L (98-107); Creatine Kinase 48 U/L (30-135); Estimated Glomerular Filt Rate 35 mL/min (>60); Globulin 3.8 g/dL (1.7-4.1); Glucose 107 mg/dL (80-110); HEMOLYSIS 17 (0-50); Lipase 112 U/L (23-300); Magnesium 1.6 mg/dL (1.6-2.3); Potassium 4.4 mmol/L (3.4-5.1); Sodium 144 mmol/L (137-145); Total Protein 7.2 g/dL (6.3-8.2)
[2022-05-22 18:18] LABS: Add Manual Diff / Slide Review NO; Basophils Absolute Auto 100 /uL (0-100); Basophils Percent Auto 1.1 % (0-2); Eosinophils Absolute Auto 0 /uL (0-450); Eosinophils Percent Auto 0.1 % (2-4); Hematocrit 27.9 % (36-46); Lymphocytes Absolute Auto 800 /uL (1100-4500); Lymphocytes Percent Auto 6.3 % (25-40); Mean Corpuscular HGB Conc 32.3 % (30-36); Mean Corpuscular Hemoglobin 28.2 PG (26-34); Mean Corpuscular Volume 87.3 fL (80-100); Monocytes Absolute Auto 700 /uL (0-900); Monocytes Percent Auto 6.1 % (3-14); NT-proBNP (BNP-Adult 18+) 6350 pg/mL (<125); Neutrophils Absolute Auto 10400 /uL (1500-7000); Neutrophils Percent Auto 86.4 % (50-75); Platelet Count 579 X10^3/uL (150-400); Red Blood Cell Count 3.19 X10^6/uL (4.0-5.2); Red Cell Distribution Width 14.6 % (11.6-14.8); White Blood Cell Count 12.1 X10^3/uL (4.5-11.0)
[2022-05-22 18:20] LABS: Troponin I 0.103 ng/mL (0.01-0.034)
[2022-05-22 18:28] LABS: D Dimer 19515 ng/ml (<500)
[2022-05-22] MEDS: ASPIRIN 81 MG CHEW TAB 324 MG PO (18:30)
[2022-05-22] MEDS: FUROSEMIDE 40 MG/4 ML VIAL IV (18:30)
--- NOTE | 2022-05-22 19:00 | DI.CT.S_ITS ---
PROCEDURE: CT ANGIO CHEST PE PROTOCOL INDICATIONS: SOB, tachycardia, critical DDimer, hypoxemia TECHNIQUE: After the administration of intravenous contrast, 2 mm thick sections acquired from the pulmonary apices to the posterior costophrenic angles. 3-dimensional maximum intensity projection (MIP) coronal and sagittal reformats were then acquired through the thorax. For radiation dose reduction, the following was used: automated exposure control, adjustment of mA and/or kV according to patient size. COMPARISON: None. FINDINGS: Image quality: Slight motion degradation Lungs and pleura: [id number] bilateral effusions and underlying opacities. Mediastinum, heart, and esophagus: No hiatal hernia. No pathologic adenopathy by size criteria. Heart is borderline enlarged. There are prominent cardiophrenic lymph nodes of uncertain etiology, possibly reactive. The main pulmonary artery is mildly dilated at 3.5 cm. There are small pulmonary emboli in the subsegmental branches in both lungs. Chest wall and thyroid: Enhancement focally in the right breast. Upper abdomen: Partially seen possible chronic liver disease. There is ascites. Nodularity in the left upper quadrant. Bones: Scattered degenerative changes. IMPRESSION: Positive study for small pulmonary emboli bilaterally, mostly in the subsegmental branches. There is evidence of right heart strain Bibasilar airspace disease, atelectasis, and mild to moderate effusions. Consider future imaging surveillance to assess for resolution. Left upper quadrant abdominal nodularity. Possible evidence of chronic liver disease. Ascites. These are only partially seen. Consider further future imaging with abdominal pelvis CT with contrast. Focal enhancement the right breast, correlate with mammography. Other findings as above. Dictated by: Candelario Garcia M.D. on 05/22/2022 at 20:17 Approved by: Candelario Garcia M.D. on 05/22/2022 at 20:24
[2022-05-22 19:10] LABS: Appearance Urine UA CLEAR; Bilirubin Urine UA NEGATIVE (NEGATIVE); Color Urine UA YELLOW; Glucose Urine UA NEGATIVE (Negative); Ketones Urine UA TRACE (NEGATIVE); Leukocyte Esterase Urine UA NEGATIVE (NEGATIVE); Nitrite Urine UA NEGATIVE (Negative); Occult Blood Urine UA NEGATIVE (Negative); Protein Urine UA 2+ (Negative); Specific Gravity Urine UA 1.025 (1.000-1.035); Urobilinogen Urine UA 0.2 E.U./dL (0.2)
[2022-05-22 19:12] LABS: Influenza A - CEPHEID Flu A NEGATIVE (NEGATIVE); Influenza B - CEPHEID Flu B NEGATIVE (NEGATIVE); Respiratory Syncytial Virus Negative (Negative)
[2022-05-22 19:26] LABS: COVID-19 CEPHEID 4-PLEX PCR Negative (Negative)
[2022-05-22 20:17] LABS: Bacteria Urine Occasional (0-1); Culture Indicated Urine Cult Not Indicated; Mucus Urine 1+ (Negative); RBC Urine 1-5/HPF (0-5/HPF); Squamous Epithelial Cell Urine 0-1 /HPF (0-5/HPF); WBC Urine 1-5/HPF (0-5/HPF)
[2022-05-22] MEDS: HEPARIN 5,000 UNIT/ML VIAL 7500 UNIT IV (20:47)
[2022-05-22] MEDS: HEPARIN DRIP 25,000 UNIT/500 ML IV.SOLN 24 UNIT IV (20:49)
--- NOTE | 2022-05-22 21:03 | PC.NURSE ---
-Initiated transfer request for pt - [facility] - wait listed spoke to Latesha Ibrahime- wait listed spoke to [facility]- wait listed spoke to [facility] - spoke with cindi she will check with other hospitals Facesheet and covid results faxed to all facilities
--- NOTE | 2022-05-22 21:16 | DI.ECHO.S_ITS ---
[facility]---------+ [facility] +---------+ : : [address] [place] : : : : [id number] : : : : Phone: [phone]---------+ Echocardiogram Report + + :Name: VARUN SOLARES Study Date: 05/23/2022 Height: 62 in : :[facility] ReadingLocation: Weight: 232 lb : : Gender: Female BSA: 2.0 m2 : :: 1950 Age: 72 yrs BP: 141/75 mmHg: :Reason For Study: PULMONARY EMBOLISM WITH RIGHT HEART STRAIN : :Ordering Physician: HELEN, : :WILLIAM Performed By: Leslie Yee : :Referring: WILLIAM CERVANTES : + + Interpretation Summary The left ventricular cavity is small. Left ventricular systolic function is normal. The ejection fraction is estimated to be 65-70%. The interventricular septum is flattened, consistent with a right ventricular pressure/volume condition. Diastolic parameters suggest a relaxation abnormality of the left ventricle, consistent with probable normal filling pressures. The right ventricle is moderately dilated. Right ventricular systolic function is at the lower limits of normal. Right ventricular systolic pressure is estimated to be 59 mmHg plus the clinically estimated CVP which cannot be estimated on this exam. The left atrial size is normal. The right atrium is mildly dilated. There is no significant valvular heart disease. The aortic root is normal size. There is a moderately large left-sided pleural effusion. Procedure: A two-dimensional transthoracic echocardiogram with color flow and Doppler was performed. The study quality was technically adequate. The patient had an echocardiogram, but there is no comparison study available. The patient was in sinus tachycardia with heart rates between 97-100 bpm during the exam. Left Ventricle: The left ventricular cavity is small. There is mild concentric left ventricular hypertrophy. Left ventricular systolic function is normal. The ejection fraction is estimated to be 65-70%. The interventricular septum is flattened, consistent with a right ventricular pressure/volume condition. Diastolic parameters suggest a relaxation abnormality of the left ventricle, consistent with probable normal filling pressures. Right Ventricle: The right ventricle is moderately dilated. Right ventricular systolic function is at the lower limits of normal. Atria: The left atrial size is normal. The right atrium is mildly dilated. There is no Doppler evidence for an interatrial shunt. Mitral Valve: The mitral valve is normal in structure and function. There is trace mitral regurgitation. Aortic Valve: The aortic valve is trileaflet. The aortic valve opens well. There is no aortic valve stenosis. No aortic regurgitation is present. Tricuspid Valve: The tricuspid valve is not well visualized, but is grossly normal. There is mild tricuspid regurgitation. Right ventricular systolic pressure is estimated to be 59 mmHg plus the clinically estimated CVP which cannot be estimated on this exam. Pulmonic Valve: The pulmonic valve is not well visualized. There is trace pulmonic regurgitation. There is no significant valvular heart disease. Great Vessels: The aortic root is normal size. The dimensions of the ascending aorta are normal. The inferior vena cava was not visualized. Pericardium/ Pleura There is no pericardial effusion. There is a moderately large left-sided pleural effusion. MMode/2D Measurements & Calculations LVIDd: 3.8 cm LVOT diam: 2.0 cm LVIDs: 2.2 cm Ao root diam: 3.0 cm FS: 42.5 % asc Aorta Diam: 3.2 cm IVSd: 1.1 cm LVPWd: 1.2 cm LV nunez. diameter/BSA (cm/m^2): 1.9 LV sys. diameter/BSA (cm/m^2): 1.1 LA A2 area: 14.0 cm2 RA long axis: 4.9 cm LA A4 area: 16.6 cm2 RA area: 19.9 cm2 LA length (vol): 5.5 cm RA vol: 68.9 ml LA vol: 36.0 ml RA : 33.9 ml/m2 LA vol index: 17.7 ml/m2 RVDd major: 7.3 cm RVD1 (basal): 4.4 cm RVD2 (mid): 3.5 cm TAPSE: 1.8 cm Doppler Measurements & Calculations Ao V2 max: 192.2 cm/sec LVOT Max Jb: 118.0 cm/sec Ao V2 mean: 134.0 cm/sec LV V1 max P.6 mmHg Ao max P.8 mmHg LV V1 VTI: 21.0 cm Ao mean P.1 mmHg RUPESH(I,D): 2.1 cm2 Ao V2 VTI: 31.4 cm RUPESH(V,D): 1.9 cm2 sev ratio: 0.67 RUPESH indexed to BSA (cm^2/m^2): 1.0 MV E max jb: 90.6 cm/sec TR max jb: 384.2 cm/sec MV A max jb: 101.6 cm/sec TR max P.0 mmHg MV E/A: 0.89 PA V2 max: 125.6 cm/sec Med Peak E' Jb: 8.1 cm/sec PA V2 mean: 80.6 cm/sec E/E' med: 11.2 PA mean P.9 mmHg Lat Peak E' Jb: 9.1 cm/sec PA pr(Accel): 43.0 mmHg E/E' lat: 9.9 E/e' average: 10.6 MV dec time: 0.14 sec SV(LVOT): 65.6 ml Reading Physician:08:54 AM
[2022-05-22] MEDS: GABAPENTIN 600 MG TABLET PO (21:28)
[2022-05-23] VITALS (62 sets, daily range): BP systolic 93–160; BP diastolic 61–96; PULSE 97–120; RESP 18–38; O2SAT 76–98
[2022-05-23 07:49] LABS: PTT Partial Thromboplastin Tim 89 SECONDS (26-36)
[2022-05-23 09:23] LABS: PTT Partial Thromboplastin Tim 62 SECONDS (26-36)
[2022-05-23] MEDS: GABAPENTIN 600 MG TABLET PO ×3 (09:37→21:25)
[2022-05-23] MEDS: ACETAMINOPHEN 325 MG TABLET 650 MG PO (10:01)
--- NOTE | 2022-05-23 12:30 | DI.RAD.S_ITS ---
PROCEDURE: XR ABDOMEN 1V INDICATIONS: upper abd pain TECHNIQUE: One view of the abdomen acquired. COMPARISON: None. FINDINGS: Surgical changes and devices: None. Bowel: Bowel gas pattern is normal. No distended loops of bowel are identified. No free air, pneumatosis, or portal venous gas. Soft tissues: No suspicious abdominal calcifications. Visualized solid organ contours appear normal in size. Bibasilar atelectasis with blunting of the left costophrenic angle consistent with a left pleural effusion. Bones: No suspicious bony lesions. IMPRESSION: 1. No acute plain film abnormality. 2. Bibasilar atelectasis and left pleural effusion. Dictated by: Yovani Funk M.D. on 05/23/2022 at 13:16 Approved by: Yovani Funk M.D. on 05/23/2022 at 13:17
[2022-05-23 13:08] LABS: Add Manual Diff / Slide Review NO; Basophils Absolute Auto 100 /uL (0-100); Basophils Percent Auto 0.7 % (0-2); Eosinophils Absolute Auto 100 /uL (0-450); Eosinophils Percent Auto 1.2 % (2-4); Hematocrit 26.9 % (36-46); Hemoglobin 8.7 g/dL (12.0-16.0); Lymphocytes Absolute Auto 1100 /uL (1100-4500); Lymphocytes Percent Auto 11.6 % (25-40); Mean Corpuscular HGB Conc 32.4 % (30-36); Mean Corpuscular Hemoglobin 28.7 PG (26-34); Mean Corpuscular Volume 88.5 fL (80-100); Monocytes Absolute Auto 1100 /uL (0-900); Monocytes Percent Auto 11.9 % (3-14); Neutrophils Absolute Auto 7200 /uL (1500-7000); Neutrophils Percent Auto 74.6 % (50-75); Platelet Count 519 X10^3/uL (150-400); Red Blood Cell Count 3.04 X10^6/uL (4.0-5.2); Red Cell Distribution Width 14.4 % (11.6-14.8); White Blood Cell Count 9.6 X10^3/uL (4.5-11.0)
--- NOTE | 2022-05-23 13:23 | PC.NURSE ---
moved pt to an inpatient bed, pt used walker pt tolerated move well
[2022-05-23 13:29] LABS: Alanine Aminotransferase 14 IU/L (<35); Albumin 3.1 g/dL (3.5-5.0); Albumin Globulin Ratio 0.9 (1.0-2.8); Alkaline Phosphatase 283 U/L (38-126); Aspartate Aminotransferase 34 IU/L (14-36); BUN Creatinine Ratio 23.7 (6-22); Bilirubin Total 0.2 mg/dL (0.2-1.3); Blood Urea Nitrogen 27 mg/dL (7-17); Calcium 8.3 mg/dL (8.4-10.2); Carbon Dioxide 26 mmol/L (22-32); Chloride 112 mmol/L (98-107); Estimated Glomerular Filt Rate 51 mL/min (>60); Globulin 3.5 g/dL (1.7-4.1); Glucose 109 mg/dL (80-110); HEMOLYSIS < 15 (0-50); Potassium 4.1 mmol/L (3.4-5.1); Sodium 144 mmol/L (137-145); Total Protein 6.6 g/dL (6.3-8.2)
[2022-05-23 13:40] LABS: NT-proBNP (BNP-Adult 18+) 4150 pg/mL (<125); Troponin I 0.078 ng/mL (0.01-0.034)
[2022-05-23 13:41] LABS: Troponin I 0.078 ng/mL (0.01-0.034)
[2022-05-23 14:44] LABS: PTT Partial Thromboplastin Tim 69 SECONDS (26-36)
[2022-05-23 14:59] LABS: Troponin I 0.075 ng/mL (0.01-0.034)
--- NOTE | 2022-05-23 15:17 | PC.NURSE ---
pt has been having dark bloody urine in her [place] now. no clots. pt also gets extremely Sob with talking or any movement. off oxygen sats decreased to 88 percent. wears oxygen at 2L nc. urine output [address] Gaston aware of the above. We switched patient off the gurney and to a bed earlier today.
[2022-05-23] MEDS: HEPARIN DRIP 25,000 UNIT/500 ML IV.SOLN 26 UNIT IV (16:12)
[2022-05-24] VITALS (180 sets, daily range): BP systolic 70–157; BP diastolic 42–98; PULSE 76–128; RESP 0–32; TEMP 36.8–38.6; O2SAT 78–100
--- NOTE | 2022-05-24 01:02 | PC.NURSE ---
Addendum entered by Delmy Davila CNA 05/24/22 03:28: Spoke to Lori at [facility]; she's still on their list and they are helping to try to find placement. Original Note: CARDIOVASCULAR INVASIVE SPECIALIST note: Spoke to: KELLY: Leslie, faxed over some test results, still on waitlist. [facility]: Still on waitlist, spoke to S[facility]. [facility]: Denisse, still on waitlist. [facility]: Busy signal.
[2022-05-24] MEDS: propofoL 200 MG/20 ML VIAL IV (05:36)
[2022-05-24] MEDS: ALTEPLASE 100 MG/100 ML VIAL IV (05:53)
[2022-05-24] MEDS: propofoL 1,000 MG/100 ML VIAL 3.157 MG IV (05:53)
--- NOTE | 2022-05-24 06:15 | DI.RAD.S_ITS ---
PROCEDURE: XR CHEST 1V INDICATIONS: cnetral line and intubation TECHNIQUE: One view of the chest was acquired. COMPARISON: [facility], CR, XR CHEST 1V, 05/22/2022, 18:15. FINDINGS: Surgical changes and devices: ETT tip is at the level of poncho should be pulled back by 2-3 cm. Right internal jugular central venous catheter tip is in the region of SVC. Lungs and pleura: There is pulmonary vascular congestion. Small bilateral pleural effusion are seen. No gross pneumothorax. Mild pulmonary edema and bibasilar dependent atelectasis/small infiltrates are also noted. Mediastinum: Mediastinal contours appear normal. Heart size is normal. Bones and chest wall: No suspicious bony lesions. Overlying soft tissues appear unremarkable. IMPRESSION: 1. ETT tip is at the level of poncho and should be pulled back by 2-3 cm. Right-sided central venous catheter is in satisfactory position. 2. Pulmonary vascular congestion and pulmonary edema with small bilateral pleural effusion. No gross pneumothorax. Dictated by: Azael Vásquez M.D. on 05/24/2022 at 8:14 Approved by: Azael Vásquez M.D. on 05/24/2022 at 8:15
[2022-05-24] MEDS: NOREPINEPHRINE BITARTRATE/D5W 4 MG/250 ML PLAST..BAG 30 MG IV (06:30)
--- NOTE | 2022-05-24 06:56 | PM.CN.EICU ---
History of Present Illness Consult details IF CAMERA ACTIVATED, patient seen via real-time interactive audiovisual communication: Camera not activated Chief complaint: difficulty breathing Reason for consult: Obstructive shock and respiratory failure Requesting provider: Mirna Mason Consent obtained for tele-chalk machine operator care: Yes Patient Location: ICU Provider location (State): [place] Other participants/roles: Dr. Mason (ERP) Narrative: Patient is a 72 year old female with history of HTN and DM who presents with shortness of breath. Associated with orthopnea and LE swelling. Upon further workup she was found to have bilateral subsegmental PE w/ RV strain. TTE showed presrved LV function with RV dilation and reduced RV function. She was started on heparin gtt. Cardiology from [facility] was consulted and deemed patient is appropriate for mechanical thrombectomy. While in the ER awaiting for an open bed, patient was found unresponsive this morning with severe respiratory distress. She was emergently intubated with propofol. Yard Supervisor reconsulted from [facility] and recommended 100 mg tPA. Post intubation patient was found to have SBP ~70s and started on levophed. Tele chalk machine operator consulted for further management. Current Medications Current Medications Medications: Home Medications gabapentin 300 mg capsule (Neurontin) 300 mg PO TID ##0 02/07/17 [History] hydrochlorothiazide 25 mg tablet 50 mg PO QDAY ##0 02/07/17 [History] metformin 500 mg tablet,extended release 24 hr (Glucophage XR) 500 mg PO TID ##0 02/07/17 [History] metoprolol tartrate 25 mg tablet 25 mg PO BID ##0 02/07/17 [History] telmisartan 80 mg tablet (Micardis) 80 mg PO QDAY ##0 02/07/17 [History] acetaminophen 325 mg tablet (Tylenol) 650 mg PO TID 05/22/22 [History Confirmed 05/22/22] gabapentin 100 mg capsule 100 mg PO TID PRN Pain (Scale Score 4-6) 05/22/22 [History Confirmed 05/22/22] gabapentin 300 mg capsule 300 mg PO TID PRN Pain (Scale Score 4-6) 05/22/22 [History Confirmed 05/22/22] gabapentin 600 mg tablet 600 mg PO TID 05/22/22 [History Confirmed 05/22/22] hydrochlorothiazide 12.5 mg tablet 12.5 mg PO QAM 05/22/22 [History Confirmed 05/22/22] hydrochlorothiazide 12.5 mg tablet 12.5 mg PO QAM 05/22/22 [History Confirmed 05/22/22] metformin 500 mg tablet 500 mg PO TID 05/22/22 [History Confirmed 05/22/22] metoprolol tartrate 25 mg tablet 25 mg PO BID 05/22/22 [History Confirmed 05/22/22] multivitamin with minerals 1 tab PO DAILY 05/22/22 [History Confirmed 05/22/22] rosuvastatin 5 mg tablet See Rx Instructions .Route .COMPLEX 05/22/22 [History Confirmed 05/22/22] telmisartan 40 mg tablet 40 mg PO QAM 05/22/22 [History Confirmed 05/22/22] Visit Medications (administered) Generic Name Dose Route Start Last Admin Trade Name Freq PRN Reason Stop Dose Admin Acetaminophen 650 mg 05/23/22 09:56 05/23/22 10:01 Acetaminophen 325 Mg Tablet PO 650 mg Q6H PRN Administration Fever/Mild Pain (1-3) Gabapentin 600 mg 05/22/22 21:15 05/23/22 21:25 Gabapentin 600 Mg Tablet PO 600 mg TID DANA Administration Heparin Sodium/Dextrose 25,000 unit in 500 mls @ 24 mls/hr 05/22/22 20:30 05/23/22 16:12 Heparin Drip IV 1,300 units/hr CONT DANA 26 mls/hr Administration Protocol 1,200 UNITS/HR Exam Vital Signs (past 8 hours): - 05/23/22 23:00 05/23/22 23:00 05/23/22 23:30 Pulse Rate 115 H Respiratory Rate 24 Blood Pressure 148/96 H 138/91 H Pulse Oximetry 95 05/23/22 23:30 05/24/22 00:00 05/24/22 00:00 Pulse Rate 120 H 124 H Respiratory Rate 28 H 27 H Blood Pressure 151/89 H Pulse Oximetry 95 94 05/24/22 00:30 05/24/22 00:30 05/24/22 01:00 Pulse Rate 123 H Respiratory Rate 26 H Blood Pressure 150/95 H 141/88 H Pulse Oximetry 93 05/24/22 01:00 05/24/22 01:30 05/24/22 01:30 Pulse Rate 125 H 127 H Respiratory Rate 27 H 27 H Blood Pressure 144/73 H Pulse Oximetry 90 L 91 05/24/22 02:00 05/24/22 02:00 05/24/22 02:30 Pulse Rate 128 H Respiratory Rate 29 H Blood Pressure 120/71 122/66 Pulse Oximetry 86 L 05/24/22 02:30 05/24/22 03:00 05/24/22 03:00 Pulse Rate 127 H 125 H Respiratory Rate 28 H 26 H Blood Pressure 116/70 Pulse Oximetry 92 94 05/24/22 03:30 05/24/22 03:30 05/24/22 04:00 Pulse Rate 125 H Respiratory Rate 27 H Blood Pressure 127/63 116/61 Pulse Oximetry 92 05/24/22 04:00 05/24/22 04:30 05/24/22 04:30 Pulse Rate 122 H 120 H Respiratory Rate 27 H 26 H Blood Pressure 113/58 L Pulse Oximetry 97 92 05/24/22 05:00 05/24/22 05:00 05/24/22 05:30 Pulse Rate 116 H 119 H Respiratory Rate 28 H Blood Pressure 103/58 L 110/55 L Pulse Oximetry 91 05/24/22 06:00 05/24/22 06:15 05/24/22 06:25 Pulse Rate 76 83 85 Respiratory Rate 18 22 18 Blood Pressure 99/67 70/42 L 85/49 L Pulse Oximetry 05/24/22 06:30 05/24/22 06:48 05/24/22 06:48 Pulse Rate 98 H 81 Respiratory Rate 20 18 Blood Pressure 82/52 L 97/55 L Pulse Oximetry 100 Oxygen Delivery Method Nasal Cannula Oxygen Flow Rate 3 Objective Labs Result Diagrams: 05/23/22 09:40 05/23/22 09:40 Labs: Laboratory Results - last 24 hr 05/23/22 05/23/22 05/23/22 02:40 02:40 08:30 WBC RBC Hgb Hct MCV MCH MCHC RDW Plt Count Neut % (Auto) Lymph % (Auto) [place] % (Auto) Eos % (Auto) Baso % (Auto) Neut # (Auto) Lymph # (Auto) [place] # (Auto) Eos # (Auto) Baso # (Auto) APTT 89 H* D 62 H D Sodium Potassium Chloride Carbon Dioxide BUN Creatinine Estimated GFR BUN/Creatinine Ratio Glucose Calcium Total Bilirubin AST ALT Alkaline Phosphatase Troponin I 0.078 H NT-Pro-B Natriuret Pep Total Protein Albumin Globulin Albumin/Globulin Ratio 05/23/22 05/23/22 05/23/22 09:40 09:40 14:21 WBC 9.6 RBC 3.04 L Hgb 8.7 L Hct 26.9 L MCV 88.5 MCH 28.7 MCHC 32.4 RDW 14.4 Plt Count 519 H Neut % (Auto) 74.6 Lymph % (Auto) 11.6 L [place] % (Auto) 11.9 Eos % (Auto) 1.2 L Baso % (Auto) 0.7 Neut # (Auto) 7200 H Lymph # (Auto) 1100 [place] # (Auto) 1100 H Eos # (Auto) 100 Baso # (Auto) 100 APTT 69 H Sodium 144 Potassium 4.1 Chloride 112 H Carbon Dioxide 26 BUN 27 H Creatinine 1.14 H Estimated GFR 51 L BUN/Creatinine Ratio 23.7 H Glucose 109 Calcium 8.3 L Total Bilirubin 0.2 AST 34 ALT 14 Alkaline Phosphatase 283 H Troponin I 0.078 H NT-Pro-B Natriuret Pep 4150 H Total Protein 6.6 Albumin 3.1 L Globulin 3.5 Albumin/Globulin Ratio 0.9 L 05/23/22 14:21 WBC RBC Hgb Hct MCV MCH MCHC RDW Plt Count Neut % (Auto) Lymph % (Auto) [place] % (Auto) Eos % (Auto) Baso % (Auto) Neut # (Auto) Lymph # (Auto) [place] # (Auto) Eos # (Auto) Baso # (Auto) APTT Sodium Potassium Chloride Carbon Dioxide BUN Creatinine Estimated GFR BUN/Creatinine Ratio Glucose Calcium Total Bilirubin AST ALT Alkaline Phosphatase Troponin I 0.075 H NT-Pro-B Natriuret Pep Total Protein Albumin Globulin Albumin/Globulin Ratio Assessment & Plan Assessment & Plan narrative: NEURO: # Acute encephalopathy -- Unclear etiology. Possible related to obstructive shock vs hypercarbia -- Check ABG -- Recommend stat CTH -- Minimize sedatives -- If RASS > 2+ then consider using ketamine gtt for sedation -- Daily SAT when hemodynamic improves RESP: # Acute hypoxemia respiratory failure -- Intubated and sedated -- Secondary to PE -- Check ABG and CXR -- HOB elevation -- Minimize PEEP due to risk of increased RV afterload -- Aspiration precaution -- Goal SpO2 > 88% # Massive PE -- s/p 100 mg tPA -- Restart heparin gtt post tPA if CTH negative for bleed -- Further management as below CVS: # Obstructive shock -- Secondary to massive PE -- s/p 100 mg tPA -- On levophed -- Recommend adding vasopressin if levophed above 15 mcg -- Recommend checking VBG -- If ScVO2 < 60% then consider adding epinephrine gtt for inotrope support -- Recommend transferring to tertiary care for potential salvage catheter directed therapy -- Recommend repeat TTE -- Titrate pressor for MAP goal > 65 : -- Monitor UOP -- High lytes goal -- Daily BMP ENDO: -- Goal BS < 180 D/w Dr. Mason and recommend transfer to tertiary care for potential salvage CDT if shock worsen. Time Spent With Patient Critical Care time: I spent a total of 40 minutes of critical care time on this patient's care today; this time is exclusive of procedural time.
[2022-05-24] MEDS: SUCCINYLCHOLINE 200 MG/10 ML VIAL IV (07:18)
[2022-05-24 07:29] LABS: Add Manual Diff / Slide Review NO; Basophils Absolute Auto 100 /uL (0-100); Basophils Percent Auto 0.7 % (0-2); Eosinophils Absolute Auto 0 /uL (0-450); Eosinophils Percent Auto 0.1 % (2-4); Hematocrit 28.2 % (36-46); Hemoglobin 8.9 g/dL (12.0-16.0); Lymphocytes Absolute Auto 600 /uL (1100-4500); Lymphocytes Percent Auto 6.1 % (25-40); Mean Corpuscular HGB Conc 31.3 % (30-36); Mean Corpuscular Hemoglobin 28.2 PG (26-34); Mean Corpuscular Volume 89.9 fL (80-100); Monocytes Absolute Auto 800 /uL (0-900); Monocytes Percent Auto 8.1 % (3-14); Neutrophils Absolute Auto 8400 /uL (1500-7000); Platelet Count 610 X10^3/uL (150-400); Red Blood Cell Count 3.14 X10^6/uL (4.0-5.2); Red Cell Distribution Width 15.1 % (11.6-14.8); White Blood Cell Count 9.9 X10^3/uL (4.5-11.0)
--- NOTE | 2022-05-24 07:29 | DI.CT.S_ITS ---
PROCEDURE: CT HEAD/BRAIN WO CON INDICATIONS: Acute mental status changes TECHNIQUE: Noncontrast 4.5 mm thick angled axial sections acquired from the foramen magnum to the vertex, with coronal and sagittal reformats. For radiation dose reduction, the following was used: automated exposure control, adjustment of mA and/or kV according to patient size. COMPARISON: None. FINDINGS: Image quality: Excellent. CSF spaces: Basal cisterns are patent. No extra-axial fluid collections. Ventricles are normal in size and shape. Brain: No midline shift. No intracranial masses or hemorrhage. Guzman-white matter interface is normal. Prominent calcifications of the falx are benign. Skull and face: Calvarium and visualized facial bones are intact, without suspicious lesions. Sinuses: Visualized sinuses and mastoids are clear. IMPRESSION: No acute intracranial abnormality. Dictated by: Yovani Funk M.D. on 05/24/2022 at 8:21 Approved by: Yovani Funk M.D. on 05/24/2022 at 8:23
[2022-05-24 07:33] LABS: PTT Partial Thromboplastin Tim 55 SECONDS (26-36)
--- NOTE | 2022-05-24 07:40 | PC.NURSE ---
Alerted by lab personel that pt was unresponsive. Pt observed to have labored breathing with palpable carotid pulse. Code Blue activated & pt was BVM while being transferred to resus room. Pt was given 200 mg propofol & 200 mg succinocholine at 0536 prior to successful intubation.
--- NOTE | 2022-05-24 07:46 | PC.NURSE ---
Per Dr. Mason, I called Collin, from patient's emergency contact on her phone. Updated on her condition that changed during the night. patient is ventilated, on medication to support her blood pressure. requested that he come in to see his tory. Dr. mason aware.
[2022-05-24 07:52] LABS: pH ABG 7.19 (7.35-7.45)
--- NOTE | 2022-05-24 07:52 | PC.NURSE ---
After intubation, pt placed on vent, & 16 fr OGT placed. Pt had triple lumen IJ placed at 0552. Propofol drip for sedation & Levophed infusion started for BP support.
[2022-05-24 07:53] LABS: Fractionated Inspired Oxygen 100; HCO3 ABG 25 mmol/L (22-26); Oxygen Saturation ABG 99 % (95-100); PCO2 ABG 65.9 mmHg (35-45); PO2 ABG 178 mmHg (80-100); TCO2 ABG 27 mmol/L (21-31)
[2022-05-24 07:55] LABS: Alanine Aminotransferase 18 IU/L (<35); Albumin 3.1 g/dL (3.5-5.0); Albumin Globulin Ratio 0.9 (1.0-2.8); Alkaline Phosphatase 287 U/L (38-126); Aspartate Aminotransferase 77 IU/L (14-36); BUN Creatinine Ratio 13.4 (6-22); Bilirubin Total 0.1 mg/dL (0.2-1.3); Blood Urea Nitrogen 26 mg/dL (7-17); Calcium 7.8 mg/dL (8.4-10.2); Carbon Dioxide 22 mmol/L (22-32); Chloride 110 mmol/L (98-107); Estimated Glomerular Filt Rate 27 mL/min (>60); Globulin 3.6 g/dL (1.7-4.1); Glucose 173 mg/dL (80-110); HEMOLYSIS < 15 (0-50); Potassium 5.2 mmol/L (3.4-5.1); Sodium 142 mmol/L (137-145); Total Protein 6.7 g/dL (6.3-8.2)
--- NOTE | 2022-05-24 07:58 | DI.CT.S_ITS ---
PROCEDURE: CT CHEST ABD PEL WO CON INDICATIONS: resp failure TECHNIQUE: After the administration of oral contrast, 5 mm thick sections acquired from the lung apices to the symphysis pubis. 5 mm thick coronal and sagittal reformats acquired, with additional 7 mm coronal MIP reformats through the lungs. For radiation dose reduction, the following was used: automated exposure control, adjustment of mA and/or kV according to patient size. COMPARISON: [facility], CT, ABDOMEN/PELVIS WITHOUT CONTRAS, 06/05/2013, 13:56. [facility], CT, CT ANGIO CHEST PE PROTOCOL, 05/22/2022, 19:20. FINDINGS: Image quality: Excellent. CHEST: Lungs and pleura: Moderate bilateral effusions with superimposed consolidations. Mediastinum: Heart size is normal. No pericardial effusion. No mediastinal adenopathy by CT size criteria. Thoracic aorta and central pulmonary arteries are normal in size. Esophagus is normal in caliber. No hiatal hernia. Chest wall: No axillary or supraclavicular adenopathy by size criteria. Endotracheal tube and nasogastric tube are in appropriate position. Thyroid gland is unremarkable. ABDOMEN: Solid organs: Liver is normal in size. Gallbladder is removed. Pancreas is normal in contours. Spleen is normal in size. No adrenal nodules. Both kidneys are mildly atrophic in size, without hydronephrosis or nephrolithiasis. Simple renal cysts are present bilaterally. Peritoneum and bowel: Small and large bowel loops are normal in caliber and wall thickness. Scattered diverticular present without inflammatory change. No free air. Moderate free fluid in the abdomen and pelvis. There is several areas of coarsening within the anterior abdominal fat most notably on the right. Nodes and vessels: No retroperitoneal or mesenteric adenopathy by size criteria. Aorta and inferior vena cava are normal in size. Miscellaneous: No ventral hernias. PELVIS: Genitourinary: Bladder wall thickness is normal. Miscellaneous: No inguinal hernias or adenopathy. Bones: No suspicious bony lesions. No vertebral body compression fractures. IMPRESSION: Moderate effusions with superimposed consolidations, the latter represent atelectasis or pneumonia. Moderate fluid within the abdomen and pelvis, with areas of coarsening particularly in the right abdominal fat. While this could be secondary to focal fluid, recommend follow-up after fluid resolution to exclude presence of underlying mass. Dictated by: Park Hammonds M.D. on 05/24/2022 at 8:51 Approved by: Park Hammonds M.D. on 05/24/2022 at 9:23
[2022-05-24 08:04] LABS: NT-proBNP (BNP-Adult 18+) 4950 pg/mL (<125)
[2022-05-24] MEDS: fentaNYL 100 MCG/2 ML INJ IV (08:53)
--- NOTE | 2022-05-24 09:00 | PC.NURSE ---
car shifter increased levophed to 12 mcg/luis or 45 ml per hour. not sure what time. Gtt decreased to 10 mcg/min now.
[2022-05-24 09:20] LABS: Troponin I 0.076 ng/mL (0.01-0.034)
[2022-05-24] MEDS: EPINEPHrine 4 MG in DEXTROSE 5% IN WATER 246 ML 3.75 MG IV (10:23)
--- NOTE | 2022-05-24 10:38 | P.TELICUIN_ITS ---
Teleintensivist Intervention Date/Time Was camera activated?: No Issue(s) Addressed Issue(s): Shock/hypotension Other:: Received call from ER Physician regarding patient Armen. Patient currently intubated and in shock, on Levophed. Had received TPA earlier in morning, prior to that was on Heparin drip for PE. Had required intubation earlier this morning for AMS/respiratory distress in ER. After intubation and initiation of sedation patient with hypotension requiring initiation of pressors. Given previous c/f PE/increased RV pressures noted on TTE the concern was that decompensation was due to PE and obstructive shock thus TPA was given. ER MD notes that patient has a distended/tense abdomen with pitting edema in her extremities. TTE noted flattened IV septum/decreased RV function/elevated R heart pressures. CTA noted at time of ER presentation small bilateral subsegmental PEs. Patient's overall presentation is c/f RV failure. This may be perhaps due to Pulmonary Hypertension (perhaps CTEPH, though no reported history of PE) with decompensation due to additional clot burden, though there are no large/central clots apparent on initial imaging; perhaps RV dysfunction due to previously other undiagnosed pulmonary hypertension - suspect some chronic component given LE edema, abdominal distension/ascites presumed on CT/bilateral pleural effusions. Patients decompensation after intubation/sedation is c/w RV failure, though could also be due to worsening clot burden. Recommended decreasing PEEP from 8 to 5, maintain adequate oxygen saturation; will need to increase MV on vent - RR to increase to 28. Also to obtain CT Head (given previous AMS), CT C/A/P non-con (no contrast given MAXIMO) to evaluate abdominal distension. Discussed importance of maintaining adequate MAPs >65-75 pressor choice - may prefer Epi over Levophed for Cardiac support in setting of presumed RV failure. Patient could also benefit from repeat TTE if transfer is paused. Would continue to trend blood gases, suspect patient's kidney function may continue to decline. Once blood pressure has stabilized, patient may need some initiation of diuretics to help unload R heart. A repeat TTE would assist with this. Additionally, can trend blood gases or CVPs. I suspect patient would benefit from transfer to a facility with [facility] given c/f Cardiogenic Shock +/- due to PE. Based on last CT imaging, I am not convinced that she would be a candidate for thrombectomy/catheter direct lysis given peripheral nature of clots; additionally, since she has received TPA since last CT thus remaining clots may have dissipated even more so and thus not be amenable to IR guided interventions. Of note: this patient is in the ER pending transfer. I am thus not able to establish audio-visual connection using Tele system and I have only had a di scussion with ER physician to assist in his management of patient.
[2022-05-24] MEDS: HEPARIN DRIP 25,000 UNIT/500 ML IV.SOLN 26 UNIT IV (11:38)
--- NOTE | 2022-05-24 12:59 | PC.NURSE ---
Ogt to Low intermittent suction. draining bloody secretions since this morning. Dr. overton aware.
--- NOTE | 2022-05-24 13:24 | PC.NURSE ---
urine bag changed to urimeter. Urine output last hour [address] overton aware
[2022-05-24] MEDS: propofoL 1,000 MG/100 ML VIAL 15.785 MG IV ×2 (13:30→19:23)
--- NOTE | 2022-05-24 13:47 | PC.NURSE ---
mouth care done throughout shift. suctioning periodically. family is at bedside. pt condition has been updated by me and Dr. Botello all shift. verbalized an understanding.emotional support to family and patient
[2022-05-24] MEDS: SODIUM CHLORIDE 0.9% 1,000 ML 250 ML IV (14:54)
[2022-05-24 15:23] LABS: HCO3 ABG 20 mmol/L (22-26); PCO2 ABG 38.3 mmHg (35-45); PO2 ABG 61 mmHg (80-100); pH ABG 7.33 (7.35-7.45)
[2022-05-24 15:24] LABS: Fractionated Inspired Oxygen 50; Oxygen Saturation ABG 90 % (95-100)
[2022-05-24 15:25] LABS: TCO2 ABG 21 mmol/L (21-31)
[2022-05-24] MEDS: PIPERACILLIN/TAZO 4.5 GM in SODIUM CHLORIDE 0.9% 100 ML IV (15:42)
[2022-05-24 15:47] LABS: Hematocrit 25.3 % (36-46); Mean Corpuscular HGB Conc 31.5 % (30-36); Mean Corpuscular Hemoglobin 27.9 PG (26-34); Mean Corpuscular Volume 88.5 fL (80-100); Platelet Count 560 X10^3/uL (150-400); Red Blood Cell Count 2.86 X10^6/uL (4.0-5.2); Red Cell Distribution Width 14.4 % (11.6-14.8); White Blood Cell Count 11.7 X10^3/uL (4.5-11.0)
--- NOTE | 2022-05-24 15:49 | PC.NURSE ---
Dr. Botello aware. urine output after 250 cc bolus increased to 15 ml
--- NOTE | 2022-05-24 15:50 | PC.NURSE ---
Oett pulled back to teeth at 23 cm by RT. Ogt remains in place. confirmed by auscultation and gastric contents
[2022-05-24 15:57] LABS: Alanine Aminotransferase 18 IU/L (<35); Albumin 2.8 g/dL (3.5-5.0); Albumin Globulin Ratio 0.8 (1.0-2.8); Alkaline Phosphatase 261 U/L (38-126); Aspartate Aminotransferase 28 IU/L (14-36); BUN Creatinine Ratio 15.1 (6-22); Bilirubin Total 0.2 mg/dL (0.2-1.3); Blood Urea Nitrogen 29 mg/dL (7-17); Calcium 7.7 mg/dL (8.4-10.2); Carbon Dioxide 20 mmol/L (22-32); Chloride 107 mmol/L (98-107); Creatine Kinase 26 U/L (30-135); Estimated Glomerular Filt Rate 27 mL/min (>60); Globulin 3.4 g/dL (1.7-4.1); Glucose 223 mg/dL (80-110); HEMOLYSIS < 15 (0-50); Magnesium 1.4 mg/dL (1.6-2.3); Potassium 3.6 mmol/L (3.4-5.1); Sodium 140 mmol/L (137-145); Total Protein 6.2 g/dL (6.3-8.2)
[2022-05-24 16:00] LABS: Neutrophils Absolute Manual 9477 /uL (3000-5900); Nucleated Red Blood Cells 1 #/Diff; Total Cells Counted 100
[2022-05-24 16:01] LABS: Anisocytosis 1+; Hypochromasia 1+
[2022-05-24 16:05] LABS: PTT Partial Thromboplastin Tim 63 SECONDS (26-36)
[2022-05-24 16:08] LABS: Troponin I 0.084 ng/mL (0.01-0.034)
[2022-05-24] MEDS: EPINEPHrine 4 MG in DEXTROSE 5% IN WATER 246 ML 52.5 MG IV ×2 (16:30→20:22)
[2022-05-24] MEDS: SODIUM CHLORIDE 0.9% 1,000 ML 50 ML IV (16:40)
[2022-05-24] MEDS: NOREPINEPHRINE BITARTRATE/D5W 4 MG/250 ML PLAST..BAG 15 MG IV (16:45)
--- NOTE | 2022-05-24 17:26 | PC.NURSE ---
repositioning patient . pt tolerated in very small amounts. blood pressure drops and she starts to get very anxious. Md aware
--- NOTE | 2022-05-24 18:37 | PC.NURSE ---
gastric output . bilious /brown to lis. urine output color is improving to light hematuria.
[2022-05-24] MEDS: ACETAMINOPHEN 650 MG SUPP PR (18:53)
[2022-05-24 18:57] LABS: Lactate (Lactic Acid) 2.1 mmol/L (0.7-2.1)
--- NOTE | 2022-05-24 19:27 | PC.NURSE ---
pt febrile. Dr. Botello aware. pt incontinent of stool . turned patient to clean up and administer her tylenol suppository. pt desat to 79 percent in seconds. bagged patient and used 100 percent fio2. RT at bedside. pt's sats returned to 96 percent after approx 3 mins.. pt was also suctioned for Scant secretions. Dr. Botello aware of the above event.
[2022-05-24 20:49] LABS: Reflexed Lactate in 2 Hours Y
[2022-05-24] MEDS: CALCIUM GLUCONATE 4.65 MEQ in SODIUM CHLORIDE 0.9% 50 ML 180 MEQ IV (22:13)
[2022-05-24 22:19] LABS: Lactate 2HR (Lactic Acid Rflx) 1.6 mmol/L (0.7-2.1)
[2022-05-24] MEDS: MAGNESIUM SULFATE 2 GM/50 ML PIGGYBACK IV (22:24)
--- NOTE | 2022-05-24 23:34 | PM.CN ---
History of Present Illness Consult details Date Patient Seen: 05/24/22 Time Patient Seen: 23:00 Chief complaint: difficulty breathing Narrative: Ms. Ayers is a 72W with PMH DM, HTN who initially presented to the hospital with shortness of breath. She ultimately developed a respiratory code, and was intubated, found to have PEs and has been in shock. She has been pending transfer, but there are no accepting facilities, so I am consulted to assist in managing patient's care. She is seen and intubated and sedated, no family present, so history is obtained from physicians, nurses, and available notes. She has no known history of CHF. She is a nonsmoker, unknown if she has ADDI. She did have approximately one week of worsening shortness of breath prior to coming in to the ED. She had orthopnea and lower extremity edema. Reportedly no fevers/chills, no chest pain. She presented to the ED and vitals were notable for tachycardia and low O2 sat. She was placed on oxygen. Labs performed showed WBC 12.1, creatinine 1.53. Trop 0.103. D-dimer [address]. BNP 6350. CT angio showed bilateral subsegmental PEs, heart was enlarged concerning for right heart strain. She was found to have moderate bilateral effusions and ascites. She was ordered for lasix and started on heparin drip. Due the severity of her presentation and concern for respiratory and hemodynamic compromise noted, request for transfer to higher level of care for possible catheter directed lysis, EKOS were requested. Unfortunately no beds were available, and she remained in the ED. She was noted to have worsening respiratory status and impending respiratory arrest and was emergently intubated. She was given 100mg tpa. She was placed on levophed for hypotension, through central line that was placed. ECHO showed dilated RV, depresssed systolic function, EF and LV systolic function were preserved. CT head showed no acute intracranial bleed. CT chest abdomen without contrast showed anasarca with ascites and pleural effusions. She was continued on heparin gtt. ICU assistance was requested who recommended epinephrine for possible inotropic support, and recommended keeping PEEP low, which was reduced to 5. When I evaluated she was intubated and sedated. She remained on pressors at 12 of epinephrine, and 4 levophed. She remained on heparin drip. She had been pending transfer for over 48 hours in the ED. Meds Home Medications and Allergies Home Medications Medication Instructions Recorded Confirmed Type gabapentin 300 mg capsule 300 mg PO TID ##0 02/07/17 History (Neurontin) hydrochlorothiazide 25 mg tablet 50 mg PO QDAY ##0 02/07/17 History metformin 500 mg tablet,extended 500 mg PO TID ##0 02/07/17 History release 24 hr (Glucophage XR) metoprolol tartrate 25 mg tablet 25 mg PO BID ##0 02/07/17 History telmisartan 80 mg tablet (Micardis) 80 mg PO QDAY ##0 02/07/17 History acetaminophen 325 mg tablet 650 mg PO TID 05/22/22 05/22/22 History (Tylenol) gabapentin 100 mg capsule 100 mg PO TID PRN Pain (Scale 05/22/22 05/22/22 History Score 4-6) gabapentin 300 mg capsule 300 mg PO TID PRN Pain (Scale 05/22/22 05/22/22 History Score 4-6) gabapentin 600 mg tablet 600 mg PO TID 05/22/22 05/22/22 History hydrochlorothiazide 12.5 mg tablet 12.5 mg PO QAM 05/22/22 05/22/22 History hydrochlorothiazide 12.5 mg tablet 12.5 mg PO QAM 05/22/22 05/22/22 History metformin 500 mg tablet 500 mg PO TID 05/22/22 05/22/22 History metoprolol tartrate 25 mg tablet 25 mg PO BID 05/22/22 05/22/22 History multivitamin with minerals 1 tab PO DAILY 05/22/22 05/22/22 History rosuvastatin 5 mg tablet See Rx Instructions .Route .COMPLEX 05/22/22 05/22/22 History telmisartan 40 mg tablet 40 mg PO QAM 05/22/22 05/22/22 History Allergies Allergy/AdvReac Type Severity Reaction Status Date / Time adhesive tape [ADHESIVE TAPE] Allergy Intermediate RIPS KINOFF Verified 05/23/22 09:48 Review of Systems Review of Systems Narrative: unable to obtain as she is intubated Exam Vital Signs (past 8 hours): - 05/24/22 20:20 05/24/22 20:25 05/24/22 20:30 Temperature Pulse Rate 89 91 H Respiratory Rate 28 H 28 H Blood Pressure 144/67 H Pulse Oximetry 97 98 05/24/22 20:30 05/24/22 20:35 05/24/22 20:40 Temperature Pulse Rate 89 89 88 Respiratory Rate 28 H 28 H 28 H Blood Pressure Pulse Oximetry 98 97 97 05/24/22 20:45 05/24/22 20:45 05/24/22 20:50 Temperature Pulse Rate 89 89 Respiratory Rate 28 H 28 H Blood Pressure 150/67 H Pulse Oximetry 97 97 05/24/22 20:55 05/24/22 21:00 05/24/22 21:00 Temperature Pulse Rate 89 88 Respiratory Rate 28 H 28 H Blood Pressure 156/61 H Pulse Oximetry 97 97 05/24/22 21:05 05/24/22 21:10 05/24/22 21:15 Temperature Pulse Rate 88 89 Respiratory Rate 28 H 28 H Blood Pressure 137/63 Pulse Oximetry 98 97 05/24/22 21:15 05/24/22 21:20 05/24/22 21:25 Temperature Pulse Rate 87 87 88 Respiratory Rate 28 H 28 H 28 H Blood Pressure Pulse Oximetry 97 97 98 05/24/22 21:30 05/24/22 21:30 05/24/22 21:35 Temperature Pulse Rate 87 86 Respiratory Rate 28 H 28 H Blood Pressure 142/62 H Pulse Oximetry 97 97 05/24/22 21:40 05/24/22 21:45 05/24/22 21:45 Temperature Pulse Rate 86 86 Respiratory Rate 28 H 28 H Blood Pressure 146/67 H Pulse Oximetry 97 97 05/24/22 21:50 05/24/22 21:55 05/24/22 22:00 Temperature Pulse Rate 86 86 87 Respiratory Rate 28 H 28 H 28 H Blood Pressure Pulse Oximetry 98 97 100 05/24/22 22:01 05/24/22 22:01 05/24/22 22:05 Temperature Pulse Rate 83 81 Respiratory Rate 28 H 28 H Blood Pressure 108/53 L Pulse Oximetry 98 94 05/24/22 22:10 05/24/22 22:15 05/24/22 22:15 Temperature Pulse Rate 83 84 Respiratory Rate 28 H 28 H Blood Pressure 148/65 H Pulse Oximetry 96 98 05/24/22 22:20 05/24/22 22:36 05/24/22 22:25 Temperature 98.4 F Pulse Rate 84 84 Respiratory Rate 28 H 28 H Blood Pressure Pulse Oximetry 96 96 05/24/22 22:30 05/24/22 22:30 05/24/22 22:35 Temperature Pulse Rate 87 84 Respiratory Rate 28 H 28 H Blood Pressure 151/67 H Pulse Oximetry 96 96 05/24/22 22:40 05/24/22 22:45 05/24/22 22:45 Temperature Pulse Rate 85 84 Respiratory Rate 28 H 28 H Blood Pressure 156/70 H Pulse Oximetry 96 97 05/24/22 22:50 05/24/22 22:55 05/24/22 23:00 Temperature Pulse Rate 84 84 Respiratory Rate 28 H 28 H Blood Pressure 157/61 H Pulse Oximetry 97 96 05/24/22 23:00 05/25/22 00:20 05/25/22 00:25 Temperature Pulse Rate 84 84 85 Respiratory Rate 28 H 28 H 28 H Blood Pressure Pulse Oximetry 97 96 100 05/25/22 00:30 05/25/22 00:30 05/25/22 00:35 Temperature Pulse Rate 81 83 Respiratory Rate 28 H 28 H Blood Pressure 132/63 Pulse Oximetry 98 96 05/25/22 00:40 05/25/22 00:45 05/25/22 00:45 Temperature Pulse Rate 83 83 Respiratory Rate 28 H 28 H Blood Pressure 133/64 Pulse Oximetry 96 96 05/25/22 00:50 05/25/22 00:55 05/25/22 01:00 Temperature Pulse Rate 83 82 Respiratory Rate 28 H 28 H Blood Pressure 135/65 Pulse Oximetry 96 96 05/25/22 01:00 05/25/22 01:05 05/25/22 01:10 Temperature Pulse Rate 83 82 82 Respiratory Rate 28 H 28 H 28 H Blood Pressure Pulse Oximetry 96 97 97 05/25/22 01:15 05/25/22 01:15 05/25/22 01:20 Temperature Pulse Rate 82 82 Respiratory Rate 28 H 28 H Blood Pressure 138/65 Pulse Oximetry 96 97 05/25/22 01:25 05/25/22 01:30 05/25/22 01:30 Temperature Pulse Rate 82 82 Respiratory Rate 28 H 28 H Blood Pressure 138/60 Pulse Oximetry 97 96 05/25/22 01:35 05/25/22 01:40 05/25/22 01:45 Temperature Pulse Rate 82 82 Respiratory Rate 28 H 28 H Blood Pressure 144/64 H Pulse Oximetry 95 96 05/25/22 01:45 05/25/22 01:50 05/25/22 01:55 Temperature Pulse Rate 84 83 83 Respiratory Rate 28 H 28 H 28 H Blood Pressure Pulse Oximetry 97 96 97 05/25/22 02:00 05/25/22 02:01 05/25/22 02:01 Temperature Pulse Rate 89 90 Respiratory Rate 30 H 28 H Blood Pressure 154/63 H Pulse Oximetry 97 95 05/25/22 02:05 05/25/22 02:10 05/25/22 02:15 Temperature Pulse Rate 95 H 93 H 97 H Respiratory Rate 34 H 28 H 28 H Blood Pressure Pulse Oximetry 96 91 99 05/25/22 02:20 05/25/22 02:25 05/25/22 02:30 Temperature Pulse Rate 97 H 95 H 98 H Respiratory Rate 28 H 28 H 28 H Blood Pressure Pulse Oximetry 99 100 97 05/25/22 02:31 05/25/22 02:31 05/25/22 02:35 Temperature Pulse Rate 96 H 97 H Respiratory Rate 28 H 27 H Blood Pressure 120/89 Pulse Oximetry 100 100 05/25/22 02:40 05/25/22 02:45 05/25/22 02:46 Temperature Pulse Rate 100 H 100 H Respiratory Rate 28 H 29 H Blood Pressure 97/50 L Pulse Oximetry 100 100 05/25/22 02:46 05/25/22 02:48 05/25/22 02:48 Temperature Pulse Rate 100 H 97 H Respiratory Rate 29 H 28 H Blood Pressure 105/55 L Pulse Oximetry 100 100 05/25/22 02:50 05/25/22 02:55 05/25/22 03:00 Temperature Pulse Rate 94 H 92 H Respiratory Rate 28 H 29 H Blood Pressure 109/55 L Pulse Oximetry 100 100 05/25/22 03:00 05/25/22 03:05 05/25/22 03:10 Temperature Pulse Rate 91 H 89 87 Respiratory Rate 29 H 28 H 30 H Blood Pressure Pulse Oximetry 100 100 100 Oxygen Delivery Method Nasal Cannula Oxygen Flow Rate 50 Narrative Exam Narrative: GEN: sedated, intubated HEENT: moist mucous membranes, PERRL NECK: elevated JVD PULM: decreased breath sound bilaterally, crackles bilaterally CV: regular rate and rhythm, no murmurs ABD: soft, nontender, nondistended, no organomegaly, normal bowel sounds EXT: warm and well perfused with bilateral edema NEURO: sedated, intubated Objective Labs Result Diagrams: 05/24/22 15:32 05/24/22 15:32 Labs: Laboratory Results - last 24 hr 05/24/22 05/24/22 05/24/22 05:00 05:00 07:15 WBC 9.9 RBC 3.14 L Hgb 8.9 L Hct 28.2 L MCV 89.9 MCH 28.2 MCHC 31.3 RDW 15.1 H Plt Count 610 H Neut % (Auto) 85.0 H Lymph % (Auto) 6.1 L F[place] % (Auto) 8.1 Eos % (Auto) 0.1 L Baso % (Auto) 0.7 Neut # (Auto) 8400 H Lymph # (Auto) 600 L [place] # (Auto) 800 Eos # (Auto) 0 Baso # (Auto) 100 Total Counted Seg Neutrophils % Band Neutrophils % Lymphocytes % (Manual) Monocytes % (Manual) Neutrophils # (Manual) Nucleated RBCs RBC Morphology Hypochromasia Anisocytosis APTT 55 H D ABG pH 7.19 L* ABG pCO2 65.9 H* ABG pO2 178 H ABG HCO3 25 ABG Total CO2 27 ABG O2 Saturation 99 ABG Base Excess -3.0 L FiO2 100 Sodium Potassium Chloride Carbon Dioxide BUN Creatinine Estimated GFR BUN/Creatinine Ratio Glucose Lactate Calcium Magnesium Total Bilirubin AST ALT Alkaline Phosphatase Total Creatine Kinase CK-MB (CK-2) CK-MB (CK-2) Rel Index Troponin I NT-Pro-B Natriuret Pep Total Protein Albumin Globulin Albumin/Globulin Ratio 05/24/22 05/24/22 05/24/22 07:33 07:33 07:33 WBC RBC Hgb Hct MCV MCH MCHC RDW Plt Count Neut % (Auto) Lymph % (Auto) [place] % (Auto) Eos % (Auto) Baso % (Auto) Neut # (Auto) Lymph # (Auto) [place] # (Auto) Eos # (Auto) Baso # (Auto) Total Counted Seg Neutrophils % Band Neutrophils % Lymphocytes % (Manual) Monocytes % (Manual) Neutrophils # (Manual) Nucleated RBCs RBC Morphology Hypochromasia Anisocytosis APTT ABG pH ABG pCO2 ABG pO2 ABG HCO3 ABG Total CO2 ABG O2 Saturation ABG Base Excess FiO2 Sodium Cancelled 142 Potassium Cancelled 5.2 H Chloride Cancelled 110 H Carbon Dioxide Cancelled 22 BUN Cancelled 26 H Creatinine Cancelled 1.94 H Estimated GFR Cancelled 27 L BUN/Creatinine Ratio Cancelled 13.4 Glucose Cancelled 173 H Lactate Calcium Cancelled 7.8 L Magnesium Total Bilirubin 0.1 L AST 77 H ALT 18 Alkaline Phosphatase 287 H Total Creatine Kinase CK-MB (CK-2) CK-MB (CK-2) Rel Index Troponin I 0.076 H NT-Pro-B Natriuret Pep 4950 H Total Protein 6.7 Albumin 3.1 L Globulin 3.6 Albumin/Globulin Ratio 0.9 L 05/24/22 05/24/22 05/24/22 14:23 15:06 15:30 WBC RBC Hgb Hct MCV MCH MCHC RDW Plt Count Neut % (Auto) Lymph % (Auto) [place] % (Auto) Eos % (Auto) Baso % (Auto) Neut # (Auto) Lymph # (Auto) [place] # (Auto) Eos # (Auto) Baso # (Auto) Total Counted Seg Neutrophils % Band Neutrophils % Lymphocytes % (Manual) Monocytes % (Manual) Neutrophils # (Manual) Nucleated RBCs RBC Morphology Hypochromasia Anisocytosis APTT 63 H ABG pH 7.33 L ABG pCO2 38.3 ABG pO2 61 L ABG HCO3 20 L ABG Total CO2 21 ABG O2 Saturation 90 L ABG Base Excess -6.0 L FiO2 50 Sodium Potassium Chloride Carbon Dioxide BUN Creatinine Estimated GFR BUN/Creatinine Ratio Glucose Lactate 2.1 Calcium Magnesium Total Bilirubin AST ALT Alkaline Phosphatase Total Creatine Kinase CK-MB (CK-2) CK-MB (CK-2) Rel Index Troponin I NT-Pro-B Natriuret Pep Total Protein Albumin Globulin Albumin/Globulin Ratio 05/24/22 05/24/22 05/24/22 15:32 15:32 22:00 WBC 11.7 H RBC 2.86 L Hgb 8.0 L Hct 25.3 L MCV 88.5 MCH 27.9 MCHC 31.5 RDW 14.4 Plt Count 560 H Neut % (Auto) Lymph % (Auto) [place] % (Auto) Eos % (Auto) Baso % (Auto) Neut # (Auto) Lymph # (Auto) [place] # (Auto) Eos # (Auto) Baso # (Auto) Total Counted 100 Seg Neutrophils % 80.0 H Band Neutrophils % 1.0 L Lymphocytes % (Manual) 13.0 L Monocytes % (Manual) 6.0 Neutrophils # (Manual) 9477 H Nucleated RBCs 1 H RBC Morphology See below Hypochromasia 1+ H Anisocytosis 1+ H APTT ABG pH ABG pCO2 ABG pO2 ABG HCO3 ABG Total CO2 ABG O2 Saturation ABG Base Excess FiO2 Sodium 140 Potassium 3.6 D Chloride 107 Carbon Dioxide 20 L BUN 29 H Creatinine 1.92 H Estimated GFR 27 L BUN/Creatinine Ratio 15.1 Glucose 223 H Lactate 1.6 Calcium 7.7 L Magnesium 1.4 L Total Bilirubin 0.2 AST 28 ALT 18 Alkaline Phosphatase 261 H Total Creatine Kinase 26 L CK-MB (CK-2) TNP CK-MB (CK-2) Rel Index TNP Troponin I 0.084 H NT-Pro-B Natriuret Pep Total Protein 6.2 L Albumin 2.8 L Globulin 3.4 Albumin/Globulin Ratio 0.8 L Assessment & Plan Assessment & Plan narrative: 1. Acute hypoxemic respiratory failure -secondary to PEs, pulmonary edema, and pleural effusions -currently sedated propofol, fentanyl -treating PEs as below -when hemodynamics improve attempt SAT/SBT -famotidine BID for stress ulcer prophylaxis -dietary consult for nutritional support 2. Shock -suspect cardiogenic shock and cor pulmonale -MAP goal >65 -ScVo2 72% -RV dysfunction may have preceded PEs given she had orthopnea and lower extremity edema for days prior to admission -has evidence of pulmonary hypertension on ECHO, etiology could be PEs, but may also be ADDI, cteph, DE or other etiologies -she would benefit from being at higher level of care for consideration of inhaled vasodilators for PE -in addition would benefit from cardiology evaluation for cardiac cath for for evaluation of cause of RV failure -for now continue pressors, currently on levophed and epinephrine, would preferentially continue epi for inotropic support for RV dysfunction -ultimately she is very volume overloaded and may benefit from significant fluid removal to offload the RV, however unable to at this time due to high pressor requirement -she may ultimately need [employer]ACH[employer] OPERATOR HELPER for fluid removal, or if pressor requirements lessen can start diuretics 3. Bilateral PEs -s/p 100mg tpa in setting of respiratory code -no evidence of intracranial bleed after tpa -heparin gtt will be continued -she has confirmed right sided heart failure, but with size of PEs it is not certain that PEs were primary cause -repeat ECHO in the morning of 05/25 to determine if RV function has improved, if it has this is a good indication that RV diminishment was due to PEs, however as patient still requiring significant pressor support suspect some continued RV dysfunction -plan for transfer to higher level of care to consider further treatment for PEs, such as catheter lysis or thrombectomy 4. MAXIMO -suspect secondary to shock and poor perfusion -development of MAXIMO in right heart failure is concerning as she will need to be able to diurese to remove fluid and improve heart failure -monitor creatinine closely, but there is significant likelihood of worsening renal function and possible need for PAINT SPR[employer] MACHINE OPERATOR HELPER -monitor urine output closely 5. Hypertension -hold antihypertensives for now 6. Diabetes -insulin sliding scale Time Spent With Patient Critical Care time: I spent a total of 45 minutes of critical care time on this patient's care today; this time is exclusive of procedural time.
[2022-05-25] VITALS (166 sets, daily range): BP systolic 87–172; BP diastolic 50–94; PULSE 81–114; RESP 0–34; TEMP 37.4–38.8; O2SAT 82–100
--- NOTE | 2022-05-25 | DI.ECHO.S_ITS ---
[facility]---------+ [facility] +---------+ : : [address] [place] : : : : [id number] : : : : Phone: [phone] Echocardiogram Report + + :Name: VARUN SOLARES Study Date: 05/25/2022 Height: 62 in : :[facility] ReadingLocation: Weight: 232 lb : : Gender: Female BSA: 2.0 m2 : :: 1950 Age: 72 yrs BP: 120/58 mmHg: :Reason For Study: Pulmonary- Embolism : :Ordering Physician: : :LORI PAULA Performed By: Gennaro Fernandez : :Referring: LORI PAULA : + + Interpretation Summary A two-dimensional transthoracic echocardiogram with color flow and Doppler was performed in limited views only. The ejection fraction is estimated to be 65-70%. The right ventricle is moderately dilated. Right ventricular systolic pressure is estimated to be 47 mmHg plus the clinically estimated CVP which cannot be estimated on this exam. The right ventricular systolic function is normal. There is a large left-sided pleural effusion. Procedure: A two-dimensional transthoracic echocardiogram with color flow and Doppler was performed in limited views only. The study quality was technically adequate. Comparison is made with the echocardiogram of 05/23/2022. Left Ventricle: The left ventricle is normal in size and wall thickness. Left ventricular systolic function is normal. The ejection fraction is estimated to be 65-70%. There are no focal wall motion abnormalities. Right Ventricle: The right ventricle is moderately dilated. The right ventricular systolic function is normal. Atria: The left atrial size is normal. The right atrium grossly appears normal in size. Tricuspid Valve: The tricuspid valve is normal in structure and function. There is mild tricuspid regurgitation. Right ventricular systolic pressure is estimated to be 47 mmHg plus the clinically estimated CVP which cannot be estimated on this exam. Great Vessels: Pt. on vent. Pericardium/ Pleura There is no pericardial effusion. There is a large left- sided pleural effusion. MMode/2D Measurements & Calculations LVIDd: 4.4 cm LA A2 area: 12.8 cm2 LVIDs: 2.6 cm LA A4 area: 18.5 cm2 FS: 41.9 % LA length (vol): 4.6 cm IVSd: 1.1 cm LA vol: 43.3 ml LVPWd: 0.97 cm LA vol index: 21.3 ml/m2 LV nunez. diameter/BSA (cm/m^2): 2.2 LV sys. diameter/BSA (cm/m^2): 1.3 RA long axis: 4.9 cm TAPSE: 2.1 cm RA area: 18.7 cm2 RA vol: 61.0 ml RA : 30.0 ml/m2 Doppler Measurements & Calculations TR max caryl: 343.2 cm/sec TR max P.1 mmHg Reading Physician:ALMAS
[2022-05-25] MEDS: propofoL 1,000 MG/100 ML VIAL 15.785 MG IV (01:52)
[2022-05-25] MEDS: EPINEPHrine 4 MG in DEXTROSE 5% IN WATER 246 ML 37.5 MG IV (01:53)
[2022-05-25 05:10] LABS: Hematocrit 24.9 % (36-46); Hemoglobin 8.2 g/dL (12.0-16.0); Mean Corpuscular Hemoglobin 28.4 PG (26-34); Platelet Count 529 X10^3/uL (150-400); Red Cell Distribution Width 14.6 % (11.6-14.8); White Blood Cell Count 12.3 X10^3/uL (4.5-11.0)
[2022-05-25 05:16] LABS: Alanine Aminotransferase 15 IU/L (<35); Albumin 2.9 g/dL (3.5-5.0); Albumin Globulin Ratio 0.9 (1.0-2.8); Alkaline Phosphatase 265 U/L (38-126); Aspartate Aminotransferase 24 IU/L (14-36); BUN Creatinine Ratio 17.9 (6-22); Bilirubin Total 0.2 mg/dL (0.2-1.3); Blood Urea Nitrogen 29 mg/dL (7-17); Carbon Dioxide 22 mmol/L (22-32); Chloride 107 mmol/L (98-107); Estimated Glomerular Filt Rate 33 mL/min (>60); Globulin 3.2 g/dL (1.7-4.1); Glucose 198 mg/dL (80-110); HEMOLYSIS < 15 (0-50); Potassium 3.6 mmol/L (3.4-5.1); Sodium 140 mmol/L (137-145); Total Protein 6.1 g/dL (6.3-8.2)
--- NOTE | 2022-05-25 05:44 | P.PN_ITS ---
Subjective Subjective Date Patient Seen: 05/25/22 Time Patient Seen: 05:30 Interval history: She remains intubated and sedated. She is having improving UOP for the last couple hours closer to 100cc/hr. Overnight her epi dose has been decreased from 12 to 8. Levophed remains stable at 4. She has pending TTE this morning. Exam Vital Signs (past 8 hours): - 05/24/22 21:45 05/24/22 21:45 05/24/22 21:50 Temperature Pulse Rate 86 86 Respiratory Rate 28 H 28 H Blood Pressure 146/67 H Pulse Oximetry 97 98 05/24/22 21:55 05/24/22 22:00 05/24/22 22:01 Temperature Pulse Rate 86 87 83 Respiratory Rate 28 H 28 H 28 H Blood Pressure Pulse Oximetry 97 100 98 05/24/22 22:01 05/24/22 22:05 05/24/22 22:10 Temperature Pulse Rate 81 83 Respiratory Rate 28 H 28 H Blood Pressure 108/53 L Pulse Oximetry 94 96 05/24/22 22:15 05/24/22 22:15 05/24/22 22:20 Temperature Pulse Rate 84 84 Respiratory Rate 28 H 28 H Blood Pressure 148/65 H Pulse Oximetry 98 96 05/24/22 22:36 05/24/22 22:25 05/24/22 22:30 Temperature 98.4 F Pulse Rate 84 Respiratory Rate 28 H Blood Pressure 151/67 H Pulse Oximetry 96 05/24/22 22:30 05/24/22 22:35 05/24/22 22:40 Temperature Pulse Rate 87 84 85 Respiratory Rate 28 H 28 H 28 H Blood Pressure Pulse Oximetry 96 96 96 05/24/22 22:45 05/24/22 22:45 05/24/22 22:50 Temperature Pulse Rate 84 84 Respiratory Rate 28 H 28 H Blood Pressure 156/70 H Pulse Oximetry 97 97 05/24/22 22:55 05/24/22 23:00 05/24/22 23:00 Temperature Pulse Rate 84 84 Respiratory Rate 28 H 28 H Blood Pressure 157/61 H Pulse Oximetry 96 97 05/25/22 00:20 05/25/22 00:25 05/25/22 00:30 Temperature Pulse Rate 84 85 Respiratory Rate 28 H 28 H Blood Pressure 132/63 Pulse Oximetry 96 100 05/25/22 00:30 05/25/22 00:35 05/25/22 00:40 Temperature Pulse Rate 81 83 83 Respiratory Rate 28 H 28 H 28 H Blood Pressure Pulse Oximetry 98 96 96 05/25/22 00:45 05/25/22 00:45 05/25/22 00:50 Temperature Pulse Rate 83 83 Respiratory Rate 28 H 28 H Blood Pressure 133/64 Pulse Oximetry 96 96 05/25/22 00:55 05/25/22 01:00 05/25/22 01:00 Temperature Pulse Rate 82 83 Respiratory Rate 28 H 28 H Blood Pressure 135/65 Pulse Oximetry 96 96 05/25/22 01:05 05/25/22 01:10 05/25/22 01:15 Temperature Pulse Rate 82 82 Respiratory Rate 28 H 28 H Blood Pressure 138/65 Pulse Oximetry 97 97 05/25/22 01:15 05/25/22 01:20 05/25/22 01:25 Temperature Pulse Rate 82 82 82 Respiratory Rate 28 H 28 H 28 H Blood Pressure Pulse Oximetry 96 97 97 05/25/22 01:30 05/25/22 01:30 05/25/22 01:35 Temperature Pulse Rate 82 82 Respiratory Rate 28 H 28 H Blood Pressure 138/60 Pulse Oximetry 96 95 05/25/22 01:40 05/25/22 01:45 05/25/22 01:45 Temperature Pulse Rate 82 84 Respiratory Rate 28 H 28 H Blood Pressure 144/64 H Pulse Oximetry 96 97 05/25/22 01:50 05/25/22 01:55 05/25/22 02:00 Temperature Pulse Rate 83 83 89 Respiratory Rate 28 H 28 H 30 H Blood Pressure Pulse Oximetry 96 97 97 05/25/22 02:01 05/25/22 02:01 05/25/22 02:05 Temperature Pulse Rate 90 95 H Respiratory Rate 28 H 34 H Blood Pressure 154/63 H Pulse Oximetry 95 96 05/25/22 02:10 05/25/22 02:15 05/25/22 02:20 Temperature Pulse Rate 93 H 97 H 97 H Respiratory Rate 28 H 28 H 28 H Blood Pressure Pulse Oximetry 91 99 99 05/25/22 02:25 05/25/22 02:30 05/25/22 02:31 Temperature Pulse Rate 95 H 98 H 96 H Respiratory Rate 28 H 28 H 28 H Blood Pressure Pulse Oximetry 100 97 100 12/08/22 02:31 05/25/22 02:35 05/25/22 02:40 Temperature Pulse Rate 97 H 100 H Respiratory Rate 27 H 28 H Blood Pressure 120/89 Pulse Oximetry 100 100 05/25/22 02:45 05/25/22 02:46 05/25/22 02:46 Temperature Pulse Rate 100 H 100 H Respiratory Rate 29 H 29 H Blood Pressure 97/50 L Pulse Oximetry 100 100 05/25/22 02:48 05/25/22 02:48 05/25/22 02:50 Temperature Pulse Rate 97 H 94 H Respiratory Rate 28 H 28 H Blood Pressure 105/55 L Pulse Oximetry 100 100 05/25/22 02:55 05/25/22 03:00 05/25/22 03:00 Temperature Pulse Rate 92 H 91 H Respiratory Rate 29 H 29 H Blood Pressure 109/55 L Pulse Oximetry 100 100 05/25/22 03:05 05/25/22 03:10 Temperature Pulse Rate 89 87 Respiratory Rate 28 H 30 H Blood Pressure Pulse Oximetry 100 100 Oxygen Delivery Method Nasal Cannula Oxygen Flow Rate 50 Narrative Exam Narrative: GEN: sedated, intubated HEENT: moist mucous membranes, PERRL NECK: elevated JVD PULM: decreased breath sound bilaterally, crackles bilaterally CV: regular rate and rhythm, no murmurs ABD: soft, nontender, nondistended, no organomegaly, normal bowel sounds EXT: warm and well perfused with bilateral edema NEURO: sedated, intubated Objective Labs Result Diagrams: 05/25/22 05:00 05/25/22 05:00 Labs: Laboratory Results - last 24 hr 05/24/22 05/24/22 05/24/22 05:00 05:00 07:15 WBC 9.9 RBC 3.14 L Hgb 8.9 L Hct 28.2 L MCV 89.9 MCH 28.2 MCHC 31.3 RDW 15.1 H Plt Count 610 H Neut % (Auto) 85.0 H Lymph % (Auto) 6.1 L [place] % (Auto) 8.1 Eos % (Auto) 0.1 L Baso % (Auto) 0.7 Neut # (Auto) 8400 H Lymph # (Auto) 600 L [place] # (Auto) 800 Eos # (Auto) 0 Baso # (Auto) 100 Total Counted Seg Neutrophils % Band Neutrophils % Lymphocytes % (Manual) Monocytes % (Manual) Neutrophils # (Manual) Nucleated RBCs RBC Morphology Hypochromasia Anisocytosis APTT 55 H D ABG pH 7.19 L* ABG pCO2 65.9 H* ABG pO2 178 H ABG HCO3 25 ABG Total CO2 27 ABG O2 Saturation 99 ABG Base Excess -3.0 L FiO2 100 Sodium Potassium Chloride Carbon Dioxide BUN Creatinine Estimated GFR BUN/Creatinine Ratio Glucose Lactate Calcium Magnesium Total Bilirubin AST ALT Alkaline Phosphatase Total Creatine Kinase CK-MB (CK-2) CK-MB (CK-2) Rel Index Troponin I NT-Pro-B Natriuret Pep Total Protein Albumin Globulin Albumin/Globulin Ratio 05/24/22 05/24/22 05/24/22 07:33 07:33 07:33 WBC RBC Hgb Hct MCV MCH MCHC RDW Plt Count Neut % (Auto) Lymph % (Auto) [place] % (Auto) Eos % (Auto) Baso % (Auto) Neut # (Auto) Lymph # (Auto) [place] # (Auto) Eos # (Auto) Baso # (Auto) Total Counted Seg Neutrophils % Band Neutrophils % Lymphocytes % (Manual) Monocytes % (Manual) Neutrophils # (Manual) Nucleated RBCs RBC Morphology Hypochromasia Anisocytosis APTT ABG pH ABG pCO2 ABG pO2 ABG HCO3 ABG Total CO2 ABG O2 Saturation ABG Base Excess FiO2 Sodium Cancelled 142 Potassium Cancelled 5.2 H Chloride Cancelled 110 H Carbon Dioxide Cancelled 22 BUN Cancelled 26 H Creatinine Cancelled 1.94 H Estimated GFR Cancelled 27 L BUN/Creatinine Ratio Cancelled 13.4 Glucose Cancelled 173 H Lactate Calcium Cancelled 7.8 L Magnesium Total Bilirubin 0.1 L AST 77 H ALT 18 Alkaline Phosphatase 287 H Total Creatine Kinase CK-MB (CK-2) CK-MB (CK-2) Rel Index Troponin I 0.076 H NT-Pro-B Natriuret Pep 4950 H Total Protein 6.7 Albumin 3.1 L Globulin 3.6 Albumin/Globulin Ratio 0.9 L 05/24/22 05/24/22 05/24/22 14:23 15:06 15:30 WBC RBC Hgb Hct MCV MCH MCHC RDW Plt Count Neut % (Auto) Lymph % (Auto) [place] % (Auto) Eos % (Auto) Baso % (Auto) Neut # (Auto) Lymph # (Auto) [place] # (Auto) Eos # (Auto) Baso # (Auto) Total Counted Seg Neutrophils % Band Neutrophils % Lymphocytes % (Manual) Monocytes % (Manual) Neutrophils # (Manual) Nucleated RBCs RBC Morphology Hypochromasia Anisocytosis APTT 63 H ABG pH 7.33 L ABG pCO2 38.3 ABG pO2 61 L ABG HCO3 20 L ABG Total CO2 21 ABG O2 Saturation 90 L ABG Base Excess -6.0 L FiO2 50 Sodium Potassium Chloride Carbon Dioxide BUN Creatinine Estimated GFR BUN/Creatinine Ratio Glucose Lactate 2.1 Calcium Magnesium Total Bilirubin AST ALT Alkaline Phosphatase Total Creatine Kinase CK-MB (CK-2) CK-MB (CK-2) Rel Index Troponin I NT-Pro-B Natriuret Pep Total Protein Albumin Globulin Albumin/Globulin Ratio 05/24/22 05/24/22 05/24/22 15:32 15:32 22:00 WBC 11.7 H RBC 2.86 L Hgb 8.0 L Hct 25.3 L MCV 88.5 MCH 27.9 MCHC 31.5 RDW 14.4 Plt Count 560 H Neut % (Auto) Lymph % (Auto) [place] % (Auto) Eos % (Auto) Baso % (Auto) Neut # (Auto) Lymph # (Auto) [place] # (Auto) Eos # (Auto) Baso # (Auto) Total Counted 100 Seg Neutrophils % 80.0 H Band Neutrophils % 1.0 L Lymphocytes % (Manual) 13.0 L Monocytes % (Manual) 6.0 Neutrophils # (Manual) 9477 H Nucleated RBCs 1 H RBC Morphology See below Hypochromasia 1+ H Anisocytosis 1+ H APTT ABG pH ABG pCO2 ABG pO2 ABG HCO3 ABG Total CO2 ABG O2 Saturation ABG Base Excess FiO2 Sodium 140 Potassium 3.6 D Chloride 107 Carbon Dioxide 20 L BUN 29 H Creatinine 1.92 H Estimated GFR 27 L BUN/Creatinine Ratio 15.1 Glucose 223 H Lactate 1.6 Calcium 7.7 L Magnesium 1.4 L Total Bilirubin 0.2 AST 28 ALT 18 Alkaline Phosphatase 261 H Total Creatine Kinase 26 L CK-MB (CK-2) TNP CK-MB (CK-2) Rel Index TNP Troponin I 0.084 H NT-Pro-B Natriuret Pep Total Protein 6.2 L Albumin 2.8 L Globulin 3.4 Albumin/Globulin Ratio 0.8 L 12/08/22 12/08/22 05:00 05:00 WBC 12.3 H RBC 2.90 L Hgb 8.2 L Hct 24.9 L MCV 86.0 MCH 28.4 MCHC 33.0 RDW 14.6 Plt Count 529 H Neut % (Auto) Lymph % (Auto) [place] % (Auto) Eos % (Auto) Baso % (Auto) Neut # (Auto) Lymph # (Auto) [place] # (Auto) Eos # (Auto) Baso # (Auto) Total Counted Seg Neutrophils % Band Neutrophils % Lymphocytes % (Manual) Monocytes % (Manual) Neutrophils # (Manual) Nucleated RBCs RBC Morphology Hypochromasia Anisocytosis APTT ABG pH ABG pCO2 ABG pO2 ABG HCO3 ABG Total CO2 ABG O2 Saturation ABG Base Excess FiO2 Sodium 140 Potassium 3.6 Chloride 107 Carbon Dioxide 22 BUN 29 H Creatinine 1.62 H Estimated GFR 33 L BUN/Creatinine Ratio 17.9 Glucose 198 H Lactate Calcium 8.0 L Magnesium Total Bilirubin 0.2 AST 24 ALT 15 Alkaline Phosphatase 265 H Total Creatine Kinase CK-MB (CK-2) CK-MB (CK-2) Rel Index Troponin I NT-Pro-B Natriuret Pep Total Protein 6.1 L Albumin 2.9 L Globulin 3.2 Albumin/Globulin Ratio 0.9 L Assessment & Plan Assessment & Plan narrative: 1. Acute hypoxemic respiratory failure -secondary to PEs, pulmonary edema, and pleural effusions -currently sedated propofol, fentanyl -treating PEs as below -when hemodynamics improve attempt SAT/SBT -famotidine BID for stress ulcer prophylaxis -dietary consult for nutritional support 2. Shock -suspect cardiogenic shock and cor pulmonale -MAP goal >65 -ScVo2 72% -RV dysfunction may have preceded PEs given she had orthopnea and lower extremity edema for days prior to admission -has evidence of pulmonary hypertension on ECHO, etiology could be PEs, but may also be ADDI, cteph, ME or other etiologies -she would benefit from being at higher level of care for consideration of inhaled vasodilators for PE -in addition would benefit from cardiology evaluation for cardiac cath for for evaluation of cause of RV failure -for now continue pressors, currently on levophed and epinephrine, would preferentially continue epi for inotropic support for RV dysfunction -ultimately she is very volume overloaded and may benefit from significant fluid removal to offload the RV, however unable to at this time due to high pressor requirement -she may ultimately need [facility] for fluid removal, or if pressor requirements lessen can start diuretics 3. Bilateral PEs -s/p 100mg tpa in setting of respiratory code -no evidence of intracranial bleed after tpa -heparin gtt will be continued -she has confirmed right sided heart failure, but with size of PEs it is not certain that PEs were primary cause -repeat ECHO in the morning of 05/25 to determine if RV function has improved, if it has this is a good indication that RV diminishment was due to PEs, however as patient still requiring significant pressor support suspect some continued RV dysfunction -plan for transfer to higher level of care to consider further treatment for PEs, such as catheter lysis or thrombectomy 4. MAXIMO, improving -suspect secondary to shock and poor perfusion -development of MAXIMO in right heart failure is concerning as she will need to be able to diurese to remove fluid and improve heart failure -monitor creatinine closely but is improving -monitor urine output closely, but is improving 5. Hypertension -hold antihypertensives for now 6. Diabetes -insulin sliding scale Overall patient appears to be improving. Pressor requirement is decreasing. Urine output is decreasing, and creatinine is improving. Goal will be to continue to wean off pressors, preferentially if need slight pressor support would prefer epi for inotropic support. TTE repeat planned for today. If hemodynamics improved and off pressors, would try to diurese. Time Spent With Patient Critical Care time: I spent a total of [] minutes of critical care time on this patient's care today; this time is exclusive of procedural time.
[2022-05-25] MEDS: BUMETANIDE 1 MG/4 ML VIAL 2 MG IV (06:16)
[2022-05-25] MEDS: metOLazone 2.5 MG TABLET PO (06:21)
[2022-05-25 06:32] LABS: HCO3 VBG 22 mmol/L (23-28); Oxygen Saturation VBG 78 % (70-75); PO2 VBG 43 mmHg (35-45); Total CO2 VBG 23 mmol/L (24-29); pH VBG 7.38 (7.33-7.43)
[2022-05-25] MEDS: HEPARIN DRIP 25,000 UNIT/500 ML IV.SOLN 26 UNIT IV (06:45)
[2022-05-25] MEDS: ACETAMINOPHEN 650 MG SUPP PR ×2 (07:49→15:37)
[2022-05-25] MEDS: MORPHINE 4 MG/ML INJ IV ×2 (08:09→10:24)
[2022-05-25] MEDS: propofoL 1,000 MG/100 ML VIAL 17.6 MG IV (08:11)
--- NOTE | 2022-05-25 08:43 | PC.NURSE ---
[facility] updated. No beds available in region but remain on their list.
[2022-05-25] MEDS: FAMOTIDINE 20 MG/2 ML VIAL IV ×2 (08:44→21:31)
--- NOTE | 2022-05-25 08:45 | DIET.CONS ---
Dietary Consultation Note Assessment: 72y F admitted for difficulty breathing and fluid overload with anasarca requiring intubation referred to nutrition for nutrition support. Pt has OG tube in place, hospitalist requests limited fluid feeding as pt being diuresed. Pts BGs 173 H, 228 H, 198 H, with impaired renal fxn eGFR 33 L, Cr 1.62 H. Pt on Levophed. Pt receiving propofol 28 mcg/kg/min providing 466 kcals/d. Ht: 157.48 cm Wt: 105.233 kg (112% above IBW) BMI: 42.4 (class 3 obesity) Adjusted Body Weight (ABW): 63.4kg Last BM: 05/24/22 (05/24/22 18:34) Labs: RBC 2.90 X10^6/uL (4.0-5.2) L 05/25/22 05:00 Hgb 8.2 g/dL (12.0-16.0) L 05/25/22 05:00 Hct 24.9 % (36-46) L 05/25/22 05:00 Creatinine 1.62 mg/dL (0.52-1.04) H 05/25/22 05:00 Lactate 1.6 mmol/L (0.7-2.1) 05/24/22 22:00 NT-Pro-B Natriuret Pep 4950 pg/mL (<125) H 05/24/22 07:33 Nutrition Diagnosis: inadequate protein calorie intake r/t inability to consume oral intake aeb pt intubated and NPO. Interventions: 1. Recc continuous enteral feeding via OG using Pivot 1.5 concentrated formula with 20mL free water flushes q4h. Initiate feed at 20mL/h and increase to goal rate of 30mL/h if tolerated after 8h. Feed plus flushes provide: 1080 kcals (17kcal/kg ABW) with propofol kcals adding 466 kcals 68g PRO (1.1g/kg ABW) 124g CHO Feed Water 546 mL Free Water: 120 mL Total Fluids: 666 mL (11mL/kg ABW) 2. Hospitalist to manage additional fluid needs as pt being diuresed in fluid overload status. 3. Please keep HOB >30degrees. Monitoring/Evaluations: following daily Electronically Signed by: Reena Su 05/25/22 08:45 Clinical Dietitian [address] [address]
[2022-05-25] MEDS: INSULIN LISPRO 100 UNIT/ML 3ML VIAL SUBCUT ×3 (08:47→18:13)
--- NOTE | 2022-05-25 08:57 | PC.NURSE ---
received pt shaking. rechecked temp. 101.8, pt agitated and awake. pt shock her head when asked if she was in pain. suctioned pt for light rich secretions. vent fio2 weaned to 35 percent during the night. Dr. crocker aware of the above. pt is now resting more comfortably. family updated. pt urine output has increased. yellow urine now.
--- NOTE | 2022-05-25 09:00 | PC.NURSE ---
ogt to lis draining bilious secretions. mouth care done
[2022-05-25 09:40] LABS: PTT Partial Thromboplastin Tim 51 SECONDS (26-36)
[2022-05-25 09:48] LABS: Blood Urea Nitrogen 28 mg/dL (7-17); Carbon Dioxide 23 mmol/L (22-32); Chloride 106 mmol/L (98-107); Estimated Glomerular Filt Rate 37 mL/min (>60); Glucose 164 mg/dL (80-110); HEMOLYSIS < 15 (0-50); Magnesium 1.7 mg/dL (1.6-2.3); Potassium 3.5 mmol/L (3.4-5.1); Sodium 140 mmol/L (137-145)
--- NOTE | 2022-05-25 10:00 | DI.RAD.S_ITS ---
PROCEDURE: XR CHEST 1V INDICATIONS: intubated TECHNIQUE: One view of the chest was acquired. COMPARISON: [facility], CR, XR CHEST 1V, 05/24/2022, 5:53. FINDINGS: Surgical changes and devices: Right IJ central line terminates in the upper portion of the SVC. Enteric and endotracheal tubes are in appropriate position. Lungs and pleura: Unchanged bilateral pleural effusions and airspace opacities.. Mediastinum: Mediastinal contours appear normal. Heart size is normal. Bones and chest wall: No suspicious bony lesions. Overlying soft tissues appear unremarkable. IMPRESSION: Appropriate position of support devices. Bilateral pleural effusions and airspace opacities are similar. Dictated by: Tyrell Mckeon M.D. on 05/25/2022 at 9:33 Approved by: Tyrell Mckeon M.D. on 05/25/2022 at 9:35
[2022-05-25] MEDS: EPINEPHrine 4 MG in DEXTROSE 5% IN WATER 246 ML 30 MG IV ×2 (10:03→18:21)
[2022-05-25 10:33] LABS: pH ABG 7.42 (7.35-7.45)
[2022-05-25 10:34] LABS: Fractionated Inspired Oxygen 35; HCO3 ABG 24 mmol/L (22-26); Oxygen Saturation ABG 89 % (95-100); PCO2 ABG 36.3 mmHg (35-45); PO2 ABG 55 mmHg (80-100); TCO2 ABG 25 mmol/L (21-31)
[2022-05-25] MEDS: fentaNYL 1,000 MCG in DEXTROSE 5% IN WATER 230 ML 18.416 MCG IV (10:38)
[2022-05-25 11:10] LABS: Appearance Urine UA CLEAR; Bilirubin Urine UA NEGATIVE (NEGATIVE); Color Urine UA YELLOW; Glucose Urine UA NEGATIVE (Negative); Ketones Urine UA NEGATIVE (NEGATIVE); Leukocyte Esterase Urine UA TRACE (NEGATIVE); Nitrite Urine UA NEGATIVE (Negative); Occult Blood Urine UA 3+ (Negative); Protein Urine UA NEGATIVE (Negative); Urobilinogen Urine UA 0.2 E.U./dL (0.2)
[2022-05-25 11:17] LABS: Bacteria Urine Moderate (10-30); Culture Indicated Urine Specimen Cultured; RBC Urine 10-30/HPF (0-5/HPF); Squamous Epithelial Cell Urine 1-5 /HPF (0-5/HPF); WBC Urine 1-5/HPF (0-5/HPF)
--- NOTE | 2022-05-25 11:28 | PC.NURSE ---
mold shifter inserted ogt with intubation.
[2022-05-25 13:40] LABS: NT-proBNP (BNP-Adult 18+) 4140 pg/mL (<125); Troponin I 0.052 ng/mL (0.01-0.034)
[2022-05-25] MEDS: propofoL 1,000 MG/100 ML VIAL 17.679 MG IV (14:30)
[2022-05-25] MEDS: CHLORHEXIDINE GLUCONATE 15 ML CUP PO ×2 (14:50→18:19)
--- NOTE | 2022-05-25 16:26 | PC.NURSE ---
emotional support to family and patient throughout shift
--- NOTE | 2022-05-25 16:31 | PC.NURSE ---
temperature sensing astorga placed without incident
[2022-05-25] MEDS: FUROSEMIDE 40 MG/4 ML VIAL IV ×2 (17:03→21:31)
[2022-05-25] MEDS: PIPERACILLIN/TAZO 3.375 GM in SODIUM CHLORIDE 0.9% 100 ML IV (17:07)
[2022-05-25 17:20] LABS: Procalcitonin 0.81 ng/mL (<0.5)
[2022-05-25] MEDS: propofoL 1,000 MG/100 ML VIAL 13.9 MG IV (21:18)
--- NOTE | 2022-05-25 21:42 | PC.NURSE ---
HEAD PASTRY CHEF note: Called [facility] regarding placement. Spoke to Mark. He said Armen is on the waitlist at [facility]. He said he will try to find her placement but to call and look for placement as well- to try any place.
[2022-05-25 22:01] LABS: Fractionated Inspired Oxygen 60; HCO3 ABG 24 mmol/L (22-26); Oxygen Saturation ABG 97 % (95-100); PCO2 ABG 37.3 mmHg (35-45); PO2 ABG 90 mmHg (80-100); TCO2 ABG 25 mmol/L (21-31); pH ABG 7.41 (7.35-7.45)
[2022-05-25] MEDS: fentaNYL 1,000 MCG in DEXTROSE 5% IN WATER 230 ML 20 MCG IV ×2 (23:14→23:16)
[2022-05-26] VITALS (129 sets, daily range): BP systolic 80–166; BP diastolic 46–72; PULSE 83–115; RESP 0–47; TEMP 37.5–38.3; O2SAT 85–99; BMI 43.3
[2022-05-26] MEDS: PIPERACILLIN/TAZO 3.375 GM in SODIUM CHLORIDE 0.9% 100 ML IV ×3 (00:38→17:02)
[2022-05-26] MEDS: CHLORHEXIDINE GLUCONATE 15 ML CUP PO ×4 (00:40→19:15)
[2022-05-26] MEDS: HEPARIN DRIP 25,000 UNIT/500 ML IV.SOLN 26 UNIT IV (02:21)
[2022-05-26] MEDS: ACETAMINOPHEN 650 MG SUPP PR ×3 (02:35→21:40)
[2022-05-26] MEDS: EPINEPHrine 4 MG in DEXTROSE 5% IN WATER 246 ML 30 MG IV ×2 (03:06→11:28)
[2022-05-26] MEDS: propofoL 1,000 MG/100 ML VIAL 13.9 MG IV ×2 (04:27→12:24)
[2022-05-26 05:11] LABS: Add Manual Diff / Slide Review NO; Basophils Absolute Auto 100 /uL (0-100); Basophils Percent Auto 0.9 % (0-2); Eosinophils Absolute Auto 200 /uL (0-450); Eosinophils Percent Auto 1.4 % (2-4); Hematocrit 25.5 % (36-46); Hemoglobin 8.1 g/dL (12.0-16.0); Lymphocytes Absolute Auto 1200 /uL (1100-4500); Lymphocytes Percent Auto 9.5 % (25-40); Mean Corpuscular HGB Conc 31.8 % (30-36); Mean Corpuscular Hemoglobin 27.5 PG (26-34); Mean Corpuscular Volume 86.5 fL (80-100); Monocytes Absolute Auto 1100 /uL (0-900); Monocytes Percent Auto 9.1 % (3-14); Neutrophils Absolute Auto 9800 /uL (1500-7000); Neutrophils Percent Auto 79.1 % (50-75); Platelet Count 502 X10^3/uL (150-400); Red Blood Cell Count 2.95 X10^6/uL (4.0-5.2); Red Cell Distribution Width 14.4 % (11.6-14.8); White Blood Cell Count 12.4 X10^3/uL (4.5-11.0)
[2022-05-26 05:20] LABS: Alanine Aminotransferase 18 IU/L (<35); Albumin 2.7 g/dL (3.5-5.0); Albumin Globulin Ratio 0.8 (1.0-2.8); Alkaline Phosphatase 255 U/L (38-126); Aspartate Aminotransferase 36 IU/L (14-36); BUN Creatinine Ratio 18.3 (6-22); Bilirubin Total 0.6 mg/dL (0.2-1.3); Blood Urea Nitrogen 26 mg/dL (7-17); Carbon Dioxide 28 mmol/L (22-32); Chloride 102 mmol/L (98-107); Estimated Glomerular Filt Rate 39 mL/min (>60); Globulin 3.4 g/dL (1.7-4.1); Glucose 170 mg/dL (80-110); HEMOLYSIS < 15 (0-50); Potassium 3.5 mmol/L (3.4-5.1); Sodium 138 mmol/L (137-145); Total Protein 6.1 g/dL (6.3-8.2)
[2022-05-26 05:37] LABS: Magnesium 1.4 mg/dL (1.6-2.3)
--- NOTE | 2022-05-26 05:41 | P.PN_ITS ---
Subjective Subjective Date Patient Seen: 05/26/22 Time Patient Seen: 05:30 Interval history: This morning she remains intubated. Yesterday she was able to come off levophed. Epinephrine was decreased to 8, when attempted to be decreased further her blood pressure dropped. At start of shift she was on a PEEP of 8. This has been decreased to 5, and she has maintained acceptable O2 sats. Lasix was increased to 40 TID. Her urine output has been brisk per ED staff. ECHO done yesterday did show decrease of RVSP from 59 to 47. Exam Vital Signs (past 8 hours): - 05/25/22 21:45 05/25/22 21:46 05/25/22 21:46 Temperature 99.9 F H 99.9 F H Pulse Rate 98 H 99 H Respiratory Rate 28 H 25 H Blood Pressure 90/55 L Pulse Oximetry 94 97 05/25/22 22:00 05/25/22 22:01 05/25/22 22:01 Temperature 99.9 F H 99.9 F H Pulse Rate 92 H 92 H Respiratory Rate 23 0 L Blood Pressure 114/57 L Pulse Oximetry 94 94 05/25/22 22:15 05/25/22 22:16 05/25/22 22:16 Temperature 100.0 F H 100.0 F H Pulse Rate 95 H 93 H Respiratory Rate 28 H 28 H Blood Pressure 87/50 L Pulse Oximetry 96 96 05/25/22 22:30 05/25/22 22:30 05/25/22 22:45 Temperature 100.0 F H Pulse Rate 90 Respiratory Rate 28 H Blood Pressure 110/59 L 109/57 L Pulse Oximetry 95 05/25/22 22:45 05/25/22 23:00 05/25/22 23:00 Temperature 100.0 F H 100.0 F H Pulse Rate 89 89 Respiratory Rate 28 H 28 H Blood Pressure 110/56 L Pulse Oximetry 96 96 05/25/22 23:15 05/25/22 23:15 05/25/22 23:30 Temperature 100.0 F H Pulse Rate 89 Respiratory Rate 28 H Blood Pressure 110/56 L 111/57 L Pulse Oximetry 96 05/25/22 23:30 05/25/22 23:45 05/25/22 23:45 Temperature 100.0 F H 100.0 F H Pulse Rate 91 H 90 Respiratory Rate 28 H 28 H Blood Pressure 112/56 L Pulse Oximetry 96 96 05/26/22 00:00 05/26/22 00:00 05/26/22 00:15 Temperature 100.0 F H Pulse Rate 91 H Respiratory Rate 28 H Blood Pressure 114/57 L 113/57 L Pulse Oximetry 96 05/26/22 00:15 05/26/22 00:30 05/26/22 00:30 Temperature 100.0 F H 100.0 F H Pulse Rate 90 91 H Respiratory Rate 28 H 28 H Blood Pressure 112/56 L Pulse Oximetry 96 96 05/26/22 02:35 05/26/22 03:42 Temperature 100.6 F H 100.6 F H Pulse Rate Respiratory Rate Blood Pressure Pulse Oximetry Oxygen Delivery Method Nasal Cannula Oxygen Flow Rate 50 Narrative Exam Narrative: GEN: sedated, intubated HEENT: moist mucous membranes, PERRL NECK: elevated JVD PULM: decreased breath sound bilaterally, crackles bilaterally CV: regular rate and rhythm, no murmurs ABD: soft, nontender, nondistended, no organomegaly, normal bowel sounds EXT: warm and well perfused with bilateral edema NEURO: sedated, intubated Objective Labs Result Diagrams: 05/26/22 05:00 05/26/22 05:00 Labs: Laboratory Results - last 24 hr 05/25/22 05/25/22 05/25/22 00:23 09:08 09:08 WBC RBC Hgb Hct MCV MCH MCHC RDW Plt Count Neut % (Auto) Lymph % (Auto) [place] % (Auto) Eos % (Auto) Baso % (Auto) Neut # (Auto) Lymph # (Auto) [place] # (Auto) Eos # (Auto) Baso # (Auto) APTT 51 H D ABG pH ABG pCO2 ABG pO2 ABG HCO3 ABG Total CO2 ABG O2 Saturation ABG Base Excess VBG pH 7.38 VBG pCO2 37.0 L VBG pO2 43 VBG HCO3 22 L VBG Total CO2 23 L VBG O2 Saturation 78 H VBG Base Excess -3.0 L FiO2 Sodium 140 Potassium 3.5 Chloride 106 Carbon Dioxide 23 BUN 28 H Creatinine 1.47 H Estimated GFR 37 L BUN/Creatinine Ratio 19.0 Glucose 164 H Calcium 8.0 L Phosphorus 4.0 Magnesium 1.7 Total Bilirubin AST ALT Alkaline Phosphatase Troponin I NT-Pro-B Natriuret Pep Total Protein Albumin Globulin Albumin/Globulin Ratio Procalcitonin Urine Color Urine Appearance Urine pH Ur Specific [place] Urine Protein Urine Glucose (UA) Urine Ketones Urine Occult Blood Urine Nitrate Urine Bilirubin Urine Urobilinogen Ur Leukocyte Esterase Urine RBC Urine WBC Ur Squamous Epith Cells Urine Bacteria Ur Culture Indicated? 05/25/22 05/25/22 05/25/22 09:08 09:08 10:13 WBC RBC Hgb Hct MCV MCH MCHC RDW Plt Count Neut % (Auto) Lymph % (Auto) [place] % (Auto) Eos % (Auto) Baso % (Auto) Neut # (Auto) Lymph # (Auto) [place] # (Auto) Eos # (Auto) Baso # (Auto) APTT ABG pH 7.42 ABG pCO2 36.3 ABG pO2 55 L ABG HCO3 24 ABG Total CO2 25 ABG O2 Saturation 89 L ABG Base Excess -1.0 VBG pH VBG pCO2 VBG pO2 VBG HCO3 VBG Total CO2 VBG O2 Saturation VBG Base Excess FiO2 35 Sodium Potassium Chloride Carbon Dioxide BUN Creatinine Estimated GFR BUN/Creatinine Ratio Glucose Calcium Phosphorus Magnesium Total Bilirubin AST ALT Alkaline Phosphatase Troponin I 0.052 H NT-Pro-B Natriuret Pep 4140 H Total Protein Albumin Globulin Albumin/Globulin Ratio Procalcitonin 0.81 H Urine Color Urine Appearance Urine pH Ur Specific [place] Urine Protein Urine Glucose (UA) Urine Ketones Urine Occult Blood Urine Nitrate Urine Bilirubin Urine Urobilinogen Ur Leukocyte Esterase Urine RBC Urine WBC Ur Squamous Epith Cells Urine Bacteria Ur Culture Indicated? 05/25/22 05/25/22 05/26/22 10:50 21:45 05:00 WBC RBC Hgb Hct MCV MCH MCHC RDW Plt Count Neut % (Auto) Lymph % (Auto) [place] % (Auto) Eos % (Auto) Baso % (Auto) Neut # (Auto) Lymph # (Auto) [place] # (Auto) Eos # (Auto) Baso # (Auto) APTT ABG pH 7.41 ABG pCO2 37.3 ABG pO2 90 ABG HCO3 24 ABG Total CO2 25 ABG O2 Saturation 97 ABG Base Excess 0.0 VBG pH VBG pCO2 VBG pO2 VBG HCO3 VBG Total CO2 VBG O2 Saturation VBG Base Excess FiO2 60 Sodium 138 Potassium 3.5 Chloride 102 Carbon Dioxide 28 BUN 26 H Creatinine 1.42 H Estimated GFR 39 L BUN/Creatinine Ratio 18.3 Glucose 170 H Calcium 8.0 L Phosphorus Magnesium Total Bilirubin 0.6 AST 36 ALT 18 Alkaline Phosphatase 255 H Troponin I NT-Pro-B Natriuret Pep Total Protein 6.1 L Albumin 2.7 L Globulin 3.4 Albumin/Globulin Ratio 0.8 L Procalcitonin Urine Color Yellow Urine Appearance Clear Urine pH 5.0 Ur Specific [place] 1.010 Urine Protein Negative Urine Glucose (UA) Negative Urine Ketones Negative Urine Occult Blood 3+ H Urine Nitrate Negative Urine Bilirubin Negative Urine Urobilinogen 0.2 Ur Leukocyte Esterase Trace H Urine RBC 10-30/hpf H Urine WBC 1-5/hpf Ur Squamous Epith Cells 1-5 /hpf Urine Bacteria Moderate (10-30) H Ur Culture Indicated? Specimen cultured 05/26/22 05/26/22 05:00 05:00 WBC 12.4 H RBC 2.95 L Hgb 8.1 L Hct 25.5 L MCV 86.5 MCH 27.5 MCHC 31.8 RDW 14.4 Plt Count 502 H Neut % (Auto) 79.1 H Lymph % (Auto) 9.5 L [place] % (Auto) 9.1 Eos % (Auto) 1.4 L Baso % (Auto) 0.9 Neut # (Auto) 9800 H Lymph # (Auto) 1200 [place] # (Auto) 1100 H Eos # (Auto) 200 Baso # (Auto) 100 APTT ABG pH ABG pCO2 ABG pO2 ABG HCO3 ABG Total CO2 ABG O2 Saturation ABG Base Excess VBG pH VBG pCO2 VBG pO2 VBG HCO3 VBG Total CO2 VBG O2 Saturation VBG Base Excess FiO2 Sodium Potassium Chloride Carbon Dioxide BUN Creatinine Estimated GFR BUN/Creatinine Ratio Glucose Calcium Phosphorus Magnesium 1.4 L Total Bilirubin AST ALT Alkaline Phosphatase Troponin I NT-Pro-B Natriuret Pep Total Protein Albumin Globulin Albumin/Globulin Ratio Procalcitonin Urine Color Urine Appearance Urine pH Ur Specific [place] Urine Protein Urine Glucose (UA) Urine Ketones Urine Occult Blood Urine Nitrate Urine Bilirubin Urine Urobilinogen Ur Leukocyte Esterase Urine RBC Urine WBC Ur Squamous Epith Cells Urine Bacteria Ur Culture Indicated? Assessment & Plan Assessment & Plan narrative: 1. Acute hypoxemic respiratory failure -secondary to PEs, pulmonary edema, and pleural effusions -currently sedated propofol, fentanyl -treating PEs as below -when hemodynamics improve attempt SAT/SBT -famotidine BID for stress ulcer prophylaxis -dietary consult for nutritional support 2. Shock -suspect cardiogenic shock and cor pulmonale -MAP goal >65 -ScVo2 72% -RV dysfunction may have preceded PEs given she had orthopnea and lower extremity edema for days prior to admission -has evidence of pulmonary hypertension on ECHO, etiology could be PEs, but may also be ADDI, cteph, NE or other etiologies -she would benefit from being at higher level of care for consideration of inhaled vasodilators for PE -in addition would benefit from cardiology evaluation for cardiac cath for for evaluation of cause of RV failure -for now continue pressors, currently epinephrine, would preferentially continue epi for inotropic support for RV dysfunction but wean as able -ultimately she is very volume overloaded and may benefit from significant fluid removal to offload the RV -she may ultimately need RIVER TESTER for fluid removal, or if pressor requirements lessen can start diuretics 3. Bilateral PEs -s/p 100mg tpa in setting of respiratory code -no evidence of intracranial bleed after tpa -heparin gtt will be continued -she has confirmed right sided heart failure, but with size of PEs it is not certain that PEs were primary cause -repeat ECHO in the morning of 05/25 showed no significant change in RV function, but did show a decrease RVSP from 59 to 47 -plan for transfer to higher level of care to consider further treatment for PEs, such as catheter lysis or thrombectomy 4. MAXIMO, improving -suspect secondary to shock and poor perfusion -development of MAXIMO in right heart failure is concerning as she will need to be able to diurese to remove fluid and improve heart failure -monitor creatinine closely but is improving -monitor urine output closely, but is improving 5. Hypertension -hold antihypertensives for now 6. Diabetes -insulin sliding scale Overall patient appears to be improving. Pressor requirement is decreasing. Urine output is increasing, and creatinine is improving. Goal will be to continue to wean off pressors, preferentially if need slight pressor support would prefer epi for inotropic support. Continue to try to diurese which may improve RV function, which could improve hemodynamics Time Spent With Patient Critical Care time: I spent a total of [] minutes of critical care time on this patient's care today; this time is exclusive of procedural time.
[2022-05-26] MEDS: FUROSEMIDE 40 MG/4 ML VIAL IV ×3 (05:52→21:30)
[2022-05-26 07:37] LABS: PTT Partial Thromboplastin Tim 51 SECONDS (26-36)
[2022-05-26] MEDS: POTASSIUM CHLORIDE IN WATER 10 MEQ/100 ML PIGGYBACK 100 MEQ IV ×2 (07:42→08:59)
[2022-05-26] MEDS: MAGNESIUM SULFATE 2 GM/50 ML PIGGYBACK IV (07:52)
[2022-05-26] MEDS: FAMOTIDINE 20 MG/2 ML VIAL IV ×2 (09:04→21:30)
--- NOTE | 2022-05-26 10:00 | DI.RAD.S_ITS ---
PROCEDURE: XR CHEST 1V INDICATIONS: intubated TECHNIQUE: One view of the chest was acquired. COMPARISON: [facility], CR, XR CHEST 1V, 05/25/2022, 10:13. FINDINGS: Surgical changes and devices: ETT tip is approximately 3.8 cm above the poncho. Enteric tube tip is below the left hemidiaphragm and is in the expected location of stomach lumen. Right internal jugular central venous catheter tip is in SVC. Lungs and pleura: There is pulmonary vascular congestion. Small bilateral pleural effusion is seen with blunting of bilateral costophrenic angle. Pulmonary edema is also noted. No gross pneumothorax. Mediastinum: Mediastinal contours appear normal. Heart size is normal. Bones and chest wall: No suspicious bony lesions. Overlying soft tissues appear unremarkable. IMPRESSION: Tube and lines are in satisfactory position. Small bilateral pleural effusion with bibasilar atelectasis/infiltrate. Pulmonary vascular congestion and mild pulmonary edema. No gross pneumothorax. Dictated by: Azael Vásquez M.D. on 05/26/2022 at 10:12 Approved by: Azael Vásquez M.D. on 05/26/2022 at 10:14
--- NOTE | 2022-05-26 10:58 | PC.NURSE ---
per Dr. alexander , tube feeds not started until pt gets a dubhoff tube.
--- NOTE | 2022-05-26 11:12 | PC.NURSE ---
increased fentanyl gtt for increase in pain in her back when moving patient. Dr. alexander aware.
[2022-05-26] MEDS: fentaNYL 100 MCG/2 ML INJ 50 MCG IV (11:21)
[2022-05-26] MEDS: fentaNYL 1,000 MCG in DEXTROSE 5% IN WATER 230 ML 22.099 MCG IV (12:23)
--- NOTE | 2022-05-26 12:55 | PC.NURSE ---
complete bed bath to patient. skin looks fantastic. no breakdown. repositioned with multiple pillows. hair washed, combed and braided. all procedures and standards of care told to patient. pt responds and opens her eyes. mouth words. pt wakes up with stimulation or family presence in room. pt quickly relaxes with calm voices and reassurance. pt given fentanyl 50 mcg prior to her increase in ADL activity. Ogt to lis draining small bilious drainage.
--- NOTE | 2022-05-26 12:59 | PC.NURSE ---
family updated by Dr. Gaston and me with patient's status. verbalized understanding. Dr. Gaston aware of pt's vitals and being febrile.
[2022-05-26] MEDS: diphenhydrAMINE 50 MG/ML VIAL 25 MG IV (14:08)
--- NOTE | 2022-05-26 17:34 | PC.NURSE ---
Dr. Gaston aware of absent bowel tones and abdominal assessment. no bm today. smear yesterday,
--- NOTE | 2022-05-26 17:42 | DI.RAD.S_ITS ---
PROCEDURE: XR ABDOMEN 1V INDICATIONS: abdominal distention TECHNIQUE: One view of the abdomen acquired. COMPARISON: [facility], CR, XR CHEST 1V, 05/26/2022, 9:56. [facility], CR, XR ABDOMEN 1V, 05/23/2022, 12:35. FINDINGS: Surgical changes and devices: The tip of the endotracheal tube is in the area of stomach. A rectal probe is noted. Bowel: Bowel gas pattern is nonspecific with paucity of colonic gas. Soft tissues: No suspicious abdominal calcifications. Visualized solid organ contours appear normal in size. Bones: No suspicious bony lesions. IMPRESSION: 1. Endotracheal tube tip in the stomach. 2. Nonspecific bowel gas pattern. Dictated by: Brittany White M.D. on 05/26/2022 at 18:28 Approved by: Brittany White M.D. on 05/26/2022 at 18:29
--- NOTE | 2022-05-26 17:54 | PC.NURSE ---
cvp blood return only from red port. white and blue no blood return. continuous infusions via those two. dr. benjamin jimenez.
--- NOTE | 2022-05-26 18:13 | PC.NURSE ---
xray of abdomen done.
[2022-05-26 18:22] LABS: BUN Creatinine Ratio 17.6 (6-22); Blood Urea Nitrogen 25 mg/dL (7-17); Calcium 7.9 mg/dL (8.4-10.2); Carbon Dioxide 27 mmol/L (22-32); Chloride 96 mmol/L (98-107); Estimated Glomerular Filt Rate 39 mL/min (>60); Glucose 228 mg/dL (80-110); HEMOLYSIS < 15 (0-50); Magnesium 1.6 mg/dL (1.6-2.3); Potassium 3.5 mmol/L (3.4-5.1); Sodium 134 mmol/L (137-145)
--- NOTE | 2022-05-26 18:58 | PC.NURSE ---
bilious green discharge
--- NOTE | 2022-05-26 18:58 | PC.NURSE ---
suctioned patient for scant secretions during turning and xray. yankauer to mouth for clear sputum
[2022-05-26 19:02] LABS: Add Manual Diff / Slide Review NO; Basophils Absolute Auto 100 /uL (0-100); Basophils Percent Auto 0.6 % (0-2); Eosinophils Absolute Auto 300 /uL (0-450); Eosinophils Percent Auto 2.1 % (2-4); Hematocrit 26.2 % (36-46); Hemoglobin 8.4 g/dL (12.0-16.0); Lymphocytes Absolute Auto 1600 /uL (1100-4500); Mean Corpuscular HGB Conc 31.9 % (30-36); Mean Corpuscular Hemoglobin 27.5 PG (26-34); Mean Corpuscular Volume 86.3 fL (80-100); Monocytes Absolute Auto 1200 /uL (0-900); Monocytes Percent Auto 8.8 % (3-14); Neutrophils Absolute Auto 10300 /uL (1500-7000); Neutrophils Percent Auto 76.5 % (50-75); Platelet Count 530 X10^3/uL (150-400); Red Blood Cell Count 3.04 X10^6/uL (4.0-5.2); Red Cell Distribution Width 14.6 % (11.6-14.8); White Blood Cell Count 13.4 X10^3/uL (4.5-11.0)
--- NOTE | 2022-05-26 19:02 | PC.NURSE ---
pt with soft restraints on intermittently throughout the shift to protect tue if when she started to wake up. emotional support to pat all shift . explained all procedures to family. verbalized an understanding.
[2022-05-26 19:08] LABS: Lactate (Lactic Acid) 1.5 mmol/L (0.7-2.1)
[2022-05-26 19:10] LABS: Alanine Aminotransferase 20 IU/L (<35); Albumin 2.7 g/dL (3.5-5.0); Albumin Globulin Ratio 0.8 (1.0-2.8); Alkaline Phosphatase 269 U/L (38-126); Aspartate Aminotransferase 42 IU/L (14-36); Bilirubin Total 0.6 mg/dL (0.2-1.3); Bilirubin Unconjugated 0.2 mg/dL (0.0-1.1); Globulin 3.6 g/dL (1.7-4.1); HEMOLYSIS < 15 (0-50); Total Protein 6.3 g/dL (6.3-8.2)
[2022-05-26] MEDS: EPINEPHrine 4 MG in DEXTROSE 5% IN WATER 246 ML 45 MG IV (19:20)
[2022-05-26 19:26] LABS: Procalcitonin 0.88 ng/mL (<0.5)
--- NOTE | 2022-05-26 19:46 | PC.NURSE ---
Report received from Ilene RIVAS.
[2022-05-26 20:30] LABS: PCO2 ABG 47.4 mmHg (35-45); PO2 ABG 63 mmHg (80-100); pH ABG 7.36 (7.35-7.45)
[2022-05-26 20:31] LABS: Oxygen Saturation ABG 90 % (95-100); TCO2 ABG 28 mmol/L (21-31)
[2022-05-26 20:37] LABS: Fractionated Inspired Oxygen 40; HCO3 ABG 27 mmol/L (22-26)
[2022-05-26 21:55] LABS: Creatinine Urine Random 75.1 mg/dL; Sodium Urine Random 84 mmol/L (30-90)
[2022-05-26 22:18] LABS: Ketones (Beta-Hydroxybutyrate) 0.03 mmol/L (<0.27)
[2022-05-26] MEDS: LINEZOLID 600 MG/300 ML IV.SOLN IV (22:54)
[2022-05-26 23:06] LABS: Lactate (Lactic Acid) 1.7 mmol/L (0.7-2.1)
--- NOTE | 2022-05-26 23:24 | DI.RAD.S_ITS ---
PROCEDURE: XR CHEST 1V INDICATIONS: intubated, evaluate effusions TECHNIQUE: One view of the chest was acquired. COMPARISON: [facility], CR, XR CHEST 1V, 05/26/2022, 9:56. FINDINGS: Surgical changes and devices: Endotracheal tube tip appears approximately 1.5 cm from the poncho but evaluation is likely limited by projection. There is a right internal jugular catheter with the tip projecting over the superior vena cava. Lungs and pleura: There are persistent bilateral moderate pleural effusions with associated bibasilar compressive atelectasis or consolidation. There is persistent pulmonary edema. No definite pneumothorax. Mediastinum: Mediastinal contours are unchanged. Heart size is enlarged. Bones and chest wall: No suspicious bony lesions. Overlying soft tissues appear unremarkable. IMPRESSION: 1. Persistent moderate bilateral pleural effusions with associated bibasilar compressive atelectasis or consolidation. 2. Persistent pulmonary edema. 3. Endotracheal tube tip projects approximately 1.5 cm from the poncho. However, evaluation is limited by in differences in projection. Recommend attention on follow-up. Dictated by: Nicholas Polk M.D. on 05/27/2022 at 1:31 Approved by: Nicholas Polk M.D. on 05/27/2022 at 1:35
[2022-05-27] VITALS (74 sets, daily range): BP systolic 94–224; BP diastolic 51–116; PULSE 60–107; RESP 6–26; TEMP 35.7–38.5; O2SAT 85–100
[2022-05-27] MEDS: fentaNYL 1,000 MCG in DEXTROSE 5% IN WATER 230 ML 20 MCG IV (00:06)
[2022-05-27] MEDS: CHLORHEXIDINE GLUCONATE 15 ML CUP PO ×3 (00:07→12:32)
[2022-05-27] MEDS: EPINEPHrine 4 MG in DEXTROSE 5% IN WATER 246 ML 45 MG IV (00:47)
[2022-05-27] MEDS: PIPERACILLIN/TAZO 3.375 GM in SODIUM CHLORIDE 0.9% 100 ML IV ×2 (01:01→09:08)
--- NOTE | 2022-05-27 01:18 | PC.NURSE ---
Addendum entered by Christen Prince R.N. 05/27/22 06:07: EKG's shown to Dr. Truong over the camera and new orders noted. Addendum entered by Christen Prince R.N. 05/27/22 06:00: EKG with st segment elevation, Dr. Wynn notified and new orders for ekg noted. results of ekg shown to dr. Wynn and called to teleintensivist Dr. Truong. Dr. Truong also informed of morning blood gas, awaiting further orders. Addendum entered by Christen Prince R.N. 05/27/22 02:44: Dr. Arellano notified of episode and changes in drips. Patient slowly stabilizing at present time. Heart rate improving to 90's and blood pressure slowly decreasing. Vasopressin decreased to 0.02 Addendum entered by Christen Prince R.N. 05/27/22 02:44: Dr. Carr Addendum entered by Christen Prince R.N. 05/27/22 02:26: Patient suddenly becoming bradycardic, O2 sats decreasing,and becoming diaphoretic. Staff at bedside and FIO2 increased temporarily to 100%, and epi drip increased back to 12 mcg. Blood pressure high but slowly decreasing O2 sats stabilizing. Addendum entered by Christen Prince R.N. 05/27/22 01:50: Spoke with Dr. Anderson and updated as to status, new orders noted. attempting to decrease sedation slowly, adding vasopressin and given stress steroids. Original Note: Received patient from ED in mild distress. Patient vented, minimally responsive. fingerstick done on arrival and nasal swab done and sent. Patient opens eyes to noxious stimuli, has gag reflex, but does not move extremities. Propofol, fentanyl, epipherine,heparin drips infusing.
--- NOTE | 2022-05-27 01:36 | P.TELICUPN_ITS ---
Subjective Subjective IF CAMERA ACTIVATED, patient seen via real-time interactive audiovisual communication: Camera activated Consent obtained for tele-internal carver care: Yes Patient Location: ICU Provider location (State): [place] Other participants/roles: Bedside RN and Dr. Janeth Miramontes history: Patient is a 72 year old female with history of HTN and DM who presents with shortness of breath. Associated with orthopnea and LE swelling. Upon further workup she was found to have bilateral subsegmental PE w/ RV strain. TTE showed presrved LV function with RV dilation and reduced RV function. She was started on heparin gtt. Cardiology from [facility] was consulted and deemed patient is appropriate for mechanical thrombectomy. On 05/24/2022 in ER awaiting for an open bed, patient was found unresponsive this morning with severe respiratory distress. She was emergently intubated with propofol. [facility] reconsulted from [facility] and recommended 100 mg tPA. Post intubation patient was found to have SBP ~70s and started on levophed follow by epinephrine. Tele internal carver consulted for further management. CTH showed no acute abnormality. CT chest/abdomen/pelvis showed moderate pleural effusion w/ compressive atelectasis and moderate fluid within the abdomen and pelvis. Start on diuretic to seek preload reduction. Patient was weaned off of levophed and epinephrine gtt came down to 6 mcg. Earlier this evening, epinephrine gtt escalated back to 12 mcg and patient became febrile. Started on zosyn and added linezolid. Patient has been accepted to OSH for the past 3 days but remains boarding in the ER due to no bed availability. Therefore she is admitted to ICU for further management awaiting for OSH to become availabie. In ICU, she remains intubated and sedated with propofol 20 mcg and fentanyl 0.7 mcg/kg/hr. Currently on epinephrine 12 mcg. Added stress dose steroids and vasopressin. Current vent setting -> PEEP 5 and FiO2 45%. CXR 05/26 reviewed -> bilateral cephalization with blunted costophrenic angles c/w bilateral pleural effusion. Current Medications Current Medications Medications: Home Medications gabapentin 300 mg capsule (Neurontin) 300 mg PO TID ##0 02/07/17 [History] hydrochlorothiazide 25 mg tablet 50 mg PO QDAY ##0 02/07/17 [History] metformin 500 mg tablet,extended release 24 hr (Glucophage XR) 500 mg PO TID ##0 02/07/17 [History] metoprolol tartrate 25 mg tablet 25 mg PO BID ##0 02/07/17 [History] telmisartan 80 mg tablet (Micardis) 80 mg PO QDAY ##0 02/07/17 [History] acetaminophen 325 mg tablet (Tylenol) 650 mg PO TID 05/22/22 [History Confirmed 05/22/22] gabapentin 100 mg capsule 100 mg PO TID PRN Pain (Scale Score 4-6) 05/22/22 [History Confirmed 05/22/22] gabapentin 300 mg capsule 300 mg PO TID PRN Pain (Scale Score 4-6) 05/22/22 [History Confirmed 05/22/22] gabapentin 600 mg tablet 600 mg PO TID 05/22/22 [History Confirmed 05/22/22] hydrochlorothiazide 12.5 mg tablet 12.5 mg PO QAM 05/22/22 [History Confirmed 05/22/22] hydrochlorothiazide 12.5 mg tablet 12.5 mg PO QAM 05/22/22 [History Confirmed 05/22/22] metformin 500 mg tablet 500 mg PO TID 05/22/22 [History Confirmed 05/22/22] metoprolol tartrate 25 mg tablet 25 mg PO BID 05/22/22 [History Confirmed 05/22/22] multivitamin with minerals 1 tab PO DAILY 05/22/22 [History Confirmed 05/22/22] rosuvastatin 5 mg tablet See Rx Instructions .Route .COMPLEX 05/22/22 [History Confirmed 05/22/22] telmisartan 40 mg tablet 40 mg PO QAM 05/22/22 [History Confirmed 05/22/22] Visit Medications (administered) Generic Name Dose Route Start Last Admin Trade Name Freq PRN Reason Stop Dose Admin Acetaminophen 650 mg 05/23/22 09:56 05/23/22 10:01 Acetaminophen 325 Mg Tablet PO 650 mg Q6H PRN Administration Fever/Mild Pain (1-3) Acetaminophen 650 mg 05/24/22 18:49 05/26/22 21:40 Acetaminophen 650 Mg Supp IN 650 mg Q6HR PRN Administration Fever/Mild Pain (1-3) Chlorhexidine Gluconate 15 ml 05/25/22 12:00 05/27/22 00:07 Chlorhexidine Gluconate 15 Ml Cup PO 15 ml Q6HR DANA Administration Famotidine 20 mg 05/25/22 09:00 05/26/22 21:30 Famotidine 20 Mg/2 Ml Vial IV 20 mg BID DANA Administration Fentanyl 50 mcg 05/26/22 10:09 05/26/22 11:21 Fentanyl 100 Mcg/2 Ml Inj IV 50 mcg Q1H PRN Administration Pain, Severe (7-10) Furosemide 40 mg 05/25/22 22:00 05/26/22 21:30 Furosemide 40 Mg/4 Ml Vial IV 40 mg Q8HR DANA Administration Heparin Sodium/Dextrose 25,000 unit in 500 mls @ 24 mls/hr 05/22/22 20:30 05/26/22 21:35 Heparin Drip IV Infused CONT DANA Titration Protocol 1,200 UNITS/HR Propofol 1,000 mg in 100 mls @ 3.157 mls/hr 05/24/22 05:45 05/26/22 18:24 Propofol IV 20 mcg/kg/min TITRATE DANA 12.628 mls/hr Titration Protocol 5 MCG/KG/MIN NOREPINEPHRINE BITARTRATE/D5W 4 mg in 250 mls @ 30 mls/hr 05/24/22 06:16 05/25/22 09:38 Levophed IV 0 mcg/min TITRATE DANA 0 mls/hr Titration Protocol 8 MCG/MIN Epinephrine HCl 4 mg/ Dextrose 250 mls @ 3.75 mls/hr 05/24/22 09:45 05/27/22 00:47 IV 12 mcg/min TITRATE DANA 45 mls/hr Administration Protocol 1 MCG/MIN Fentanyl 1,000 mcg/ Dextrose 250 mls @ 18.416 mls/hr 05/25/22 10:15 05/27/22 00:06 IV 0.76 mcg/kg/hr TITRATE DANA 20 mls/hr Administration Protocol 0.7 MCG/KG/HR Piperacillin Sod/Tazobactam 100 mls @ 25 mls/hr 05/25/22 16:30 05/27/22 01:01 Sod 3.375 gm/ Sodium Chloride IV 25 mls/hr Q8H DANA Administration Linezolid 600 mg in 300 mls @ 600 mls/hr 05/26/22 22:36 05/26/22 22:54 Zyvox IV 600 mls/hr Q12H DANA Administration Insulin Human Lispro 0 unit 05/25/22 07:45 05/26/22 22:41 Insulin Lispro 100 Unit/Ml 3ml Vial SUBCUT Not Given ACHS [facility] Protocol Objective Ventilator Parameters: Ventilator Settings FiO2 45 RT Vent Frequency 28 Ventilator Tidal Volume 300 Exhaled Vt/kg IBW 5.6 Positive End Expiratory 5 Pressure Ventilator Pressure Support 2 Inspiratory Phase Time 0.8 I:E Ratio 1.2.7 Patient Position HOB >= 30 degrees Labs Result Diagrams: 05/26/22 17:55 05/26/22 17:55 Labs: Laboratory Results - last 24 hr 05/26/22 05/26/22 05/26/22 05:00 05:00 05:00 WBC 12.4 H RBC 2.95 L Hgb 8.1 L Hct 25.5 L MCV 86.5 MCH 27.5 MCHC 31.8 RDW 14.4 Plt Count 502 H Neut % (Auto) 79.1 H Lymph % (Auto) 9.5 L [place] % (Auto) 9.1 Eos % (Auto) 1.4 L Baso % (Auto) 0.9 Neut # (Auto) 9800 H Lymph # (Auto) 1200 [place] # (Auto) 1100 H Eos # (Auto) 200 Baso # (Auto) 100 APTT ABG pH ABG pCO2 ABG pO2 ABG HCO3 ABG Total CO2 ABG O2 Saturation ABG Base Excess FiO2 Sodium 138 Potassium 3.5 Chloride 102 Carbon Dioxide 28 BUN 26 H Creatinine 1.42 H Estimated GFR 39 L BUN/Creatinine Ratio 18.3 Glucose 170 H Lactate Calcium 8.0 L Magnesium 1.4 L Total Bilirubin 0.6 Conjugated Bilirubin Unconjugated Bilirubin AST 36 ALT 18 Alkaline Phosphatase 255 H Total Protein 6.1 L Albumin 2.7 L Globulin 3.4 Albumin/Globulin Ratio 0.8 L Procalcitonin Ur Random Sodium Urine Creatinine Ketones 05/26/22 05/26/22 05/26/22 06:55 17:55 17:55 WBC 13.4 H RBC 3.04 L Hgb 8.4 L Hct 26.2 L MCV 86.3 MCH 27.5 MCHC 31.9 RDW 14.6 Plt Count 530 H Neut % (Auto) 76.5 H Lymph % (Auto) 12.0 L [place] % (Auto) 8.8 Eos % (Auto) 2.1 Baso % (Auto) 0.6 Neut # (Auto) 99865 H Lymph # (Auto) 1600 [place] # (Auto) 1200 H Eos # (Auto) 300 Baso # (Auto) 100 APTT 51 H ABG pH ABG pCO2 ABG pO2 ABG HCO3 ABG Total CO2 ABG O2 Saturation ABG Base Excess FiO2 Sodium 134 L Potassium 3.5 Chloride 96 L Carbon Dioxide 27 BUN 25 H Creatinine 1.42 H Estimated GFR 39 L BUN/Creatinine Ratio 17.6 Glucose 228 H Lactate Calcium 7.9 L Magnesium 1.6 Total Bilirubin Conjugated Bilirubin Unconjugated Bilirubin AST ALT Alkaline Phosphatase Total Protein Albumin Globulin Albumin/Globulin Ratio Procalcitonin Ur Random Sodium Urine Creatinine Ketones 05/26/22 05/26/22 05/26/22 17:55 17:55 20:00 WBC RBC Hgb Hct MCV MCH MCHC RDW Plt Count Neut % (Auto) Lymph % (Auto) [place] % (Auto) Eos % (Auto) Baso % (Auto) Neut # (Auto) Lymph # (Auto) [place] # (Auto) Eos # (Auto) Baso # (Auto) APTT ABG pH 7.36 ABG pCO2 47.4 H ABG pO2 63 L ABG HCO3 27 H ABG Total CO2 28 ABG O2 Saturation 90 L ABG Base Excess 1.0 FiO2 40 Sodium Potassium Chloride Carbon Dioxide BUN Creatinine Estimated GFR BUN/Creatinine Ratio Glucose Lactate 1.5 Calcium Magnesium Total Bilirubin 0.6 Conjugated Bilirubin 0.0 Unconjugated Bilirubin 0.2 AST 42 H ALT 20 Alkaline Phosphatase 269 H Total Protein 6.3 Albumin 2.7 L Globulin 3.6 Albumin/Globulin Ratio 0.8 L Procalcitonin 0.88 H Ur Random Sodium Urine Creatinine Ketones 05/26/22 05/26/22 05/26/22 21:22 21:30 22:50 WBC RBC Hgb Hct MCV MCH MCHC RDW Plt Count Neut % (Auto) Lymph % (Auto) [place] % (Auto) Eos % (Auto) Baso % (Auto) Neut # (Auto) Lymph # (Auto) [place] # (Auto) Eos # (Auto) Baso # (Auto) APTT ABG pH ABG pCO2 ABG pO2 ABG HCO3 ABG Total CO2 ABG O2 Saturation ABG Base Excess FiO2 Sodium Potassium Chloride Carbon Dioxide BUN Creatinine Estimated GFR BUN/Creatinine Ratio Glucose Lactate 1.7 Calcium Magnesium Total Bilirubin Conjugated Bilirubin Unconjugated Bilirubin AST ALT Alkaline Phosphatase Total Protein Albumin Globulin Albumin/Globulin Ratio Procalcitonin Ur Random Sodium 84 Urine Creatinine 75.1 Ketones 0.03 Exam Vital Signs (past 8 hours): - 05/26/22 17:41 05/26/22 17:41 05/26/22 17:45 Temperature 100.2 F H Pulse Rate 91 H Respiratory Rate 22 Blood Pressure 96/55 L 108/55 L Blood Pressure [Left Arm] Pulse Oximetry 95 Oxygen Delivery Method Fraction of Inspired Oxygen 05/26/22 17:45 05/26/22 18:00 05/26/22 18:00 Temperature 100.2 F H 100.2 F H Pulse Rate 90 91 H Respiratory Rate 22 22 Blood Pressure 103/58 L Blood Pressure [Left Arm] Pulse Oximetry 96 95 Oxygen Delivery Method Fraction of Inspired Oxygen 05/26/22 18:06 05/26/22 18:06 05/26/22 18:11 Temperature 100.2 F H 100.2 F H Pulse Rate 96 H 94 H Respiratory Rate 22 22 Blood Pressure 96/60 Blood Pressure [Left Arm] Pulse Oximetry 95 99 Oxygen Delivery Method Fraction of Inspired Oxygen 05/26/22 18:11 05/26/22 18:15 05/26/22 18:15 Temperature 100.4 F H Pulse Rate 93 H Respiratory Rate 22 Blood Pressure 101/57 L 90/52 L Blood Pressure [Left Arm] Pulse Oximetry 94 Oxygen Delivery Method Fraction of Inspired Oxygen 05/26/22 18:19 05/26/22 18:19 05/26/22 18:22 Temperature 100.4 F H 100.4 F H Pulse Rate 94 H 92 H 94 H Respiratory Rate 22 22 22 Blood Pressure 90/52 L Blood Pressure [Left Arm] Pulse Oximetry 93 93 93 Oxygen Delivery Method Fraction of Inspired Oxygen 05/26/22 18:22 05/26/22 18:28 05/26/22 18:28 Temperature 100.2 F H Pulse Rate 92 H Respiratory Rate 22 Blood Pressure 93/54 L 99/57 L Blood Pressure [Left Arm] Pulse Oximetry 95 Oxygen Delivery Method Fraction of Inspired Oxygen 05/26/22 18:30 05/26/22 18:30 05/26/22 18:45 Temperature 100.2 F H Pulse Rate 91 H Respiratory Rate 22 Blood Pressure 100/55 L 100/57 L Blood Pressure [Left Arm] Pulse Oximetry 95 Oxygen Delivery Method Fraction of Inspired Oxygen 05/26/22 18:45 05/26/22 19:44 05/26/22 21:26 Temperature 100.2 F H 100.2 F H Pulse Rate 90 91 H 92 H Respiratory Rate 22 22 22 Blood Pressure Blood Pressure [Left Arm] 103/56 L Pulse Oximetry 95 91 93 Oxygen Delivery Method Mechanical Ventilation Mechanical Ventilation Fraction of Inspired Oxygen 05/26/22 21:40 05/26/22 19:00 05/26/22 19:00 Temperature 100.4 F H Pulse Rate 87 Respiratory Rate 22 Blood Pressure 101/57 L Blood Pressure [Left Arm] Pulse Oximetry 95 Oxygen Delivery Method Fraction of Inspired Oxygen 05/26/22 19:15 05/26/22 19:15 05/26/22 19:30 Temperature Pulse Rate 89 Respiratory Rate 22 Blood Pressure 108/60 109/57 L Blood Pressure [Left Arm] Pulse Oximetry 97 Oxygen Delivery Method Fraction of Inspired Oxygen 05/26/22 19:30 05/26/22 19:44 05/26/22 19:44 Temperature Pulse Rate 92 H 91 H Respiratory Rate 22 22 Blood Pressure 110/58 L Blood Pressure [Left Arm] Pulse Oximetry 92 91 Oxygen Delivery Method Fraction of Inspired Oxygen 05/26/22 19:45 05/26/22 20:00 05/26/22 20:00 Temperature Pulse Rate 91 H 93 H Respiratory Rate 22 22 Blood Pressure 110/56 L Blood Pressure [Left Arm] Pulse Oximetry 91 90 L Oxygen Delivery Method Fraction of Inspired Oxygen 05/26/22 20:15 05/26/22 20:15 05/26/22 20:30 Temperature Pulse Rate 94 H Respiratory Rate 22 Blood Pressure 107/59 L 106/55 L Blood Pressure [Left Arm] Pulse Oximetry 91 Oxygen Delivery Method Fraction of Inspired Oxygen 05/26/22 20:30 05/26/22 20:45 05/26/22 20:45 Temperature Pulse Rate 92 H 92 H Respiratory Rate 22 22 Blood Pressure 103/57 L Blood Pressure [Left Arm] Pulse Oximetry 91 93 Oxygen Delivery Method Fraction of Inspired Oxygen 05/26/22 21:00 05/26/22 21:00 05/26/22 21:15 Temperature Pulse Rate 93 H Respiratory Rate 22 Blood Pressure 103/57 L 103/56 L Blood Pressure [Left Arm] Pulse Oximetry 93 Oxygen Delivery Method Fraction of Inspired Oxygen 05/26/22 21:15 05/26/22 21:30 05/26/22 21:30 Temperature Pulse Rate 93 H 92 H Respiratory Rate 22 22 Blood Pressure 101/57 L Blood Pressure [Left Arm] Pulse Oximetry 93 93 Oxygen Delivery Method Fraction of Inspired Oxygen 05/26/22 21:45 05/26/22 21:46 05/26/22 21:46 Temperature Pulse Rate 94 H 97 H Respiratory Rate 24 22 Blood Pressure 111/57 L Blood Pressure [Left Arm] Pulse Oximetry 91 85 L Oxygen Delivery Method Fraction of Inspired Oxygen 05/26/22 21:54 05/26/22 21:54 05/26/22 22:00 Temperature Pulse Rate 102 H Respiratory Rate 22 Blood Pressure 114/61 110/56 L Blood Pressure [Left Arm] Pulse Oximetry 91 Oxygen Delivery Method Fraction of Inspired Oxygen 05/26/22 22:00 05/26/22 22:40 05/26/22 22:15 Temperature 100.4 F H 100.8 F H Pulse Rate 97 H Respiratory Rate 22 Blood Pressure 106/58 L Blood Pressure [Left Arm] Pulse Oximetry 93 Oxygen Delivery Method Fraction of Inspired Oxygen 05/26/22 22:15 05/26/22 22:30 05/26/22 22:30 Temperature 100.6 F H 100.8 F H Pulse Rate 101 H 97 H Respiratory Rate 22 22 Blood Pressure 103/56 L Blood Pressure [Left Arm] Pulse Oximetry 93 92 Oxygen Delivery Method Fraction of Inspired Oxygen 05/26/22 22:45 05/26/22 22:45 05/26/22 23:00 Temperature 100.8 F H Pulse Rate 96 H Respiratory Rate 22 Blood Pressure 102/55 L 104/56 L Blood Pressure [Left Arm] Pulse Oximetry 93 Oxygen Delivery Method Fraction of Inspired Oxygen 05/26/22 23:00 05/26/22 23:15 05/26/22 23:15 Temperature 100.8 F H 100.8 F H Pulse Rate 96 H 95 H Respiratory Rate 22 22 Blood Pressure 110/58 L Blood Pressure [Left Arm] Pulse Oximetry 93 93 Oxygen Delivery Method Fraction of Inspired Oxygen 05/26/22 23:37 05/26/22 23:45 05/26/22 23:47 Temperature 100.9 F H Pulse Rate 115 H 106 H Respiratory Rate 17 23 Blood Pressure 166/72 H Blood Pressure [Left Arm] Pulse Oximetry 94 Oxygen Delivery Method Fraction of Inspired Oxygen 05/26/22 23:47 05/27/22 00:00 05/27/22 00:01 Temperature 100.9 F H 101.1 F H Pulse Rate 104 H 106 H Respiratory Rate 22 22 Blood Pressure 113/56 L Blood Pressure [Left Arm] Pulse Oximetry 91 91 Oxygen Delivery Method Fraction of Inspired Oxygen 05/27/22 00:01 05/26/22 23:30 05/26/22 23:30 Temperature 101.1 F H 100.9 F H Pulse Rate 106 H 104 H Respiratory Rate 22 18 Blood Pressure 166/72 H Blood Pressure [Left Arm] Pulse Oximetry 91 93 Oxygen Delivery Method Mechanical Ventilation Fraction of Inspired Oxygen 45 05/27/22 00:59 Temperature 97.5 F L Pulse Rate Respiratory Rate Blood Pressure Blood Pressure [Left Arm] Pulse Oximetry Oxygen Delivery Method Fraction of Inspired Oxygen Fraction of Inspired Oxygen 45 Oxygen Delivery Method Mechanical Ventilation Oxygen Flow Rate 50 Narrative Exam Narrative: Intubated and sedated Quality TeleICU VTE Deep Vein Thrombosis/Pulmonary Embolism Present on Admission: Yes Assessment & Plan Assessment & Plan narrative: NEURO: # Acute encephalopathy -- On propofol and fentanyl -- CTH 05/24 negative for acute bleed -- Will continue titrating down fentanyl to maintain RASS goal -1 to 0 -- If unsuccessful then will consider adding precedex gtt -- Daily SAT RESP: # Acute hypoxemia respiratory failure -- Secondary to acute on chronic RV failure due to acute PE and volume overload. Other contributing factor include VAP. -- Shock management as below -- Cont gentle diuresis to seek net negative fluid balance -- Follow up resp cx -- HOB elevation -- Minimize PEEP due to risk of increased RV afterload? -- Aspiration precaution -- Goal SpO2 > 88% # Massive PE -- s/p 100 mg tPA 05/24 -- On heparin gtt CVS: # Undifferentiated shock -- Considered multifactorial due to distributive, cardiogenic, and obstructive -- On epinephrine gtt -- Cont diuresis to seek preload reduction -- Trend ScVo2 and lactic acid -- Sepsis workup as below -- Added stress steroids -- Added vasopressin -- MAP goal > 65 : # MAXIMO -- Secondary to renal venous congestion, hypotension, and ? contrast induced nephropathy -- Cont diuresis to seek preload -- Avoid nephrotoxin agents -- Monitor UOP -- High lytes goal -- Daily BMP ID: # Septic shock -- Cx negative to date -- Added linezolid -- On zosyn -- Follow up cx data ENDO: # DM -- Recommend ISS -- Goal BS < 180 D/w bedside RN and Dr. Fowler. Pending transfer to OSH for further RV management and potential inhaled flolan for RV afterload. Time Spent With Patient Critical Care time: I spent a total of 54 minutes of critical care time on this patient's care today; this time is exclusive of procedural time.
[2022-05-27] MEDS: HYDROCORTISONE 100 MG/2 ML VIAL 50 MG IV ×2 (01:54→05:13)
[2022-05-27] MEDS: VASOPRESSIN 20 UNIT/ML VIAL IV (02:05)
[2022-05-27] MEDS: VASOPRESSIN 40 UNIT in SODIUM CHLORIDE 0.9% 100 ML 6 UNIT IV (02:05)
[2022-05-27] MEDS: MAGNESIUM SULFATE 2 GM/50 ML PIGGYBACK IV (02:30)
[2022-05-27] MEDS: HEPARIN DRIP 25,000 UNIT/500 ML IV.SOLN 26 UNIT IV (04:15)
[2022-05-27 04:57] LABS: Add Manual Diff / Slide Review NO; Basophils Absolute Auto 200 /uL (0-100); Basophils Percent Auto 0.9 % (0-2); Eosinophils Absolute Auto 0 /uL (0-450); Eosinophils Percent Auto 0.3 % (2-4); Hematocrit 27.9 % (36-46); Hemoglobin 9.1 g/dL (12.0-16.0); Lymphocytes Absolute Auto 500 /uL (1100-4500); Mean Corpuscular HGB Conc 32.6 % (30-36); Monocytes Absolute Auto 900 /uL (0-900); Monocytes Percent Auto 5.2 % (3-14); Neutrophils Absolute Auto 15900 /uL (1500-7000); Neutrophils Percent Auto 90.6 % (50-75); Platelet Count 561 X10^3/uL (150-400); Red Blood Cell Count 3.24 X10^6/uL (4.0-5.2); Red Cell Distribution Width 14.6 % (11.6-14.8); White Blood Cell Count 17.5 X10^3/uL (4.5-11.0)
--- NOTE | 2022-05-27 05:02 | PM.HP.1 ---
History of Present Illness History of Present Illness Date Patient Seen: 05/27/22 Time Patient Seen: 12:30 Chief complaint: difficulty breathing Narrative: Please see initial consult note but in summary: Ms. Ayers is a 72W with PMH DM, HTN who initially presented to the hospital with shortness of breath. She ultimately developed a respiratory code, and was intubated, found to have PEs and has been in shock. She has been pending transfer, but there are no accepting facilities. She is seen and intubated and sedated, no family present, so history is obtained from physicians, nurses, and available notes. She has no known history of CHF. She is a nonsmoker, unknown if she has ADDI. She did have approximately one week of worsening shortness of breath prior to coming in to the ED. She had orthopnea and lower extremity edema. Reportedly no fevers/chills, no chest pain. She presented to the ED and vitals were notable for tachycardia and low O2 sat. She was placed on oxygen. Labs performed showed WBC 12.1, creatinine 1.53. Trop 0.103. D-dimer [address]. BNP 6350. CT angio showed bilateral subsegmental PEs, heart was enlarged concerning for right heart strain. She was found to have moderate bilateral effusions and ascites. She was ordered for lasix and started on heparin drip. Due the severity of her presentation and concern for respiratory and hemodynamic compromise noted, request for transfer to higher level of care for possible catheter directed lysis, EKOS were requested. Unfortunately no beds were available, and she remained in the ED. She was noted to have worsening respiratory status and impending respiratory arrest and was emergently intubated. She was given 100mg tpa. She was placed on levophed for hypotension, through central line that was placed. ECHO showed dilated RV, depresssed systolic function, EF and LV systolic function were preserved. CT head showed no acute intracranial bleed. CT chest abdomen without contrast showed anasarca with ascites and pleural effusions. She was continued on heparin gtt. ICU assistance was requested who recommended epinephrine for possible inotropic support, and recommended keeping PEEP low, which was reduced to 5. She had remained in the ED awaiting transfer for cardiology evaluation, and possibly inhaled vasodilators and further workup for right sided heart failure. She had been diuresed net negative -3L approximately. She had initially been on epinephrine and levophed and eventually levophed was stopped. Epinephrine was initially able to be weaned, but then in the last 12 hours she's needed increasing doses. She has an OG tube, but feeding has not begun due to concern for aspiration. She is noted to be febrile, and is currently treated with zosyn. Blood, urine, and sputum cultures have no growth. Ultimately after much discussion with the ED physician and continue delay to transfer, it was decided to have her admitted to ICU and continue transfer attempts. Family/social history: unable to obtain ,patient intubated Patient History Family & Social History Social History: household members family Safety & Behavioral: Feels Safe in Current Yes Environment Been Physically Hurt or No Threatened By a Person Tobacco & Substance use: Smoking Status Unknown if ever smoked Substance Use Type unknown Meds Home Medications and Allergies Home Medications Medication Instructions Recorded Confirmed Type gabapentin 300 mg capsule 300 mg PO TID ##0 02/07/17 History (Neurontin) hydrochlorothiazide 25 mg tablet 50 mg PO QDAY ##0 02/07/17 History metformin 500 mg tablet,extended 500 mg PO TID ##0 02/07/17 History release 24 hr (Glucophage XR) metoprolol tartrate 25 mg tablet 25 mg PO BID ##0 02/07/17 History telmisartan 80 mg tablet (Micardis) 80 mg PO QDAY ##0 02/07/17 History acetaminophen 325 mg tablet 650 mg PO TID 05/22/22 05/22/22 History (Tylenol) gabapentin 100 mg capsule 100 mg PO TID PRN Pain (Scale 05/22/22 05/22/22 History Score 4-6) gabapentin 300 mg capsule 300 mg PO TID PRN Pain (Scale 05/22/22 05/22/22 History Score 4-6) gabapentin 600 mg tablet 600 mg PO TID 05/22/22 05/22/22 History hydrochlorothiazide 12.5 mg tablet 12.5 mg PO QAM 05/22/22 05/22/22 History hydrochlorothiazide 12.5 mg tablet 12.5 mg PO QAM 05/22/22 05/22/22 History metformin 500 mg tablet 500 mg PO TID 05/22/22 05/22/22 History metoprolol tartrate 25 mg tablet 25 mg PO BID 05/22/22 05/22/22 History multivitamin with minerals 1 tab PO DAILY 05/22/22 05/22/22 History rosuvastatin 5 mg tablet See Rx Instructions .Route .COMPLEX 05/22/22 05/22/22 History telmisartan 40 mg tablet 40 mg PO QAM 05/22/22 05/22/22 History Allergies Allergy/AdvReac Type Severity Reaction Status Date / Time adhesive tape [ADHESIVE TAPE] Allergy Intermediate RIPS KINOFF Verified 05/23/22 09:48 Review of Systems Review of Systems Narrative: unable to obtain as she is intubated Exam Vital Signs (past 8 hours): - 05/26/22 21:26 05/26/22 21:40 05/26/22 21:15 Temperature 100.4 F H Pulse Rate 92 H Respiratory Rate 22 Blood Pressure 103/56 L Blood Pressure [Left Arm] 103/56 L Pulse Oximetry 93 Oxygen Delivery Method Mechanical Ventilation Fraction of Inspired Oxygen 05/26/22 21:15 05/26/22 21:30 05/26/22 21:30 Temperature Pulse Rate 93 H 92 H Respiratory Rate 22 22 Blood Pressure 101/57 L Blood Pressure [Left Arm] Pulse Oximetry 93 93 Oxygen Delivery Method Fraction of Inspired Oxygen 05/26/22 21:45 05/26/22 21:46 05/26/22 21:46 Temperature Pulse Rate 94 H 97 H Respiratory Rate 24 22 Blood Pressure 111/57 L Blood Pressure [Left Arm] Pulse Oximetry 91 85 L Oxygen Delivery Method Fraction of Inspired Oxygen 05/26/22 21:54 05/26/22 21:54 05/26/22 22:00 Temperature Pulse Rate 102 H Respiratory Rate 22 Blood Pressure 114/61 110/56 L Blood Pressure [Left Arm] Pulse Oximetry 91 Oxygen Delivery Method Fraction of Inspired Oxygen 05/26/22 22:00 05/26/22 22:40 05/26/22 22:15 Temperature 100.4 F H 100.8 F H Pulse Rate 97 H Respiratory Rate 22 Blood Pressure 106/58 L Blood Pressure [Left Arm] Pulse Oximetry 93 Oxygen Delivery Method Fraction of Inspired Oxygen 05/26/22 22:15 05/26/22 22:30 05/26/22 22:30 Temperature 100.6 F H 100.8 F H Pulse Rate 101 H 97 H Respiratory Rate 22 22 Blood Pressure 103/56 L Blood Pressure [Left Arm] Pulse Oximetry 93 92 Oxygen Delivery Method Fraction of Inspired Oxygen 05/26/22 22:45 05/26/22 22:45 05/26/22 23:00 Temperature 100.8 F H Pulse Rate 96 H Respiratory Rate 22 Blood Pressure 102/55 L 104/56 L Blood Pressure [Left Arm] Pulse Oximetry 93 Oxygen Delivery Method Fraction of Inspired Oxygen 05/26/22 23:00 05/26/22 23:15 05/26/22 23:15 Temperature 100.8 F H 100.8 F H Pulse Rate 96 H 95 H Respiratory Rate 22 22 Blood Pressure 110/58 L Blood Pressure [Left Arm] Pulse Oximetry 93 93 Oxygen Delivery Method Fraction of Inspired Oxygen 05/26/22 23:37 05/26/22 23:45 05/26/22 23:47 Temperature 100.9 F H Pulse Rate 115 H 106 H Respiratory Rate 17 23 Blood Pressure 166/72 H Blood Pressure [Left Arm] Pulse Oximetry 94 Oxygen Delivery Method Fraction of Inspired Oxygen 05/26/22 23:47 05/27/22 00:00 05/27/22 00:01 Temperature 100.9 F H 101.1 F H Pulse Rate 104 H 106 H Respiratory Rate 22 22 Blood Pressure 113/56 L Blood Pressure [Left Arm] Pulse Oximetry 91 91 Oxygen Delivery Method Fraction of Inspired Oxygen 05/27/22 00:01 05/26/22 23:30 05/26/22 23:30 Temperature 101.1 F H 100.9 F H Pulse Rate 106 H 104 H Respiratory Rate 22 18 Blood Pressure 166/72 H Blood Pressure [Left Arm] Pulse Oximetry 91 93 Oxygen Delivery Method Mechanical Ventilation Fraction of Inspired Oxygen 45 05/27/22 00:59 05/27/22 00:15 05/27/22 00:15 Temperature 97.5 F L 101.3 F H Pulse Rate 107 H Respiratory Rate 22 Blood Pressure 98/51 L Blood Pressure [Left Arm] Pulse Oximetry 92 Oxygen Delivery Method Fraction of Inspired Oxygen 05/27/22 00:30 05/27/22 00:30 05/27/22 00:45 Temperature 101.1 F H Pulse Rate 105 H Respiratory Rate 22 Blood Pressure 94/55 L 94/55 L Blood Pressure [Left Arm] Pulse Oximetry 94 Oxygen Delivery Method Fraction of Inspired Oxygen 05/27/22 00:45 05/27/22 01:00 05/27/22 01:00 Temperature 100.9 F H 100.8 F H Pulse Rate 102 H 101 H Respiratory Rate 22 22 Blood Pressure 114/58 L Blood Pressure [Left Arm] Pulse Oximetry 94 94 Oxygen Delivery Method Fraction of Inspired Oxygen 05/27/22 01:15 05/27/22 01:15 05/27/22 01:30 Temperature 100.6 F H Pulse Rate 100 H Respiratory Rate 22 Blood Pressure 116/61 121/63 Blood Pressure [Left Arm] Pulse Oximetry 94 Oxygen Delivery Method Fraction of Inspired Oxygen 05/27/22 01:30 05/27/22 01:45 05/27/22 01:45 Temperature 100.4 F H 100.2 F H Pulse Rate 100 H 100 H Respiratory Rate 22 22 Blood Pressure 122/64 Blood Pressure [Left Arm] Pulse Oximetry 93 92 Oxygen Delivery Method Fraction of Inspired Oxygen 05/27/22 02:00 05/27/22 02:00 05/27/22 02:15 Temperature 100.2 F H 100.2 F H Pulse Rate 100 H 60 Respiratory Rate 22 22 Blood Pressure 127/67 Blood Pressure [Left Arm] Pulse Oximetry 92 86 L Oxygen Delivery Method Fraction of Inspired Oxygen 05/27/22 02:16 05/27/22 02:16 05/27/22 02:19 Temperature 100.2 F H 100.4 F H Pulse Rate 64 67 Respiratory Rate 22 22 Blood Pressure 224/116 H Blood Pressure [Left Arm] Pulse Oximetry 85 L 93 Oxygen Delivery Method Fraction of Inspired Oxygen 05/27/22 02:19 05/27/22 02:22 05/27/22 02:22 Temperature 100.4 F H Pulse Rate 73 Respiratory Rate 22 Blood Pressure 208/91 H 209/97 H Blood Pressure [Left Arm] Pulse Oximetry 96 Oxygen Delivery Method Fraction of Inspired Oxygen 05/27/22 02:30 05/27/22 02:30 05/27/22 02:45 Temperature 100.6 F H Pulse Rate 85 Respiratory Rate 22 Blood Pressure 199/79 H 171/79 H Blood Pressure [Left Arm] Pulse Oximetry 93 Oxygen Delivery Method Fraction of Inspired Oxygen 05/27/22 02:45 05/27/22 03:00 05/27/22 03:00 Temperature 100.8 F H 100.8 F H Pulse Rate 92 H 95 H Respiratory Rate 22 22 Blood Pressure 148/79 H Blood Pressure [Left Arm] Pulse Oximetry 93 94 Oxygen Delivery Method Fraction of Inspired Oxygen Fraction of Inspired Oxygen 45 Oxygen Delivery Method Mechanical Ventilation Oxygen Flow Rate 50 Narrative Exam Narrative: GEN: sedated, intubated HEENT: moist mucous membranes, PERRL NECK: elevated JVD PULM: decreased breath sound bilaterally, crackles bilaterally CV: regular rate and rhythm, no murmurs ABD: soft, nontender, nondistended, no organomegaly, normal bowel sounds EXT: warm and well perfused with bilateral edema NEURO: sedated, intubated Objective Labs Result Diagrams: 05/26/22 17:55 05/26/22 17:55 Labs: Laboratory Results - last 24 hr 05/26/22 05/26/22 05/26/22 05:00 05:00 05:00 WBC 12.4 H RBC 2.95 L Hgb 8.1 L Hct 25.5 L MCV 86.5 MCH 27.5 MCHC 31.8 RDW 14.4 Plt Count 502 H Neut % (Auto) 79.1 H Lymph % (Auto) 9.5 L [place] % (Auto) 9.1 Eos % (Auto) 1.4 L Baso % (Auto) 0.9 Neut # (Auto) 9800 H Lymph # (Auto) 1200 [place] # (Auto) 1100 H Eos # (Auto) 200 Baso # (Auto) 100 APTT ABG pH ABG pCO2 ABG pO2 ABG HCO3 ABG Total CO2 ABG O2 Saturation ABG Base Excess FiO2 Sodium 138 Potassium 3.5 Chloride 102 Carbon Dioxide 28 BUN 26 H Creatinine 1.42 H Estimated GFR 39 L BUN/Creatinine Ratio 18.3 Glucose 170 H Lactate Calcium 8.0 L Magnesium 1.4 L Total Bilirubin 0.6 Conjugated Bilirubin Unconjugated Bilirubin AST 36 ALT 18 Alkaline Phosphatase 255 H Total Protein 6.1 L Albumin 2.7 L Globulin 3.4 Albumin/Globulin Ratio 0.8 L Procalcitonin Ur Random Sodium Urine Creatinine Nasal Screen MRSA (PCR) Ketones 05/26/22 05/26/22 05/26/22 06:55 17:55 17:55 WBC 13.4 H RBC 3.04 L Hgb 8.4 L Hct 26.2 L MCV 86.3 MCH 27.5 MCHC 31.9 RDW 14.6 Plt Count 530 H Neut % (Auto) 76.5 H Lymph % (Auto) 12.0 L [place] % (Auto) 8.8 Eos % (Auto) 2.1 Baso % (Auto) 0.6 Neut # (Auto) 76885 H Lymph # (Auto) 1600 [place] # (Auto) 1200 H Eos # (Auto) 300 Baso # (Auto) 100 APTT 51 H ABG pH ABG pCO2 ABG pO2 ABG HCO3 ABG Total CO2 ABG O2 Saturation ABG Base Excess FiO2 Sodium 134 L Potassium 3.5 Chloride 96 L Carbon Dioxide 27 BUN 25 H Creatinine 1.42 H Estimated GFR 39 L BUN/Creatinine Ratio 17.6 Glucose 228 H Lactate Calcium 7.9 L Magnesium 1.6 Total Bilirubin Conjugated Bilirubin Unconjugated Bilirubin AST ALT Alkaline Phosphatase Total Protein Albumin Globulin Albumin/Globulin Ratio Procalcitonin Ur Random Sodium Urine Creatinine Nasal Screen MRSA (PCR) Ketones 05/26/22 05/26/22 05/26/22 17:55 17:55 20:00 WBC RBC Hgb Hct MCV MCH MCHC RDW Plt Count Neut % (Auto) Lymph % (Auto) [place] % (Auto) Eos % (Auto) Baso % (Auto) Neut # (Auto) Lymph # (Auto) [place] # (Auto) Eos # (Auto) Baso # (Auto) APTT ABG pH 7.36 ABG pCO2 47.4 H ABG pO2 63 L ABG HCO3 27 H ABG Total CO2 28 ABG O2 Saturation 90 L ABG Base Excess 1.0 FiO2 40 Sodium Potassium Chloride Carbon Dioxide BUN Creatinine Estimated GFR BUN/Creatinine Ratio Glucose Lactate 1.5 Calcium Magnesium Total Bilirubin 0.6 Conjugated Bilirubin 0.0 Unconjugated Bilirubin 0.2 AST 42 H ALT 20 Alkaline Phosphatase 269 H Total Protein 6.3 Albumin 2.7 L Globulin 3.6 Albumin/Globulin Ratio 0.8 L Procalcitonin 0.88 H Ur Random Sodium Urine Creatinine Nasal Screen MRSA (PCR) Ketones 05/26/22 05/26/22 05/26/22 21:22 21:30 22:50 WBC RBC Hgb Hct MCV MCH MCHC RDW Plt Count Neut % (Auto) Lymph % (Auto) [place] % (Auto) Eos % (Auto) Baso % (Auto) Neut # (Auto) Lymph # (Auto) [place] # (Auto) Eos # (Auto) Baso # (Auto) APTT ABG pH ABG pCO2 ABG pO2 ABG HCO3 ABG Total CO2 ABG O2 Saturation ABG Base Excess FiO2 Sodium Potassium Chloride Carbon Dioxide BUN Creatinine Estimated GFR BUN/Creatinine Ratio Glucose Lactate 1.7 Calcium Magnesium Total Bilirubin Conjugated Bilirubin Unconjugated Bilirubin AST ALT Alkaline Phosphatase Total Protein Albumin Globulin Albumin/Globulin Ratio Procalcitonin Ur Random Sodium 84 Urine Creatinine 75.1 Nasal Screen MRSA (PCR) Ketones 0.03 05/27/22 00:20 WBC RBC Hgb Hct MCV MCH MCHC RDW Plt Count Neut % (Auto) Lymph % (Auto) [place] % (Auto) Eos % (Auto) Baso % (Auto) Neut # (Auto) Lymph # (Auto) [place] # (Auto) Eos # (Auto) Baso # (Auto) APTT ABG pH ABG pCO2 ABG pO2 ABG HCO3 ABG Total CO2 ABG O2 Saturation ABG Base Excess FiO2 Sodium Potassium Chloride Carbon Dioxide BUN Creatinine Estimated GFR BUN/Creatinine Ratio Glucose Lactate Calcium Magnesium Total Bilirubin Conjugated Bilirubin Unconjugated Bilirubin AST ALT Alkaline Phosphatase Total Protein Albumin Globulin Albumin/Globulin Ratio Procalcitonin Ur Random Sodium Urine Creatinine Nasal Screen MRSA (PCR) Negative for mrsa Ketones Assessment & Plan Assessment & Plan narrative: 1. Acute hypoxemic respiratory failure -secondary to PEs, pulmonary edema, and pleural effusions -currently sedated propofol, fentanyl -treating PEs as below -when hemodynamics improve attempt SAT/SBT -famotidine BID for stress ulcer prophylaxis -dietary consult for nutritional support, start tube feeds when able -treating broadly with linezolid and zosyn for continued fevers and rising white count, but cultures negative so far 2. Shock -suspect cardiogenic shock and cor pulmonale -MAP goal >65 -RV dysfunction may have preceded PEs given she had orthopnea and lower extremity edema for days prior to admission -has evidence of pulmonary hypertension on ECHO, etiology could be PEs, but may also be ADDI, cteph, RI or other etiologies -she would benefit from being at higher level of care for consideration of inhaled vasodilators for PE -in addition would benefit from cardiology evaluation for cardiac cath for for evaluation of cause of RV failure -for now continue pressors, currently epinephrine, but appreciate shellfish checker recommendations -ultimately she is very volume overloaded and may benefit from significant fluid removal to offload the RV -she may ultimately need MILK DRIVER for fluid removal 3. Bilateral PEs -s/p 100mg tpa in setting of respiratory code -no evidence of intracranial bleed after tpa -heparin gtt will be continued -she has confirmed right sided heart failure, but with size of PEs it is not certain that PEs were primary cause -repeat ECHO in the morning of 05/25 showed no significant change in RV function, but did show a decrease RVSP from 59 to 47 -plan for transfer to higher level of care to consider further treatment for PEs, such as catheter lysis or thrombectomy 4. MAXIMO, improving -suspect secondary to shock and poor perfusion -development of MAXIMO in right heart failure is concerning as she will need to be able to diurese to remove fluid and improve heart failure -monitor creatinine closely but is improving -monitor urine output closely, but is improving 5. Hypertension -hold antihypertensives for now 6. Diabetes -insulin sliding scale CODE: Full Proxy: Blas Ayers, I have utilized all available resources to reconcile the patient's home medications Time Spent With Patient Critical Care time: I spent a total of [] minutes of critical care time on this patient's care today; this time is exclusive of procedural time. Quality VTE Deep Vein Thrombosis/Pulmonary Embolism Present on Admission: Yes
[2022-05-27 05:04] LABS: Alanine Aminotransferase 24 IU/L (<35); Albumin Globulin Ratio 0.8 (1.0-2.8); Alkaline Phosphatase 318 U/L (38-126); Aspartate Aminotransferase 49 IU/L (14-36); BUN Creatinine Ratio 17.5 (6-22); Blood Urea Nitrogen 27 mg/dL (7-17); Calcium 8.2 mg/dL (8.4-10.2); Carbon Dioxide 27 mmol/L (22-32); Chloride 95 mmol/L (98-107); Estimated Glomerular Filt Rate 35 mL/min (>60); Globulin 3.7 g/dL (1.7-4.1); Glucose 221 mg/dL (80-110); HEMOLYSIS < 15 (0-50); Potassium 4.1 mmol/L (3.4-5.1); Sodium 133 mmol/L (137-145); Total Protein 6.7 g/dL (6.3-8.2)
[2022-05-27 05:11] LABS: PTT Partial Thromboplastin Tim 59 SECONDS (26-36)
[2022-05-27] MEDS: FUROSEMIDE 40 MG/4 ML VIAL IV (05:13)
[2022-05-27 05:31] LABS: Troponin I 0.082 ng/mL (0.01-0.034)
[2022-05-27] MEDS: propofoL 1,000 MG/100 ML VIAL 18.942 MG IV ×2 (05:52→13:06)
[2022-05-27 06:13] LABS: PCO2 ABG 46.2 mmHg (35-45); PO2 ABG 77 mmHg (80-100); pH ABG 7.36 (7.35-7.45)
[2022-05-27 06:14] LABS: Fractionated Inspired Oxygen 55; HCO3 ABG 26 mmol/L (22-26); Oxygen Saturation ABG 95 % (95-100); TCO2 ABG 28 mmol/L (21-31)
[2022-05-27] MEDS: EPINEPHrine 4 MG in DEXTROSE 5% IN WATER 246 ML 30 MG IV (06:29)
--- NOTE | 2022-05-27 07:21 | PM.PN.1 ---
Subjective Subjective Interval history: plse see tele icu icu note for more details Exam Vital Signs (past 8 hours): - 05/26/22 23:37 05/26/22 23:45 05/26/22 23:47 Temperature 100.9 F H Pulse Rate 115 H 106 H Respiratory Rate 17 23 Blood Pressure 166/72 H Pulse Oximetry 94 Oxygen Delivery Method Fraction of Inspired Oxygen 05/26/22 23:47 05/27/22 00:00 05/27/22 00:01 Temperature 100.9 F H 101.1 F H Pulse Rate 104 H 106 H Respiratory Rate 22 22 Blood Pressure 113/56 L Pulse Oximetry 91 91 Oxygen Delivery Method Fraction of Inspired Oxygen 05/27/22 00:01 05/26/22 23:30 05/26/22 23:30 Temperature 101.1 F H 100.9 F H Pulse Rate 106 H 104 H Respiratory Rate 22 18 Blood Pressure 166/72 H Pulse Oximetry 91 93 Oxygen Delivery Method Mechanical Ventilation Fraction of Inspired Oxygen 45 05/27/22 00:59 05/27/22 00:15 05/27/22 00:15 Temperature 97.5 F L 101.3 F H Pulse Rate 107 H Respiratory Rate 22 Blood Pressure 98/51 L Pulse Oximetry 92 Oxygen Delivery Method Fraction of Inspired Oxygen 05/27/22 00:30 05/27/22 00:30 05/27/22 00:45 Temperature 101.1 F H Pulse Rate 105 H Respiratory Rate 22 Blood Pressure 94/55 L 94/55 L Pulse Oximetry 94 Oxygen Delivery Method Fraction of Inspired Oxygen 05/27/22 00:45 05/27/22 01:00 05/27/22 01:00 Temperature 100.9 F H 100.8 F H Pulse Rate 102 H 101 H Respiratory Rate 22 22 Blood Pressure 114/58 L Pulse Oximetry 94 94 Oxygen Delivery Method Fraction of Inspired Oxygen 05/27/22 01:15 05/27/22 01:15 05/27/22 01:30 Temperature 100.6 F H Pulse Rate 100 H Respiratory Rate 22 Blood Pressure 116/61 121/63 Pulse Oximetry 94 Oxygen Delivery Method Fraction of Inspired Oxygen 05/27/22 01:30 05/27/22 01:45 05/27/22 01:45 Temperature 100.4 F H 100.2 F H Pulse Rate 100 H 100 H Respiratory Rate 22 22 Blood Pressure 122/64 Pulse Oximetry 93 92 Oxygen Delivery Method Fraction of Inspired Oxygen 05/27/22 02:00 05/27/22 02:00 05/27/22 02:15 Temperature 100.2 F H 100.2 F H Pulse Rate 100 H 60 Respiratory Rate 22 22 Blood Pressure 127/67 Pulse Oximetry 92 86 L Oxygen Delivery Method Fraction of Inspired Oxygen 05/27/22 02:16 05/27/22 02:16 05/27/22 02:19 Temperature 100.2 F H 100.4 F H Pulse Rate 64 67 Respiratory Rate 22 22 Blood Pressure 224/116 H Pulse Oximetry 85 L 93 Oxygen Delivery Method Fraction of Inspired Oxygen 05/27/22 02:19 05/27/22 02:22 05/27/22 02:22 Temperature 100.4 F H Pulse Rate 73 Respiratory Rate 22 Blood Pressure 208/91 H 209/97 H Pulse Oximetry 96 Oxygen Delivery Method Fraction of Inspired Oxygen 05/27/22 02:30 05/27/22 02:30 05/27/22 02:45 Temperature 100.6 F H Pulse Rate 85 Respiratory Rate 22 Blood Pressure 199/79 H 171/79 H Pulse Oximetry 93 Oxygen Delivery Method Fraction of Inspired Oxygen 05/27/22 02:45 05/27/22 03:00 05/27/22 03:00 Temperature 100.8 F H 100.8 F H Pulse Rate 92 H 95 H Respiratory Rate 22 22 Blood Pressure 148/79 H Pulse Oximetry 93 94 Oxygen Delivery Method Fraction of Inspired Oxygen 05/27/22 03:15 05/27/22 03:15 05/27/22 03:30 Temperature 100.4 F H Pulse Rate 97 H Respiratory Rate 22 Blood Pressure 139/74 131/71 Pulse Oximetry 95 Oxygen Delivery Method Fraction of Inspired Oxygen 05/27/22 03:30 05/27/22 03:45 05/27/22 03:45 Temperature 100.0 F H 99.9 F H Pulse Rate 100 H 98 H Respiratory Rate 22 22 Blood Pressure 128/69 Pulse Oximetry 95 95 Oxygen Delivery Method Fraction of Inspired Oxygen 05/27/22 04:00 05/27/22 04:00 05/27/22 04:15 Temperature 99.7 F H Pulse Rate 96 H Respiratory Rate 22 Blood Pressure 138/74 145/78 H Pulse Oximetry 95 Oxygen Delivery Method Fraction of Inspired Oxygen 05/27/22 04:15 05/27/22 04:30 05/27/22 04:30 Temperature 99.5 F 99.5 F Pulse Rate 93 H 91 H Respiratory Rate 22 22 Blood Pressure 146/81 H Pulse Oximetry 96 96 Oxygen Delivery Method Fraction of Inspired Oxygen 05/27/22 04:45 05/27/22 04:45 05/27/22 05:00 Temperature 99.5 F Pulse Rate 91 H Respiratory Rate 22 Blood Pressure 150/83 H 148/85 H Pulse Oximetry 94 Oxygen Delivery Method Fraction of Inspired Oxygen 05/27/22 05:00 05/27/22 05:15 05/27/22 05:15 Temperature 99.3 F 99.5 F Pulse Rate 90 91 H Respiratory Rate 22 13 Blood Pressure 130/71 Pulse Oximetry 94 97 Oxygen Delivery Method Fraction of Inspired Oxygen 05/27/22 05:30 05/27/22 05:30 05/27/22 05:45 Temperature 99.5 F Pulse Rate 87 Respiratory Rate 22 Blood Pressure 140/77 143/83 H Pulse Oximetry 95 Oxygen Delivery Method Fraction of Inspired Oxygen 05/27/22 05:45 05/27/22 06:00 05/27/22 06:00 Temperature 99.3 F 99.3 F Pulse Rate 85 84 Respiratory Rate 22 26 H Blood Pressure 136/74 Pulse Oximetry 96 96 Oxygen Delivery Method Fraction of Inspired Oxygen 05/27/22 06:15 05/27/22 06:15 05/27/22 06:30 Temperature 99.1 F Pulse Rate 82 Respiratory Rate 22 Blood Pressure 137/75 135/70 Pulse Oximetry 97 Oxygen Delivery Method Fraction of Inspired Oxygen 05/27/22 06:30 Temperature 99.0 F Pulse Rate 81 Respiratory Rate 22 Blood Pressure Pulse Oximetry 97 Oxygen Delivery Method Fraction of Inspired Oxygen Fraction of Inspired Oxygen 45 Oxygen Delivery Method Mechanical Ventilation Oxygen Flow Rate 50 Objective Labs Result Diagrams: 05/27/22 04:05 05/27/22 04:05 Labs: Laboratory Results - last 24 hr 05/26/22 05/26/22 05/26/22 06:55 17:55 17:55 WBC 13.4 H RBC 3.04 L Hgb 8.4 L Hct 26.2 L MCV 86.3 MCH 27.5 MCHC 31.9 RDW 14.6 Plt Count 530 H Neut % (Auto) 76.5 H Lymph % (Auto) 12.0 L [place] % (Auto) 8.8 Eos % (Auto) 2.1 Baso % (Auto) 0.6 Neut # (Auto) 65719 H Lymph # (Auto) 1600 [place] # (Auto) 1200 H Eos # (Auto) 300 Baso # (Auto) 100 APTT 51 H ABG pH ABG pCO2 ABG pO2 ABG HCO3 ABG Total CO2 ABG O2 Saturation ABG Base Excess FiO2 Sodium 134 L Potassium 3.5 Chloride 96 L Carbon Dioxide 27 BUN 25 H Creatinine 1.42 H Estimated GFR 39 L BUN/Creatinine Ratio 17.6 Glucose 228 H Lactate Calcium 7.9 L Magnesium 1.6 Total Bilirubin Conjugated Bilirubin Unconjugated Bilirubin AST ALT Alkaline Phosphatase Troponin I Total Protein Albumin Globulin Albumin/Globulin Ratio Procalcitonin Ur Random Sodium Urine Creatinine Nasal Screen MRSA (PCR) Ketones 05/26/22 05/26/22 05/26/22 17:55 17:55 20:00 WBC RBC Hgb Hct MCV MCH MCHC RDW Plt Count Neut % (Auto) Lymph % (Auto) [place] % (Auto) Eos % (Auto) Baso % (Auto) Neut # (Auto) Lymph # (Auto) [place] # (Auto) Eos # (Auto) Baso # (Auto) APTT ABG pH 7.36 ABG pCO2 47.4 H ABG pO2 63 L ABG HCO3 27 H ABG Total CO2 28 ABG O2 Saturation 90 L ABG Base Excess 1.0 FiO2 40 Sodium Potassium Chloride Carbon Dioxide BUN Creatinine Estimated GFR BUN/Creatinine Ratio Glucose Lactate 1.5 Calcium Magnesium Total Bilirubin 0.6 Conjugated Bilirubin 0.0 Unconjugated Bilirubin 0.2 AST 42 H ALT 20 Alkaline Phosphatase 269 H Troponin I Total Protein 6.3 Albumin 2.7 L Globulin 3.6 Albumin/Globulin Ratio 0.8 L Procalcitonin 0.88 H Ur Random Sodium Urine Creatinine Nasal Screen MRSA (PCR) Ketones 05/26/22 05/26/22 05/26/22 21:22 21:30 22:50 WBC RBC Hgb Hct MCV MCH MCHC RDW Plt Count Neut % (Auto) Lymph % (Auto) [place] % (Auto) Eos % (Auto) Baso % (Auto) Neut # (Auto) Lymph # (Auto) [place] # (Auto) Eos # (Auto) Baso # (Auto) APTT ABG pH ABG pCO2 ABG pO2 ABG HCO3 ABG Total CO2 ABG O2 Saturation ABG Base Excess FiO2 Sodium Potassium Chloride Carbon Dioxide BUN Creatinine Estimated GFR BUN/Creatinine Ratio Glucose Lactate 1.7 Calcium Magnesium Total Bilirubin Conjugated Bilirubin Unconjugated Bilirubin AST ALT Alkaline Phosphatase Troponin I Total Protein Albumin Globulin Albumin/Globulin Ratio Procalcitonin Ur Random Sodium 84 Urine Creatinine 75.1 Nasal Screen MRSA (PCR) Ketones 0.03 05/27/22 05/27/22 05/27/22 00:20 04:05 04:05 WBC 17.5 H RBC 3.24 L Hgb 9.1 L Hct 27.9 L MCV 86.0 MCH 28.0 MCHC 32.6 RDW 14.6 Plt Count 561 H Neut % (Auto) 90.6 H Lymph % (Auto) 3.0 L [place] % (Auto) 5.2 Eos % (Auto) 0.3 L Baso % (Auto) 0.9 Neut # (Auto) 28824 H Lymph # (Auto) 500 L [place] # (Auto) 900 Eos # (Auto) 0 Baso # (Auto) 200 H APTT ABG pH ABG pCO2 ABG pO2 ABG HCO3 ABG Total CO2 ABG O2 Saturation ABG Base Excess FiO2 Sodium 133 L Potassium 4.1 Chloride 95 L Carbon Dioxide 27 BUN 27 H Creatinine 1.54 H Estimated GFR 35 L BUN/Creatinine Ratio 17.5 Glucose 221 H Lactate Calcium 8.2 L Magnesium Total Bilirubin 1.0 Conjugated Bilirubin Unconjugated Bilirubin AST 49 H ALT 24 Alkaline Phosphatase 318 H Troponin I Total Protein 6.7 Albumin 3.0 L Globulin 3.7 Albumin/Globulin Ratio 0.8 L Procalcitonin Ur Random Sodium Urine Creatinine Nasal Screen MRSA (PCR) Negative for mrsa Ketones 05/27/22 05/27/22 05/27/22 04:05 04:05 05:35 WBC RBC Hgb Hct MCV MCH MCHC RDW Plt Count Neut % (Auto) Lymph % (Auto) [place] % (Auto) Eos % (Auto) Baso % (Auto) Neut # (Auto) Lymph # (Auto) [place] # (Auto) Eos # (Auto) Baso # (Auto) APTT 59 H D ABG pH 7.36 ABG pCO2 46.2 H ABG pO2 77 L ABG HCO3 26 ABG Total CO2 28 ABG O2 Saturation 95 ABG Base Excess 1.0 FiO2 55 Sodium Potassium Chloride Carbon Dioxide BUN Creatinine Estimated GFR BUN/Creatinine Ratio Glucose Lactate Calcium Magnesium Total Bilirubin Conjugated Bilirubin Unconjugated Bilirubin AST ALT Alkaline Phosphatase Troponin I 0.082 H Total Protein Albumin Globulin Albumin/Globulin Ratio Procalcitonin Ur Random Sodium Urine Creatinine Nasal Screen MRSA (PCR) Ketones PFS Social History (System 05/23/22 @ 07:21 by Lady Rebecca Bartlett) household members: family Smoking Status: Unknown if ever smoked Assessment & Plan Time Spent With Patient Critical Care time: I spent a total of [] minutes of critical care time on this patient's care today; this time is exclusive of procedural time. Quality VTE Deep Vein Thrombosis/Pulmonary Embolism Present on Admission: Yes
--- NOTE | 2022-05-27 07:58 | P.TELICUPN_ITS ---
Subjective Subjective Consent obtained for tele-environmental lead care: Yes Patient Location: ICU Current Medications Current Medications Medications: Home Medications gabapentin 300 mg capsule (Neurontin) 300 mg PO TID ##0 02/07/17 [History] hydrochlorothiazide 25 mg tablet 50 mg PO QDAY ##0 02/07/17 [History] metformin 500 mg tablet,extended release 24 hr (Glucophage XR) 500 mg PO TID ##0 02/07/17 [History] metoprolol tartrate 25 mg tablet 25 mg PO BID ##0 02/07/17 [History] telmisartan 80 mg tablet (Micardis) 80 mg PO QDAY ##0 02/07/17 [History] acetaminophen 325 mg tablet (Tylenol) 650 mg PO TID 05/22/22 [History Confirmed 05/22/22] gabapentin 100 mg capsule 100 mg PO TID PRN Pain (Scale Score 4-6) 05/22/22 [History Confirmed 05/22/22] gabapentin 300 mg capsule 300 mg PO TID PRN Pain (Scale Score 4-6) 05/22/22 [History Confirmed 05/22/22] gabapentin 600 mg tablet 600 mg PO TID 05/22/22 [History Confirmed 05/22/22] hydrochlorothiazide 12.5 mg tablet 12.5 mg PO QAM 05/22/22 [History Confirmed 05/22/22] hydrochlorothiazide 12.5 mg tablet 12.5 mg PO QAM 05/22/22 [History Confirmed 05/22/22] metformin 500 mg tablet 500 mg PO TID 05/22/22 [History Confirmed 05/22/22] metoprolol tartrate 25 mg tablet 25 mg PO BID 05/22/22 [History Confirmed 05/22/22] multivitamin with minerals 1 tab PO DAILY 05/22/22 [History Confirmed 05/22/22] rosuvastatin 5 mg tablet See Rx Instructions .Route .COMPLEX 05/22/22 [History Confirmed 05/22/22] telmisartan 40 mg tablet 40 mg PO QAM 05/22/22 [History Confirmed 05/22/22] Visit Medications (administered) Generic Name Dose Route Start Last Admin Trade Name Freq PRN Reason Stop Dose Admin Acetaminophen 650 mg 05/23/22 09:56 05/23/22 10:01 Acetaminophen 325 Mg Tablet PO 650 mg Q6H PRN Administration Fever/Mild Pain (1-3) Acetaminophen 650 mg 05/24/22 18:49 05/26/22 21:40 Acetaminophen 650 Mg Supp SD 650 mg Q6HR PRN Administration Fever/Mild Pain (1-3) Chlorhexidine Gluconate 15 ml 05/25/22 12:00 05/27/22 05:11 Chlorhexidine Gluconate 15 Ml Cup PO 15 ml Q6HR DANA Administration Famotidine 20 mg 05/25/22 09:00 05/26/22 21:30 Famotidine 20 Mg/2 Ml Vial IV 20 mg BID DANA Administration Fentanyl 50 mcg 05/26/22 10:09 05/26/22 11:21 Fentanyl 100 Mcg/2 Ml Inj IV 50 mcg Q1H PRN Administration Pain, Severe (7-10) Furosemide 40 mg 05/25/22 22:00 05/27/22 05:13 Furosemide 40 Mg/4 Ml Vial IV 40 mg Q8HR DANA Administration Hydrocortisone 50 mg 05/27/22 01:40 05/27/22 05:13 Hydrocortisone 100 Mg/2 Ml Vial IV 50 mg Q6HR DANA Administration Heparin Sodium/Dextrose 25,000 unit in 500 mls @ 24 mls/hr 05/22/22 20:30 05/27/22 04:15 Heparin Drip IV 1,300 units/hr CONT DANA 26 mls/hr Administration Protocol 1,200 UNITS/HR Propofol 1,000 mg in 100 mls @ 3.157 mls/hr 05/24/22 05:45 05/27/22 05:52 Propofol IV 30 mcg/kg/min TITRATE DANA 18.942 mls/hr Administration Protocol 5 MCG/KG/MIN NOREPINEPHRINE BITARTRATE/D5W 4 mg in 250 mls @ 30 mls/hr 05/24/22 06:16 05/25/22 09:38 Levophed IV 0 mcg/min TITRATE DANA 0 mls/hr Titration Protocol 8 MCG/MIN Epinephrine HCl 4 mg/ Dextrose 250 mls @ 3.75 mls/hr 05/24/22 09:45 05/27/22 06:29 IV 8 mcg/min TITRATE DANA 30 mls/hr Administration Protocol 1 MCG/MIN Fentanyl 1,000 mcg/ Dextrose 250 mls @ 18.416 mls/hr 05/25/22 10:15 05/27/22 01:55 IV 0.5 mcg/kg/hr TITRATE DANA 13.154 mls/hr Titration Protocol 0.7 MCG/KG/HR Piperacillin Sod/Tazobactam 100 mls @ 25 mls/hr 05/25/22 16:30 05/27/22 05:05 Sod 3.375 gm/ Sodium Chloride IV Infused Q8H DANA Infusion Linezolid 600 mg in 300 mls @ 600 mls/hr 05/26/22 22:36 05/26/22 22:54 Zyvox IV 600 mls/hr Q12H DANA Administration Vasopressin 40 unit/ Sodium 100 mls @ 6 mls/hr 05/27/22 01:45 05/27/22 02:05 Chloride IV 0.04 unit/min TITRATE DANA 6 mls/hr Administration 0.04 UNIT/MIN Insulin Human Lispro 0 unit 05/25/22 07:45 05/26/22 22:41 Insulin Lispro 100 Unit/Ml 3ml Vial SUBCUT Not Given ACHS [facility] [place] Protocol Objective Ventilator Parameters: Ventilator Settings FiO2 50 RT Vent Frequency 28 Ventilator Tidal Volume 300 Exhaled Vt/kg IBW 5.6 Positive End Expiratory 5 Pressure Ventilator Pressure Support 2 Inspiratory Phase Time 0.8 I:E Ratio 1.2.7 Patient Position HOB >= 30 degrees,Supine Labs Result Diagrams: 05/27/22 04:05 05/27/22 04:05 Labs: Laboratory Results - last 24 hr 05/26/22 05/26/22 05/26/22 17:55 17:55 17:55 WBC 13.4 H RBC 3.04 L Hgb 8.4 L Hct 26.2 L MCV 86.3 MCH 27.5 MCHC 31.9 RDW 14.6 Plt Count 530 H Neut % (Auto) 76.5 H Lymph % (Auto) 12.0 L [place] % (Auto) 8.8 Eos % (Auto) 2.1 Baso % (Auto) 0.6 Neut # (Auto) 77217 H Lymph # (Auto) 1600 [place] # (Auto) 1200 H Eos # (Auto) 300 Baso # (Auto) 100 APTT ABG pH ABG pCO2 ABG pO2 ABG HCO3 ABG Total CO2 ABG O2 Saturation ABG Base Excess FiO2 Sodium 134 L Potassium 3.5 Chloride 96 L Carbon Dioxide 27 BUN 25 H Creatinine 1.42 H Estimated GFR 39 L BUN/Creatinine Ratio 17.6 Glucose 228 H Lactate Calcium 7.9 L Magnesium 1.6 Total Bilirubin 0.6 Conjugated Bilirubin 0.0 Unconjugated Bilirubin 0.2 AST 42 H ALT 20 Alkaline Phosphatase 269 H Troponin I Total Protein 6.3 Albumin 2.7 L Globulin 3.6 Albumin/Globulin Ratio 0.8 L Procalcitonin 0.88 H Ur Random Sodium Urine Creatinine Nasal Screen MRSA (PCR) Ketones 05/26/22 05/26/22 05/26/22 17:55 20:00 21:22 WBC RBC Hgb Hct MCV MCH MCHC RDW Plt Count Neut % (Auto) Lymph % (Auto) [place] % (Auto) Eos % (Auto) Baso % (Auto) Neut # (Auto) Lymph # (Auto) [place] # (Auto) Eos # (Auto) Baso # (Auto) APTT ABG pH 7.36 ABG pCO2 47.4 H ABG pO2 63 L ABG HCO3 27 H ABG Total CO2 28 ABG O2 Saturation 90 L ABG Base Excess 1.0 FiO2 40 Sodium Potassium Chloride Carbon Dioxide BUN Creatinine Estimated GFR BUN/Creatinine Ratio Glucose Lactate 1.5 Calcium Magnesium Total Bilirubin Conjugated Bilirubin Unconjugated Bilirubin AST ALT Alkaline Phosphatase Troponin I Total Protein Albumin Globulin Albumin/Globulin Ratio Procalcitonin Ur Random Sodium Urine Creatinine Nasal Screen MRSA (PCR) Ketones 0.03 05/26/22 05/26/22 05/27/22 21:30 22:50 00:20 WBC RBC Hgb Hct MCV MCH MCHC RDW Plt Count Neut % (Auto) Lymph % (Auto) [place] % (Auto) Eos % (Auto) Baso % (Auto) Neut # (Auto) Lymph # (Auto) [place] # (Auto) Eos # (Auto) Baso # (Auto) APTT ABG pH ABG pCO2 ABG pO2 ABG HCO3 ABG Total CO2 ABG O2 Saturation ABG Base Excess FiO2 Sodium Potassium Chloride Carbon Dioxide BUN Creatinine Estimated GFR BUN/Creatinine Ratio Glucose Lactate 1.7 Calcium Magnesium Total Bilirubin Conjugated Bilirubin Unconjugated Bilirubin AST ALT Alkaline Phosphatase Troponin I Total Protein Albumin Globulin Albumin/Globulin Ratio Procalcitonin Ur Random Sodium 84 Urine Creatinine 75.1 Nasal Screen MRSA (PCR) Negative for mrsa Ketones 05/27/22 05/27/22 05/27/22 04:05 04:05 04:05 WBC 17.5 H RBC 3.24 L Hgb 9.1 L Hct 27.9 L MCV 86.0 MCH 28.0 MCHC 32.6 RDW 14.6 Plt Count 561 H Neut % (Auto) 90.6 H Lymph % (Auto) 3.0 L [place] % (Auto) 5.2 Eos % (Auto) 0.3 L Baso % (Auto) 0.9 Neut # (Auto) 42238 H Lymph # (Auto) 500 L [place] # (Auto) 900 Eos # (Auto) 0 Baso # (Auto) 200 H APTT 59 H D ABG pH ABG pCO2 ABG pO2 ABG HCO3 ABG Total CO2 ABG O2 Saturation ABG Base Excess FiO2 Sodium 133 L Potassium 4.1 Chloride 95 L Carbon Dioxide 27 BUN 27 H Creatinine 1.54 H Estimated GFR 35 L BUN/Creatinine Ratio 17.5 Glucose 221 H Lactate Calcium 8.2 L Magnesium Total Bilirubin 1.0 Conjugated Bilirubin Unconjugated Bilirubin AST 49 H ALT 24 Alkaline Phosphatase 318 H Troponin I Total Protein 6.7 Albumin 3.0 L Globulin 3.7 Albumin/Globulin Ratio 0.8 L Procalcitonin Ur Random Sodium Urine Creatinine Nasal Screen MRSA (PCR) Ketones 05/27/22 05/27/22 04:05 05:35 WBC RBC Hgb Hct MCV MCH MCHC RDW Plt Count Neut % (Auto) Lymph % (Auto) [place] % (Auto) Eos % (Auto) Baso % (Auto) Neut # (Auto) Lymph # (Auto) [place] # (Auto) Eos # (Auto) Baso # (Auto) APTT ABG pH 7.36 ABG pCO2 46.2 H ABG pO2 77 L ABG HCO3 26 ABG Total CO2 28 ABG O2 Saturation 95 ABG Base Excess 1.0 FiO2 55 Sodium Potassium Chloride Carbon Dioxide BUN Creatinine Estimated GFR BUN/Creatinine Ratio Glucose Lactate Calcium Magnesium Total Bilirubin Conjugated Bilirubin Unconjugated Bilirubin AST ALT Alkaline Phosphatase Troponin I 0.082 H Total Protein Albumin Globulin Albumin/Globulin Ratio Procalcitonin Ur Random Sodium Urine Creatinine Nasal Screen MRSA (PCR) Ketones Exam Vital Signs (past 8 hours): - 05/27/22 00:00 05/27/22 00:01 05/27/22 00:01 Temperature 101.1 F H 101.1 F H Pulse Rate 106 H 106 H Respiratory Rate 22 22 Blood Pressure 113/56 L Pulse Oximetry 91 91 05/27/22 00:59 05/27/22 00:15 05/27/22 00:15 Temperature 97.5 F L 101.3 F H Pulse Rate 107 H Respiratory Rate 22 Blood Pressure 98/51 L Pulse Oximetry 92 05/27/22 00:30 05/27/22 00:30 05/27/22 00:45 Temperature 101.1 F H Pulse Rate 105 H Respiratory Rate 22 Blood Pressure 94/55 L 94/55 L Pulse Oximetry 94 05/27/22 00:45 05/27/22 01:00 05/27/22 01:00 Temperature 100.9 F H 100.8 F H Pulse Rate 102 H 101 H Respiratory Rate 22 22 Blood Pressure 114/58 L Pulse Oximetry 94 94 05/27/22 01:15 05/27/22 01:15 05/27/22 01:30 Temperature 100.6 F H Pulse Rate 100 H Respiratory Rate 22 Blood Pressure 116/61 121/63 Pulse Oximetry 94 05/27/22 01:30 05/27/22 01:45 05/27/22 01:45 Temperature 100.4 F H 100.2 F H Pulse Rate 100 H 100 H Respiratory Rate 22 22 Blood Pressure 122/64 Pulse Oximetry 93 92 05/27/22 02:00 05/27/22 02:00 05/27/22 02:15 Temperature 100.2 F H 100.2 F H Pulse Rate 100 H 60 Respiratory Rate 22 22 Blood Pressure 127/67 Pulse Oximetry 92 86 L 05/27/22 02:16 05/27/22 02:16 05/27/22 02:19 Temperature 100.2 F H 100.4 F H Pulse Rate 64 67 Respiratory Rate 22 22 Blood Pressure 224/116 H Pulse Oximetry 85 L 93 05/27/22 02:19 05/27/22 02:22 05/27/22 02:22 Temperature 100.4 F H Pulse Rate 73 Respiratory Rate 22 Blood Pressure 208/91 H 209/97 H Pulse Oximetry 96 05/27/22 02:30 05/27/22 02:30 05/27/22 02:45 Temperature 100.6 F H Pulse Rate 85 Respiratory Rate 22 Blood Pressure 199/79 H 171/79 H Pulse Oximetry 93 05/27/22 02:45 05/27/22 03:00 05/27/22 03:00 Temperature 100.8 F H 100.8 F H Pulse Rate 92 H 95 H Respiratory Rate 22 22 Blood Pressure 148/79 H Pulse Oximetry 93 94 05/27/22 03:15 05/27/22 03:15 05/27/22 03:30 Temperature 100.4 F H Pulse Rate 97 H Respiratory Rate 22 Blood Pressure 139/74 131/71 Pulse Oximetry 95 05/27/22 03:30 05/27/22 03:45 05/27/22 03:45 Temperature 100.0 F H 99.9 F H Pulse Rate 100 H 98 H Respiratory Rate 22 22 Blood Pressure 128/69 Pulse Oximetry 95 95 05/27/22 04:00 05/27/22 04:00 05/27/22 04:15 Temperature 99.7 F H Pulse Rate 96 H Respiratory Rate 22 Blood Pressure 138/74 145/78 H Pulse Oximetry 95 05/27/22 04:15 05/27/22 04:30 05/27/22 04:30 Temperature 99.5 F 99.5 F Pulse Rate 93 H 91 H Respiratory Rate 22 22 Blood Pressure 146/81 H Pulse Oximetry 96 96 05/27/22 04:45 05/27/22 04:45 05/27/22 05:00 Temperature 99.5 F Pulse Rate 91 H Respiratory Rate 22 Blood Pressure 150/83 H 148/85 H Pulse Oximetry 94 05/27/22 05:00 05/27/22 05:15 05/27/22 05:15 Temperature 99.3 F 99.5 F Pulse Rate 90 91 H Respiratory Rate 22 13 Blood Pressure 130/71 Pulse Oximetry 94 97 05/27/22 05:30 05/27/22 05:30 05/27/22 05:45 Temperature 99.5 F Pulse Rate 87 Respiratory Rate 22 Blood Pressure 140/77 143/83 H Pulse Oximetry 95 05/27/22 05:45 05/27/22 06:00 05/27/22 06:00 Temperature 99.3 F 99.3 F Pulse Rate 85 84 Respiratory Rate 22 26 H Blood Pressure 136/74 Pulse Oximetry 96 96 05/27/22 06:15 05/27/22 06:15 05/27/22 06:30 Temperature 99.1 F Pulse Rate 82 Respiratory Rate 22 Blood Pressure 137/75 135/70 Pulse Oximetry 97 05/27/22 06:30 05/27/22 06:45 05/27/22 06:45 Temperature 99.0 F 98.8 F Pulse Rate 81 77 Respiratory Rate 22 22 Blood Pressure 135/71 Pulse Oximetry 97 97 05/27/22 07:00 05/27/22 07:00 05/27/22 07:15 Temperature 98.6 F Pulse Rate 73 Respiratory Rate 22 Blood Pressure 130/69 133/69 Pulse Oximetry 97 05/27/22 07:15 05/27/22 07:30 05/27/22 07:30 Temperature 98.4 F 98.4 F Pulse Rate 69 69 Respiratory Rate 22 22 Blood Pressure 138/67 Pulse Oximetry 97 97 Fraction of Inspired Oxygen 45 Oxygen Delivery Method Mechanical Ventilation Oxygen Flow Rate 50 Quality TeleICU VTE Deep Vein Thrombosis/Pulmonary Embolism Present on Admission: Yes Assessment & Plan Time Spent With Patient Critical Care time: I spent a total of [] minutes of critical care time on this patient's care today; this time is exclusive of procedural time.
--- NOTE | 2022-05-27 08:07 | PM.PN.EICU ---
Subjective Subjective IF CAMERA ACTIVATED, patient seen via real-time interactive audiovisual communication: Camera activated Consent obtained for tele-plant supervisor care: Yes Patient Location: ICU Provider location (State): [place] Other participants/roles: test Current Medications Current Medications Medications: Home Medications gabapentin 300 mg capsule (Neurontin) 300 mg PO TID ##0 02/07/17 [History] hydrochlorothiazide 25 mg tablet 50 mg PO QDAY ##0 02/07/17 [History] metformin 500 mg tablet,extended release 24 hr (Glucophage XR) 500 mg PO TID ##0 02/07/17 [History] metoprolol tartrate 25 mg tablet 25 mg PO BID ##0 02/07/17 [History] telmisartan 80 mg tablet (Micardis) 80 mg PO QDAY ##0 02/07/17 [History] acetaminophen 325 mg tablet (Tylenol) 650 mg PO TID 05/22/22 [History Confirmed 05/22/22] gabapentin 100 mg capsule 100 mg PO TID PRN Pain (Scale Score 4-6) 05/22/22 [History Confirmed 05/22/22] gabapentin 300 mg capsule 300 mg PO TID PRN Pain (Scale Score 4-6) 05/22/22 [History Confirmed 05/22/22] gabapentin 600 mg tablet 600 mg PO TID 05/22/22 [History Confirmed 05/22/22] hydrochlorothiazide 12.5 mg tablet 12.5 mg PO QAM 05/22/22 [History Confirmed 05/22/22] hydrochlorothiazide 12.5 mg tablet 12.5 mg PO QAM 05/22/22 [History Confirmed 05/22/22] metformin 500 mg tablet 500 mg PO TID 05/22/22 [History Confirmed 05/22/22] metoprolol tartrate 25 mg tablet 25 mg PO BID 05/22/22 [History Confirmed 05/22/22] multivitamin with minerals 1 tab PO DAILY 05/22/22 [History Confirmed 05/22/22] rosuvastatin 5 mg tablet See Rx Instructions .Route .COMPLEX 05/22/22 [History Confirmed 05/22/22] telmisartan 40 mg tablet 40 mg PO QAM 05/22/22 [History Confirmed 05/22/22] Visit Medications (administered) Generic Name Dose Route Start Last Admin Trade Name Freq PRN Reason Stop Dose Admin Acetaminophen 650 mg 05/23/22 09:56 05/23/22 10:01 Acetaminophen 325 Mg Tablet PO 650 mg Q6H PRN Administration Fever/Mild Pain (1-3) Acetaminophen 650 mg 05/24/22 18:49 05/26/22 21:40 Acetaminophen 650 Mg Supp IN 650 mg Q6HR PRN Administration Fever/Mild Pain (1-3) Chlorhexidine Gluconate 15 ml 05/25/22 12:00 05/27/22 05:11 Chlorhexidine Gluconate 15 Ml Cup PO 15 ml Q6HR DANA Administration Famotidine 20 mg 05/25/22 09:00 05/26/22 21:30 Famotidine 20 Mg/2 Ml Vial IV 20 mg BID DANA Administration Fentanyl 50 mcg 05/26/22 10:09 05/26/22 11:21 Fentanyl 100 Mcg/2 Ml Inj IV 50 mcg Q1H PRN Administration Pain, Severe (7-10) Furosemide 40 mg 05/25/22 22:00 05/27/22 05:13 Furosemide 40 Mg/4 Ml Vial IV 40 mg Q8HR DANA Administration Hydrocortisone 50 mg 05/27/22 01:40 05/27/22 05:13 Hydrocortisone 100 Mg/2 Ml Vial IV 50 mg Q6HR DANA Administration Heparin Sodium/Dextrose 25,000 unit in 500 mls @ 24 mls/hr 05/22/22 20:30 05/27/22 04:15 Heparin Drip IV 1,300 units/hr CONT DANA 26 mls/hr Administration Protocol 1,200 UNITS/HR Propofol 1,000 mg in 100 mls @ 3.157 mls/hr 05/24/22 05:45 05/27/22 05:52 Propofol IV 30 mcg/kg/min TITRATE DANA 18.942 mls/hr Administration Protocol 5 MCG/KG/MIN NOREPINEPHRINE BITARTRATE/D5W 4 mg in 250 mls @ 30 mls/hr 05/24/22 06:16 05/25/22 09:38 Levophed IV 0 mcg/min TITRATE DANA 0 mls/hr Titration Protocol 8 MCG/MIN Epinephrine HCl 4 mg/ Dextrose 250 mls @ 3.75 mls/hr 05/24/22 09:45 05/27/22 06:29 IV 8 mcg/min TITRATE DANA 30 mls/hr Administration Protocol 1 MCG/MIN Fentanyl 1,000 mcg/ Dextrose 250 mls @ 18.416 mls/hr 05/25/22 10:15 05/27/22 01:55 IV 0.5 mcg/kg/hr TITRATE DANA 13.154 mls/hr Titration Protocol 0.7 MCG/KG/HR Piperacillin Sod/Tazobactam 100 mls @ 25 mls/hr 05/25/22 16:30 05/27/22 05:05 Sod 3.375 gm/ Sodium Chloride IV Infused Q8H DANA Infusion Linezolid 600 mg in 300 mls @ 600 mls/hr 05/26/22 22:36 05/26/22 22:54 Zyvox IV 600 mls/hr Q12H DANA Administration Vasopressin 40 unit/ Sodium 100 mls @ 6 mls/hr 05/27/22 01:45 05/27/22 02:05 Chloride IV 0.04 unit/min TITRATE DANA 6 mls/hr Administration 0.04 UNIT/MIN Insulin Human Lispro 0 unit 05/25/22 07:45 05/26/22 22:41 Insulin Lispro 100 Unit/Ml 3ml Vial SUBCUT Not Given ACHS DANA Protocol Objective Ventilator Parameters: Ventilator Settings FiO2 50 RT Vent Frequency 22 Ventilator Tidal Volume 300 Exhaled Vt/kg IBW 5.5 Positive End Expiratory 5 Pressure Ventilator Pressure Support 2 Inspiratory Phase Time 0.85 I:E Ratio 1.2.7 Patient Position HOB >= 30 degrees Labs Result Diagrams: 05/27/22 04:05 05/27/22 04:05 Labs: Laboratory Results - last 24 hr 05/26/22 05/26/22 05/26/22 17:55 17:55 17:55 WBC 13.4 H RBC 3.04 L Hgb 8.4 L Hct 26.2 L MCV 86.3 MCH 27.5 MCHC 31.9 RDW 14.6 Plt Count 530 H Neut % (Auto) 76.5 H Lymph % (Auto) 12.0 L [place] % (Auto) 8.8 Eos % (Auto) 2.1 Baso % (Auto) 0.6 Neut # (Auto) 06837 H Lymph # (Auto) 1600 [place] # (Auto) 1200 H Eos # (Auto) 300 Baso # (Auto) 100 APTT ABG pH ABG pCO2 ABG pO2 ABG HCO3 ABG Total CO2 ABG O2 Saturation ABG Base Excess FiO2 Sodium 134 L Potassium 3.5 Chloride 96 L Carbon Dioxide 27 BUN 25 H Creatinine 1.42 H Estimated GFR 39 L BUN/Creatinine Ratio 17.6 Glucose 228 H Lactate Calcium 7.9 L Magnesium 1.6 Total Bilirubin 0.6 Conjugated Bilirubin 0.0 Unconjugated Bilirubin 0.2 AST 42 H ALT 20 Alkaline Phosphatase 269 H Troponin I Total Protein 6.3 Albumin 2.7 L Globulin 3.6 Albumin/Globulin Ratio 0.8 L Procalcitonin 0.88 H Ur Random Sodium Urine Creatinine Nasal Screen MRSA (PCR) Ketones 05/26/22 05/26/22 05/26/22 17:55 20:00 21:22 WBC RBC Hgb Hct MCV MCH MCHC RDW Plt Count Neut % (Auto) Lymph % (Auto) [place] % (Auto) Eos % (Auto) Baso % (Auto) Neut # (Auto) Lymph # (Auto) [place] # (Auto) Eos # (Auto) Baso # (Auto) APTT ABG pH 7.36 ABG pCO2 47.4 H ABG pO2 63 L ABG HCO3 27 H ABG Total CO2 28 ABG O2 Saturation 90 L ABG Base Excess 1.0 FiO2 40 Sodium Potassium Chloride Carbon Dioxide BUN Creatinine Estimated GFR BUN/Creatinine Ratio Glucose Lactate 1.5 Calcium Magnesium Total Bilirubin Conjugated Bilirubin Unconjugated Bilirubin AST ALT Alkaline Phosphatase Troponin I Total Protein Albumin Globulin Albumin/Globulin Ratio Procalcitonin Ur Random Sodium Urine Creatinine Nasal Screen MRSA (PCR) Ketones 0.03 05/26/22 05/26/22 05/27/22 21:30 22:50 00:20 WBC RBC Hgb Hct MCV MCH MCHC RDW Plt Count Neut % (Auto) Lymph % (Auto) [place] % (Auto) Eos % (Auto) Baso % (Auto) Neut # (Auto) Lymph # (Auto) [place] # (Auto) Eos # (Auto) Baso # (Auto) APTT ABG pH ABG pCO2 ABG pO2 ABG HCO3 ABG Total CO2 ABG O2 Saturation ABG Base Excess FiO2 Sodium Potassium Chloride Carbon Dioxide BUN Creatinine Estimated GFR BUN/Creatinine Ratio Glucose Lactate 1.7 Calcium Magnesium Total Bilirubin Conjugated Bilirubin Unconjugated Bilirubin AST ALT Alkaline Phosphatase Troponin I Total Protein Albumin Globulin Albumin/Globulin Ratio Procalcitonin Ur Random Sodium 84 Urine Creatinine 75.1 Nasal Screen MRSA (PCR) Negative for mrsa Ketones 05/27/22 05/27/22 05/27/22 04:05 04:05 04:05 WBC 17.5 H RBC 3.24 L Hgb 9.1 L Hct 27.9 L MCV 86.0 MCH 28.0 MCHC 32.6 RDW 14.6 Plt Count 561 H Neut % (Auto) 90.6 H Lymph % (Auto) 3.0 L [place] % (Auto) 5.2 Eos % (Auto) 0.3 L Baso % (Auto) 0.9 Neut # (Auto) 01379 H Lymph # (Auto) 500 L [place] # (Auto) 900 Eos # (Auto) 0 Baso # (Auto) 200 H APTT 59 H D ABG pH ABG pCO2 ABG pO2 ABG HCO3 ABG Total CO2 ABG O2 Saturation ABG Base Excess FiO2 Sodium 133 L Potassium 4.1 Chloride 95 L Carbon Dioxide 27 BUN 27 H Creatinine 1.54 H Estimated GFR 35 L BUN/Creatinine Ratio 17.5 Glucose 221 H Lactate Calcium 8.2 L Magnesium Total Bilirubin 1.0 Conjugated Bilirubin Unconjugated Bilirubin AST 49 H ALT 24 Alkaline Phosphatase 318 H Troponin I Total Protein 6.7 Albumin 3.0 L Globulin 3.7 Albumin/Globulin Ratio 0.8 L Procalcitonin Ur Random Sodium Urine Creatinine Nasal Screen MRSA (PCR) Ketones 05/27/22 05/27/22 04:05 05:35 WBC RBC Hgb Hct MCV MCH MCHC RDW Plt Count Neut % (Auto) Lymph % (Auto) [place] % (Auto) Eos % (Auto) Baso % (Auto) Neut # (Auto) Lymph # (Auto) [place] # (Auto) Eos # (Auto) Baso # (Auto) APTT ABG pH 7.36 ABG pCO2 46.2 H ABG pO2 77 L ABG HCO3 26 ABG Total CO2 28 ABG O2 Saturation 95 ABG Base Excess 1.0 FiO2 55 Sodium Potassium Chloride Carbon Dioxide BUN Creatinine Estimated GFR BUN/Creatinine Ratio Glucose Lactate Calcium Magnesium Total Bilirubin Conjugated Bilirubin Unconjugated Bilirubin AST ALT Alkaline Phosphatase Troponin I 0.082 H Total Protein Albumin Globulin Albumin/Globulin Ratio Procalcitonin Ur Random Sodium Urine Creatinine Nasal Screen MRSA (PCR) Ketones Exam Vital Signs (past 8 hours): - The patient is currently intubated and sedated on ventilator support. Review of systems cannot be obtained at this time. Currently awaiting transfer to [facility] for mechanical thrombectomy. The summary of the many medications at this time Include heparin drip Fentanyl Lasix hydrocortisone propofol epinephrine Zosyn vasopressin and Zyvox. I also had multidisciplinary rounds with the bedside nurse and other staff. 9:30 AM via video/ audio communication where i extensively went over the plans for the day. The main plan would be continue mechanical ventilation to support her resp failure and iv heparin to rx the pulm embolism , Possible transfer to [facility] for mechanical thrombectomy as per assistant case manager 05/27/22 00:59 05/27/22 00:15 05/27/22 00:15 Temperature 97.5 F L 101.3 F H Pulse Rate 107 H Respiratory Rate 22 Blood Pressure 98/51 L Pulse Oximetry 92 05/27/22 00:30 05/27/22 00:30 05/27/22 00:45 Temperature 101.1 F H Pulse Rate 105 H Respiratory Rate 22 Blood Pressure 94/55 L 94/55 L Pulse Oximetry 94 05/27/22 00:45 05/27/22 01:00 05/27/22 01:00 Temperature 100.9 F H 100.8 F H Pulse Rate 102 H 101 H Respiratory Rate 22 22 Blood Pressure 114/58 L Pulse Oximetry 94 94 05/27/22 01:15 05/27/22 01:15 05/27/22 01:30 Temperature 100.6 F H Pulse Rate 100 H Respiratory Rate 22 Blood Pressure 116/61 121/63 Pulse Oximetry 94 05/27/22 01:30 05/27/22 01:45 05/27/22 01:45 Temperature 100.4 F H 100.2 F H Pulse Rate 100 H 100 H Respiratory Rate 22 22 Blood Pressure 122/64 Pulse Oximetry 93 92 05/27/22 02:00 05/27/22 02:00 05/27/22 02:15 Temperature 100.2 F H 100.2 F H Pulse Rate 100 H 60 Respiratory Rate 22 22 Blood Pressure 127/67 Pulse Oximetry 92 86 L 05/27/22 02:16 05/27/22 02:16 05/27/22 02:19 Temperature 100.2 F H 100.4 F H Pulse Rate 64 67 Respiratory Rate 22 22 Blood Pressure 224/116 H Pulse Oximetry 85 L 93 05/27/22 02:19 05/27/22 02:22 05/27/22 02:22 Temperature 100.4 F H Pulse Rate 73 Respiratory Rate 22 Blood Pressure 208/91 H 209/97 H Pulse Oximetry 96 05/27/22 02:30 05/27/22 02:30 05/27/22 02:45 Temperature 100.6 F H Pulse Rate 85 Respiratory Rate 22 Blood Pressure 199/79 H 171/79 H Pulse Oximetry 93 05/27/22 02:45 05/27/22 03:00 05/27/22 03:00 Temperature 100.8 F H 100.8 F H Pulse Rate 92 H 95 H Respiratory Rate 22 22 Blood Pressure 148/79 H Pulse Oximetry 93 94 05/27/22 03:15 05/27/22 03:15 05/27/22 03:30 Temperature 100.4 F H Pulse Rate 97 H Respiratory Rate 22 Blood Pressure 139/74 131/71 Pulse Oximetry 95 05/27/22 03:30 05/27/22 03:45 05/27/22 03:45 Temperature 100.0 F H 99.9 F H Pulse Rate 100 H 98 H Respiratory Rate 22 22 Blood Pressure 128/69 Pulse Oximetry 95 95 05/27/22 04:00 05/27/22 04:00 05/27/22 04:15 Temperature 99.7 F H Pulse Rate 96 H Respiratory Rate 22 Blood Pressure 138/74 145/78 H Pulse Oximetry 95 05/27/22 04:15 05/27/22 04:30 05/27/22 04:30 Temperature 99.5 F 99.5 F Pulse Rate 93 H 91 H Respiratory Rate 22 22 Blood Pressure 146/81 H Pulse Oximetry 96 96 05/27/22 04:45 05/27/22 04:45 05/27/22 05:00 Temperature 99.5 F Pulse Rate 91 H Respiratory Rate 22 Blood Pressure 150/83 H 148/85 H Pulse Oximetry 94 05/27/22 05:00 05/27/22 05:15 05/27/22 05:15 Temperature 99.3 F 99.5 F Pulse Rate 90 91 H Respiratory Rate 22 13 Blood Pressure 130/71 Pulse Oximetry 94 97 05/27/22 05:30 05/27/22 05:30 05/27/22 05:45 Temperature 99.5 F Pulse Rate 87 Respiratory Rate 22 Blood Pressure 140/77 143/83 H Pulse Oximetry 95 05/27/22 05:45 05/27/22 06:00 05/27/22 06:00 Temperature 99.3 F 99.3 F Pulse Rate 85 84 Respiratory Rate 22 26 H Blood Pressure 136/74 Pulse Oximetry 96 96 05/27/22 06:15 05/27/22 06:15 05/27/22 06:30 Temperature 99.1 F Pulse Rate 82 Respiratory Rate 22 Blood Pressure 137/75 135/70 Pulse Oximetry 97 05/27/22 06:30 05/27/22 06:45 05/27/22 06:45 Temperature 99.0 F 98.8 F Pulse Rate 81 77 Respiratory Rate 22 22 Blood Pressure 135/71 Pulse Oximetry 97 97 05/27/22 07:00 05/27/22 07:00 05/27/22 07:15 Temperature 98.6 F Pulse Rate 73 Respiratory Rate 22 Blood Pressure 130/69 133/69 Pulse Oximetry 97 05/27/22 07:15 05/27/22 07:30 05/27/22 07:30 Temperature 98.4 F 98.4 F Pulse Rate 69 69 Respiratory Rate 22 22 Blood Pressure 138/67 Pulse Oximetry 97 97 Fraction of Inspired Oxygen 45 Oxygen Delivery Method Mechanical Ventilation Oxygen Flow Rate 50 Const General: comfortable Quality TeleICU VTE Deep Vein Thrombosis/Pulmonary Embolism Present on Admission: Yes Stress Ulcer Stress ulcer prophylaxis: yes Assessment & Plan Assessment and plan (1) Acute hypoxemic respiratory failure: Status: Acute (2) Bilateral pulmonary embolism: Status: Acute (3) Acute CHF: Status: Acute (4) Elevated troponin: Status: Acute Plan The main plan for 05/27/2022 includes as follows 1. Continue IV heparin drip and keep PTT 2-2 and half times control. #2 monitor vitals monitor labs monitor H&H. #3 Will watch for acute infection bleeding cardiac arrhythmias delirium and ileus. #4 we will continue pressors to MAP more than 65 #5 we will continue mechanical ventilator support with sedation. Patient clearly has multiorgan failure with advanced obstructive shock secondary to PE. Overall prognosis is guarded at this time. We will discontinue the vasopressin as tolerated. Decrease FiO2 as tolerated to keep saturation more than 92%. We will start feeding in a.m. We will also discontinue the Lasix and start patient on Ringer lactate 100 cc/h manager leadership development follow-up for transfer to tertiary care center Assessment & Plan narrative: Quality TeleICU VTE Deep Vein Thrombosis/Pulmonary Embolism Present on Admission: Yes Assessment & Plan Assessment & Plan narrative: NEURO: # Acute encephalopathy -- On propofol and fentanyl -- CTH 05/24 negative for acute bleed -- Will continue titrating down fentanyl to maintain RASS goal -1 to 0 -- If unsuccessful then will consider adding precedex gtt -- Daily SBT RESP: # Acute hypoxemia respiratory failure -- Secondary to acute on chronic RV failure due to acute PE and volume overload. Other contributing factor include VAP. -- Shock management as below -- Cont gentle diuresis and monitor creatinine -- Follow up resp cx -- HOB elevation -- Minimize PEEP due to risk of increased RV afterload? -- Aspiration precaution -- Goal SpO2 > 88% # Massive PE -- s/p 100 mg tPA 05/24 -- On heparin gtt clearly needs a thrombectomy tory due to the maassive nature of the shock. Has already received tpa from cardiology recommendation. CVS: # Undifferentiated shock -- Considered multifactorial due to mainly cardiogenic, and obstructive -- On epinephrine gtt, taper and dc pressors as tolerated to keep map above 65 -- Cont diuresis to seek preload reduction -- Trend ScVo2 and lactic acid -- Sepsis workup as below -- Added stress steroids -- Added vasopressin -- MAP goal > 65 : # Ac renal filure with creat of 1.54 mild elevation due to underlying major issues -- Secondary to renal venous congestion, hypotension, and ? contrast induced nephropathy -disCont diuresis to seek preload would avoid excessive diuresis in view of the shock and rt heart strain and card output is dependent on volume , sadi make her hypotensive. -- Avoid nephrotoxin agents -- Monitor UOP -- High lytes goal -- Daily BMP ID: # Septic shock -- Cx negative to date -- on linezolid -- On zosyn -- Follow up cx data will only cont for 5 days unless the sepsis is clearly unresolved and monitor crp. procalcitonin ENDO: # DM -- Recommend ISS -- Goal BS < 180 D/w bedside RN . Pending transfer to OSH for further RV management and potential inhaled flolan for RV afterload. Time Spent With Patient Critical Care time: COVID-19 Result date/Date tested (Pos, Neg/Pending): 05/27/22 Time Spent With Patient Critical Care time: I spent a total of [55 minutes of critical care time on this patient's care today; this time is exclusive of procedural time.
[2022-05-27] MEDS: INSULIN LISPRO 100 UNIT/ML 3ML VIAL SUBCUT ×2 (08:31→12:11)
[2022-05-27] MEDS: FAMOTIDINE 20 MG/2 ML VIAL IV (08:32)
--- NOTE | 2022-05-27 10:00 | DI.RAD.S_ITS ---
PROCEDURE: XR CHEST 1V INDICATIONS: intubated TECHNIQUE: One view of the chest was acquired. COMPARISON: [facility], CR, XR CHEST 1V, 05/27/2022, 0:15. FINDINGS: Surgical changes and devices: The tip of the ETT is roughly 1 cm by of the poncho. Remaining tubes and catheters are in stable in expected positions. Lungs and pleura: No pneumothorax. Small left greater than right pleural effusions. Moderate bibasilar airspace opacity. Moderate diffuse reticulonodular pulmonary opacity. Mediastinum: Mediastinal contours appear normal. Heart size is normal. Bones and chest wall: No suspicious bony lesions. Overlying soft tissues appear unremarkable. IMPRESSION: 1. Low ETT. 2. Bilateral edema versus pneumonia. 3. Left greater than right pleural effusions. Dictated by: Vicky Parmar M.D. on 05/27/2022 at 9:19 Approved by: Vicky Parmar M.D. on 05/27/2022 at 9:20
[2022-05-27] MEDS: LINEZOLID 600 MG/300 ML IV.SOLN IV (10:01)
--- NOTE | 2022-05-27 10:27 | P.PN_ITS ---
Subjective Subjective Interval history: 72-year-old female with diabetes mellitus type 2 and hypertension who was admitted early this morning after prolonged wait for transfer to a higher level of care for acute hypoxic respiratory failure, cardiogenic shock, cor pulmonale, and bilateral PEs. Patient is intubated and sedated. RN note she is been having increased ectopy. She is presently on both vasopressin and epinephrine drips. Exam Vital Signs (past 8 hours): - 05/27/22 02:30 05/27/22 02:30 05/27/22 02:45 Temperature 100.6 F H Pulse Rate 85 Respiratory Rate 22 Blood Pressure 199/79 H 171/79 H Pulse Oximetry 93 05/27/22 02:45 05/27/22 03:00 05/27/22 03:00 Temperature 100.8 F H 100.8 F H Pulse Rate 92 H 95 H Respiratory Rate 22 22 Blood Pressure 148/79 H Pulse Oximetry 93 94 05/27/22 03:15 05/27/22 03:15 05/27/22 03:30 Temperature 100.4 F H Pulse Rate 97 H Respiratory Rate 22 Blood Pressure 139/74 131/71 Pulse Oximetry 95 05/27/22 03:30 05/27/22 03:45 05/27/22 03:45 Temperature 100.0 F H 99.9 F H Pulse Rate 100 H 98 H Respiratory Rate 22 22 Blood Pressure 128/69 Pulse Oximetry 95 95 05/27/22 04:00 05/27/22 04:00 05/27/22 04:15 Temperature 99.7 F H Pulse Rate 96 H Respiratory Rate 22 Blood Pressure 138/74 145/78 H Pulse Oximetry 95 05/27/22 04:15 05/27/22 04:30 05/27/22 04:30 Temperature 99.5 F 99.5 F Pulse Rate 93 H 91 H Respiratory Rate 22 22 Blood Pressure 146/81 H Pulse Oximetry 96 96 05/27/22 04:45 05/27/22 04:45 05/27/22 05:00 Temperature 99.5 F Pulse Rate 91 H Respiratory Rate 22 Blood Pressure 150/83 H 148/85 H Pulse Oximetry 94 05/27/22 05:00 05/27/22 05:15 05/27/22 05:15 Temperature 99.3 F 99.5 F Pulse Rate 90 91 H Respiratory Rate 22 13 Blood Pressure 130/71 Pulse Oximetry 94 97 05/27/22 05:30 05/27/22 05:30 05/27/22 05:45 Temperature 99.5 F Pulse Rate 87 Respiratory Rate 22 Blood Pressure 140/77 143/83 H Pulse Oximetry 95 05/27/22 05:45 05/27/22 06:00 05/27/22 06:00 Temperature 99.3 F 99.3 F Pulse Rate 85 84 Respiratory Rate 22 26 H Blood Pressure 136/74 Pulse Oximetry 96 96 05/27/22 06:15 05/27/22 06:15 05/27/22 06:30 Temperature 99.1 F Pulse Rate 82 Respiratory Rate 22 Blood Pressure 137/75 135/70 Pulse Oximetry 97 05/27/22 06:30 05/27/22 06:45 05/27/22 06:45 Temperature 99.0 F 98.8 F Pulse Rate 81 77 Respiratory Rate 22 22 Blood Pressure 135/71 Pulse Oximetry 97 97 05/27/22 07:00 05/27/22 07:00 05/27/22 07:15 Temperature 98.6 F Pulse Rate 73 Respiratory Rate 22 Blood Pressure 130/69 133/69 Pulse Oximetry 97 05/27/22 07:15 05/27/22 07:30 05/27/22 07:30 Temperature 98.4 F 98.4 F Pulse Rate 69 69 Respiratory Rate 22 22 Blood Pressure 138/67 Pulse Oximetry 97 97 Fraction of Inspired Oxygen 45 Oxygen Delivery Method Mechanical Ventilation Oxygen Flow Rate 50 Narrative Exam Narrative: GEN: Critically ill-appearing middle-aged female, intubated sedated HEENT:NC, Face symmetric CHEST: Respiratory excursions symmetric, CTAB CV: RRR, no M/R/G ABD: Soft, NT/ND, BT present in all 4 quadrants, no organomegaly or masses EXTR: warm, well perfused, no C/C/E SKIN: warm and dry, no rash NEURO: Intubated, sedated Objective Labs Result Diagrams: 05/27/22 04:05 05/27/22 04:05 Labs: Laboratory Results - last 24 hr 05/26/22 05/26/22 05/26/22 17:55 17:55 17:55 WBC 13.4 H RBC 3.04 L Hgb 8.4 L Hct 26.2 L MCV 86.3 MCH 27.5 MCHC 31.9 RDW 14.6 Plt Count 530 H Neut % (Auto) 76.5 H Lymph % (Auto) 12.0 L [place] % (Auto) 8.8 Eos % (Auto) 2.1 Baso % (Auto) 0.6 Neut # (Auto) 56118 H Lymph # (Auto) 1600 [place] # (Auto) 1200 H Eos # (Auto) 300 Baso # (Auto) 100 APTT ABG pH ABG pCO2 ABG pO2 ABG HCO3 ABG Total CO2 ABG O2 Saturation ABG Base Excess FiO2 Sodium 134 L Potassium 3.5 Chloride 96 L Carbon Dioxide 27 BUN 25 H Creatinine 1.42 H Estimated GFR 39 L BUN/Creatinine Ratio 17.6 Glucose 228 H Lactate Calcium 7.9 L Magnesium 1.6 Total Bilirubin 0.6 Conjugated Bilirubin 0.0 Unconjugated Bilirubin 0.2 AST 42 H ALT 20 Alkaline Phosphatase 269 H Troponin I Total Protein 6.3 Albumin 2.7 L Globulin 3.6 Albumin/Globulin Ratio 0.8 L Procalcitonin 0.88 H Ur Random Sodium Urine Creatinine Nasal Screen MRSA (PCR) Ketones 05/26/22 05/26/22 05/26/22 17:55 20:00 21:22 WBC RBC Hgb Hct MCV MCH MCHC RDW Plt Count Neut % (Auto) Lymph % (Auto) [place] % (Auto) Eos % (Auto) Baso % (Auto) Neut # (Auto) Lymph # (Auto) [place] # (Auto) Eos # (Auto) Baso # (Auto) APTT ABG pH 7.36 ABG pCO2 47.4 H ABG pO2 63 L ABG HCO3 27 H ABG Total CO2 28 ABG O2 Saturation 90 L ABG Base Excess 1.0 FiO2 40 Sodium Potassium Chloride Carbon Dioxide BUN Creatinine Estimated GFR BUN/Creatinine Ratio Glucose Lactate 1.5 Calcium Magnesium Total Bilirubin Conjugated Bilirubin Unconjugated Bilirubin AST ALT Alkaline Phosphatase Troponin I Total Protein Albumin Globulin Albumin/Globulin Ratio Procalcitonin Ur Random Sodium Urine Creatinine Nasal Screen MRSA (PCR) Ketones 0.03 05/26/22 05/26/22 05/27/22 21:30 22:50 00:20 WBC RBC Hgb Hct MCV MCH MCHC RDW Plt Count Neut % (Auto) Lymph % (Auto) [place] % (Auto) Eos % (Auto) Baso % (Auto) Neut # (Auto) Lymph # (Auto) [place] # (Auto) Eos # (Auto) Baso # (Auto) APTT ABG pH ABG pCO2 ABG pO2 ABG HCO3 ABG Total CO2 ABG O2 Saturation ABG Base Excess FiO2 Sodium Potassium Chloride Carbon Dioxide BUN Creatinine Estimated GFR BUN/Creatinine Ratio Glucose Lactate 1.7 Calcium Magnesium Total Bilirubin Conjugated Bilirubin Unconjugated Bilirubin AST ALT Alkaline Phosphatase Troponin I Total Protein Albumin Globulin Albumin/Globulin Ratio Procalcitonin Ur Random Sodium 84 Urine Creatinine 75.1 Nasal Screen MRSA (PCR) Negative for mrsa Ketones 05/27/22 05/27/22 05/27/22 04:05 04:05 04:05 WBC 17.5 H RBC 3.24 L Hgb 9.1 L Hct 27.9 L MCV 86.0 MCH 28.0 MCHC 32.6 RDW 14.6 Plt Count 561 H Neut % (Auto) 90.6 H Lymph % (Auto) 3.0 L [place] % (Auto) 5.2 Eos % (Auto) 0.3 L Baso % (Auto) 0.9 Neut # (Auto) 75185 H Lymph # (Auto) 500 L [place] # (Auto) 900 Eos # (Auto) 0 Baso # (Auto) 200 H APTT 59 H D ABG pH ABG pCO2 ABG pO2 ABG HCO3 ABG Total CO2 ABG O2 Saturation ABG Base Excess FiO2 Sodium 133 L Potassium 4.1 Chloride 95 L Carbon Dioxide 27 BUN 27 H Creatinine 1.54 H Estimated GFR 35 L BUN/Creatinine Ratio 17.5 Glucose 221 H Lactate Calcium 8.2 L Magnesium Total Bilirubin 1.0 Conjugated Bilirubin Unconjugated Bilirubin AST 49 H ALT 24 Alkaline Phosphatase 318 H Troponin I Total Protein 6.7 Albumin 3.0 L Globulin 3.7 Albumin/Globulin Ratio 0.8 L Procalcitonin Ur Random Sodium Urine Creatinine Nasal Screen MRSA (PCR) Ketones 05/27/22 05/27/22 04:05 05:35 WBC RBC Hgb Hct MCV MCH MCHC RDW Plt Count Neut % (Auto) Lymph % (Auto) [place] % (Auto) Eos % (Auto) Baso % (Auto) Neut # (Auto) Lymph # (Auto) [place] # (Auto) Eos # (Auto) Baso # (Auto) APTT ABG pH 7.36 ABG pCO2 46.2 H ABG pO2 77 L ABG HCO3 26 ABG Total CO2 28 ABG O2 Saturation 95 ABG Base Excess 1.0 FiO2 55 Sodium Potassium Chloride Carbon Dioxide BUN Creatinine Estimated GFR BUN/Creatinine Ratio Glucose Lactate Calcium Magnesium Total Bilirubin Conjugated Bilirubin Unconjugated Bilirubin AST ALT Alkaline Phosphatase Troponin I 0.082 H Total Protein Albumin Globulin Albumin/Globulin Ratio Procalcitonin Ur Random Sodium Urine Creatinine Nasal Screen MRSA (PCR) Ketones [facility] Social History (System 05/23/22 @ 07:21 by Lady Rebecca Bartlett) household members: family Smoking Status: Unknown if ever smoked Assessment & Plan Assessment & Plan narrative: 1. Acute hypoxic respiratory failure Continue intubation/mechanical ventilation. Appreciate management per tele shoe dresser. Etiology is pulmonary emboli, cor pulmonale. Remains on propofol and fentanyl for sedation. Empirically covered with Zosyn and linezolid. 2. Cardiogenic shock Presumed due to pulmonary emboli and right-sided heart failure. She is status p ost tPA. Plan was to transfer to a higher level care for catheter directed thrombolysis. Continue vasopressor support, heparin infusion for pulmonary emboli. Carbide Operator recommend the addition of IV fluids and albumin as well as discontinuation of furosemide. 3. Bilateral pulmonary emboli status post tPA. Continues heparin infusion. PTTs have been therapeutic. Suspect she may have had larger PEs and were initially seen on her CT pulmonary angiogram as those were reported to be small subsegmental PEs. Likely would benefit from catheter directed thrombolysis. 4. MAXIMO On arrival in the emergency department on May 22, creatinine was 1.53. It peaked at 1.94 and has gradually come down. Presently it is 1.54 (this is up slightly compared to the last 2 days). Will continue to monitor. Urine is clear and not concentrated. IV fluids have been ordered. Hopefully this will stabilize her renal function. 5. Diabetes mellitus type 2 Blood sugars have run in the 200s overall. At baseline it appears she is on metformin. She is on fingersticks and sliding scale. When tube feeds are initiated, would benefit from a diabetic formula. 6. Hypertension She did have hypotension overnight. Outpatient anti hypertensives include telmisartan, metoprolol, hydrochlorothiazide. These have been held 7. Class 3 obesity BMI is 43.3. This does increase her risk for morbidity and mortality. 8. Normocytic anemia Hemoglobin was 9.1 this morning. It was 9.0 on arrival to the ER on May 22. No evidence of active bleeding. 9. Leukocytosis Likely stress related. However, she is empirically covered with antibiotics. 10. Thrombocytosis Platelet count is 561 today. Suspect it is an acute phase reaction 11. Elevated troponin Likely secondary to RV dysfunction from pulmonary emboli/cor pulmonale/cardiogenic shock. Troponins have been stable overall. This morning, troponin was 0.082. Code status Full Prophylaxis Heparin drip Disposition Intensive care unit. Plans in place to potentially transfer to a higher level of care when a bed becomes available. Time Spent With Patient Critical Care time: I spent a total of [] minutes of critical care time on this patient's care today; this time is exclusive of procedural time. Quality VTE Deep Vein Thrombosis/Pulmonary Embolism Present on Admission: Yes
[2022-05-27] MEDS: LACTATED RINGERS 1,000 ML 100 ML IV (11:35)
--- NOTE | 2022-05-27 11:45 | DIET.CONS2 ---
Dietary Inpatient Consultation Note Admission Date: 05/26/2022 22:55 RD checking in on pt regarding initiation of TF. Please see RD note from 05/25/22 on nutrition support plan. Pivot 1.5 formula at goal rate provides 125g CHO appropriate for this critically ill patient with DM. Electronically Signed by: Reena Su 05/27/22 11:45 Clinical Dietitian [address] [address]
[2022-05-27] MEDS: ALBUMIN HUMAN 12.5 GM/50 ML VIAL IV (12:25)
[2022-05-27 13:19] LABS: COVID19 -Nasal RAPID Negative (Negative)
--- NOTE | 2022-05-27 13:27 | CM.DANOTE ---
Addendum entered by CELINA Brooks 05/27/22 14:17: ADD: Per cigar bander and RN, pt accepted at [facility] and pt to transfer in about 10 min likely via [facility]. Family bedside and aware. BF Original Note: Patient is a 72 yo female who was admitted on 05/26/22 for SOB. Pt has [employer] and [employer] for insurance and her PCP is not listed. EMR was reviewed. Per MD, pt SOB and was intubated in the ED for Resp Failure, PEs, Shock, likely cardio collapse. Pt needing hospital transfer for multiple higher level of care needs. Per cigar bander, attempting hospital transfer but bed availability limited at this time as hospitals are full. Per RN, pt remains intubated, limited responsiveness, sedated and spouse and son have been bedside and updated. Pt remains Full Code at this time and very medically complex. Plan: SW to follow closely for attempts at hospital transfer and if pt remains then SW to follow for d/c planning and needs. CELINA Brooks Discharge Planning/Care Management CM Discharge Assessment Start: 05/27/22 13:14 Freq: Status: Active Protocol: Document 05/27/22 13:16 BF (Rec: 05/27/22 13:27 [id number]) Discharge Planning Assessment Assigned Assistant Floor Covering Printer CELINA Rodriguez DPOA/Assigned Designee Name spouse Blas Contact Information [phone] Advance Directives? unknown pt. intubated and sedated History Provided By Family Member,Medical Record Has Patient been admitted in last 30 No days? Prior Living Arrangements House Household Members family Type of transporation used prior to Relies on Others admit Is patient alert and oriented? Yes Comment Hospital transfer needed, awaiting bed availability Barriers to Discharge Yes Comment too high level of medical care needs, needs tertiary transfer Discharge Plan Transfer to Higher Level of Care Transportation Arrangement ALS transport will be needed for transfer Referrals Initiated Other Additional Comment Awaiting accepting bed and facility for hospital transfer Review Status In Process Please Provide Date Initial DC 05/27/22 Assessment Was Performed Next Review Type Continued Stay Review
--- NOTE | 2022-05-27 13:43 | P.DS_ITS ---
History of Present Illness History of Present Illness Chief complaint: difficulty breathing Narrative: 72-year-old female with underlying hypertension and diabetes who initially presented to the emergency department on May 22, 2022 complaining of shortness of breath and lower extremity edema. She evidently had been having symptoms for approximately 7 days prior to admission. She was complaining of shortness of breath with minimal exertion and was noting orthopnea. CT pulmonary angiogram was performed which revealed evidence of small subsegmental bilateral pulmonary emboli, with some evidence of right heart strain. An echocardiogram was performed which revealed normal LV systolic function. Flatte madhavi interventricular septum consistent with right ventricular pressure/volume condition. Right ventricle was moderately dilated, RV systolic function was felt to be at the lower limits of normal. RV systolic pressure was estimated to be 59 mmHg. She was initiated on a heparin drip. The emergency department contacted [facility] who recommended consideration for mechanical thrombectomy. Heparin infusion was initiated as well. Transfer was requested, but no beds were available. Remained in the emergency department. On May 24, patient has sustained worsening respiratory status with severe respiratory distress and she ultimately was emergently intubated and sedated with propofol. [facility] recommended 100 mg of tPA which was given. Post intubation, patient sustained hypotension and was initiated on Levophed and later epinephrine. Head CT revealed no evidence of bleeding. Tele cotton ginner helper was consulted and began management of the critical illness for this patient. Hospitalist were also consulted on the evening of May 24 and began provid ing consultative care as well. Follow-up echocardiogram was obtained on May 25 which again revealed a normal EF of 65-70%, moderate dilation of the right ventricle, RV systolic pressure 47 mmHg. Right ventricular systolic function was reported to be normal. There is a large left pleural effusion noted. On May 25, Levophed was weaned off. Epinephrine was decreased, but unfortunately patient developed significant hypotension and the dose was increased again. Diuresis was initiated as well with patient having brisk diuresis. Last evening, tele cotton ginner helper recommended ongoing efforts a gentle diuresis, as he felt diuresis would help reduce her RV overload. Early this morning, hospitalist ultimately were asked to admit the patient secondary to inability to get her placed in a higher level of care. This morning, new tele cotton ginner helper came on service and recommended discontinuation of furosemide, adding IV fluids, and initiating IV albumin. He felt very strongly that diur esis would result in further cardiovascular collapse as well as worsening renal dysfunction. Additionally he recommended ongoing efforts to transfer the patient for consideration of catheter directed thrombolysis. Patient has had a mildly elevated troponin at 0.082, felt likely to be secondary to RV dysfunction from PE/cor pulmonale/cardiogenic shock. Patient is now being accepted for transfer to [facility] for higher level of care and further critical treatment of her cardiogenic shock/PEs. She will be transferred via air lift ambulance. Discharge Providers Provider Date of admission: 05/26/22 22:55 Discharge Date: 05/27/22 Primary care physician: Doctor Sage MD Consults: 05/25/22 00:43 Consult to Dietitian, Adult Urgent Comment: patient volume overloaded, limit fluid if possible Reason For Exam: intubated, OG tube feeding 05/26/22 23:24 Consult to Tele-cotton ginner helper Routine Comment: Consulting Provider: Annie Tele[employer]intensivists Reason for consultation: Rn First Assistant services Has provider been notified: Yes Discharge provider: Katie Almazan MD Summary Hospital Course Discharge Diagnosis: Acute hypoxic respiratory failure Cardiogenic shock Bilateral pulmonary emboli MAXIMO Type 2 diabetes Hypertension Class 3 obesity Normocytic anemia Leukocytosis Thrombocytosis Elevated troponin Time Spent with Patient Time spent: Greater than 30 minutes (45 minutes spent coordinating discharge/transfer) Exam Vital Signs (past 8 hours): - 05/27/22 05:45 05/27/22 05:45 05/27/22 06:00 Temperature 99.3 F Pulse Rate 85 Respiratory Rate 22 Blood Pressure 143/83 H 136/74 Pulse Oximetry 96 Oxygen Delivery Method 05/27/22 06:00 05/27/22 06:15 05/27/22 06:15 Temperature 99.3 F 99.1 F Pulse Rate 84 82 Respiratory Rate 26 H 22 Blood Pressure 137/75 Pulse Oximetry 96 97 Oxygen Delivery Method 05/27/22 06:30 05/27/22 06:30 05/27/22 06:45 Temperature 99.0 F Pulse Rate 81 Respiratory Rate 22 Blood Pressure 135/70 135/71 Pulse Oximetry 97 Oxygen Delivery Method 05/27/22 06:45 05/27/22 07:00 05/27/22 07:00 Temperature 98.8 F 98.6 F Pulse Rate 77 73 Respiratory Rate 22 22 Blood Pressure 130/69 Pulse Oximetry 97 97 Oxygen Delivery Method 05/27/22 07:15 05/27/22 07:15 05/27/22 07:30 Temperature 98.4 F Pulse Rate 69 Respiratory Rate 22 Blood Pressure 133/69 138/67 Pulse Oximetry 97 Oxygen Delivery Method 05/27/22 07:30 05/27/22 07:00 05/27/22 07:45 Temperature 98.4 F Pulse Rate 69 Respiratory Rate 22 Blood Pressure 133/69 Pulse Oximetry 97 Oxygen Delivery Method Mechanical Ventilation 05/27/22 07:45 05/27/22 08:00 05/27/22 08:00 Temperature 98.2 F 98.2 F Pulse Rate 79 82 Respiratory Rate 22 21 Blood Pressure 140/91 H Pulse Oximetry 97 96 Oxygen Delivery Method 05/27/22 08:15 05/27/22 08:15 05/27/22 08:30 Temperature 98.1 F Pulse Rate 80 Respiratory Rate 21 Blood Pressure 164/76 H 152/72 H Pulse Oximetry Oxygen Delivery Method 05/27/22 08:30 05/27/22 08:45 05/27/22 08:45 Temperature 98.2 F 98.2 F Pulse Rate 75 72 Respiratory Rate 22 22 Blood Pressure 152/74 H Pulse Oximetry 98 98 Oxygen Delivery Method 05/27/22 09:00 05/27/22 09:00 05/27/22 09:15 Temperature 98.1 F Pulse Rate 76 Respiratory Rate 22 Blood Pressure 139/74 133/73 Pulse Oximetry 99 Oxygen Delivery Method 05/27/22 09:15 05/27/22 09:30 05/27/22 09:30 Temperature 98.1 F 97.9 F Pulse Rate 72 74 Respiratory Rate 22 22 Blood Pressure 126/70 Pulse Oximetry 99 99 Oxygen Delivery Method 05/27/22 09:45 05/27/22 09:45 05/27/22 10:00 Temperature 97.9 F Pulse Rate 74 Respiratory Rate 22 Blood Pressure 134/78 139/81 Pulse Oximetry 99 Oxygen Delivery Method 05/27/22 10:00 05/27/22 10:15 05/27/22 10:15 Temperature 97.7 F 97.7 F Pulse Rate 70 72 Respiratory Rate 22 22 Blood Pressure 140/79 Pulse Oximetry 99 99 Oxygen Delivery Method 05/27/22 10:30 05/27/22 10:30 05/27/22 10:45 Temperature 97.7 F Pulse Rate 68 Respiratory Rate 22 Blood Pressure 133/76 133/74 Pulse Oximetry 99 Oxygen Delivery Method 05/27/22 10:45 05/27/22 11:00 05/27/22 11:00 Temperature 97.7 F 97.5 F L Pulse Rate 72 74 Respiratory Rate 20 20 Blood Pressure 132/72 Pulse Oximetry 99 99 Oxygen Delivery Method 05/27/22 11:17 05/27/22 11:15 05/27/22 11:15 Temperature 96.3 F L 97.5 F L Pulse Rate 74 Respiratory Rate 20 Blood Pressure 139/70 Pulse Oximetry 99 Oxygen Delivery Method 05/27/22 11:30 05/27/22 11:30 05/27/22 11:45 Temperature 97.5 F L Pulse Rate 76 Respiratory Rate 20 Blood Pressure 124/66 124/68 Pulse Oximetry 99 Oxygen Delivery Method 05/27/22 11:45 05/27/22 12:00 05/27/22 12:00 Temperature 97.5 F L 97.5 F L Pulse Rate 74 72 Respiratory Rate 20 20 Blood Pressure 123/69 Pulse Oximetry 99 99 Oxygen Delivery Method 05/27/22 12:15 05/27/22 12:15 05/27/22 12:30 Temperature 97.3 F L Pulse Rate 71 Respiratory Rate 20 Blood Pressure 121/69 121/70 Pulse Oximetry 99 Oxygen Delivery Method 05/27/22 12:30 05/27/22 12:45 05/27/22 12:45 Temperature 97.3 F L 97.3 F L Pulse Rate 72 72 Respiratory Rate 20 20 Blood Pressure 125/75 Pulse Oximetry 99 99 Oxygen Delivery Method Fraction of Inspired Oxygen 45 Oxygen Delivery Method Mechanical Ventilation Oxygen Flow Rate 50 Objective Labs Result Diagrams: 05/27/22 04:05 05/27/22 04:05 Labs: Laboratory Results - last 24 hr 05/26/22 05/26/22 05/26/22 17:55 17:55 17:55 WBC 13.4 H RBC 3.04 L Hgb 8.4 L Hct 26.2 L MCV 86.3 MCH 27.5 MCHC 31.9 RDW 14.6 Plt Count 530 H Neut % (Auto) 76.5 H Lymph % (Auto) 12.0 L [place] % (Auto) 8.8 Eos % (Auto) 2.1 Baso % (Auto) 0.6 Neut # (Auto) 12000 H Lymph # (Auto) 1600 [place] # (Auto) 1200 H Eos # (Auto) 300 Baso # (Auto) 100 APTT ABG pH ABG pCO2 ABG pO2 ABG HCO3 ABG Total CO2 ABG O2 Saturation ABG Base Excess FiO2 Sodium 134 L Potassium 3.5 Chloride 96 L Carbon Dioxide 27 BUN 25 H Creatinine 1.42 H Estimated GFR 39 L BUN/Creatinine Ratio 17.6 Glucose 228 H Lactate Calcium 7.9 L Magnesium 1.6 Total Bilirubin 0.6 Conjugated Bilirubin 0.0 Unconjugated Bilirubin 0.2 AST 42 H ALT 20 Alkaline Phosphatase 269 H Troponin I Total Protein 6.3 Albumin 2.7 L Globulin 3.6 Albumin/Globulin Ratio 0.8 L Procalcitonin 0.88 H Ur Random Sodium Urine Creatinine Nasal Screen MRSA (PCR) Ketones SARS-CoV-2 (PCR) 05/26/22 05/26/22 05/26/22 17:55 20:00 21:22 WBC RBC Hgb Hct MCV MCH MCHC RDW Plt Count Neut % (Auto) Lymph % (Auto) [place] % (Auto) Eos % (Auto) Baso % (Auto) Neut # (Auto) Lymph # (Auto) [place] # (Auto) Eos # (Auto) Baso # (Auto) APTT ABG pH 7.36 ABG pCO2 47.4 H ABG pO2 63 L ABG HCO3 27 H ABG Total CO2 28 ABG O2 Saturation 90 L ABG Base Excess 1.0 FiO2 40 Sodium Potassium Chloride Carbon Dioxide BUN Creatinine Estimated GFR BUN/Creatinine Ratio Glucose Lactate 1.5 Calcium Magnesium Total Bilirubin Conjugated Bilirubin Unconjugated Bilirubin AST ALT Alkaline Phosphatase Troponin I Total Protein Albumin Globulin Albumin/Globulin Ratio Procalcitonin Ur Random Sodium Urine Creatinine Nasal Screen MRSA (PCR) Ketones 0.03 SARS-CoV-2 (PCR) 05/26/22 05/26/22 05/27/22 21:30 22:50 00:20 WBC RBC Hgb Hct MCV MCH MCHC RDW Plt Count Neut % (Auto) Lymph % (Auto) [place] % (Auto) Eos % (Auto) Baso % (Auto) Neut # (Auto) Lymph # (Auto) [place] # (Auto) Eos # (Auto) Baso # (Auto) APTT ABG pH ABG pCO2 ABG pO2 ABG HCO3 ABG Total CO2 ABG O2 Saturation ABG Base Excess FiO2 Sodium Potassium Chloride Carbon Dioxide BUN Creatinine Estimated GFR BUN/Creatinine Ratio Glucose Lactate 1.7 Calcium Magnesium Total Bilirubin Conjugated Bilirubin Unconjugated Bilirubin AST ALT Alkaline Phosphatase Troponin I Total Protein Albumin Globulin Albumin/Globulin Ratio Procalcitonin Ur Random Sodium 84 Urine Creatinine 75.1 Nasal Screen MRSA (PCR) Negative for mrsa Ketones SARS-CoV-2 (PCR) 05/27/22 05/27/22 05/27/22 04:05 04:05 04:05 WBC 17.5 H RBC 3.24 L Hgb 9.1 L Hct 27.9 L MCV 86.0 MCH 28.0 MCHC 32.6 RDW 14.6 Plt Count 561 H Neut % (Auto) 90.6 H Lymph % (Auto) 3.0 L [place] % (Auto) 5.2 Eos % (Auto) 0.3 L Baso % (Auto) 0.9 Neut # (Auto) 19150 H Lymph # (Auto) 500 L [place] # (Auto) 900 Eos # (Auto) 0 Baso # (Auto) 200 H APTT 59 H D ABG pH ABG pCO2 ABG pO2 ABG HCO3 ABG Total CO2 ABG O2 Saturation ABG Base Excess FiO2 Sodium 133 L Potassium 4.1 Chloride 95 L Carbon Dioxide 27 BUN 27 H Creatinine 1.54 H Estimated GFR 35 L BUN/Creatinine Ratio 17.5 Glucose 221 H Lactate Calcium 8.2 L Magnesium Total Bilirubin 1.0 Conjugated Bilirubin Unconjugated Bilirubin AST 49 H ALT 24 Alkaline Phosphatase 318 H Troponin I Total Protein 6.7 Albumin 3.0 L Globulin 3.7 Albumin/Globulin Ratio 0.8 L Procalcitonin Ur Random Sodium Urine Creatinine Nasal Screen MRSA (PCR) Ketones SARS-CoV-2 (PCR) 05/27/22 05/27/22 05/27/22 04:05 05:35 12:49 WBC RBC Hgb Hct MCV MCH MCHC RDW Plt Count Neut % (Auto) Lymph % (Auto) [place] % (Auto) Eos % (Auto) Baso % (Auto) Neut # (Auto) Lymph # (Auto) [place] # (Auto) Eos # (Auto) Baso # (Auto) APTT ABG pH 7.36 ABG pCO2 46.2 H ABG pO2 77 L ABG HCO3 26 ABG Total CO2 28 ABG O2 Saturation 95 ABG Base Excess 1.0 FiO2 55 Sodium Potassium Chloride Carbon Dioxide BUN Creatinine Estimated GFR BUN/Creatinine Ratio Glucose Lactate Calcium Magnesium Total Bilirubin Conjugated Bilirubin Unconjugated Bilirubin AST ALT Alkaline Phosphatase Troponin I 0.082 H Total Protein Albumin Globulin Albumin/Globulin Ratio Procalcitonin Ur Random Sodium Urine Creatinine Nasal Screen MRSA (PCR) Ketones SARS-CoV-2 (PCR) Negative [facility] Social History (System 05/23/22 @ 07:21 by Lady Rebecca Bartlett) household members: family Smoking Status: Unknown if ever smoked Discharge Plan Discharge Plan Disposition: Xfer [facility] Hospital Discharge Data Primary Care Provider: Miscellaneous,Doctor Quality VTE Deep Vein Thrombosis/Pulmonary Embolism Present on Admission: Yes
--- NOTE | 2022-05-27 16:45 | PC.NURSE ---
Dayshift note: Patient vented vent settings FiO2 50% TV 300 RR 22 PEEP 5, 7.5 ETT 24 @teeth, minimally responsive RASS of -2, Patient opens eyes to noxious stimuli, has gag reflex, wiggles toes, but no hand squeeze. Propofol, fentanyl, epipherine, vasopressin, heparin drips infusing as ordered into RIJ triple lumen and RAC PIV. Restraints in place and documented. Temp sensing Nuno patent and draining clear,yellow output, EKG/Telemetry shows SR/SA. [id number] Pt transferring to [facility] room 239, report called to RN, pt Airlift with restraints in place, family at bedside, no further pt contact at this time.
[2022-05-28 10:30] LABS: Ionized Calcium 5.1 mg/dL (4.5-5.6)
[2022-06-06 16:36] LABS: HCO3 VBG 25 mmol/L (23-28); PCO2 VBG 72.1 mmHg (45-50); PO2 VBG 55 mmHg (35-45); Total CO2 VBG 27 mmol/L (24-29)
[2022-06-06 16:38] LABS: Oxygen Saturation VBG 76 % (70-75)
[2022-06-06 16:40] LABS: pH VBG 7.15 (7.33-7.43)
== END 2022-05-27 15:51 | disposition short-term general hospital (02) | DRG 208 ==
LOC: ED 05-26 18:03 → AC 05-26 22:57 → ICU 05-26 23:16
PROVIDERS: Emergency Medicine; Family Medicine; Internal Medicine Critical Care Medicine; Student in an Organized Health Care Education/Training Program; Admitting Provider Internal Medicine; Emergency Provider Emergency Medicine; Referring Provider Emergency Medicine; Visit Provider Internal Medicine
DX: I26.09 Other pulmonary embolism with acute cor pulmonale (principal); J96.01 Acute respiratory failure with hypoxia; R57.8 Other shock; J81.1 Chronic pulmonary edema; N17.9 Acute kidney failure, unspecified; Z68.41 Body mass index [BMI] 40.0-44.9, adult; E11.9 Type 2 diabetes mellitus without complications; I50.9 Heart failure, unspecified; I11.0 Hypertensive heart disease with heart failure; E66.01 Morbid (severe) obesity due to excess calories; Z79.84 Long term (current) use of oral hypoglycemic drugs; Z20.822 Contact with and (suspected) exposure to COVID-19
CPT/HCPCS: 0241U; 36415; 36592; 36600; 70450; 71045; 71250; 71275; 74018; 74176; 80048; 80053; 80076; 81001; 82009; 82330; 82550; 82570; 82805; 82962; 83605; 83690; 83735; 83880; 84100; 84145; 84300; 84484; 85025; 85027; 85379; 85610; 85730; 87040; 87070; 87086; 87205; 87635; 87797; 93005; 93010; 93306; 93307; 94002; 94003; 94799; 96365; 96366; 96367; 96368; 96375; 96376; 99285; 99291; 99292; C9803; J0171; J0330; J0610; J1200; J1644; J1720; J1815; J1940; J2020; J2270; J2543; J2704; J2997; J3010; J3475; P9041; Q9967